=== PATIENT | male | born 1985 | race Caucasian/White ===

== ENCOUNTER 2017-01-20 05:50 | Emergency (ER) | payer MEDICARE, MEDICAID ==
[~2017-01-20 05:50] MED LIST: DEPA500T2 OR; IBUP600T OR; IMIT50TA OR; PROP40TA OR
[2017-01-20 07:07] LABS: BASO # 0.1 K/mm3 (0.0-0.2); BASO % 1.1 % (0.0-1.0); EOS # 0.6 K/mm3 (0.0-0.50); EOS % 5.5 % (0.0-3.0); LARGE UNSTAINED CELL # 0.1 K/mm3 (0.0-0.4); LYMPH # 1.1 K/mm3 (1.5-4.5); LYMPH % 9.2 % (24.0-44.0); MEAN CORPUSCULAR HEMOGLOBIN 33.2 pg (27.0-33.0); MEAN CORPUSCULAR HGB CONC 34.3 g/dl (32.0-36.5); MEAN CORPUSCULAR VOLUME 96.8 fl (80.0-96.0); MONO # 0.9 K/mm3 (0.0-0.8); MONO % 8.2 % (0.0-5.0); NEUTROPHILS # 8.3 K/mm3 (1.8-7.7); NEUTROPHILS % 74.9 % (36.0-66.0); PLATELET COUNT, AUTOMATED 212 k/mm3 (150-450); RED CELL DISTRIBUTION WIDTH 11.6 % (11.5-14.5)
[2017-01-20] MEDS ORDERED: levETIRAcetam 500 MG/5 ML VIAL (KEPPRA IV)(J1953) As Ordered ONE (07:13)
[2017-01-20 07:33] LABS: ANION GAP 8 MEQ/L (8-16); BLOOD UREA NITROGEN 11 MG/DL (7-18); CALCIUM LEVEL 9.1 MG/DL (8.5-10.1); CARBON DIOXIDE LEVEL 27 MEQ/L (21-32); CHLORIDE LEVEL 104 MEQ/L (98-107); CREATININE FOR GFR 0.87 MG/DL (0.70-1.30); GLOMERULAR FILTRATION RATE > 60.0 (>60); GLUCOSE, FASTING 88 MG/DL (70-105); POTASSIUM SERUM 4.1 MEQ/L (3.5-5.1); SODIUM LEVEL 139 MEQ/L (136-145)
--- NOTE | 2017-01-20 08:06 | EDDOCDS ---
Physician Documentation [facility] Name: Poncho Badillo Age: 31 yrs Sex: Male : 1985 Arrival Date: 01/20/2017 Time: 05:50 Bed 3 Private MD: Augie Rodríguez Disposition: 01/20/17 07:51 Discharged to Home/Self Care. Impression: Epilepsy and recurrent seizures. - Condition is Stable. - Discharge Instructions: Seizure, Adult, [id number]. - Medication Reconciliation, Local Pharmacy Hours form. - Follow up: Augie Rodríguez; When: 2 - 3 days. - Problem is an acute exacerbation. - Symptoms are resolved. Historical: - Allergies: no known allergies; - Home Meds: 1. Keppra 750 mg Oral tab 1 tab 2 times per day (Last dose: 01/20/2017 04:00) 2. sumatriptan succinate 6 mg/0.5 mL Sub-Q crtg as needed 3. verapamil 240 mg Oral tr24 2 tab daily (Last dose: 01/20/2017 04:00) - PMHx: Seizure Disorder; Cluster Headaches; - PSHx: none; - Social history: Smoking status: Patient states was never smoker of tobacco. No barriers to communication noted, The patient speaks fluent Icelandic. - Family history: Not pertinent. - : The pt / caregiver states he / she is not on anticoagulants. Home medication list is obtained from the patient. - Exposure Risk Screening:: None identified. Vital Signs: 01/20 05:56 BP 132 / 79 (auto/); kas2 05:56 Pulse Ox 97% ; kas2 05:58 BP 132 / 79; Pulse 73; Resp 18; Temp 96.8(O); Pulse Ox 96% on R/A; Weight 72.57 kg / rn1 159.99 lbs; Height 5 ft. 3 in. (160.02 cm); Pain 0/10; 06:00 BP 126 / 76 (auto/); kas2 06:00 Pulse 72 MON; Pulse Ox 96% ; kas2 06:15 BP 129 / 76 (auto/); kas2 06:15 Pulse 71 MON; Pulse Ox 92% ; kas2 08:04 BP 136 / 74; Pulse 76; Resp 18; Temp 97.8; Pulse Ox 95% ; Pain 0/10; hs1 05:58 Body Mass Index 28.34 (72.57 kg, 160.02 cm) rn1 MDM: 06:08 IV Saline Lock ordered. br1 06:08 Seizure Precautions ordered. br1 06:08 NS 0.9% 1000 ml IV at 150 mL/hr continuous ordered. br1 06:08 Poultry Farmer Egg/Pulse Ox/q 30 min VS ordered. br1 06:09 CBC with Diff Ordered. EDMS 06:09 BMP Ordered. EDMS 06:09 Keppra (short red top tube) Ordered. EDMS 06:10 ECG WITH READING ER PHYS+CARDIAG ordered. EDMS 07:06 levETIRAcetam (20mg/kg) 20 mg/kg IVPB at 400 mL/hr once over 15 mins; dilute in 100mL sd1 NS or D5W; 750mg ordered. 07:41 Financial registration complete. lg 07:54 CBC with Diff Reviewed. sd1 07:54 BMP Reviewed. sd1 Point of Care Testing: Blood Glucose: 05:59 Blood Glucose: 90 mg/dL; kas2 Ranges: Administered Medications: 06:30 Drug: NS 0.9% 1000 ml [sodium chloride 0.9 % intravenous solution] Route: IV; Rate: 150 kas2 mL/hr; Site: left forearm; 08:06 Follow up: IV Status: Infusion discontinued; IV Intake: 250ml hs1 07:18 Drug: levETIRAcetam (20mg/kg) 1451.4 mg [levetiracetam 500 mg/5 mL intravenous hs1 solution] Route: IVPB; Rate: 400 mL/hr; Infused Over: 15 mins; Site: left antecubital; Signatures: Dispatcher [employer] Neema Christianson MD MD sd1 Elia Toure Reg Reg lg Roggie, Brian, MD MD br1 Concha Perrin RN RN hs1 Marychuy Bourgeois RN RN kas2 MTDD
--- NOTE | 2017-01-20 08:06 | EDDOCDS ---
Nurse's Notes [facility] Name: Poncho Badillo Age: 31 yrs Sex: Male : 1985 Arrival Date: 01/20/2017 Time: 05:50 Bed 3 Private MD: Augie Rodríguez Diagnosis: Epilepsy and recurrent seizures Presentation: 01/20 05:53 Presenting complaint: EMS states: Patient has a history of seizures. Father witnessed kas2 one at approximately 0400. No seizure like activity for EMS. FSBS 90 mg/dL. Adult Sepsis Screening: The patient does not have new or worsening altered mentation. Patient's respiratory rate is less than 22. Systolic blood pressure is greater than 100. Patient has a qSOFA score of 0- Negative Sepsis Screen. Suicide/Homicide risk assessment- the patient denies having any suicidal and/or homicidal ideations and does not present with any other emotional, behavioral or mental health complaints. Status: Patient is not a room service bellhop or dependent. Transition of care: patient was not received from another setting of care. 05:53 Acuity: SUZANNA Level 3 [facility] 05:53 Method Of Arrival: Ambulance [facility] Triage Assessment: 05:57 General: Appears in no apparent distress, comfortable, well nourished, well groomed, kas2 Behavior is appropriate for age, cooperative. Pain: Denies pain. Pt Declines HIV testing. Neurological: Level of Consciousness is awake, alert, Oriented to person, place, time. Cardiovascular: Capillary refill < 3 seconds Heart tones S1 S2 present Rhythm is sinus rhythm No ectopy. Respiratory: Airway is patent Respiratory effort is even, unlabored, Respiratory pattern is regular, symmetrical, Breath sounds are clear bilaterally. Derm: Skin is intact, Skin is dry, Skin is pink, warm & dry. Skin temperature is warm. Historical: - Allergies: no known allergies; - Home Meds: 1. Keppra 750 mg Oral tab 1 tab 2 times per day (Last dose: 01/20/2017 04:00) 2. sumatriptan succinate 6 mg/0.5 mL Sub-Q crtg as needed 3. verapamil 240 mg Oral tr24 2 tab daily (Last dose: 01/20/2017 04:00) - PMHx: Seizure Disorder; Cluster Headaches; - PSHx: none; - Social history: Smoking status: Patient states was never smoker of tobacco. No barriers to communication noted, The patient speaks fluent Indonesian. - Family history: Not pertinent. - : The pt / caregiver states he / she is not on anticoagulants. Home medication list is obtained from the patient. - Exposure Risk Screening:: None identified. Screenin:00 Screening information is obtained from the patient. Fall risk: No risks identified. kas2 Assistance ADL's: requires no assistance with activities of daily living. Abuse/DV Screen: The patient / caregiver reports he/she is: not in a situation that causes fear, pain or injury. Nutritional screening: No deficits noted. Advance Directives: Currently, there is no health care proxy. There is no active DNR order. There is no living will. There is no Power of Child Nutrition Assistant. home support is adequate. Assessment: 05:59 General: See triage note.. kas2 06:31 General: Appears in no apparent distress, comfortable, well nourished, well groomed, kas2 Behavior is appropriate for age, cooperative, Smells of. Pain: Denies pain. Neurological: Level of Consciousness is awake, alert, Oriented to person, place, time. Cardiovascular: Rhythm is sinus rhythm No ectopy. Respiratory: Airway is patent Respiratory effort is even, unlabored, Respiratory pattern is regular, symmetrical. Derm: Skin is intact, Skin is dry, Skin is pink, warm & dry. Skin temperature is warm. 07:36 General: Appears in no apparent distress, Behavior is cooperative, restless, Patient hs1 wants to go home. Leads removed and disconnected self from monitor. . Respiratory: Airway is patent Respiratory effort is even, unlabored, Respiratory pattern is regular, symmetrical. 08:03 General: Appears in no apparent distress, comfortable, Behavior is appropriate for age, hs1 cooperative. Pain: Denies pain. Respiratory: Airway is patent Respiratory effort is even, unlabored, Respiratory pattern is regular, symmetrical. Vital Signs: 05:56 BP 132 / 79 (auto/); kas2 05:56 Pulse Ox 97% ; kas2 05:58 BP 132 / 79; Pulse 73; Resp 18; Temp 96.8(O); Pulse Ox 96% on R/A; Weight 72.57 kg; rn1 Height 5 ft. 3 in. (160.02 cm); Pain 0/10; 06:00 BP 126 / 76 (auto/); kas2 06:00 Pulse 72 MON; Pulse Ox 96% ; kas2 06:15 BP 129 / 76 (auto/); kas2 06:15 Pulse 71 MON; Pulse Ox 92% ; kas2 08:04 BP 136 / 74; Pulse 76; Resp 18; Temp 97.8; Pulse Ox 95% ; Pain 0/10; hs1 05:58 Body Mass Index 28.34 (72.57 kg, 160.02 cm) rn1 Vitals: 05:57 Log In Time N/A - ambulance arrival. kas2 ED Course: 05:51 Patient visited by Sebastian Valderrama PCA. kb5 05:51 Patient moved to Waiting kb5 05:52 Augie Rodríguez PA-C is Private Physician. kb5 05:52 Marychuy Bourgeois RN is Primary Nurse. kb5 05:52 Patient moved to 3 kb5 05:55 Triage Initiated kas2 05:59 Maintain field IV. Dressing intact. Site clean & dry. Gauge & site: 18G left forearm. kas2 No procedures done that require assistance. 06:00 Patient visited by Marychuy Bourgeois RN. kas2 06:32 Patient visited by Marychuy Bourgeois RN. kas2 06:38 EKG done. (by ED staff). Reviewed by Dov Kendall MD. rn1 06:41 Patient visited by Marychuy Bourgeois RN. kas2 06:54 Keppra (short red top tube) Sent. kas2 06:54 BMP Sent. kas2 06:54 CBC with Diff Sent. kas2 07:03 Neema Ramirez MD is Attending Physician. sd1 07:03 Patient visited by Neema Ramirez MD. sd1 07:47 Patient visited by Concha Perrin RN. hs1 07:51 Augie Rodríguez PA-C is Referral Physician. sd1 08:04 Discontinued IV lock intact, bleeding controlled, pressure dressing applied, No hs1 redness/swelling at site. 08:05 Primary Nurse role handed off by Marychuy Bourgeois RN mlb1 08:05 The patient / caregiver is instructed regarding the plan of care and ED course. hs1 08:05 Patient has correct armband on for positive identification. Bed in low position. Side hs1 rails up X2. Seizure precautions initiated. Administered Medications: 06:30 Drug: NS 0.9% 1000 ml [sodium chloride 0.9 % intravenous solution] Route: IV; Rate: 150 kas2 mL/hr; Site: left forearm; 08:06 Follow up: IV Status: Infusion discontinued; IV Intake: 250ml hs1 07:18 Drug: levETIRAcetam (20mg/kg) 1451.4 mg [levetiracetam 500 mg/5 mL intravenous hs1 solution] Route: IVPB; Rate: 400 mL/hr; Infused Over: 15 mins; Site: left antecubital; Point of Care Testing: Blood Glucose: 05:59 Blood Glucose: 90 mg/dL; kas2 Ranges: Intake: 08:06 IV: 250.00ml; Total: 250.00ml. hs1 Order Results: Lab Order: CBC with Diff; SPEC'M 01/20/17 06:53 Test: WHITE BLOOD COUNT; Value: 11.0; Range: 4.0-10.0; Abnormal: Above high normal; Units: K/mm3; Status: F Test: RED BLOOD COUNT; Value: 4.60; Range: 4.30-6.10; Units: M/mm3; Status: F Test: HEMOGLOBIN; Value: 15.3; Range: 14.0-18.0; Units: g/dl; Status: F Test: HEMATOCRIT; Value: 44.5; Range: 42.0-52.0; Units: %; Status: F Test: MEAN CORPUSCULAR VOLUME; Value: 96.8; Range: 80.0-96.0; Abnormal: Above high normal; Units: fl; Status: F Test: MEAN CORPUSCULAR HEMOGLOBIN; Value: 33.2; Range: 27.0-33.0; Abnormal: Above high normal; Units: pg; Status: F Test: MEAN CORPUSCULAR HGB CONC; Value: 34.3; Range: 32.0-36.5; Units: g/dl; Status: F Test: RED CELL DISTRIBUTION WIDTH; Value: 11.6; Range: 11.5-14.5; Units: %; Status: F Test: PLATELET COUNT, AUTOMATED; Value: 212; Range: 150-450; Units: k/mm3; Status: F Test: NEUTROPHILS %; Value: 74.9; Range: 36.0-66.0; Abnormal: Above high normal; Units: %; Status: F Test: LYMPH %; Value: 9.2; Range: 24.0-44.0; Abnormal: Below low normal; Units: %; Status: F Test: MONO %; Value: 8.2; Range: 0.0-5.0; Abnormal: Above high normal; Units: %; Status: F Test: EOS %; Value: 5.5; Range: 0.0-3.0; Abnormal: Above high normal; Units: %; Status: F Test: BASO %; Value: 1.1; Range: 0.0-1.0; Abnormal: Above high normal; Units: %; Status: F Test: LARGE UNSTAINED CELL %; Value: 1.0; Range: 0.0-4.0; Units: %; Status: F Test: NEUTROPHILS #; Value: 8.3; Range: 1.8-7.7; Abnormal: Above high normal; Units: K/mm3; Status: F Test: LYMPH #; Value: 1.1; Range: 1.5-4.5; Abnormal: Below low normal; Units: K/mm3; Status: F Test: MONO #; Value: 0.9; Range: 0.0-0.8; Abnormal: Above high normal; Units: K/mm3; Status: F Test: EOS #; Value: 0.6; Range: 0.0-0.50; Abnormal: Above high normal; Units: K/mm3; Status: F Test: BASO #; Value: 0.1; Range: 0.0-0.2; Units: K/mm3; Status: F Test: LARGE UNSTAINED CELL #; Value: 0.1; Range: 0.0-0.4; Units: K/mm3; Status: F Lab Order: [facility]; SPEC'M 01/20/17 06:53 Test: GLUCOSE, FASTING; Value: 88; Range: 70-105; Units: MG/DL; Status: F Test: BLOOD UREA NITROGEN; Value: 11; Range: 7-18; Units: MG/DL; Status: F Test: CREATININE FOR GFR; Value: 0.87; Range: 0.70-1.30; Units: MG/DL; Status: F Test: GLOMERULAR FILTRATION RATE; Value: > 60.0; Range: >60; Status: F Test: SODIUM LEVEL; Value: 139; Range: 136-145; Units: MEQ/L; Status: F Test: POTASSIUM SERUM; Value: 4.1; Range: 3.5-5.1; Units: MEQ/L; Status: F Test: CHLORIDE LEVEL; Value: 104; Range: 98-107; Units: MEQ/L; Status: F Test: CARBON DIOXIDE LEVEL; Value: 27; Range: 21-32; Units: MEQ/L; Status: F Test: ANION GAP; Value: 8; Range: 8-16; Units: MEQ/L; Status: F Test: CALCIUM LEVEL; Value: 9.1; Range: 8.5-10.1; Units: MG/DL; Status: F Test Note: ; Units are mL/min/1.73 m2 Chronic Kidney Disease Staging per NKF: Stage I & II GFR >=60 Normal to Mildly Decreased Stage III GFR 30-59 Moderately Decreased Stage IV GFR 15-29 Severely Decreased Stage V GFR <15 Very Little GFR Left ESRD GFR <15 on RN DOCUMENT IMPROVEMENT SPECIALIST Outcome: 07:51 Discharge ordered by Provider. sd1 08:04 Discharge Assessment: Patient awake, alert and oriented x 3. No cognitive and/or hs1 functional deficits noted. Patient verbalized understanding of disposition instructions. patient administered narcotics - no. The following High Risk Discharge criteria are identified: None. Discharged to home ambulatory, with parent. Condition: stable. Discharge instructions given to patient, Instructed on discharge instructions, follow up and referral plans. medication usage, Demonstrated understanding of instructions, medications, Pt was receptive of discharge instructions/ teaching. No special radiology studies were completed. Property sent home with patient. 08:05 Patient left the ED. hs1 Signatures: Neema Ramirez MD MD sd1 [employer] Pain[employer] RN RN mlb1 Sebastian Valderrama, FRIDA FORK TRUCK DRIVER kb5 Concha Perrin, RN RN hs1 Rowdy Veliz rn1 Marychuy Bourgeois,FRANCISCO RN kas2 MTDD
--- NOTE | 2017-01-20 10:06 | ECGEPIP ---
Stationary ECG Study [facility] - ED Test Date: 2017-01-20 Pat Name: MARISA HILLS Department: Room: - Gender: M Reprint Sorter: rn : 1985 Requested By: DAVID Wilkerson Order Number: [id number] Reading MD: Neema Ramirez Measurements Intervals [place] Rate: 83 P: 54 [place]: 206 QRS: 61 QRSD: 113 T: 34 QT: 368 QTc: 433 Interpretive Statements SINUS RHYTHM MODERATE INTRAVENTRICULAR CONDUCTION DELAY Electronically Signed On 01-20-2017 10:06:04 EST by Neema Ramirez
--- NOTE | 2017-01-22 09:06 | EDDOCDS ---
Nurse's Notes [facility] Name: Poncho Hills Age: 31 yrs Sex: Male : 1985 Arrival Date: 01/20/2017 Time: 05:50 Bed 3 Private MD: Augie Rodríguez Diagnosis: Epilepsy and recurrent seizures Presentation: 01/20 05:53 Presenting complaint: EMS states: Patient has a history of seizures. Father witnessed kas2 one at approximately 0400. No seizure like activity for EMS. FSBS 90 mg/dL. Adult Sepsis Screening: The patient does not have new or worsening altered mentation. Patient's respiratory rate is less than 22. Systolic blood pressure is greater than 100. Patient has a qSOFA score of 0- Negative Sepsis Screen. Suicide/Homicide risk assessment- the patient denies having any suicidal and/or homicidal ideations and does not present with any other emotional, behavioral or mental health complaints. Status: Patient is not a automotive fuel injection servicer or dependent. Transition of care: patient was not received from another setting of care. 05:53 Acuity: SUZANNA Level 3 [facility] 05:53 Method Of Arrival: Ambulance [facility] Triage Assessment: 05:57 General: Appears in no apparent distress, comfortable, well nourished, well groomed, kas2 Behavior is appropriate for age, cooperative. Pain: Denies pain. Pt Declines HIV testing. Neurological: Level of Consciousness is awake, alert, Oriented to person, place, time. Cardiovascular: Capillary refill < 3 seconds Heart tones S1 S2 present Rhythm is sinus rhythm No ectopy. Respiratory: Airway is patent Respiratory effort is even, unlabored, Respiratory pattern is regular, symmetrical, Breath sounds are clear bilaterally. Derm: Skin is intact, Skin is dry, Skin is pink, warm & dry. Skin temperature is warm. Historical: - Allergies: no known allergies; - Home Meds: 1. Keppra 750 mg Oral tab 1 tab 2 times per day (Last dose: 01/20/2017 04:00) 2. sumatriptan succinate 6 mg/0.5 mL Sub-Q crtg as needed 3. verapamil 240 mg Oral tr24 2 tab daily (Last dose: 01/20/2017 04:00) - PMHx: Seizure Disorder; Cluster Headaches; - PSHx: none; - Social history: Smoking status: Patient states was never smoker of tobacco. No barriers to communication noted, The patient speaks fluent Botswanan. - Family history: Not pertinent. - : The pt / caregiver states he / she is not on anticoagulants. Home medication list is obtained from the patient. - Exposure Risk Screening:: None identified. Screenin:00 Screening information is obtained from the patient. Fall risk: No risks identified. kas2 Assistance ADL's: requires no assistance with activities of daily living. Abuse/DV Screen: The patient / caregiver reports he/she is: not in a situation that causes fear, pain or injury. Nutritional screening: No deficits noted. Advance Directives: Currently, there is no health care proxy. There is no active DNR order. There is no living will. There is no Power of Credit Collections Manager. home support is adequate. Assessment: 05:59 General: See triage note.. kas2 06:31 General: Appears in no apparent distress, comfortable, well nourished, well groomed, kas2 Behavior is appropriate for age, cooperative, Smells of. Pain: Denies pain. Neurological: Level of Consciousness is awake, alert, Oriented to person, place, time. Cardiovascular: Rhythm is sinus rhythm No ectopy. Respiratory: Airway is patent Respiratory effort is even, unlabored, Respiratory pattern is regular, symmetrical. Derm: Skin is intact, Skin is dry, Skin is pink, warm & dry. Skin temperature is warm. 07:36 General: Appears in no apparent distress, Behavior is cooperative, restless, Patient hs1 wants to go home. Leads removed and disconnected self from monitor. . Respiratory: Airway is patent Respiratory effort is even, unlabored, Respiratory pattern is regular, symmetrical. 08:03 General: Appears in no apparent distress, comfortable, Behavior is appropriate for age, hs1 cooperative. Pain: Denies pain. Respiratory: Airway is patent Respiratory effort is even, unlabored, Respiratory pattern is regular, symmetrical. Vital Signs: 05:56 BP 132 / 79 (auto/); kas2 05:56 Pulse Ox 97% ; kas2 05:58 BP 132 / 79; Pulse 73; Resp 18; Temp 96.8(O); Pulse Ox 96% on R/A; Weight 72.57 kg; rn1 Height 5 ft. 3 in. (160.02 cm); Pain 0/10; 06:00 BP 126 / 76 (auto/); kas2 06:00 Pulse 72 MON; Pulse Ox 96% ; kas2 06:15 BP 129 / 76 (auto/); kas2 06:15 Pulse 71 MON; Pulse Ox 92% ; kas2 08:04 BP 136 / 74; Pulse 76; Resp 18; Temp 97.8; Pulse Ox 95% ; Pain 0/10; hs1 05:58 Body Mass Index 28.34 (72.57 kg, 160.02 cm) rn1 Vitals: 05:57 Log In Time N/A - ambulance arrival. kas2 ED Course: 05:51 Patient visited by Sebastian Valderrama PCA. kb5 05:51 Patient moved to Waiting kb5 05:52 Augie Rodríguez PA-C is Private Physician. kb5 05:52 Marychuy Bourgeois RN is Primary Nurse. kb5 05:52 Patient moved to 3 kb5 05:55 Triage Initiated kas2 05:59 Maintain field IV. Dressing intact. Site clean & dry. Gauge & site: 18G left forearm. kas2 No procedures done that require assistance. 06:00 Patient visited by Marychuy Bourgeois RN. kas2 06:32 Patient visited by Marychuy Bourgeois RN. kas2 06:38 EKG done. (by ED staff). Reviewed by David Kendall MD. rn1 06:41 Patient visited by Marychuy Bourgeois RN. kas2 06:54 Keppra (short red top tube) Sent. kas2 06:54 BMP Sent. kas2 06:54 CBC with Diff Sent. kas2 07:03 Neema Ramirez MD is Attending Physician. sd1 07:03 Patient visited by Neema Ramirez MD. sd1 07:47 Patient visited by Concha Perrin RN. hs1 07:51 Augie Rodríguez PA-C is Referral Physician. sd1 08:04 Discontinued IV lock intact, bleeding controlled, pressure dressing applied, No hs1 redness/swelling at site. 08:05 Primary Nurse role handed off by Marychuy Bourgeois RN mlb1 08:05 The patient / caregiver is instructed regarding the plan of care and ED course. hs1 08:05 Patient has correct armband on for positive identification. Bed in low position. Side hs1 rails up X2. Seizure precautions initiated. 08:07 [facility] Payment Agreement was scanned into [employer] and attached to record. 10:49 EKG-ADULT Returned. EDMS Administered Medications: 06:30 Drug: NS 0.9% 1000 ml [sodium chloride 0.9 % intravenous solution] Route: IV; Rate: 150 kas2 mL/hr; Site: left forearm; 08:06 Follow up: IV Status: Infusion discontinued; IV Intake: 250ml hs1 07:18 Drug: levETIRAcetam (20mg/kg) 1451.4 mg [levetiracetam 500 mg/5 mL intravenous hs1 solution] Route: IVPB; Rate: 400 mL/hr; Infused Over: 15 mins; Site: left antecubital; 08:06 Follow up: IV Status: Completed infusion; IV Intake: 100ml hs1 Point of Care Testing: Blood Glucose: 05:59 Blood Glucose: 90 mg/dL; kas2 Ranges: Intake: 08:06 IV: 250.00ml; Total: 250.00ml. hs1 08:06 IV: 100.00ml; Total: 350.00ml. hs1 Order Results: Lab Order: CBC with Diff; SPEC'M 01/20/17 06:53 Test: WHITE BLOOD COUNT; Value: 11.0; Range: 4.0-10.0; Abnormal: Above high normal; Units: K/mm3; Status: F Test: RED BLOOD COUNT; Value: 4.60; Range: 4.30-6.10; Units: M/mm3; Status: F Test: HEMOGLOBIN; Value: 15.3; Range: 14.0-18.0; Units: g/dl; Status: F Test: HEMATOCRIT; Value: 44.5; Range: 42.0-52.0; Units: %; Status: F Test: MEAN CORPUSCULAR VOLUME; Value: 96.8; Range: 80.0-96.0; Abnormal: Above high normal; Units: fl; Status: F Test: MEAN CORPUSCULAR HEMOGLOBIN; Value: 33.2; Range: 27.0-33.0; Abnormal: Above high normal; Units: pg; Status: F Test: MEAN CORPUSCULAR HGB CONC; Value: 34.3; Range: 32.0-36.5; Units: g/dl; Status: F Test: RED CELL DISTRIBUTION WIDTH; Value: 11.6; Range: 11.5-14.5; Units: %; Status: F Test: PLATELET COUNT, AUTOMATED; Value: 212; Range: 150-450; Units: k/mm3; Status: F Test: NEUTROPHILS %; Value: 74.9; Range: 36.0-66.0; Abnormal: Above high normal; Units: %; Status: F Test: LYMPH %; Value: 9.2; Range: 24.0-44.0; Abnormal: Below low normal; Units: %; Status: F Test: MONO %; Value: 8.2; Range: 0.0-5.0; Abnormal: Above high normal; Units: %; Status: F Test: EOS %; Value: 5.5; Range: 0.0-3.0; Abnormal: Above high normal; Units: %; Status: F Test: BASO %; Value: 1.1; Range: 0.0-1.0; Abnormal: Above high normal; Units: %; Status: F Test: LARGE UNSTAINED CELL %; Value: 1.0; Range: 0.0-4.0; Units: %; Status: F Test: NEUTROPHILS #; Value: 8.3; Range: 1.8-7.7; Abnormal: Above high normal; Units: K/mm3; Status: F Test: LYMPH #; Value: 1.1; Range: 1.5-4.5; Abnormal: Below low normal; Units: K/mm3; Status: F Test: MONO #; Value: 0.9; Range: 0.0-0.8; Abnormal: Above high normal; Units: K/mm3; Status: F Test: EOS #; Value: 0.6; Range: 0.0-0.50; Abnormal: Above high normal; Units: K/mm3; Status: F Test: BASO #; Value: 0.1; Range: 0.0-0.2; Units: K/mm3; Status: F Test: LARGE UNSTAINED CELL #; Value: 0.1; Range: 0.0-0.4; Units: K/mm3; Status: F [facility] 01/20/17 06:53 Test: GLUCOSE, FASTING; Value: 88; Range: 70-105; Units: MG/DL; Status: F Test: BLOOD UREA NITROGEN; Value: 11; Range: 7-18; Units: MG/DL; Status: F Test: CREATININE FOR GFR; Value: 0.87; Range: 0.70-1.30; Units: MG/DL; Status: F Test: GLOMERULAR FILTRATION RATE; Value: > 60.0; Range: >60; Status: F Test: SODIUM LEVEL; Value: 139; Range: 136-145; Units: MEQ/L; Status: F Test: POTASSIUM SERUM; Value: 4.1; Range: 3.5-5.1; Units: MEQ/L; Status: F Test: CHLORIDE LEVEL; Value: 104; Range: 98-107; Units: MEQ/L; Status: F Test: CARBON DIOXIDE LEVEL; Value: 27; Range: 21-32; Units: MEQ/L; Status: F Test: ANION GAP; Value: 8; Range: 8-16; Units: MEQ/L; Status: F Test: CALCIUM LEVEL; Value: 9.1; Range: 8.5-10.1; Units: MG/DL; Status: F Test Note: ; Units are mL/min/1.73 m2 Chronic Kidney Disease Staging per NKF: Stage I & II GFR >=60 Normal to Mildly Decreased Stage III GFR 30-59 Moderately Decreased Stage IV GFR 15-29 Severely Decreased Stage V GFR <15 Very Little GFR Left ESRD GFR <15 on MAMMAL CONTROL AGENT Radiology Order: EKG-ADULT Test: EKG-ADULT REASON FOR EXAMINATION: Syncope; Stationary ECG Study; [facility] - ED; ; Test Date: 2017-01-20; Pat Name: PONCHO HILLS Department:; Room: -; Gender: M 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 sd1 08:04 Discharge Assessment: Patient awake, alert and oriented x 3. No cognitive and/or hs1 functional deficits noted. Patient verbalized understanding of disposition instructions. patient administered narcotics - no. The following High Risk Discharge criteria are identified: None. Discharged to home ambulatory, with parent. Condition: stable. Discharge instructions given to patient, Instructed on discharge instructions, follow up and referral plans. medication usage, Demonstrated understanding of instructions, medications, Pt was receptive of discharge instructions/ teaching. No special radiology studies were completed. Property sent home with patient. 08:05 Patient left the ED. hs1 Signatures: Dispatcher [employer] EDMS Neema Ramirez MD MD sd1 Elia Toure, Gil Reg lg [employer], RN RN mlb1 Sebastian Valderrama, [facility] PSY[facility]IATR[facility] REGISTERED NURSE kb5 Concha Perrin, RN RN arnie1 Rowdy Veliz rn1 Marychuy BourgeoisRN RN kas2 Chart Complete MTDD
--- NOTE | 2017-01-22 09:06 | EDDOCDS ---
Physician Documentation [facility] Name: Poncho Badillo Age: 31 yrs Sex: Male : 1985 Arrival Date: 01/20/2017 Time: 05:50 Bed 3 Private MD: Augie Rodríguez Disposition: 01/20/17 07:51 Discharged to Home/Self Care. Impression: Epilepsy and recurrent seizures. - Condition is Stable. - Discharge Instructions: Seizure, Adult, [id number]. - Medication Reconciliation, Local Pharmacy Hours form. - Follow up: Augie Rodríguez; When: 2 - 3 days. - Problem is an acute exacerbation. - Symptoms are resolved. Historical: - Allergies: no known allergies; - Home Meds: 1. Keppra 750 mg Oral tab 1 tab 2 times per day (Last dose: 01/20/2017 04:00) 2. sumatriptan succinate 6 mg/0.5 mL Sub-Q crtg as needed 3. verapamil 240 mg Oral tr24 2 tab daily (Last dose: 01/20/2017 04:00) - PMHx: Seizure Disorder; Cluster Headaches; - PSHx: none; - Social history: Smoking status: Patient states was never smoker of tobacco. No barriers to communication noted, The patient speaks fluent Belarusian. - Family history: Not pertinent. - : The pt / caregiver states he / she is not on anticoagulants. Home medication list is obtained from the patient. - Exposure Risk Screening:: None identified. Vital Signs: 01/20 05:56 BP 132 / 79 (auto/); kas2 05:56 Pulse Ox 97% ; kas2 05:58 BP 132 / 79; Pulse 73; Resp 18; Temp 96.8(O); Pulse Ox 96% on R/A; Weight 72.57 kg / rn1 159.99 lbs; Height 5 ft. 3 in. (160.02 cm); Pain 0/10; 06:00 BP 126 / 76 (auto/); kas2 06:00 Pulse 72 MON; Pulse Ox 96% ; kas2 06:15 BP 129 / 76 (auto/); kas2 06:15 Pulse 71 MON; Pulse Ox 92% ; kas2 08:04 BP 136 / 74; Pulse 76; Resp 18; Temp 97.8; Pulse Ox 95% ; Pain 0/10; hs1 05:58 Body Mass Index 28.34 (72.57 kg, 160.02 cm) rn1 MDM: 06:08 IV Saline Lock ordered. br1 06:08 Seizure Precautions ordered. br1 06:08 NS 0.9% 1000 ml IV at 150 mL/hr continuous ordered. br1 06:08 Interactive Media Marketing Director/Pulse Ox/q 30 min VS ordered. br1 06:09 CBC with Diff Ordered. EDMS 06:09 BMP Ordered. EDMS 06:09 Keppra (short red top tube) Ordered. EDMS 06:10 ECG WITH READING ER PHYS+CARDIAG ordered. EDMS 07:06 levETIRAcetam (20mg/kg) 20 mg/kg IVPB at 400 mL/hr once over 15 mins; dilute in 100mL sd1 NS or D5W; 750mg ordered. 07:41 Financial registration complete. lg 07:54 CBC with Diff Reviewed. sd1 07:54 BMP Reviewed. sd1 08:07 [facility] Payment Agreement was scanned into [employer] and attached to record. Point of Care Testing: Blood Glucose: 05:59 Blood Glucose: 90 mg/dL; kas2 Ranges: Administered Medications: 06:30 Drug: NS 0.9% 1000 ml [sodium chloride 0.9 % intravenous solution] Route: IV; Rate: 150 kas2 mL/hr; Site: left forearm; 08:06 Follow up: IV Status: Infusion discontinued; IV Intake: 250ml hs1 07:18 Drug: levETIRAcetam (20mg/kg) 1451.4 mg [levetiracetam 500 mg/5 mL intravenous hs1 solution] Route: IVPB; Rate: 400 mL/hr; Infused Over: 15 mins; Site: left antecubital; 08:06 Follow up: IV Status: Completed infusion; IV Intake: 100ml hs1 Signatures: Dispatcher [employer] EDMS Neema Ramirez MD MD sd1 Elia Toure, Gil [facility] Dov Kendall MD MD br1 Concha Perrin RN RN hs1 Marychuy Bourgeois RN RN kas2 The chart was reviewed and I authenticate all verbal orders and agree with the evaluation and treatment provided.Attachments: 08:07 [facility] Payment Agreement lg Chart Complete MTDD
--- NOTE | 2017-01-22 09:06 | EDDOCDS ---
Physician Documentation [facility] Name: Poncho Badillo Age: 31 yrs Sex: Male : 1985 Arrival Date: 01/20/2017 Time: 05:50 Bed 3 Private MD: Augie Rodríguez Disposition: 01/20/17 07:51 Discharged to Home/Self Care. Impression: Epilepsy and recurrent seizures. - Condition is Stable. - Discharge Instructions: Seizure, Adult, [id number]. - Medication Reconciliation, Local Pharmacy Hours form. - Follow up: Augie Rodríguez; When: 2 - 3 days. - Problem is an acute exacerbation. - Symptoms are resolved. Historical: - Allergies: no known allergies; - Home Meds: 1. Keppra 750 mg Oral tab 1 tab 2 times per day (Last dose: 01/20/2017 04:00) 2. sumatriptan succinate 6 mg/0.5 mL Sub-Q crtg as needed 3. verapamil 240 mg Oral tr24 2 tab daily (Last dose: 01/20/2017 04:00) - PMHx: Seizure Disorder; Cluster Headaches; - PSHx: none; - Social history: Smoking status: Patient states was never smoker of tobacco. No barriers to communication noted, The patient speaks fluent Persian. - Family history: Not pertinent. - : The pt / caregiver states he / she is not on anticoagulants. Home medication list is obtained from the patient. - Exposure Risk Screening:: None identified. Vital Signs: 01/20 05:56 BP 132 / 79 (auto/); kas2 05:56 Pulse Ox 97% ; kas2 05:58 BP 132 / 79; Pulse 73; Resp 18; Temp 96.8(O); Pulse Ox 96% on R/A; Weight 72.57 kg / rn1 159.99 lbs; Height 5 ft. 3 in. (160.02 cm); Pain 0/10; 06:00 BP 126 / 76 (auto/); kas2 06:00 Pulse 72 MON; Pulse Ox 96% ; kas2 06:15 BP 129 / 76 (auto/); kas2 06:15 Pulse 71 MON; Pulse Ox 92% ; kas2 08:04 BP 136 / 74; Pulse 76; Resp 18; Temp 97.8; Pulse Ox 95% ; Pain 0/10; hs1 05:58 Body Mass Index 28.34 (72.57 kg, 160.02 cm) rn1 MDM: 06:08 IV Saline Lock ordered. br1 06:08 Seizure Precautions ordered. br1 06:08 NS 0.9% 1000 ml IV at 150 mL/hr continuous ordered. br1 06:08 Green Chain Off Bearer/Pulse Ox/q 30 min VS ordered. br1 06:09 CBC with Diff Ordered. EDMS 06:09 BMP Ordered. EDMS 06:09 Keppra (short red top tube) Ordered. EDMS 06:10 ECG WITH READING ER PHYS+CARDIAG ordered. EDMS 07:06 levETIRAcetam (20mg/kg) 20 mg/kg IVPB at 400 mL/hr once over 15 mins; dilute in 100mL sd1 NS or D5W; 750mg ordered. 07:41 Financial registration complete. lg 07:54 CBC with Diff Reviewed. sd1 07:54 BMP Reviewed. sd1 08:07 [facility] Payment Agreement was scanned into [employer] and attached to record. Point of Care Testing: Blood Glucose: 05:59 Blood Glucose: 90 mg/dL; kas2 Ranges: Administered Medications: 06:30 Drug: NS 0.9% 1000 ml [sodium chloride 0.9 % intravenous solution] Route: IV; Rate: 150 kas2 mL/hr; Site: left forearm; 08:06 Follow up: IV Status: Infusion discontinued; IV Intake: 250ml hs1 07:18 Drug: levETIRAcetam (20mg/kg) 1451.4 mg [levetiracetam 500 mg/5 mL intravenous hs1 solution] Route: IVPB; Rate: 400 mL/hr; Infused Over: 15 mins; Site: left antecubital; 08:06 Follow up: IV Status: Completed infusion; IV Intake: 100ml hs1 Signatures: Dispatcher [employer] EDMS Neema Ramirez MD MD sd1 Elia Toure, Gil [facility] Dov Kendall MD MD br1 Concha Perrin RN RN hs1 Marychuy Bourgeois RN RN kas2 The chart was reviewed and I authenticate all verbal orders and agree with the evaluation and treatment provided.Attachments: 08:07 [facility] Payment Agreement lg Chart Complete MTDD
== END 2017-01-20 08:05 | disposition home or self-care (01) ==
LOC: M ED 05:50
DX: G40.909 Epilepsy, unspecified, not intractable, without status epilepticus (principal); Z91.19 Patient's noncompliance with other medical treatment and regimen; G44.009 Cluster headache syndrome, unspecified, not intractable; Z79.899 Other long term (current) drug therapy
CPT/HCPCS: 36415; 80048; 80180; 85025; 93005; 93041; 96361; 96365; 99284; J1953

== ENCOUNTER 2017-02-12 08:35 | Emergency (ER) | payer MEDICARE, MEDICAID ==
[2017-02-12] MEDS ORDERED: LEVE750T5 PO (08:45)
[2017-02-12] MEDS ORDERED: VERA24TASA PO (08:45)
[2017-02-12] MEDS ORDERED: NS 1,000 ML IV SCH (08:58)
[2017-02-12] MEDS ORDERED: LORazepam 2 MG/ML VIAL (J2060) IV STA ×2 (09:06→09:23)
[2017-02-12] MEDS ORDERED: LORazepam 2 MG/ML VIAL (J2060) As Ordered ONE (09:08)
[2017-02-12 09:31] LABS: ALBUMIN 4.5 GM/DL (3.2-5.2); ALBUMIN/GLOBULIN RATIO 0.98 (1.00-1.93); ALKALINE PHOSPHATASE 113 U/L (45-117); ALT/SGPT 20 U/L (12-78); ANION GAP 28 MEQ/L (8-16); AST/SGOT 22 U/L (15-37); BILIRUBIN,DIRECT 0.1 MG/DL (0.0-0.2); BILIRUBIN,TOTAL 0.3 MG/DL (0.2-1.0); BLOOD UREA NITROGEN 10 MG/DL (7-18); CARBON DIOXIDE LEVEL 12 MEQ/L (21-32); CHLORIDE LEVEL 101 MEQ/L (98-107); CREATININE FOR GFR 1.54 MG/DL (0.70-1.30); GLOMERULAR FILTRATION RATE 56.7 (>60); GLUCOSE, FASTING 115 MG/DL (70-105); POTASSIUM SERUM 3.8 MEQ/L (3.5-5.1); SODIUM LEVEL 141 MEQ/L (136-145); TOTAL PROTEIN 9.1 GM/DL (6.4-8.2)
[2017-02-12 09:36] LABS: BASO # 0.2 K/mm3 (0.0-0.2); BASO % 0.9 % (0.0-1.0); EOS # 0.7 K/mm3 (0.0-0.50); EOS % 4.6 % (0.0-3.0); LARGE UNSTAINED CELL # 0.4 K/mm3 (0.0-0.4); LARGE UNSTAINED CELL % 2.3 % (0.0-4.0); LYMPH % 35.2 % (24.0-44.0); MEAN CORPUSCULAR HGB CONC 32.7 g/dl (32.0-36.5); MONO # 0.9 K/mm3 (0.0-0.8); MONO % 5.6 % (0.0-5.0); NEUTROPHILS # 8.3 K/mm3 (1.8-7.7); NEUTROPHILS % 51.3 % (36.0-66.0); PLATELET COUNT, AUTOMATED 317 k/mm3 (150-450); RED CELL DISTRIBUTION WIDTH 11.5 % (11.5-14.5)
--- NOTE | 2017-02-12 09:56 | REP ---
Portable chest x-ray: Sitting AP view. History: Drug overdose. Comparison chest x-ray April 22, 2016. Findings: EKG monitoring electrodes overlie the chest. The lungs are symmetrically aerated. No infiltrate is seen. Heart is not enlarged. Pulmonary vasculature is not increased. Impression: No acute disease. Signed by Kike Paz MD 02/12/2017 01:57 P
[2017-02-12 10:07] LABS: WHITE BLOOD COUNT 16.1 K/mm3 (4.0-10.0)
[2017-02-12 10:11] LABS: ABG HCO3 14.5 MEQ/L (22.0-26.0); ABG PARTIAL PRESSURE CO2 35.6 mmHg (35.0-45.0); ABG PARTIAL PRESSURE O2 78.1 mmHg (75.0-100.0); ABG STANDARD HCO3 15.3 MEQ/L (22.0-26.0); ABG TOTAL CO2 15.6 MEQ/L (22.0-29.0)
[2017-02-12 10:16] LABS: ABG pH (ARTERIAL) 7.229 UNITS (7.350-7.450)
[2017-02-12 10:32] LABS: MAGNESIUM LEVEL 2.5 MG/DL (1.8-2.4)
[2017-02-12 10:33] LABS: METHADONE URINE NEGATIVE (NEGATIVE)
--- NOTE | 2017-02-12 10:57 | REP ---
Head CT without contrast: History: Drug overdose. Comparison study: August 14, 2016. CT findings: Bone window settings demonstrate an intact bony calvarium. There is no evidence of skull fracture or incidental bony calvarial lesion. The visualized paranasal sinuses appear clear. No intraorbital abnormality is seen. On soft tissue window setting images; the lateral, third, and fourth ventricles are normal in size and position. Loera-white differentiation pattern is normal above and below the tentorium. There are is no evidence of intracranial hemorrhage. No mass, edema, infarction, or midline shift is seen. No extra-axial fluid collection is appreciated. Impression: Negative noncontrast head CT. Signed by Kike Paz MD 02/12/2017 10:49 A
[2017-02-12 11:31] LABS: BASO # 0.1 K/mm3 (0.0-0.2); BASO % 0.3 % (0.0-1.0); EOS # 0.2 K/mm3 (0.0-0.50); EOS % 0.9 % (0.0-3.0); LARGE UNSTAINED CELL # 0.1 K/mm3 (0.0-0.4); LARGE UNSTAINED CELL % 0.4 % (0.0-4.0); LYMPH # 1.3 K/mm3 (1.5-4.5); LYMPH % 4.3 % (24.0-44.0); MEAN CORPUSCULAR HEMOGLOBIN 32.7 pg (27.0-33.0); MEAN CORPUSCULAR HGB CONC 33.8 g/dl (32.0-36.5); MEAN CORPUSCULAR VOLUME 96.8 fl (80.0-96.0); MONO % 3.8 % (0.0-5.0); NEUTROPHILS # 24.3 K/mm3 (1.8-7.7); NEUTROPHILS % 90.4 % (36.0-66.0); PLATELET COUNT, AUTOMATED 245 k/mm3 (150-450); RED CELL DISTRIBUTION WIDTH 11.4 % (11.5-14.5); WHITE BLOOD COUNT 26.8 K/mm3 (4.0-10.0)
[2017-02-12 11:34] LABS: ABG BASE EXCESS -4.1 (-2.0-2.0); ABG HCO3 21.5 MEQ/L (22.0-26.0); ABG PARTIAL PRESSURE CO2 41.5 mmHg (35.0-45.0); ABG PARTIAL PRESSURE O2 160.5 mmHg (75.0-100.0); ABG STANDARD HCO3 21.2 MEQ/L (22.0-26.0); ABG TOTAL CO2 22.8 MEQ/L (22.0-29.0); ABG pH (ARTERIAL) 7.333 UNITS (7.350-7.450)
[2017-02-12 11:40] LABS: ANION GAP 10 MEQ/L (8-16); BLOOD UREA NITROGEN 11 MG/DL (7-18); CALCIUM LEVEL 9.4 MG/DL (8.5-10.1); CARBON DIOXIDE LEVEL 24 MEQ/L (21-32); CHLORIDE LEVEL 106 MEQ/L (98-107); CREATININE FOR GFR 1.21 MG/DL (0.70-1.30); GLOMERULAR FILTRATION RATE > 60.0 (>60); GLUCOSE, FASTING 103 MG/DL (70-105); POTASSIUM SERUM 4.1 MEQ/L (3.5-5.1); SODIUM LEVEL 140 MEQ/L (136-145)
[2017-02-12 12:14] VITALS: BP 160/93
--- NOTE | 2017-02-13 19:41 | ECGEPIP ---
Stationary ECG Study [facility] - ED Test Date: 2017-02-12 Pat Name: MARISA HILLS Department: Room: - Gender: M Supervisor Tellers: rn : 1985 Requested By: Mahin Vázquez Order Number: [id number] Reading MD: Neema Ramirez Measurements Intervals [place] Rate: 133 P: 64 PA: 143 QRS: 73 QRSD: 105 T: 58 QT: 338 QTc: 503 Interpretive Statements SINUS TACHYCARDIA POSSIBLE INFERIOR MYOCARDIAL INFARCTION, PROBABLY OLD ABNORMAL RHYTHM ECG NSTTW ABNORMALITY INCREASED RATE 01/20/17 Electronically Signed On 02-13-2017 19:41:43 EDT by Neema Ramirez
== END 2017-02-12 12:52 | disposition home or self-care (01) ==
LOC: M ED 10:04
DX: G40.909 Epilepsy, unspecified, not intractable, without status epilepticus (principal); E87.2 Acidosis; D72.829 Elevated white blood cell count, unspecified
CPT/HCPCS: 36600; 51701; 70450; 71010; 80048; 80076; 80180; 80306; 82550; 82803; 83605; 83735; 84443; 85025; 93005; 93041; 96374; 96376; 99285; G0480; J2060

== ENCOUNTER → 2017-02-16 | Outpatient (REF) | payer MEDICARE, MEDICAID ==
[~2017-02-16] MED LIST changes: +AUGM875T27 PO; +LEVE750T5 PO; +VERA24TASA PO
[2017-02-16 15:30] LABS: BASO # 0.1 K/mm3 (0.0-0.2); BASO % 0.8 % (0.0-1.0); EOS # 0.6 K/mm3 (0.0-0.50); EOS % 6.1 % (0.0-3.0); LARGE UNSTAINED CELL # 0.2 K/mm3 (0.0-0.4); LARGE UNSTAINED CELL % 1.7 % (0.0-4.0); LYMPH # 2.8 K/mm3 (1.5-4.5); MEAN CORPUSCULAR HEMOGLOBIN 33.4 pg (27.0-33.0); MEAN CORPUSCULAR HGB CONC 34.5 g/dl (32.0-36.5); MEAN CORPUSCULAR VOLUME 96.9 fl (80.0-96.0); MONO % 9.3 % (0.0-5.0); PLATELET COUNT, AUTOMATED 223 k/mm3 (150-450); RED CELL DISTRIBUTION WIDTH 11.3 % (11.5-14.5); WHITE BLOOD COUNT 10.6 K/mm3 (4.0-10.0)
== END ==
LOC: M SFHCPLAZ 12:30
PROVIDERS: ATTEND Physician Assistant
DX: G40.909 Epilepsy, unspecified, not intractable, without status epilepticus (principal)
CPT/HCPCS: 36415; 80180; 85025; G0463

== ENCOUNTER 2017-03-08 09:32 | Emergency (ER) | payer MEDICARE, MEDICAID ==
[~2017-03-08] VITALS: Ht 160 cm; Wt 72.6 kg
[~2017-03-08 09:32] MED LIST changes: -AUGM875T27 PO
[2017-03-08] MEDS ORDERED: NAPROXEN 250 MG TAB PO ONE (10:15)
[2017-03-08] MEDS ORDERED: AUGM875T27 PO (10:45)
[2017-03-08 11:16] VITALS: BP 143/86
--- NOTE | 2017-03-08 11:33 | REP ---
RIGHT KNEE SERIES: FIVE VIEWS HISTORY: Trauma. FINDINGS: Five views of the right knee are compared with prior study from 06/12/2016. These show moderate prepatellar soft tissue swelling today, particularly on the lateral and sunrise views. No evidence of joint effusion, however. No fracture or subluxation seen. IMPRESSION: Moderate prepatellar soft-tissue swelling. No fracture or other bony abnormality. Signed by Kike Paz MD 03/08/2017 11:51 A
== END 2017-03-08 11:17 | disposition home or self-care (01) ==
LOC: M ED 10:47
DX: S80.212A Abrasion, left knee, initial encounter (principal); S80.02XA Contusion of left knee, initial encounter; W19.XXXA Unspecified fall, initial encounter; Y92.410 Unspecified street and highway as the place of occurrence of the external cause; Y93.55 Activity, bike riding; Y99.9 Unspecified external cause status; M25.462 Effusion, left knee; Z79.899 Other long term (current) drug therapy

== ENCOUNTER 2017-03-16 14:33 | Emergency (ER) | payer MEDICARE, MEDICAID ==
[~2017-03-16] VITALS: Ht 160 cm; Wt 72.6 kg
[~2017-03-16 14:33] MED LIST changes: +AUGM875T27 PO
[2017-03-16] MEDS ORDERED: CEPHALEXIN 500 MG CAP PO ONE (16:00)
--- NOTE | 2017-03-16 17:05 | REP ---
Left knee series: Five views: History: Trauma. Findings: There is moderate prepatellar soft-tissue swelling question prepatellar bursitis. This is essentially unchanged from the 03/08/2017 study. There is no evidence of joint effusion. No fracture or subluxation is seen. Impression: Persistent moderate prepatellar soft tissue swelling question bursitis. No bony abnormality. Signed by Kike Paz MD 03/16/2017 05:09 P
--- NOTE | 2017-03-16 17:06 | REP ---
LEFT ANKLE, FOUR VIEWS: HISTORY: Trauma. There is no acute fracture or dislocation. The joint space is normal in appearance. IMPRESSION: There is no acute fracture or dislocation. Signed by David Thrasher MD 03/16/2017 05:07 P
[2017-03-16] MEDS ORDERED: KEFL500C7 PO (17:25)
[2017-03-16 17:35] VITALS: BP 162/86
== END 2017-03-16 17:40 | disposition home or self-care (01) ==
LOC: M ED 16:13
DX: S90.02XA Contusion of left ankle, initial encounter (principal); S80.02XA Contusion of left knee, initial encounter; V19.9XXA Pedal cyclist (driver) (passenger) injured in unspecified traffic accident, initial encounter; Y92.410 Unspecified street and highway as the place of occurrence of the external cause; Y93.9 Activity, unspecified; Y99.9 Unspecified external cause status; G43.909 Migraine, unspecified, not intractable, without status migrainosus; R56.9 Unspecified convulsions; F17.200 Nicotine dependence, unspecified, uncomplicated; Z79.899 Other long term (current) drug therapy

== ENCOUNTER 2017-03-29 02:50 | Emergency (ER) | payer MEDICARE, MEDICAID ==
[~2017-03-29 02:50] MED LIST changes: +KEFL500C7 PO
[2017-03-29] MEDS ORDERED: TYLETAB14 PO (15:38)
== END 2017-03-29 03:07 | disposition left against medical advice (07) ==
LOC: M ED 03:02
DX: Z53.21 Procedure and treatment not carried out due to patient leaving prior to being seen by health care provider (principal)

== ENCOUNTER 2017-03-29 13:50 | Emergency (ER) | payer MEDICARE, MEDICAID ==
[~2017-03-29] VITALS: Ht 160 cm; Wt 74.8 kg
[2017-03-29] MEDS ORDERED: ACETAMINOPH W/CODEINE #3 TAB UD PO ONE (15:15)
[2017-03-29] MEDS ORDERED: TYLETAB14 PO (15:38)
[2017-03-29 15:52] VITALS: BP 160/90
--- NOTE | 2017-03-29 16:11 | REP ---
RIGHT FINGERS, FOUR VIEWS: HISTORY: Trauma. There is no acute fracture. There is posteromedial dislocation of the distal phalange of the first digit. IMPRESSION: Dislocation of the distal phalange of the first digit. Signed by David Thrasher MD 03/29/2017 04:12 P
== END 2017-03-29 15:54 | disposition home or self-care (01) ==
LOC: M ED 14:54
DX: S63.101A Unspecified subluxation of right thumb, initial encounter (principal); X50.9XXA Other and unspecified overexertion or strenuous movements or postures, initial encounter; Y92.89 Other specified places as the place of occurrence of the external cause; Y93.72 Activity, wrestling; Y99.8 Other external cause status; G43.909 Migraine, unspecified, not intractable, without status migrainosus; Z79.899 Other long term (current) drug therapy

== ENCOUNTER 2017-04-02 09:05 | Emergency (ER) | payer MEDICARE, MEDICAID ==
[~2017-04-02 09:05] MED LIST changes: +TYLETAB14 PO
[2017-04-02] MEDS: LORazepam 2 MG/ML VIAL (J2060) IM STA ×2 (09:12→09:47)
[2017-04-02] MEDS ORDERED: LORazepam 2 MG/ML VIAL (J2060) As Ordered ONE (09:13)
[2017-04-02] MEDS ORDERED: levETIRAcetam INJection 1,000 MG in D5W 100 ML IV ONE (09:30)
[2017-04-02] MEDS ORDERED: NS 1,000 ML IV ONE (09:30)
[2017-04-02 09:37] LABS: ADD MORPHOLOGY? YES; BASO # 0.2 K/mm3 (0.0-0.2); BASO % 0.9 % (0.0-1.0); EOS # 0.9 K/mm3 (0.0-0.50); EOS % 5.1 % (0.0-3.0); LARGE UNSTAINED CELL # 0.3 K/mm3 (0.0-0.4); LARGE UNSTAINED CELL % 1.9 % (0.0-4.0); LYMPH # 4.8 K/mm3 (1.5-4.5); LYMPH % 27.4 % (24.0-44.0); MEAN CORPUSCULAR HEMOGLOBIN 34.4 pg (27.0-33.0); MEAN CORPUSCULAR VOLUME 110.9 fl (80.0-96.0); MONO # 0.9 K/mm3 (0.0-0.8); NEUTROPHILS # 10.4 K/mm3 (1.8-7.7); NEUTROPHILS % 59.6 % (36.0-66.0); PLATELET COUNT, AUTOMATED 308 k/mm3 (150-450); RED CELL DISTRIBUTION WIDTH 11.4 % (11.5-14.5); WHITE BLOOD COUNT 17.5 K/mm3 (4.0-10.0)
[2017-04-02 09:52] LABS: HYPOCHROMASIA 2+
[2017-04-02 09:53] LABS: ANION GAP 27 MEQ/L (8-16); BLOOD UREA NITROGEN 17 MG/DL (7-18); CALCIUM LEVEL 9.8 MG/DL (8.5-10.1); CARBON DIOXIDE LEVEL 14 MEQ/L (21-32); CHLORIDE LEVEL 103 MEQ/L (98-107); CREATININE FOR GFR 1.42 MG/DL (0.70-1.30); GLOMERULAR FILTRATION RATE > 60.0 (>60); GLUCOSE, FASTING 140 MG/DL (70-105); METHADONE URINE NEGATIVE (NEGATIVE); POTASSIUM SERUM 3.9 MEQ/L (3.5-5.1); SODIUM LEVEL 144 MEQ/L (136-145)
[2017-04-02] MEDS ORDERED: LORazepam 2 MG/ML VIAL (J2060) IM STA ×3 (09:54→09:56)
[2017-04-02] MEDS ORDERED: LORazepam 2 MG/ML VIAL (J2060) IV STA ×2 (09:55→10:01)
--- NOTE | 2017-04-02 11:08 | REP ---
CT Head without contrast HISTORY: Altered mental status COMPARISON: 02/12/2017 There is no intraparenchymal hemorrhage, acute infarct, mass or midline shift. The ventricular system is normal in appearance. Cavum septi pellucidi and vergae are present. There is no extra cerebral collection. There is no fracture. The visualized sinuses are clear. IMPRESSION: There is no intracranial lesion. Signed by David Thrasher MD 04/02/2017 11:00 A
[2017-04-02] MEDS ORDERED: IMIT50TA PO (11:26)
[2017-04-02] MEDS ORDERED: LEVE750T5 PO (11:26)
[2017-04-02] MEDS ORDERED: TYLETAB14 PO (11:26)
[2017-04-02] MEDS ORDERED: VERA24TASA PO (11:26)
[2017-04-02] MEDS ORDERED: SUMA6INJ16 SC (11:33)
[2017-04-02] MEDS ORDERED: PATIENT COMMENT (11:34)
[2017-04-02 13:06] VITALS: BP 134/73
== END 2017-04-02 16:03 | disposition left against medical advice (07) ==
LOC: EDBD 09:05 → M ED 10:42
DX: G40.909 Epilepsy, unspecified, not intractable, without status epilepticus (principal); F12.10 Cannabis abuse, uncomplicated; Z79.899 Other long term (current) drug therapy
CPT/HCPCS: 70450; 80048; 80164; 80306; 85025; 96372; 96374; 96375; 99284; G0480; J1953; J2060

== ENCOUNTER → 2017-04-07 | Outpatient (REF) | payer MEDICARE, MEDICAID ==
[~2017-04-07] MED LIST changes: +IMIT50TA PO; +PATIENT COMMENT; +SUMA6INJ16 SC
== END ==
LOC: M SFHCPLAZ 15:37
PROVIDERS: ATTEND Physician Assistant
DX: G40.909 Epilepsy, unspecified, not intractable, without status epilepticus (principal)
CPT/HCPCS: 36415; 80180; G0463

== ENCOUNTER → 2017-07-14 | Outpatient (REF) ==
[~2017-07-14] MED LIST changes: -AUGM875T27 PO; +AUGM875T28 PO; +KEFL500C17 PO; -KEFL500C7 PO
--- NOTE | 2017-07-14 15:06 | REP ---
Left knee five views: Comparison is 03/16/2017. The prepatellar bursitis identified previously has resolved. Mineralization joint spaces are normal. There is no fracture or dislocation. No effusion. Impression: Negative left knee. The previous prepatellar bursitis has resolved. Signed by Saul Sharma MD 07/14/2017 02:58 P
== END ==
LOC: M SMT 13:14
PROVIDERS: ATTEND Internal Medicine
DX: M25.562 Pain in left knee (principal)

== ENCOUNTER 2017-07-15 17:47 | Emergency (ER) | payer MEDICARE, MEDICAID ==
[~2017-07-15] VITALS: Ht 160 cm; Wt 72.3 kg
[2017-07-15 17:54] VITALS: BP 127/58
== END 2017-07-15 18:29 | disposition left against medical advice (07) ==
LOC: M ED 17:47
DX: R56.9 Unspecified convulsions (principal); Z53.29 Procedure and treatment not carried out because of patient's decision for other reasons

== ENCOUNTER 2017-08-23 11:37 | Emergency (ER) | payer MEDICARE, MEDICAID ==
[~2017-08-23] VITALS: Ht 152.4 cm; Wt 78.2 kg
[2017-08-23 12:07] LABS: MEAN CORPUSCULAR HEMOGLOBIN 33.1 pg (27.0-33.0); MEAN CORPUSCULAR VOLUME 106.6 fl (80.0-96.0); PLATELET COUNT, AUTOMATED 305 10^3/uL (150-450); RED CELL DISTRIBUTION WIDTH 11.8 % (11.5-14.5)
[2017-08-23 12:12] LABS: ADD MANUAL DIFFER YES; DIFF SLIDE NUMBER 214
[2017-08-23 12:35] LABS: EOSINOPHILS 4 % (0-5)
[2017-08-23 12:43] LABS: ALBUMIN 4.4 GM/DL (3.2-5.2); ALBUMIN/GLOBULIN RATIO 1.02 (1.00-1.93); ALKALINE PHOSPHATASE 108 U/L (45-117); ALT/SGPT 29 U/L (12-78); ANION GAP 33 MEQ/L (8-16); AST/SGOT 27 U/L (15-37); BILIRUBIN,DIRECT 0.1 MG/DL (0.0-0.2); BILIRUBIN,TOTAL 0.5 MG/DL (0.2-1.0); BLOOD UREA NITROGEN 12 MG/DL (7-18); CALCIUM LEVEL 9.3 MG/DL (8.5-10.1); CARBON DIOXIDE LEVEL 7 MEQ/L (21-32); CHLORIDE LEVEL 99 MEQ/L (98-107); CREATININE FOR GFR 1.86 MG/DL (0.70-1.30); GLOMERULAR FILTRATION RATE 45.3 (>60); GLUCOSE, FASTING 206 MG/DL (70-105); POTASSIUM SERUM 3.4 MEQ/L (3.5-5.1); SODIUM LEVEL 139 MEQ/L (136-145); TOTAL PROTEIN 8.7 GM/DL (6.4-8.2)
[2017-08-23 13:02] LABS: OSMOLALITY SERUM 319 MOSM/KG (275-295)
[2017-08-23 14:49] LABS: METHADONE URINE NEGATIVE (NEGATIVE)
[2017-08-23 15:04] VITALS: BP 145/71
--- NOTE | 2017-08-23 18:10 | ECGEPIP ---
Stationary ECG Study [facility] - ED Test Date: 2017-08-23 Pat Name: MARISA HILLS Department: Room: - Gender: M Investigations Consultant: kar : 1985 Requested By: Neema Ramirez Order Number: [id number] Reading MD: Mahin Singh Measurements Intervals [place] Rate: 126 P: PA: 0 QRS: 69 QRSD: 109 T: 47 QT: 366 QTc: 531 Interpretive Statements SINUS TACHYCARDIA WITH FIRST DEGREE AV BLOCK Electronically Signed On 08-23-2017 18:10:09 EDT by Mahin Singh
== END 2017-08-23 15:46 | disposition left against medical advice (07) ==
LOC: M ED 11:37
DX: R56.9 Unspecified convulsions (principal); R00.0 Tachycardia, unspecified; I44.0 Atrioventricular block, first degree; G43.909 Migraine, unspecified, not intractable, without status migrainosus; G44.009 Cluster headache syndrome, unspecified, not intractable; F41.9 Anxiety disorder, unspecified; F32.9 Major depressive disorder, single episode, unspecified; Z79.899 Other long term (current) drug therapy
CPT/HCPCS: 80048; 80076; 80180; 80307; 82550; 83930; 84443; 85025; 93005; 93041; 94760; 99285; G0480

== ENCOUNTER 2017-08-26 16:53 | Emergency (ER) | payer MEDICARE, MEDICAID ==
[~2017-08-26] VITALS: Ht 152.4 cm; Wt 72.3 kg
[2017-08-26 16:53] VITALS: BP 158/86
== END 2017-08-26 19:04 | disposition left against medical advice (07) ==
LOC: M ED 16:53
DX: R10.9 Unspecified abdominal pain (principal); Z53.21 Procedure and treatment not carried out due to patient leaving prior to being seen by health care provider

== ENCOUNTER → 2017-08-26 | Outpatient (REF) | payer MEDICARE, MEDICAID ==
[2017-08-26 16:21] LABS: MEAN CORPUSCULAR HEMOGLOBIN 33.1 pg (27.0-33.0); MEAN CORPUSCULAR HGB CONC 34.4 g/dl (32.0-36.5); MEAN CORPUSCULAR VOLUME 96.3 fl (80.0-96.0); PLATELET COUNT, AUTOMATED 246 10^3/uL (150-450); RED CELL DISTRIBUTION WIDTH 11.5 % (11.5-14.5); WHITE BLOOD COUNT 12.3 10^3/uL (4.0-10.0)
[2017-08-26 16:22] LABS: ALBUMIN 3.8 GM/DL (3.2-5.2); ALBUMIN/GLOBULIN RATIO 0.95 (1.00-1.93); BILIRUBIN,TOTAL 0.5 MG/DL (0.2-1.0); CALCIUM LEVEL 9.3 MG/DL (8.5-10.1); CREATININE FOR GFR 2.23 MG/DL (0.70-1.30); GLOMERULAR FILTRATION RATE 36.8 (>60); POTASSIUM SERUM 3.8 MEQ/L (3.5-5.1); TOTAL PROTEIN 7.8 GM/DL (6.4-8.2)
[2017-08-26 16:28] LABS: ADD MANUAL DIFFER YES; DIFF SLIDE NUMBER 276
[2017-08-26 21:31] LABS: BASOPHILS 2 % (0-4); EOSINOPHILS 4 % (0-5)
[2017-08-26 21:32] LABS: PLATELET CLUMPS SMALL AMT
== END ==
LOC: M SFHCPLAZ 14:54
PROVIDERS: ATTEND Physician Assistant
DX: R11.2 Nausea with vomiting, unspecified (principal)
CPT/HCPCS: 80053; 85025; G0463

== ENCOUNTER → 2017-08-30 | Outpatient (REF) | payer MEDICARE, MEDICAID ==
[2017-08-30 16:15] LABS: ANION GAP 6 MEQ/L (8-16); BLOOD UREA NITROGEN 13 MG/DL (7-18); CALCIUM LEVEL 9.4 MG/DL (8.5-10.1); CARBON DIOXIDE LEVEL 31 MEQ/L (21-32); CHLORIDE LEVEL 102 MEQ/L (98-107); CREATININE FOR GFR 1.06 MG/DL (0.70-1.30); GLOMERULAR FILTRATION RATE > 60.0 (>60); GLUCOSE, FASTING 77 MG/DL (70-105); POTASSIUM SERUM 4.5 MEQ/L (3.5-5.1); SODIUM LEVEL 139 MEQ/L (136-145)
== END ==
LOC: M SFHCPLAZ 11:57
PROVIDERS: ATTEND Family Medicine
DX: R79.89 Other specified abnormal findings of blood chemistry (principal); Z51.81 Encounter for therapeutic drug level monitoring; Z79.899 Other long term (current) drug therapy
CPT/HCPCS: 80048; 80180; 82570; 84156; G0463

== ENCOUNTER → 2017-09-06 | Outpatient (REF) | payer MEDICARE, MEDICAID | LOC: M SFHCPLAZ 12:52 | PROVIDERS: ATTEND Physician Assistant | DX: N17.9 Acute kidney failure, unspecified (principal) ==

== ENCOUNTER 2017-12-14 17:39 | Emergency (ER) | payer MEDICARE, MEDICAID | END 2017-12-14 18:10 | disposition left against medical advice (07) | LOC: M ED 17:39 | DX: Z53.29 Procedure and treatment not carried out because of patient's decision for other reasons (principal) ==

== ENCOUNTER 2018-03-29 18:42 | Emergency (ER) | payer MEDICARE, MEDICAID | END 2018-03-29 19:02 | disposition left against medical advice (07) | LOC: M ED 18:42 | DX: R56.9 Unspecified convulsions (principal); Z53.21 Procedure and treatment not carried out due to patient leaving prior to being seen by health care provider ==

== ENCOUNTER → 2018-04-19 | Outpatient (REF) | payer MEDICARE, MEDICAID ==
[2018-04-19 18:20] LABS: BASO # 0.1 10^3/uL (0.0-0.2); BASO % 1.2 % (0.0-1.0); EOS # 0.5 10^3/uL (0.0-0.50); EOS % 4.9 % (0.0-3.0); HEMATOCRIT 44.8 % (42.0-52.0); HEMOGLOBIN 15.3 g/dl (13.5-17.5); IMMATURE GRANULOCYTE % 1.5 % (0-3.0); LYMPH # 3.3 10^3/uL (1.5-4.5); LYMPH % 29.6 % (24.0-44.0); MEAN CORPUSCULAR HEMOGLOBIN 33.8 pg (27.0-33.0); MEAN CORPUSCULAR HGB CONC 34.2 g/dl (32.0-36.5); MEAN CORPUSCULAR VOLUME 98.9 fl (80.0-96.0); MONO # 1.2 10^3/uL (0.0-0.8); MONO % 10.6 % (0.0-5.0); NEUTROPHILS # 5.8 10^3/uL (1.8-7.7); NEUTROPHILS % 52.2 % (36.0-66.0); PLATELET COUNT, AUTOMATED 276 10^3/uL (150-450); RED BLOOD COUNT 4.53 10^6/uL (4.30-6.10); RED CELL DISTRIBUTION WIDTH 11.4 % (11.5-14.5)
[2018-04-19 18:29] LABS: ALBUMIN 4.1 GM/DL (3.2-5.2); ALBUMIN/GLOBULIN RATIO 1.11 (1.00-1.93); ALKALINE PHOSPHATASE 90 U/L (45-117); ALT/SGPT 25 U/L (12-78); ANION GAP 8 MEQ/L (8-16); AST/SGOT 19 U/L (7-37); BILIRUBIN,TOTAL 0.4 MG/DL (0.2-1.0); BLOOD UREA NITROGEN 12 MG/DL (7-18); CARBON DIOXIDE LEVEL 28 MEQ/L (21-32); CHLORIDE LEVEL 102 MEQ/L (98-107); CREATININE FOR GFR 1.06 MG/DL (0.70-1.30); GLOMERULAR FILTRATION RATE > 60.0 (>60); GLUCOSE, FASTING 76 MG/DL (70-100); POTASSIUM SERUM 4.2 MEQ/L (3.5-5.1); SODIUM LEVEL 138 MEQ/L (136-145); TOTAL PROTEIN 7.8 GM/DL (6.4-8.2)
[2018-04-19 18:40] LABS: FOLATE 9.8 NG/ML (>5.4); VITAMIN B12 LEVEL 361 PG/ML (247-911)
== END ==
LOC: M SFHCPLAZ 15:32
DX: K62.5 Hemorrhage of anus and rectum (principal); R71.8 Other abnormality of red blood cells; K64.9 Unspecified hemorrhoids
CPT/HCPCS: 82746

== ENCOUNTER 2018-10-23 09:11 | Emergency (ER) | payer MEDICAID, MEDICARE ==
[2018-10-23] MEDS: NAPROXEN 250 MG TAB PO (09:39)
== END 2018-10-23 10:28 | disposition home or self-care (01) ==
LOC: M ED 09:11
DX: M25.512 Pain in left shoulder (principal)
CPT/HCPCS: 73030

== ENCOUNTER 2018-12-10 14:50 | Emergency (ER) | payer MEDICAID ==
[~2018-12-10] VITALS: Ht 160 cm; Wt 75.0 kg
[~2018-12-10 14:50] MED LIST changes: +HYDR2.5C54; +KEPP10002; +LEVE250T5; +NAPR-50 PO; +SERT25TA88
[2018-12-10 14:51] VITALS: BP 143/85
== END 2018-12-10 15:27 | disposition left against medical advice (07) ==
LOC: M ED 14:50
DX: R41.82 Altered mental status, unspecified (principal); G40.909 Epilepsy, unspecified, not intractable, without status epilepticus; G44.009 Cluster headache syndrome, unspecified, not intractable; F41.9 Anxiety disorder, unspecified; F32.9 Major depressive disorder, single episode, unspecified; Z79.899 Other long term (current) drug therapy

== ENCOUNTER 2019-01-28 16:24 | Emergency (ER) | payer MEDICAID ==
[~2019-01-28] VITALS: Ht 160 cm; Wt 75.0 kg
[2019-01-28 16:24] VITALS: BP 141/86
[2019-01-28] MEDS ORDERED: LEVE750XR PO (16:28)
[2019-01-28] MEDS ORDERED: DERMABOND TOPICAL SKIN ADHESIVE TOP ONE (17:00)
== END 2019-01-28 17:12 | disposition home or self-care (01) ==
LOC: M ED 16:24
DX: S61.212A Laceration without foreign body of right middle finger without damage to nail, initial encounter (principal); W26.8XXA Contact with other sharp object(s), not elsewhere classified, initial encounter; Y92.89 Other specified places as the place of occurrence of the external cause; Y99.0 Civilian activity done for income or pay; G40.909 Epilepsy, unspecified, not intractable, without status epilepticus; Z79.899 Other long term (current) drug therapy

== ENCOUNTER 2019-02-14 14:14 | Emergency (ER) | payer MEDICAID ==
[~2019-02-14] VITALS: Ht 175.3 cm; Wt 72.7 kg
[~2019-02-14 14:14] MED LIST changes: +LEVE750XR PO
[2019-02-14] MEDS ORDERED: LORazepam 1 MG TAB PO ONE (14:45)
[2019-02-14 15:26] VITALS: BP 138/76
== END 2019-02-14 15:34 | disposition home or self-care (01) ==
LOC: EDBD 14:14 → M ED 14:14
DX: G40.909 Epilepsy, unspecified, not intractable, without status epilepticus (principal); I10 Essential (primary) hypertension; G44.009 Cluster headache syndrome, unspecified, not intractable; F14.90 Cocaine use, unspecified, uncomplicated; Z79.899 Other long term (current) drug therapy

== ENCOUNTER 2019-03-06 01:10 | Emergency (ER) | payer MEDICAID, MEDICARE ==
[~2019-03-06 01:10] MED LIST changes: -NAPR-50 PO; +NAPR-837 PO
[2019-03-06 01:30] VITALS: BP 156/87
== END 2019-03-06 01:36 | disposition left against medical advice (07) ==
LOC: M ED 01:10
DX: R56.9 Unspecified convulsions (principal); Z53.21 Procedure and treatment not carried out due to patient leaving prior to being seen by health care provider

== ENCOUNTER 2019-04-04 15:24 | Emergency (ER) | payer MEDICAID, OTHER ==
[2019-04-04] MEDS ORDERED: ONDANSETRON 4MG/2ML VIAL (J2405) As Ordered ONE (15:57)
[2019-04-04] MEDS ORDERED: ONDANSETRON 4MG/2ML VIAL (J2405) IV ONE (16:00)
[2019-04-04 16:45] VITALS: BP 113/71
[2019-04-04 17:03] LABS: BASO # 0.2 10^3/uL (0.0-0.2); EOS # 0.4 10^3/uL (0.0-0.50); EOS % 2.3 % (0.0-3.0); HEMATOCRIT 47.5 % (42.0-52.0); HEMOGLOBIN 15.5 g/dl (13.5-17.5); LYMPH # 4.2 10^3/uL (1.5-4.5); LYMPH % 26.5 % (24.0-44.0); MEAN CORPUSCULAR HEMOGLOBIN 32.6 pg (27.0-33.0); MEAN CORPUSCULAR HGB CONC 32.6 g/dl (32.0-36.5); MEAN CORPUSCULAR VOLUME 99.8 fl (80.0-96.0); MONO # 1.6 10^3/uL (0.0-0.8); NEUTROPHILS # 9.4 10^3/uL (1.8-7.7); NEUTROPHILS % 59.4 % (36.0-66.0); PLATELET COUNT, AUTOMATED 295 10^3/uL (150-450); RED BLOOD COUNT 4.76 10^6/uL (4.30-6.10); WHITE BLOOD COUNT 15.9 10^3/uL (4.0-10.0)
[2019-04-04 17:26] LABS: ALBUMIN 4.6 GM/DL (3.2-5.2); ALT/SGPT 68 U/L (12-78); BILIRUBIN,DIRECT 0.1 MG/DL (0.0-0.2); BILIRUBIN,TOTAL 0.4 MG/DL (0.2-1.0); BLOOD UREA NITROGEN 13 MG/DL (7-18); CALCIUM LEVEL 9.4 MG/DL (8.5-10.1); CARBON DIOXIDE LEVEL 16 MEQ/L (21-32); CHLORIDE LEVEL 100 MEQ/L (98-107); CREATININE FOR GFR 1.48 MG/DL (0.70-1.30); ETHYL ALCOHOL (ETHANOL) < 0.003 % (0.000-0.010); GLOMERULAR FILTRATION RATE 58.6 (>60); GLUCOSE, FASTING 143 MG/DL (70-100); POTASSIUM SERUM 3.5 MEQ/L (3.5-5.1); SODIUM LEVEL 137 MEQ/L (136-145); TOTAL PROTEIN 8.2 GM/DL (6.4-8.2)
== END 2019-04-04 17:26 | disposition left against medical advice (07) ==
LOC: EDBD 15:24 → M ED 15:24
DX: G40.909 Epilepsy, unspecified, not intractable, without status epilepticus (principal); Z79.899 Other long term (current) drug therapy
CPT/HCPCS: 80048; 80076; 80180; 84443; 85025; 96374; 99284; G0480; J2405

== ENCOUNTER 2019-04-04 17:58 | Emergency (ER) | payer MEDICAID, OTHER ==
[~2019-04-04] VITALS: Ht 160 cm; Wt 72.7 kg
--- NOTE | 2019-04-04 18:47 | REPVR ---
EXAM: CT Head Without Contrast EXAM DATE/TIME: 04/04/2019 6:28 PM CLINICAL HISTORY: 33 years old, male; Injury or trauma; Fall; Initial encounter; Concussion / head injury; Additional info: Fall with head trauma TECHNIQUE: Imaging protocol: Axial computed tomography images of the head/brain without contrast. Radiation optimization: All CT scans at this facility use at least one of these dose optimization techniques: automated exposure control; mA and/or kV adjustment per patient size (includes targeted exams where dose is matched to clinical indication); or iterative reconstruction. COMPARISON: CT Head without contrast 04/02/2017 10:02 AM FINDINGS: Brain: Normal. No hemorrhage. No significant white matter disease. No edema. Ventricles: There's a cavum septum pellucida and cavum vergae. Bones/joints: Unremarkable. No acute fracture. Sinuses: Because of thickening noted within the ethmoid air cells. Mastoid air cells: Visualized mastoid air cells are unremarkable. No mastoid effusion. Soft tissues: Unremarkable. IMPRESSION: 1. No acute findings Electronically signed by: Le Castellon On 04/04/2019 18:46:52 PM
[2019-04-04 20:30] VITALS: BP 122/78
== END 2019-04-04 20:50 | disposition home or self-care (01) ==
LOC: M ED 17:58
DX: S01.01XA Laceration without foreign body of scalp, initial encounter (principal); W19.XXXA Unspecified fall, initial encounter; Y92.238 Other place in hospital as the place of occurrence of the external cause; G40.909 Epilepsy, unspecified, not intractable, without status epilepticus; Z79.899 Other long term (current) drug therapy

== ENCOUNTER 2019-05-16 13:08 | Emergency (ER) | payer MEDICAID, MEDICARE, OTHER ==
[~2019-05-16] VITALS: Ht 160 cm; Wt 72.7 kg
[2019-05-16] MEDS ORDERED: DERMABOND TOPICAL SKIN ADHESIVE TOP ONE (15:45)
[2019-05-16 16:04] VITALS: BP 167/100
== END 2019-05-16 16:04 | disposition home or self-care (01) ==
LOC: M ED 14:42
DX: S61.012A Laceration without foreign body of left thumb without damage to nail, initial encounter (principal); W25.XXXA Contact with sharp glass, initial encounter; Y92.9 Unspecified place or not applicable; Y93.9 Activity, unspecified; Z79.899 Other long term (current) drug therapy; Z86.69 Personal history of other diseases of the nervous system and sense organs

== ENCOUNTER 2019-06-26 15:44 | Emergency (ER) | payer MEDICAID, OTHER, SELFPAY ==
[~2019-06-26] VITALS: Ht 160 cm; Wt 68.1 kg
[2019-06-26 15:44] VITALS: BP 161/92
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
== END 2019-06-26 19:43 | disposition left against medical advice (07) ==
LOC: M ED 15:44
DX: S40.211A Abrasion of right shoulder, initial encounter (principal); S40.212A Abrasion of left shoulder, initial encounter; S00.83XA Contusion of other part of head, initial encounter; V18.0XXA Pedal cycle driver injured in noncollision transport accident in nontraffic accident, initial encounter; Y92.89 Other specified places as the place of occurrence of the external cause; R56.9 Unspecified convulsions; Z79.899 Other long term (current) drug therapy

== ENCOUNTER 2019-06-27 11:19 | Emergency (ER) | payer SELFPAY ==
[~2019-06-27] VITALS: Ht 160 cm; Wt 68.6 kg
[2019-06-27 11:28] VITALS: BP 178/102
== END 2019-06-27 11:54 | disposition left against medical advice (07) ==
LOC: M ED 11:19 → EDBD 11:19 → M ED 11:54
DX: Z53.21 Procedure and treatment not carried out due to patient leaving prior to being seen by health care provider (principal)

== ENCOUNTER 2019-06-27 15:03 | Emergency (ER) | payer MEDICAID, SELFPAY ==
[~2019-06-27] VITALS: Ht 160 cm; Wt 68.2 kg
[2019-06-27] MEDS ORDERED: LORazepam 2 MG/ML VIAL (J2060) As Ordered ONE (15:28)
[2019-06-27] MEDS ORDERED: levETIRAcetam INJection 1,250 MG in D5W 100 ML IV ONE (15:45)
[2019-06-27 15:48] LABS: HEMATOCRIT 44.1 % (42.0-52.0); HEMOGLOBIN 14.7 g/dl (13.5-17.5); MEAN CORPUSCULAR HGB CONC 33.3 g/dl (32.0-36.5); MEAN CORPUSCULAR VOLUME 102.1 fl (80.0-96.0); PLATELET COUNT, AUTOMATED 227 10^3/uL (150-450); RED BLOOD COUNT 4.32 10^6/uL (4.30-6.10); WHITE BLOOD COUNT 19.7 10^3/uL (4.0-10.0)
[2019-06-27 16:16] LABS: ALBUMIN 4.2 GM/DL (3.2-5.2); ALT/SGPT 52 U/L (12-78); BILIRUBIN,DIRECT 0.2 MG/DL (0.0-0.2); BILIRUBIN,TOTAL 0.9 MG/DL (0.2-1.0); TOTAL PROTEIN 8.3 GM/DL (6.4-8.2)
[2019-06-27] MEDS ORDERED: LORazepam 2 MG/ML VIAL (J2060) IV STA (16:18)
[2019-06-27 16:25] LABS: LYMPHOCYTES 8 % (16-52); MONOCYTES 12 % (0-8); NEUTROPHILS 79 % (35-75)
[2019-06-27 16:26] LABS: PLATELET ESTIMATE NORMAL (NORMAL)
[2019-06-27 17:28] LABS: AMPHETAMINES LEVEL URINE NEGATIVE (NEGATIVE); BARBITURATES URINE NEGATIVE (NEGATIVE); BENZODIAZEPINES URINE NEGATIVE (NEGATIVE); CANNABINOIDS URINE POSITIVE (NEGATIVE); COCAINE METABOLITE URINE NEGATIVE (NEGATIVE); METHADONE URINE NEGATIVE (NEGATIVE); OPIATES URINE NEGATIVE (NEGATIVE); PHENCYCLIDINE URINE NEGATIVE (NEGATIVE)
[2019-06-27] MEDS ORDERED: NS 1,000 ML IV ONE (17:45)
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
[2019-06-27 17:57] LABS: BLOOD UREA NITROGEN 8 MG/DL (7-18); CALCIUM LEVEL 9.6 MG/DL (8.5-10.1); CARBON DIOXIDE LEVEL 15 MEQ/L (21-32); CHLORIDE LEVEL 102 MEQ/L (98-107); CREATININE FOR GFR 1.43 MG/DL (0.70-1.30); GLOMERULAR FILTRATION RATE > 60.0 (>60); GLUCOSE, FASTING 162 MG/DL (70-100); POTASSIUM SERUM 3.6 MEQ/L (3.5-5.1); SODIUM LEVEL 137 MEQ/L (136-145)
--- NOTE | 2019-06-27 18:12 | REPVR ---
EXAM: CT Head Without Contrast EXAM DATE/TIME: 06/27/2019 5:23 PM CLINICAL HISTORY: 34 years old, male; Injury or trauma; Fall; Initial encounter; Concussion / head injury TECHNIQUE: Imaging protocol: Computed tomography images of the head without contrast. Radiation optimization: All CT scans at this facility use at least one of these dose optimization techniques: automated exposure control; mA and/or kV adjustment per patient size (includes targeted exams where dose is matched to clinical indication); or iterative reconstruction. COMPARISON: CT Head without contrast 04/04/2019 6:21 PM FINDINGS: Brain: No hemorrhage. No mass effect. No evolving territorial infarct. Ventricles: Stable. Size asymmetry of the lateral ventricles is likely physiologic. No ventriculomegaly. There is a cavum septum pellucidum and cavum vergae, normal variant. Bones/joints: No acute calvarial fracture seen. Sinuses: Visualized sinuses are unremarkable. No fluid levels. Mastoid air cells: Visualized mastoid air cells are well aerated. No mastoid effusion. Soft tissues: Left frontal scalp soft tissue swelling. IMPRESSION: No acute intracranial abnormality seen. Electronically signed by: Faviola Carpenter On 06/27/2019 18:12:23 PM
[2019-06-27 18:30] VITALS: BP 153/83
--- NOTE | 2019-06-28 19:30 | ECGEPIP ---
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
== END 2019-06-27 19:00 | disposition home or self-care (01) ==
LOC: M ED 15:03 → EDBD 15:03 → M ED 19:00
DX: G40.909 Epilepsy, unspecified, not intractable, without status epilepticus (principal); M25.561 Pain in right knee; Z91.14 Patient's other noncompliance with medication regimen; G43.909 Migraine, unspecified, not intractable, without status migrainosus; Z79.899 Other long term (current) drug therapy
CPT/HCPCS: 70450; 73564; 80048; 80076; 80180; 80307; 85025; 93005; 96374; 96375; 99285; J1953; J2060

== ENCOUNTER 2019-11-10 10:48 | Emergency (ER) | payer MEDICAID, SELFPAY ==
[~2019-11-10] VITALS: Ht 162.6 cm; Wt 72.7 kg
[~2019-11-10 10:48] MED LIST changes: +SERT25TA21; -SERT25TA88
[2019-11-10 12:08] LABS: HEMATOCRIT 44.2 % (42.0-52.0); HEMOGLOBIN 15.3 g/dl (13.5-17.5); MEAN CORPUSCULAR HEMOGLOBIN 33.8 pg (27.0-33.0); MEAN CORPUSCULAR HGB CONC 34.6 g/dl (32.0-36.5); MEAN CORPUSCULAR VOLUME 97.8 fl (80.0-96.0); PLATELET COUNT, AUTOMATED 216 10^3/uL (150-450); RED BLOOD COUNT 4.52 10^6/uL (4.30-6.10)
[2019-11-10] MEDS ORDERED: NS 1,000 ML IV ONE (12:15)
[2019-11-10] MEDS ORDERED: DERMABOND TOPICAL SKIN ADHESIVE TOP ONE (12:30)
[2019-11-10 12:31] LABS: ACETAMINOPHEN LEVEL < 2.0 UG/ML (10.0-30.0); ALBUMIN 4.2 GM/DL (3.2-5.2); ALT/SGPT 45 U/L (12-78); BILIRUBIN,DIRECT 0.4 MG/DL (0.0-0.2); BILIRUBIN,TOTAL 1.2 MG/DL (0.2-1.0); BLOOD UREA NITROGEN 10 MG/DL (7-18); CALCIUM LEVEL 9.7 MG/DL (8.5-10.1); CARBON DIOXIDE LEVEL 27 MEQ/L (21-32); CHLORIDE LEVEL 97 MEQ/L (98-107); CPK CREATINE PHOSPHOKINASE 974 U/L (39-308); CREATININE FOR GFR 1.05 MG/DL (0.70-1.30); ETHYL ALCOHOL (ETHANOL) < 0.003 % (0.000-0.010); GLOMERULAR FILTRATION RATE > 60.0 (>60); GLUCOSE, FASTING 120 MG/DL (70-100); LIPASE 81 U/L (73-393); POTASSIUM SERUM 3.4 MEQ/L (3.5-5.1); SALICYLATE LEVEL < 1.7 MG/DL (5.0-30.0); SODIUM LEVEL 135 MEQ/L (136-145); THYROID STIMULATING HORMONE 0.775 uIU/ML (0.358-3.740); TOTAL PROTEIN 8.3 GM/DL (6.4-8.2)
[2019-11-10] MEDS ORDERED: ISOVUE-370 76% 100ML VIAL (Q9967) As Ordered ONE (12:39)
[2019-11-10 13:24] LABS: AMPHETAMINES LEVEL URINE NEGATIVE (NEGATIVE); BARBITURATES URINE NEGATIVE (NEGATIVE); BENZODIAZEPINES URINE NEGATIVE (NEGATIVE); CANNABINOIDS URINE POSITIVE (NEGATIVE); COCAINE METABOLITE URINE NEGATIVE (NEGATIVE); METHADONE URINE NEGATIVE (NEGATIVE); OPIATES URINE NEGATIVE (NEGATIVE); PHENCYCLIDINE URINE NEGATIVE (NEGATIVE)
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
--- NOTE | 2019-11-10 13:41 | REP ---
CT cervical spine: Indication: Cervical spine trauma. Comparison: 12/30/2011. Findings: There is no acute fracture, subluxation or dislocation. No hemorrhage or additional acute post traumatic sequelae are present within the spinal canal. Spondylitic sequelae are present most pronounced anteriorly at C5/C6. There is straightening of the cervical lordosis. No significant spinal canal narrowing is detected. Impression: No acute osseous injury of the cervical spine. Electronically Signed by Andres Byrne DO 11/10/2019 01:32 P
[2019-11-10] MEDS ORDERED: LIDOCAINE 1% MDV 20ML VIAL SC ONE (13:45)
[2019-11-10] MEDS ORDERED: AUGMENTIN 875 MG TAB PO ONE (14:00)
[2019-11-10] MEDS ORDERED: levETIRAcetam INJection 500 MG in D5W MINI-BAG PLUS 100 ML IV ONE (14:00)
[2019-11-10 14:29] LABS: BASO # 0.1 10^3/uL (0.0-0.2); BASO % 0.5 % (0.0-1.0); LYMPH # 0.8 10^3/uL (1.5-5.0); LYMPH % 3.9 % (24.0-44.0); MONO # 1.9 10^3/uL (0.0-0.8); MONO % 9.2 % (0.0-5.0); NEUTROPHILS # 17.2 10^3/uL (1.5-8.5); NEUTROPHILS % 85.7 % (36.0-66.0)
[2019-11-10] MEDS ORDERED: AUGM875T28 PO (14:31)
[2019-11-10 14:32] LABS: PLATELET ESTIMATE NORMAL (NORMAL)
[2019-11-10 15:03] VITALS: BP 165/100
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
--- NOTE | 2019-11-10 16:27 | REP ---
CT ABDOMEN/PELVIS WITH IV BUT WITHOUT ORAL CONTRAST: HISTORY: Injury in a fall. Left chest and left upper quadrant pain. CT CONTRAST DOSE: 100 mL of intravenous Isovue-370. CT FINDINGS: The liver is normal in size, homogeneous in texture. Spleen is unremarkable. There are small cysts in each kidney. The largest of these is in the left kidney measuring 1.3 cm in diameter. No hydronephrosis or renal trauma is seen. No abnormality is noted in the gallbladder. The pancreas is unremarkable. The spleen is intact. No retroperitoneal hematoma or mass is seen. Urinary bladder is largely empty but appears intact. Seminal vesicles and prostate are unremarkable. Small and large intestinal bowel loops show no obstructive lesion or mass lesion. Normal appendix is seen. No abdominal wall defect is observed. On bone window settings, there is a bilateral L5 spondylolysis and a 9 mm, grade 2, L5-S1 spondylolisthesis is present. This is a degenerative finding with some reactive sclerosis in the facets at this level. No acute traumatic bony abnormality. IMPRESSION: No acute traumatic abnormality. Bilateral L5 spondylolysis and grade 2, 9 mm L5-S1 spondylolisthesis. Degenerative disc disease with bulging of the L4-5 disc is also noted. Small cortical renal cysts are noted bilaterally. Electronically Signed by Kike Paz MD 11/10/2019 05:04 P
--- NOTE | 2019-11-10 16:58 | REP ---
RIGHT HAND SERIES, FOUR VIEWS: There is no evidence of an acute fracture, dislocation or intrinsic bone disease. IMPRESSION: No fracture or dislocation. Electronically Signed by Saul Loera MD 11/13/2019 04:14 P
--- NOTE | 2019-11-10 16:58 | REP ---
RIGHT ELBOW, FOUR VIEWS: There is no evidence of an acute fracture, dislocation or intrinsic bone disease. IMPRESSION: No fracture or dislocation. Electronically Signed by Saul Loera MD 11/13/2019 04:14 P
--- NOTE | 2019-11-10 20:16 | ECGEPIP ---
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
--- NOTE | 2019-11-11 08:15 | ED PDOC ---
Post-Departure Follow-Up dr oro faxed formal report of ct chst for fu Sneha Torres MD Nov 11, 2019 08:15
== END 2019-11-10 15:33 | disposition left against medical advice (07) ==
LOC: M ED 10:48
DX: G40.89 Other seizures (principal); S02.2XXB Fracture of nasal bones, initial encounter for open fracture; S61.411A Laceration without foreign body of right hand, initial encounter; I45.19 Other right bundle-branch block; R00.0 Tachycardia, unspecified; R94.31 Abnormal electrocardiogram [ECG] [EKG]; G44.001 Cluster headache syndrome, unspecified, intractable; F41.9 Anxiety disorder, unspecified; F32.9 Major depressive disorder, single episode, unspecified; Z53.21 Procedure and treatment not carried out due to patient leaving prior to being seen by health care provider; M51.26 Other intervertebral disc displacement, lumbar region; M43.06 Spondylolysis, lumbar region; M43.16 Spondylolisthesis, lumbar region; N28.1 Cyst of kidney, acquired; X58.XXXA Exposure to other specified factors, initial encounter; Y92.9 Unspecified place or not applicable; Y93.9 Activity, unspecified; Y99.9 Unspecified external cause status; Z79.899 Other long term (current) drug therapy
CPT/HCPCS: 12001; 12011; 70450; 70486; 71260; 72125; 73080; 73130; 74177; 80048; 80076; 80180; 80307; 82550; 83690; 84443; 85027; 93005; 96360; 96361; 99284; G0480; J1953; Q9967

== ENCOUNTER → 2019-11-17 | Outpatient (REF) | payer OTHER, SELFPAY ==
[2019-11-17 11:45] LABS: BASO # 0.2 10^3/uL (0.0-0.2); BASO % 1.4 % (0.0-1.0); EOS # 0.5 10^3/uL (0.0-0.5); EOS % 4.2 % (0.0-3.0); HEMATOCRIT 43.2 % (42.0-52.0); HEMOGLOBIN 14.7 g/dl (13.5-17.5); LYMPH # 2.4 10^3/uL (1.5-5.0); LYMPH % 22.2 % (24.0-44.0); MEAN CORPUSCULAR HEMOGLOBIN 33.9 pg (27.0-33.0); MEAN CORPUSCULAR VOLUME 99.5 fl (80.0-96.0); MONO # 1.5 10^3/uL (0.0-0.8); MONO % 13.4 % (0.0-5.0); NEUTROPHILS # 6.1 10^3/uL (1.5-8.5); NEUTROPHILS % 55.9 % (36.0-66.0); PLATELET COUNT, AUTOMATED 282 10^3/uL (150-450); RED BLOOD COUNT 4.34 10^6/uL (4.30-6.10); WHITE BLOOD COUNT 10.8 10^3/uL (4.0-10.0)
[2019-11-17 12:17] LABS: ALBUMIN 3.9 GM/DL (3.2-5.2); ALT/SGPT 45 U/L (12-78); BILIRUBIN,TOTAL 0.4 MG/DL (0.2-1.0); BLOOD UREA NITROGEN 16 MG/DL (7-18); CALCIUM LEVEL 9.1 MG/DL (8.5-10.1); CARBON DIOXIDE LEVEL 26 MEQ/L (21-32); CHLORIDE LEVEL 106 MEQ/L (98-107); CREATININE FOR GFR 0.88 MG/DL (0.70-1.30); GLOMERULAR FILTRATION RATE > 60.0 (>60); GLUCOSE, FASTING 81 MG/DL (70-100); POTASSIUM SERUM 4.1 MEQ/L (3.5-5.1); SODIUM LEVEL 138 MEQ/L (136-145); TOTAL PROTEIN 7.5 GM/DL (6.4-8.2)
== END ==
LOC: M SFHCPLAZ 10:17
PROVIDERS: ATTEND Family Medicine
DX: D72.829 Elevated white blood cell count, unspecified (principal); R74.0 Nonspecific elevation of levels of transaminase and lactic acid dehydrogenase [LDH]; Z51.81 Encounter for therapeutic drug level monitoring

== ENCOUNTER 2020-02-08 12:39 | Inpatient (IN) | payer OTHER, SELFPAY ==
[~2020-02-08] VITALS: Ht 160 cm; Wt 73.2 kg
[2020-02-08] MEDS ORDERED: levETIRAcetam INJection 1,000 MG in D5W 100 ML IV STA (13:24)
[2020-02-08] MEDS ORDERED: NS 1,000 ML IV ONE ×2 (13:30→15:15)
[2020-02-08 14:00] LABS: BASO # 0.1 10^3/uL (0.0-0.2); BASO % 0.7 % (0.0-1.0); HEMATOCRIT 54.7 % (42.0-52.0); HEMOGLOBIN 17.4 g/dl (13.5-17.5); LYMPH # 1.7 10^3/uL (1.5-5.0); LYMPH % 8.4 % (24.0-44.0); MEAN CORPUSCULAR HEMOGLOBIN 33.9 pg (27.0-33.0); MEAN CORPUSCULAR HGB CONC 31.8 g/dl (32.0-36.5); MEAN CORPUSCULAR VOLUME 106.6 fl (80.0-96.0); MONO # 1.4 10^3/uL (0.0-0.8); MONO % 6.8 % (0.0-5.0); NEUTROPHILS # 17.1 10^3/uL (1.5-8.5); NEUTROPHILS % 83.3 % (36.0-66.0); PLATELET COUNT, AUTOMATED 213 10^3/uL (150-450); RED BLOOD COUNT 5.13 10^6/uL (4.30-6.10); WHITE BLOOD COUNT 20.5 10^3/uL (4.0-10.0)
--- NOTE | 2020-02-08 14:18 | REP ---
Portable chest, 02:03 p.m., single AP view with the patient upright: Comparison is 02/12/2017. The lung chowdhury are clear. The cardiac size is normal. The johnathon, mediastinum, and skeletal structures are unremarkable. Impression: Negative portable chest. There is no interval change. Electronically Signed by Saul Sharma MD 02/08/2020 02:10 P
[2020-02-08 14:22] LABS: OSMOLALITY SERUM 318 MOSM/KG (275-295)
[2020-02-08 14:27] LABS: ACETAMINOPHEN LEVEL < 2.0 UG/ML (10.0-30.0); ALBUMIN 4.8 GM/DL (3.2-5.2); ALT/SGPT 147 U/L (12-78); BILIRUBIN,DIRECT 0.4 MG/DL (0.0-0.2); BILIRUBIN,TOTAL 1.1 MG/DL (0.2-1.0); BLOOD UREA NITROGEN 11 MG/DL (7-18); CALCIUM LEVEL 10.4 MG/DL (8.5-10.1); CARBON DIOXIDE LEVEL 15 MEQ/L (21-32); CHLORIDE LEVEL 98 MEQ/L (98-107); CK-MB VALUE MASS < 1.0 NG/ML (<3.6); CPK CREATINE PHOSPHOKINASE 359 U/L (39-308); CREATININE FOR GFR 1.37 MG/DL (0.70-1.30); ETHYL ALCOHOL (ETHANOL) 0.003 % (0.000-0.010); GLOMERULAR FILTRATION RATE > 60.0 (>60); GLUCOSE, FASTING 164 MG/DL (70-100); MB/CK RELATIVE INDEX 0.28 (< OR =4); POTASSIUM SERUM 3.7 MEQ/L (3.5-5.1); SALICYLATE LEVEL < 1.7 MG/DL (5.0-30.0); SODIUM LEVEL 138 MEQ/L (136-145); TOTAL PROTEIN 9.4 GM/DL (6.4-8.2); TROPONIN I < 0.02 NG/ML (< 0.10)
[2020-02-08] MEDS ORDERED: ISOVUE-370 76% 100ML VIAL (Q9967) As Ordered ONE (15:02)
[2020-02-08] MEDS ORDERED: NS 500 ML IV ONE (15:15)
[2020-02-08] MEDS ORDERED: LORazepam 2 MG/ML VIAL (J2060) IV STA (15:30)
[2020-02-08] MEDS ORDERED: LORazepam 2 MG/ML VIAL (J2060) As Ordered ONE (15:31)
--- NOTE | 2020-02-08 15:39 | REP ---
Head CT without contrast: History: Seizure. Comparison study: Comparison head CT study November 10, 2019. CT findings: The patient is rotated somewhat to the left in the gantry. Bone window settings demonstrate an intact bony calvarium. There is no evidence of skull fracture or incidental bony calvarial lesion. The visualized paranasal sinuses appear clear. No intraorbital abnormality is seen. On soft tissue window setting images; the lateral, third, and fourth ventricles are normal in size and position. Loera-white differentiation pattern is normal above and below the tentorium. There are is no evidence of intracranial hemorrhage. No mass, edema, infarction, or midline shift is seen. No extra-axial fluid collection is appreciated. Impression: Negative noncontrast head CT. Electronically Signed by Kike Paz MD 02/08/2020 03:30 P
--- NOTE | 2020-02-08 15:41 | REP ---
CT study of the cervical spine without contrast: History: Seizure. Technique: Helical scanning is acquired and overlapping 2 mm high resolution axial images were generated and reviewed at bone and soft tissue window settings. Coronal and sagittal multiplanar re-formations images are generated. CT findings: There is no evidence of cervical spine element fracture. No skull base fracture is seen. Cervical vertebral body heights are preserved. Alignment is normal. Facet joints are normally aligned bilaterally at each cervical level on multiplanar re-formations images. There is no evidence of intraspinal or paraspinal hematoma. No extra vertebral abnormality is seen. There are small bilateral cervical ribs at C7. There is degenerative disc disease with anterior osteophyte formation at C 04/05, C5-6, and C6-7. Impression: Bilateral cervical ribs noted incidentally. Degenerative spondylosis changes. Otherwise negative CT study of the cervical spine without contrast. No fracture seen. Electronically Signed by Kike Paz MD 02/08/2020 03:32 P
--- NOTE | 2020-02-08 15:42 | REP ---
CT of the abdomen pelvis with IV contrast, without bowel contrast: Comparison is 2018. The visualized lung chowdhury are unremarkable except for dependent atelectasis. The hepatic parenchyma is diffusely less dense than the spleen compatible with hepato steatosis. There are no hepatic masses. The gallbladder, pancreas and spleen are unremarkable. The adrenals are unremarkable. There are small Bosniak type 1 renal cortical cysts, not significantly changed. The kidneys are otherwise unremarkable. There are no renal calculi. No hydronephrosis. No solid masses. The abdominal aorta is unremarkable. There is no periaortic adenopathy or mass. There is no bowel distension or obstruction. There is wall thickening of the entire colon. This is compatible with colitis in the appropriate clinical setting. Pelvis: The appendix is unremarkable. There is no ascites or adenopathy. The bladder is unremarkable. Lumbar spine is demonstrates bilateral L5 spondylolysis with grade 1 spondylolisthesis and L5 S1 degenerative disc disease. Impression: Wall thickening of the entire colon. This is compatible with colitis in the appropriate clinical setting. The appendix is unremarkable. Bilateral Bosniak type 1 small renal cortical cysts. Bilateral L5 spondylolysis with grade 1 spondylolisthesis, unchanged. Hepato steatosis. No hepatic masses. Electronically Signed by Saul Sharma MD 02/08/2020 03:33 P
[2020-02-08] MEDS ORDERED: CIPROFLOXACIN 400 MG in IV 1 EA IV ONE (15:45)
[2020-02-08] MEDS ORDERED: metroNIDAZOLE 500 MG in IV 1 EA IV ONE (15:45)
[2020-02-08] MEDS ORDERED: levETIRAcetam INJection 500 MG in D5W MINI-BAG PLUS 100 ML IV ONE (16:00)
[2020-02-08 16:38] LABS: AMPHETAMINES LEVEL URINE NEGATIVE (NEGATIVE); BARBITURATES URINE NEGATIVE (NEGATIVE); BENZODIAZEPINES URINE NEGATIVE (NEGATIVE); CANNABINOIDS URINE POSITIVE (NEGATIVE); COCAINE METABOLITE URINE NEGATIVE (NEGATIVE); METHADONE URINE NEGATIVE (NEGATIVE); OPIATES URINE NEGATIVE (NEGATIVE); PHENCYCLIDINE URINE NEGATIVE (NEGATIVE)
[2020-02-08] MEDS ORDERED: ACETAMINOPHEN TAB 650MG DOSE (2X325MG) PO PRN (16:45)
--- NOTE | 2020-02-08 17:05 | HPEPDOC ---
General Date of Admission 02/08/2020 Date of Service: Feb 08, 2020 Chief Complaint The patient is a 34-year-old male Who presented to the emergency room after experiencing a seizure episode at home History of Present Illness Patient is a 34-year-old male with a PMHx of Recurrent seizures, Cluster headaches, Anxiety / Depression who was presented to the emergency room after experiencing a seizure episode at home. Patients mother is present at the bedside, who has provided the majority of the history. Patient currently appears to be postictal and cannot contribute much to his history. Mother has reported that patient had expressed a seizure episode that was unwitnessed and was expressing nausea and vomiting yesterday. . She also witnessed him having another seizure that prompted her to call EMS for further evaluation. Upon arrival to emergency room, patient was reporting abdominal discomfort. Patient had 3 more episodes of seizures, one emergency room. Patient was given Ativan and given a loading dose of Keppra. Currently patient cannot contribute much to his history. Home Medications Scheduled Levetiracetam (Levetiracetam ER) 750 Mg Keegan, 1,500 MG PO BID, (Reported) Verapamil HCl (Verapamil ER) 240 Mg Tabcr, 240 MG PO BID, (Reported) Scheduled PRN Sumatriptan Succinate (Sumatriptan Succinate) 6 Mg/0.5 Ml Inj, 6 MG SC PRN PRN for MIGRAINE, (Reported) Allergies Coded Allergies: No Known Allergies (Verified Allergy, Unknown, 04/04/19) Past Medical History Medical History Recurrent seizures, Cluster headaches, Anxiety / Depression Surgical History Colonoscopy for nonbleeding, internal and external hemorrhoids done by Dr. Dc; 05/2018 Family History - Mother with a history of ESRD on HD - Father with a history of obesity Social History - Review the prior records indicates the patient has a history of alcohol abuse and abuse of marijuana - Lives with mother and father Review of Systems Other systems Unable to obtain 10 point review of systems as patient is unable to cooperate given his post ictal state Vital Signs - Vitals: BP 158/89, HR 112, RR 20, Sat 98%RA, Temp 98.0F - General: Lying in bed, No acute distress, Awake / Alert - HEENT: NC, AT, PERRLA - CVS: Tachycardic, +S1S2 - Lungs: Fair air entry bilaterally, Mild wheezing appreciated bilaterally, no evidence of rales / rhonchi - Abdomen: Soft, Non-distended, Non-tender - Extremities: No lower extremity edema, No calf tenderness - Neuro: 5/5 muscle strength upper and lower extremities bilaterally; tongue is in midline. Pupils are both reactive and symmetric - Skin: No visible rashes Laboratory Data Labs 24H Laboratory Tests 2 02/08/20 13:33: Immature Granulocyte % (Auto) 0.8, Neutrophils (%) (Auto) 83.3H, Lymphocytes (%) (Auto) 8.4L, Monocytes (%) (Auto) 6.8H, Eosinophils (%) (Auto) 0.0, Basophils (%) (Auto) 0.7, Neutrophils # (Auto) 17.1H, Lymphocytes # (Auto) 1.7, Monocytes # (Auto) 1.4H, Eosinophils # (Auto) 0.0, Basophils # (Auto) 0.1, Nucleated Red Blood Cells % (auto) 0.0, Anion Gap 25H, Glomerular Filtration Rate > 60.0, Osmolality 318H, Lactic Acid Level 17.8*H, Calcium Level 10.4H, Total Bilirubin 1.1H, Direct Bilirubin 0.4H, Aspartate Amino Transf (AST/SGOT) 159H, Alanine A minotransferase (ALT/SGPT) 147H, Alkaline Phosphatase 125H, Total Creatine Kinase 359H, Creatine Kinase MB < 1.0, Creatine Kinase MB Relative Index 0.28, Troponin I < 0.02, Total Protein 9.4H, Albumin 4.8, Albumin/Globulin Ratio 1.04, Lipase 93, Thyroid Stimulating Hormone (TSH) 1.120, Salicylates Level < 1.7L, Acetaminophen Level < 2.0L, Ethyl Alcohol Level 0.003 02/08/20 14:14: Bedside Glucose (Misc Panel) 171H 02/08/20 15:56: Urine Color YELLOW, Urine Appearance CLEAR, Urine pH 6.0, Urine Specific Sandy 1.018, Urine Protein 3+H, Urine Glucose (UA) 1+H, Urine Ketones 2+H, Urine Blood 2+H, Urine Nitrite NEGATIVE, Urine Bilirubin NEGATIVE, Urine Urobilinogen 0.2, Urine Leukocyte Esterase NEGATIVE, Urine RBC (Auto) 2, Urine Hyaline Casts (Auto) 1, Urine Mucus (Auto) SMALL, Urine Sperm (Auto) , Urine Opiates Screen NEGATIVE, Urine Methadone Screen NEGATIVE, Urine Barbiturates Screen NEGATIVE, Urine Phencyclidine Screen NEGATIVE, Urine Amphetamines Screen NEGATIVE, Urine Benzodiazepines Screen NEGATIVE, Urine Cocaine Metabolite Screen NEGATIVE, Urine Cannabinoids Screen POSITIVEH CBC/BMP Laboratory Tests 02/08/20 13:33 Microbiology Microbiology 02/08/20 Blood Culture, Received Pending 02/08/20 Blood Culture, Received Pending Plan / VTE VTE Prophylaxis Ordered?: Yes Plan Plan Recurrent seizures - likely 2/2 non-compliance with medications - 2/2 nausea and vomtiing - Patient was brought to the emergency room after experiencing a seizure episode at home - Emergency room he experienced 3 other episodes of seizures - Patient is not fully oriented at this time - Does not exhibit any focal neurologic deficits - CT head 02/07: Negative noncontrast head CT. - CT cervical spine 02/07: Bilateral cervical ribs noted incidentally. Degenerative spondylosis changes. Otherwise negative CT study of the cervical spine without contrast. No fracture seen. - ER provider has discussed with Neurology to continue with Keppra based on home dosing - Will c/w Keppra 1500mg IV BID Nausea and vomiting - likely 2/2 colitis - possibly 2/2 infectious etiology, less likely 2/2 inflammatory - Patient was noted to be vomiting yesterday - Patient reported expressing abdominal discomfort. Upon arrival in the emergency room - Currently physical does not reveal any significant tenderness - Significant leukocytosis with neutrophil predominance; positive lactic acidosis - CXR 02/07: Negative portable chest. There is no interval change. - CT abdomen / pelvis 02/07: Wall thickening of the entire colon. This is compatible with colitis in the appropriate clinical setting. The appendix is unremarkable. Bilateral Bosniak type 1 small renal cortical cysts. Bilateral L5 spondylolysis with grade 1 spondylolisthesis, unchanged. Hepato steatosis. No hepatic masses. - Will start aggressive IV fluid hydration and provide intra-abdominal coverage with Ciprfloxacin / Flagyl Lactic acidosis - Possibly from sepsis, possibly from seizures - Will repeat Lactic acid - Will continue with IV fluid hydration Acute kidney injury - likely 2/2 dehydration - Baseline creatinine of 0.8-1.0; creatinine on admission of 1.37 - Avoid nephrotoxic medications - Well start aggressive IV fluid hydration Elevated transaminases - Will check hepatitis profile - Will trend CMP History of marijuana abuse - Drug screen positive for cannabinoids Cluster headaches - Will hold triptan based medications for now Anxiety / Depression - Currently not on any medications Gastrointestinal prophylaxis - Will start Protonix DVT prophylaxis - Will start Heparin RAMBO CARL MD Feb 08, 2020 17:05
[2020-02-08] MEDS: LORazepam 2 MG TAB XX PRN ×2 (17:51→19:48)
[2020-02-08] MEDS: NS 1,000 ML IV SCH ×2 (18:54→19:48)
--- NOTE | 2020-02-08 19:00 | ECGEPIP ---
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
[2020-02-08 19:47] VITALS: BP 164/94
[2020-02-08] MEDS: THIAMINE 100 MG TAB PO SCH (19:48)
[2020-02-08] MEDS: metroNIDAZOLE 500 MG in IV 1 EA IV SCH (19:49)
[2020-02-08 20:00] VITALS: BP 176/89
[2020-02-08 21:00] VITALS: BP 173/81
[2020-02-08] MEDS: VERAPAMIL 120 MG SR TAB PO SCH (21:56)
[2020-02-08 22:00] VITALS: BP 167/89
[2020-02-08] MEDS: HEPARIN SOD (PORCINE) 5000 UNITS/ML VIAL (J1644 PER 1000UNITS) SC SCH (22:21)
[2020-02-08 23:00] VITALS: BP 154/77
[2020-02-09] VITALS (10 sets, daily range): BP systolic 127–177; BP diastolic 71–98
[2020-02-09] MEDS: metroNIDAZOLE 500 MG in IV 1 EA IV SCH ×2 (00:07→09:29)
[2020-02-09] MEDS: LORazepam 2 MG TAB XX PRN (00:07)
[2020-02-09] MEDS: NS 1,000 ML IV SCH ×2 (00:08→09:29)
[2020-02-09 04:44] LABS: BASO % 0.3 % (0.0-1.0); EOS % 0.3 % (0.0-3.0); HEMATOCRIT 40.7 % (42.0-52.0); LYMPH % 15.8 % (24.0-44.0); MEAN CORPUSCULAR HEMOGLOBIN 34.4 pg (27.0-33.0); MEAN CORPUSCULAR HGB CONC 33.9 g/dl (32.0-36.5); MEAN CORPUSCULAR VOLUME 101.5 fl (80.0-96.0); MONO # 1.9 10^3/uL (0.0-0.8); MONO % 15.2 % (0.0-5.0); NEUTROPHILS # 8.7 10^3/uL (1.5-8.5); NEUTROPHILS % 68.1 % (36.0-66.0); PLATELET COUNT, AUTOMATED 145 10^3/uL (150-450); RED BLOOD COUNT 4.01 10^6/uL (4.30-6.10); WHITE BLOOD COUNT 12.7 10^3/uL (4.0-10.0)
[2020-02-09 04:49] LABS: HEMOGLOBIN 13.8 g/dl (13.5-17.5)
[2020-02-09] MEDS ORDERED: CIPROFLOXACIN 400 MG in IV 1 EA IV SCH (05:00)
[2020-02-09] MEDS: HEPARIN SOD (PORCINE) 5000 UNITS/ML VIAL (J1644 PER 1000UNITS) SC SCH (05:27)
[2020-02-09 05:31] LABS: ALBUMIN 3.4 GM/DL (3.2-5.2); ALT/SGPT 91 U/L (12-78); BILIRUBIN,TOTAL 0.8 MG/DL (0.2-1.0); BLOOD UREA NITROGEN 8 MG/DL (7-18); CALCIUM LEVEL 8.1 MG/DL (8.5-10.1); CARBON DIOXIDE LEVEL 23 MEQ/L (21-32); CHLORIDE LEVEL 107 MEQ/L (98-107); CREATININE FOR GFR 0.84 MG/DL (0.70-1.30); GLOMERULAR FILTRATION RATE > 60.0 (>60); GLUCOSE, FASTING 60 MG/DL (70-100); MAGNESIUM LEVEL 2.7 MG/DL (1.8-2.4); POTASSIUM SERUM 3.1 MEQ/L (3.5-5.1); SODIUM LEVEL 139 MEQ/L (136-145); TOTAL PROTEIN 7.1 GM/DL (6.4-8.2)
[2020-02-09] MEDS ORDERED: levETIRAcetam INJection 1,500 MG in D5W 100 ML IV SCH (06:00)
[2020-02-09] MEDS ORDERED: POTASSIUM CHLORIDE 10 MEQ SR TABLET PO ONE (06:15)
[2020-02-09 08:23] LABS: HEPATITIS B SURFACE ANTIGEN NEGATIVE (NEGATIVE)
[2020-02-09 08:51] LABS: HEPATITIS B CORE ANTIBODY IGM NEGATIVE (NEGATIVE); HEPATITIS C VIRUS ABY INDEX < 0.0 INDEX (<0.8)
[2020-02-09 08:52] LABS: HEPATITIS A ANTIBODY IGM NEGATIVE (NEGATIVE)
[2020-02-09] MEDS ORDERED: PANTOPRAZOLE 40MG INJ (PROTONIX) (C9113) IV SCH (09:00)
[2020-02-09] MEDS ORDERED: FOLIC ACID 1 MG TAB PO SCH (09:00)
[2020-02-09] MEDS ORDERED: MULTIVITAMINS/MINERALS THERAP 1 TAB PO SCH (09:00)
[2020-02-09] MEDS: VERAPAMIL 120 MG SR TAB PO SCH (09:30)
[2020-02-09] MEDS ORDERED: FOLI1TAB11 PO (09:30)
[2020-02-09] MEDS ORDERED: THIA100TA PO (09:30)
[2020-02-09] MEDS ORDERED: CIPR500T3 PO (09:30)
[2020-02-09] MEDS: THIAMINE 100 MG TAB PO SCH (09:30)
[2020-02-09] MEDS ORDERED: FLAG500T PO (09:30)
[2020-02-09] MEDS ORDERED: MULTCAP PO (09:30)
--- NOTE | 2020-02-09 11:11 | DS.PDOC ---
Discharge Summary General Date of Admission Feb 08, 2020 at 16:44 Date of Discharge 02/09/2020 Discharge Summary PROCEDURES PERFORMED DURING STAY: [None]. ADMITTING DIAGNOSES / DISCHARGE DIAGNOSES: Recurrent seizures - likely 2/2 non-compliance with medications - 2/2 nausea and vomiting Nausea and vomiting - likely 2/2 colitis - possibly 2/2 infectious etiology, less likely 2/2 inflammatory s/p Lactic acidosis s/p Acute kidney injury - likely 2/2 dehydration Elevated transaminases History of marijuana abuse Cluster headaches Anxiety / Depression Gastrointestinal prophylaxis DVT prophylaxis COMPLICATIONS/CHIEF COMPLAINT: Recurrent Seizures. HISTORY OF PRESENT ILLNESS: Patient is a 34-year-old male with a PMHx of Recurrent seizures, Cluster headaches, Anxiety / Depression who was presented to the emergency room after experiencing a seizure episode at home. Patients mother is present at the bedside, who has provided the majority of the history. Patient currently appears to be postictal and cannot contribute much to his history. Mother has reported that patient had expressed a seizure episode that was unwitnessed and was expressing nausea and vomiting yesterday. . She also witnessed him having another seizure that prompted her to call EMS for further evaluation. Upon arrival to emergency room, patient was reporting abdominal discomfort. Patient had 3 more episodes of seizures, one emergency room. Patient was given Ativan and given a loading dose of Keppra. HOSPITAL COURSE: Recurrent seizures - likely 2/2 non-compliance with medications - 2/2 nausea and vomiting - In the ER patient had experienced 3 episodes of seizures - Currently patient is fully oriented - Again no focal neurologic deficits - CT head 02/07: Negative noncontrast head CT. - CT cervical spine 02/07: Bilateral cervical ribs noted incidentally. Degenerative spondylosis changes. Otherwise negative CT study of the cervical spine without contrast. No fracture seen. - ER provider has discussed with Neurology to continue with Keppra based on home dosing - c/w Keppra 1500mg IV BID - Patient was advised to follow up with his Neurology within 5 days - Patient was advised to remain in the hospital for continued management. He declined and wanted to leave AGAINST MEDICAL ADVICE - Risk of leaving AGAINST MEDICAL ADVICE including worsening medical condition disability and/or ; despite this patient requested to leave AGAINST MEDICAL ADVICE s/p Nausea and vomiting - likely 2/2 colitis - possibly 2/2 infectious etiology, less likely 2/2 inflammatory - Patient was noted to be vomiting on 02/06 - No abdominal tenderness noted today - Significant leukocytosis with neutrophil predominance; positive lactic acidosis - CXR 02/07: Negative portable chest. There is no interval change. - CT abdomen / pelvis 02/07: Wall thickening of the entire colon. This is compatible with colitis in the appropriate clinical setting. The appendix is unremarkable. Bilateral Bosniak type 1 small renal cortical cysts. Bilateral L5 spondylolysis with grade 1 spondylolisthesis, unchanged. Hepato steatosis. No hepatic masses. - c/w aggressive IV fluid hydration and provide intra-abdominal coverage with C iprofloxacin / Flagyl; will provide script for outpatient antibiotics - Patient was advised to follow up with his PCP within 5 days s/p Lactic acidosis - Possibly from sepsis, possibly from seizures - c/w IV fluids s/p Acute kidney injury - likely 2/2 dehydration - Baseline creatinine of 0.8-1.0; creatinine on admission of 1.37 - Avoid nephrotoxic medications - c/w IV fluids Elevated transaminases - Hepatitis profile negative - Enzymes trending down History of marijuana abuse - Drug screen positive for cannabinoids Cluster headaches - Will hold triptan based medications for now Anxiety / Depression - Currently not on any medications Gastrointestinal prophylaxis - c/w Protonix DVT prophylaxis - c/w Heparin DISCHARGE MEDICATIONS: Please see below. ALLERGIES: Please see below. PHYSICAL EXAMINATION ON DISCHARGE: Vitals (See below) General: Lying in bed, no acute distress, comfortable, AAOx3 HEENT: NC, AT CVS: +S1S2 Lungs: Fair air entry b/l, no wheezing / rhonchi / rales Abdomen: Soft, ND, NT Extremities: - Edema, - Calf tenderness LABORATORY DATA: Please see below. ACTIVITY: [As tolerated]. DISCHARGE PLAN: Follow up with PCP and Neurology within 7 days Remain compliant with treatment plan and medications Return to the ER if you experience any problems DISPOSITION: Against Medical Advice. DISCHARGE CONDITION: [Stable]. TIME SPENT ON DISCHARGE: 35 minutes Vital Signs/I&Os Vital Signs Date Time Temp Pulse Resp B/P (MAP) Pulse Ox O2 Delivery O2 Flow Rate FiO2 02/09/20 09:30 107 146/74 02/09/20 08:00 98.9 19 95 Room Air I&O- Last 24 Hours up to 6 AM 02/09/20 05:59 Intake Total 2260 ml Output Total 500 ml Balance 1760 ml Laboratory Data Labs 24H Laboratory Tests 2 02/08/20 13:33: Immature Granulocyte % (Auto) 0.8, Neutrophils (%) (Auto) 83.3H, Lymphocytes (%) (Auto) 8.4L, Monocytes (%) (Auto) 6.8H, Eosinophils (%) (Auto) 0.0, Basophils (%) (Auto) 0.7, Neutrophils # (Auto) 17.1H, Lymphocytes # (Auto) 1.7, Monocytes # (Auto) 1.4H, Eosinophils # (Auto) 0.0, Basophils # (Auto) 0.1, Nucleated Red Blood Cells % (auto) 0.0, Anion Gap 25H, Glomerular Filtration Rate > 60.0, Osmolality 318H, Lactic Acid Level 17.8*H, Calcium Level 10.4H, Total Bilirubin 1.1H, Direct Bilirubin 0.4H, Aspartate Amino Transf (AST/SGOT) 159H, Alanine Aminotransferase (ALT/SGPT) 147H, Alkaline Phosphatase 125H, Total Creatine Kinase 359H, Creatine Kinase MB < 1.0, Creatine Kinase MB Relative Index 0.28, Troponin I < 0.02, Total Protein 9.4H, Albumin 4.8, Albumin/Globulin Ratio 1.04, Lipase 93, Thyroid Stimulating Hormone (TSH) 1.120, Salicylates Level < 1.7L, Acetaminophen Level < 2.0L, Ethyl Alcohol Level 0.003, Hepatitis A IgM Antibody NEGATIVE, Hepatitis B Surface Antigen NEGATIVE, Hepatitis B Core IgM Antibody NEGATIVE, Hepatitis C Antibody Index < 0.0 02/08/20 14:14: Bedside Glucose ([facility] Panel) 171H 02/08/20 15:56: Urine Color YELLOW, Urine Appearance CLEAR, Urine pH 6.0, Urine Specific [place] 1.018, Urine Protein 3+H, Urine Glucose (UA) 1+H, Urine Ketones 2+H, Urine Blood 2+H, Urine Nitrite NEGATIVE, Urine Bilirubin NEGATIVE, Urine Urobilinogen 0.2, Urine Leukocyte Esterase NEGATIVE, Urine RBC (Auto) 2, Urine Hyaline Casts (Auto) 1, Urine Mucus (Auto) SMALL, Urine Sperm (Auto) , Urine Opiates Screen NEGATIVE, Urine Methadone Screen NEGATIVE, Urine Barbiturates Screen NEGATIVE, Urine Phencyclidine Screen NEGATIVE, Urine Amphetamines Screen NEGATIVE, Urine Benzodiazepines Screen NEGATIVE, Urine Cocaine Metabolite Screen NEGATIVE, Urine Cannabinoids Screen POSITIVEH 02/08/20 18:32: Lactic Acid Followup at 4 Hours 0.7 02/09/20 04:16: Immature Granulocyte % (Auto) 0.3, Neutrophils (%) (Auto) 68.1H, Lymphocytes (%) (Auto) 15.8L, Monocytes (%) (Auto) 15.2H, Eosinophils (%) (Auto) 0.3, Basophils (%) (Auto) 0.3, Neutrophils # (Auto) 8.7H, Lymphocytes # (Auto) 2.0, Monocytes # (Auto) 1.9H, Eosinophils # (Auto) 0.0, Basophils # (Auto) 0.0, Nucleated Red Blood Cells % (auto) 0.0, Anion Gap 9, Glomerular Filtration Rate > 60.0, Calcium Level 8.1#L, Magnesium Level 2.7H, Total Bilirubin 0.8, Aspartate Amino Transf (AST/SGOT) 83H, Alanine Aminotransferase (ALT/SGPT) 91H, Alkaline Phosphatase 87, Total Protein 7.1#, Albumin 3.4#, Albumin/Globulin Ratio 0.92L CBC/BMP Laboratory Tests 02/08/20 13:33 02/09/20 04:16 FSBS Laboratory Tests Test 02/08/20 14:14 Range/Units Bedside Glucose (Misc Panel) 171 70-105 MG/DL Microbiology Microbiology 02/08/20 Blood Culture, Received Pending 02/08/20 Blood Culture, Received Pending Discharge Medications Scheduled Ciprofloxacin HCl (Ciprofloxacin HCl) 500 Mg Tablet, 1 TAB PO BID Folic Acid (Folic Acid) 1 Mg Tablet, 1 TAB PO DAILY Levetiracetam (Levetiracetam ER) 750 Mg Keegan, 1,500 MG PO BID, (Reported) Metronidazole (Flagyl) 500 Mg Tablet, 1 TAB PO TID Multivitamin (Multivitamins) 1 Each Capsule, 1 CAP PO DAILY Thiamine Hcl (Vitamin B-1) 100 Mg Tablet, 1 TAB PO DAILY Verapamil HCl (Verapamil ER) 240 Mg Tabcr, 240 MG PO BID, (Reported) Scheduled PRN Sumatriptan Succinate (Sumatriptan Succinate) 6 Mg/0.5 Ml Inj, 6 MG SC PRN PRN for MIGRAINE, (Reported) Allergies Coded Allergies: No Known Allergies (Verified Allergy, Unknown, 04/04/19) RAMBO CARL MD Feb 09, 2020 11:11
== END 2020-02-09 10:53 | disposition left against medical advice (07) | DRG 53 ==
LOC: M ED 12:39 → EDSEX 12:39 → EDBD 12:39 → M ED INP 16:44 → ENRESERV 18:27 → M ICU 19:02
PROVIDERS: ADMIT Internal Medicine; ATTEND Internal Medicine
DX: G40.909 Epilepsy, unspecified, not intractable, without status epilepticus (principal); N17.9 Acute kidney failure, unspecified; E87.2 Acidosis; R74.0 Nonspecific elevation of levels of transaminase and lactic acid dehydrogenase [LDH]; F12.10 Cannabis abuse, uncomplicated; A09 Infectious gastroenteritis and colitis, unspecified; Z91.14 Patient's other noncompliance with medication regimen; E86.0 Dehydration; F41.9 Anxiety disorder, unspecified; F32.9 Major depressive disorder, single episode, unspecified; G44.009 Cluster headache syndrome, unspecified, not intractable; Z79.899 Other long term (current) drug therapy

== ENCOUNTER 2020-02-12 14:10 | Emergency (ER) | payer OTHER ==
[~2020-02-12] VITALS: Ht 160 cm; Wt 75.0 kg
[~2020-02-12 14:10] MED LIST changes: +CIPR500T3 PO; +FLAG500T PO; +FOLI1TAB11 PO; +MULTCAP PO; +THIA100TA PO
[2020-02-12] MEDS ORDERED: METOCLOPRAMIDE INJ 10MG/2ML VIAL (J2765) IV ONE (15:00)
[2020-02-12] MEDS ORDERED: NS 1,000 ML IV ONE (15:00)
--- NOTE | 2020-02-12 15:26 | REP ---
Head CT without contrast: History: Headache Comparison study: February 08, 2020. CT findings: Bone window settings demonstrate an intact bony calvarium. There is no evidence of skull fracture or incidental bony calvarial lesion. The visualized paranasal sinuses appear clear. No intraorbital abnormality is seen. On soft tissue window setting images; the lateral, third, and fourth ventricles are normal in size and position. A persistent cavum septum pellucidum is again noted unchanged. This is normal variant. Loera-white differentiation pattern is normal above and below the tentorium. There are is no evidence of intracranial hemorrhage. No mass, edema, infarction, or midline shift is seen. No extra-axial fluid collection is appreciated. Impression: Negative noncontrast head CT. Electronically Signed by Kike Paz MD 02/12/2020 03:18 P
[2020-02-12 15:54] LABS: HEMOGLOBIN 15.4 g/dl (13.5-17.5); MEAN CORPUSCULAR HEMOGLOBIN 33.7 pg (27.0-33.0); MEAN CORPUSCULAR HGB CONC 34.2 g/dl (32.0-36.5); MEAN CORPUSCULAR VOLUME 98.5 fl (80.0-96.0); PLATELET COUNT, AUTOMATED 160 10^3/uL (150-450); RED BLOOD COUNT 4.57 10^6/uL (4.30-6.10); WHITE BLOOD COUNT 14.6 10^3/uL (4.0-10.0)
[2020-02-12 16:13] LABS: BLOOD UREA NITROGEN 6 MG/DL (7-18); CALCIUM LEVEL 9.2 MG/DL (8.5-10.1); CARBON DIOXIDE LEVEL 26 MEQ/L (21-32); CHLORIDE LEVEL 103 MEQ/L (98-107); CREATININE FOR GFR 0.85 MG/DL (0.70-1.30); GLOMERULAR FILTRATION RATE > 60.0 (>60); GLUCOSE, FASTING 111 MG/DL (70-100); SODIUM LEVEL 137 MEQ/L (136-145)
[2020-02-12] MEDS ORDERED: REGL10TA6 PO (16:35)
[2020-02-12 16:47] VITALS: BP 139/75
== END 2020-02-12 16:51 | disposition home or self-care (01) ==
LOC: M ED 14:10
DX: R51 Headache (principal); G40.909 Epilepsy, unspecified, not intractable, without status epilepticus; Z79.899 Other long term (current) drug therapy
CPT/HCPCS: 70450; 80048; 80180; 85027; 96361; 96374; 99284; J2765

== ENCOUNTER → 2020-06-26 10:15 | Emergency (ER) | payer OTHER ==
[~2020-06-26 10:15] MED LIST changes: +REGL10TA6 PO; +VERAPAMIL 80 MG TAB ONE; +levETIRAcetam 250MG TABLET (KEPPRA) As Ordered ONE; +levETIRAcetam 250MG TABLET (KEPPRA) ONE
== END | disposition home or self-care (01) ==
LOC: M ED 10:15
DX: G40.309 Generalized idiopathic epilepsy and epileptic syndromes, not intractable, without status epilepticus (principal); Z91.14 Patient's other noncompliance with medication regimen; G43.909 Migraine, unspecified, not intractable, without status migrainosus; F10.10 Alcohol abuse, uncomplicated; Z87.828 Personal history of other (healed) physical injury and trauma; Z79.899 Other long term (current) drug therapy

== ENCOUNTER 2020-11-07 12:56 | Emergency (ER) | payer OTHER ==
[~2020-11-07] VITALS: Ht 160 cm; Wt 72.7 kg
[~2020-11-07 12:56] MED LIST changes: -VERAPAMIL 80 MG TAB ONE; -levETIRAcetam 250MG TABLET (KEPPRA) As Ordered ONE; -levETIRAcetam 250MG TABLET (KEPPRA) ONE
[2020-11-07 13:09] VITALS: BP 137/98
== END 2020-11-07 13:32 | disposition left against medical advice (07) ==
LOC: EDBD 12:56 → M ED 12:56
DX: Z53.9 Procedure and treatment not carried out, unspecified reason (principal); R56.9 Unspecified convulsions; F17.200 Nicotine dependence, unspecified, uncomplicated; Z79.899 Other long term (current) drug therapy

== ENCOUNTER 2021-07-09 23:58 | Observation (INO) | payer OTHER ==
[~2021-07-09] VITALS: Ht 160 cm; Wt 73.8 kg
[2021-07-10] MEDS ORDERED: NS 1,000 ML IV ONE (00:05)
--- NOTE | 2021-07-10 00:44 | REPVR ---
PROCEDURE INFORMATION: Exam: CT Head Without Contrast Exam date and time: 07/10/2021 12:05 AM Age: 36 years old Clinical indication: Injury or trauma; Fall; Concussion/head injury TECHNIQUE: Imaging protocol: Computed tomography of the head without contrast. Axial and coronal reformatted images were created and reviewed. Radiation optimization: All CT scans at this facility use at least one of these dose optimization techniques: automated exposure control; mA and/or kV adjustment per patient size (includes targeted exams where dose is matched to clinical indication); or iterative reconstruction. COMPARISON: CT Head without contrast 02/12/2020 3:07 PM FINDINGS: Brain: No CT evidence of acute intracranial hemorrhage or acute territorial infarction. No significant mass effect or midline shift. Basal cisterns patent. Cerebral ventricles: Normal in size and configuration. Cavum septum pellucidum. Paranasal sinuses: Minimal ethmoid mucosal thickening. Mastoid air cells: Grossly unremarkable. Bones/joints: No acute osseous abnormality. Soft tissues: Grossly unremarkable. IMPRESSION: 1. No CT evidence of acute intracranial pathology. 2. Additional findings, as above. Electronically signed by: Sabino Jean-Baptiste On 07/10/2021 00:44:14 AM
--- NOTE | 2021-07-10 00:51 | REPVR ---
PROCEDURE INFORMATION: Exam: CT Cervical Spine Without Contrast Exam date and time: 07/10/2021 12:05 AM Age: 36 years old Clinical indication: Neck pain; Additional info: Trauma TECHNIQUE: Imaging protocol: Computed tomography images of the cervical spine without contrast. Axial, coronal and sagittal reformatted images were created and reviewed. Radiation optimization: All CT scans at this facility use at least one of these dose optimization techniques: automated exposure control; mA and/or kV adjustment per patient size (includes targeted exams where dose is matched to clinical indication); or iterative reconstruction. COMPARISON: CT Spine,cervical w/o contrast 02/08/2020 3:02 PM FINDINGS: Bones/joints: Straightening of the normal cervical lordosis. No CT evidence of acute fracture, dislocation or subluxation. Alignment anatomic. Mild levoscoliosis. Vertebral body heights maintained. Discs/Spinal canal/Neural foramina: Intervertebral disc spaces preserved. No significant spinal canal or neural foraminal stenosis. Lungs: Grossly unremarkable. Soft tissues: Grossly unremarkable. IMPRESSION: 1. No CT evidence of acute cervical spine traumatic injury. 2. Additional findings, as above. Electronically signed by: Sabino Jean-Baptiste On 07/10/2021 00:50:37 AM
[2021-07-10] MEDS ORDERED: BOOSTRIX/ADACEL VACCINE (DIPHTH/PERTUSS/ACELL/TETANUS) 0.5ML SYR IM ONE (01:10)
[2021-07-10] MEDS ORDERED: levETIRAcetam INJection 1,000 MG in D5W 100 ML IV ONE (01:20)
[2021-07-10 01:32] LABS: BASO # 0.1 10^3/uL (0.0-0.2); BASO % 0.7 % (0.0-1.0); EOS # 0.3 10^3/uL (0.0-0.5); EOS % 1.6 % (0.0-3.0); HEMATOCRIT 44.6 % (42.0-52.0); HEMOGLOBIN 15.1 g/dl (13.5-17.5); LYMPH # 1.9 10^3/uL (1.5-5.0); LYMPH % 11.5 % (24.0-44.0); MEAN CORPUSCULAR HEMOGLOBIN 34.2 pg (27.0-33.0); MEAN CORPUSCULAR HGB CONC 33.9 g/dl (32.0-36.5); MEAN CORPUSCULAR VOLUME 101.1 fl (80.0-96.0); MONO # 1.5 10^3/uL (0.0-0.8); NEUTROPHILS # 12.9 10^3/uL (1.5-8.5); NEUTROPHILS % 76.4 % (36.0-66.0); PLATELET COUNT, AUTOMATED 242 10^3/uL (150-450); RED BLOOD COUNT 4.41 10^6/uL (4.30-6.10)
--- NOTE | 2021-07-10 01:35 | REPVR ---
PROCEDURE INFORMATION: Exam: XR Chest Exam date and time: 07/10/2021 12:30 AM Age: 36 years old Clinical indication: Other: Syncope v seizure TECHNIQUE: Imaging protocol: XR of the chest. Views: 1 view. COMPARISON: 1. [place] PORTABLE CHEST X-RAY 2020-02-08 14:[address] Chest with contrast 2019-11-10 12:45 3. CR PORTABLE CHEST X-RAY 2017-02-12 09:[address] Spine,cervical w/o contrast 2021-07-10 00:12 FINDINGS: Lungs: Unremarkable. No consolidation. Pleural spaces: Unremarkable. No pleural effusion. No pneumothorax. Heart/Mediastinum: Unremarkable. No cardiomegaly. Bones/joints: Chronic healed mid right clavicle fracture. IMPRESSION: No acute findings. Electronically signed by: Jose Knight On 07/10/2021 01:34:11 AM
[2021-07-10 01:51] LABS: WHITE BLOOD COUNT 16.9 10^3/uL (4.0-10.0)
[2021-07-10 01:59] LABS: AMPHETAMINES LEVEL URINE NEGATIVE (NEGATIVE); BARBITURATES URINE NEGATIVE (NEGATIVE); BENZODIAZEPINES URINE NEGATIVE (NEGATIVE); CANNABINOIDS URINE POSITIVE (NEGATIVE); COCAINE METABOLITE URINE NEGATIVE (NEGATIVE); METHADONE URINE NEGATIVE (NEGATIVE); OPIATES URINE NEGATIVE (NEGATIVE); PHENCYCLIDINE URINE NEGATIVE (NEGATIVE)
[2021-07-10 02:02] LABS: BLOOD UREA NITROGEN 15 MG/DL (7-18); CALCIUM LEVEL 8.9 MG/DL (8.5-10.1); CARBON DIOXIDE LEVEL 27 MEQ/L (21-32); CHLORIDE LEVEL 102 MEQ/L (98-107); CREATININE FOR GFR 0.86 MG/DL (0.70-1.30); GLOMERULAR FILTRATION RATE > 60.0 (>60); GLUCOSE, FASTING 97 MG/DL (70-100); PHOSPHORUS LEVEL 1.8 MG/DL (2.5-4.9); POTASSIUM SERUM 3.7 MEQ/L (3.5-5.1); SODIUM LEVEL 136 MEQ/L (136-145)
[2021-07-10 02:03] LABS: ALBUMIN 4.2 GM/DL (3.2-5.2); ALT/SGPT 32 U/L (12-78); BILIRUBIN,DIRECT 0.2 MG/DL (0.0-0.2); BILIRUBIN,TOTAL 0.6 MG/DL (0.2-1.0); MAGNESIUM LEVEL 2.3 MG/DL (1.8-2.4); TOTAL PROTEIN 7.7 GM/DL (6.4-8.2)
[2021-07-10] MEDS ORDERED: LORazepam 2 MG/ML VIAL As Ordered ONE (02:08)
[2021-07-10] MEDS ORDERED: LORazepam 2 MG/ML VIAL IV STA (02:08)
[2021-07-10] MEDS ORDERED: DIVALPROEX 500 MG TAB PO ONE (02:20)
[2021-07-10 02:42] LABS: ETHYL ALCOHOL (ETHANOL) < 0.003 % (0.000-0.010)
[2021-07-10] MEDS ORDERED: POTASSIUM PHOSPHATE INJ 20 MMOL in D5W 250 ML IV ONE (03:00)
[2021-07-10 03:28] LABS: RSV AMPLIFICATION NEGATIVE (NEGATIVE)
[2021-07-10] MEDS ORDERED: LORazepam 1 MG TAB PO PRN (03:40)
[2021-07-10] MEDS ORDERED: NS 500 ML IV ONE (03:40)
--- NOTE | 2021-07-10 04:07 | HPEPDOC ---
General Date of Admission 07/10/21 Date of Service: Jul 10, 2021 Chief Complaint The patient is a 36-year-old male admitted with a reason for visit of Seizure Activity. Source: Patient, Family Exam Limitations: Clinical conditions History of Present Illness Poncho Badillo is a 36-year-old white male with significant history of Recurrent seizures, Cluster headaches, Anxiety / Depression who was presented to the emergency room after experiencing a witnessed seizure at work. Patient seen mostly sleeping during exam -he is somewhat postictal/withdrawn affect which does limit exam and HPI. He does at one point request to leave. HPI assisted by mother. Mother reports patient has left AMA in the past and "he is not one to stay". 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 Unknown amount of time patient was seizing per coworkers, but patient was able to protect airway. Patient denies any precursory symptoms such as headache. Review of systems negative. Patient reports compliance with his Keppra and sees neurology outpatient. Reportedly he had seen neurology in May. Patient's mother did disclose to staff that the patient does drink alcohol and did not drink alcohol today since he worked. Quantity not specified. Unfortunately, patient experienced another seizure while in ER which lasted a few minutes until Ativan broke it. Neurology consulted by ED and recommended loading dose of Keppra and Depakote as well as Depakote 500 mg twice daily in addition to patient's home Keppra dosing. Of note, CT head and C-spine nonacute. Chest x-ray nonacute. UA nonacute. Initial lab work with leukocytosis and hypophosphatemia. Home Medications Scheduled Levetiracetam (Levetiracetam ER) 750 Mg Keegan, 1,500 MG PO BID, (Reported) Verapamil HCl (Verapamil ER) 240 Mg Tabcr, 240 MG PO BID, (Reported) Scheduled PRN Sumatriptan Succinate (Sumatriptan Succinate) 6 Mg/0.5 Ml Inj, 6 MG SC PRN PRN for MIGRAINE, (Reported) Allergies Coded Allergies: No Known Allergies (Verified Allergy, Unknown, 04/04/19) Past Medical History Medical History Recurrent seizures, Cluster headaches, Anxiety / Depression Social History Alcohol: heavy Drugs: denies Recent Travel/Sick Contacts: Denies: Recent travel, Recent sick contacts Psychosocial History: No pertinent psych hx A-FIB/CHADSVASC A-FIB History Current/History of A-Fib/PAF?: No Current PO Anticoag Therapy: No Review of Systems Constitutional: Denies: Chills, Fever, Night Sweats Eyes: Denies: Pain, Vision change ENT: Denies: Head Aches, Ear Pain, Dysphagia Skin: Denies: Rash, Lesions, Breakdown Pulmonary: Denies: Dyspnea, Cough Cardiovascular: Denies: Chest Pain, Palpitations, Orthopnea, Paroxysmal Noc. Dyspnea, Lt Headedness Gastrointestinal: Denies: Nausea, Vomiting, Abdominal Pain, Diarrhea Genitourinary: Denies: Dysuria, Frequency, Incontinence, Retention Hematologic: Denies: Bruising, Bleeding Excessively Musculoskeletal: Denies: Neck Pain, Back Pain, Joint Pain, Muscle Pain, Spasms Neurological: Denies: Weakness, Numbness, Change in speech, Confusion Psych: Reports: Mood Normal; Denies: Depression, Memory Issues Physical Examination General Exam: Positive: No Acute Distress, Other (Lethargic) Eye Exam: Positive: PERRLA, Conjunctiva & lids normal, EOMI; Negative: Sclera icteric ENT Exam: Positive: Atraumatic, Mucous membr. moist/pink, Pharynx Normal Neck Exam: Positive: Supple; Negative: JVD, thyromegaly Chest Exam: Positive: Clear to auscultation, Normal air movement Heart Exam: Positive: Rate Normal, Regular Rhythm, Normal S1, Normal S2; Negative: Murmurs, Rubs Telemetry: Positive: No significant arrhythmia Abdomen Exam: Positive: Normal bowel sounds, Soft; Negative: Tenderness, Hepatospenomegaly Extremity Exam: Positive: Normal pulses; Negative: Clubbing, Cyanosis, Edema Skin Exam: Positive: Nl turgor and temperature, Other skin issue (Small laceration to scalp with 3 erik.); Negative: Lesion Neuro Exam: Positive: Normal Gait, Normal Speech, Cranial Nerves 3-12 NL, Reflexes 2+ Psych Exam: Positive: Mental status NL, Oriented x 3 Vital Signs Vital Signs Date Time Temp Pulse Resp B/P (MAP) Pulse Ox O2 Delivery O2 Flow Rate FiO2 07/10/21 02:15 89 20 158/76 (103) 96 Room Air Laboratory Data Labs 24H Laboratory Tests 2 07/10/21 00:23: Bedside Glucose (Misc Panel) 108H 8/12/21 01:20: Immature Granulocyte % (Auto) 0.8, Neutrophils (%) (Auto) 76.4H, Lymphocytes (%) (Auto) 11.5L, Monocytes (%) (Auto) 9.0H, Eosinophils (%) (Auto) 1.6, Basophils (%) (Auto) 0.7, Neutrophils # (Auto) 12.9H, Lymphocytes # (Auto) 1.9, Monocytes # (Auto) 1.5H, Eosinophils # (Auto) 0.3, Basophils # (Auto) 0.1, Nucleated Red Blood Cells % (auto) 0.0, Urine Color YELLOW, Urine Appearance CLEAR, Urine pH 6.0, Urine Specific [place] 1.017, Urine Protein 2+H, Urine Glucose (UA) NEGATIVE, Urine Ketones TRACEH, Urine Blood 1+H, Urine Nitrite NEGATIVE, Urine Bilirubin NEGATIVE, Urine Urobilinogen 0.2, Urine Leukocyte Esterase NEGATIVE, Urine WBC (Auto) 1, Urine RBC (Auto) 1, Urine Hyaline Casts (Auto) 0, Urine Bacteria (Auto) NEGATIVE, Urine Squamous Epithelial Cells 0, Urine Mucus (Auto) SMALL, Urine Sperm (Auto) , Anion Gap 7L, Glomerular Filtration Rate > 60.0, Calcium Level 8.9, Phosphorus Level 1.8L, Magnesium Level 2.3, Total Bilirubin 0.6, Direct Bilirubin 0.2, Aspartate Amino Transf (AST/SGOT) 29, Alanine Amino transferase (ALT/SGPT) 32, Alkaline Phosphatase 99, Total Protein 7.7, Albumin 4.2, Albumin/Globulin Ratio 1.2, Urine Opiates Screen NEGATIVE, Urine Methadone Screen NEGATIVE, Urine Barbiturates Screen NEGATIVE, Urine Phencyclidine Screen NEGATIVE, Urine Amphetamines Screen NEGATIVE, Urine Benzodiazepines Screen NEGATIVE, Urine Cocaine Metabolite Screen NEGATIVE, Urine Cannabinoids Screen POSITIVEH, Ethyl Alcohol Level < 0.003 07/10/21 02:43: 07/10/21 02:49: CBC/BMP Laboratory Tests 07/10/21 01:20 Microbiology Microbiology 07/10/21 Blood Culture, Received Pending Assessment/Plan 1. Recurrent seizures: In setting of possible withdrawal use and electrolyte disturbances. Reported compliance Keppra level pending. Monitor patient, telemetry, seizure precautions Keppra and Depakote loading dose given. Continue home medication Keppra and per neuro consulted in ED recommendations for Depakote 500 mg twice daily. A.m. lab work; consider underlying provocations. Appreciate neurology consult in a.m. for further recommendations. 2. Leukocytosis and lactic acidosis: Patient without overt infectious etiology. Chest x-ray nonacute. UA negative. In setting of seizure activity likely reactive. Will check pro calcitonin and blood cultures. Consider differentials. We will hold off on antibiotics at present pending procalcitonin. Hydration and banana bag to be given and reflex lactic trend to come. 3. Hypophosphatemia: Phos 1.8. Plan for repletion and monitoring. Could be contributing to above. Also, could depict underlying EtOH abuse as possible cause for the deficiency. 4. Hypertension: Monitor patient and blood pressure in setting of possible EtOH withdrawal and recent seizure activity. Will hold patient's home antihypertensives given new additional antiseizure medications. Plan for resuming home antihypertensive medication depending patient response tomorrow. 5. EtOH use: Per staff and member had disclosed patient uses EtOH frequently although quantity not specified. Patient withdrawn during exam and postictal; did not quantify or specify his level of EtOH use. Plan to monitor patient, CIWA scale and as needed Ativan. Patient does have electrolyte disturbance. Replete and monitor. Banana bag as well as daily thiamine, folic acid and multivitamins. Encourage EtOH cessation. DVT: SCD CODE STATUS: Full Dispo planning: Home once stable Plan / VTE VTE Prophylaxis Ordered?: No VTE Exclusion Mechanical Proph: Low Risk for VTE VTE Exclusion Pharmacological: At Low Risk for VTE TONY LUNA NP Jul 10, 2021 03:03
[2021-07-10] MEDS ORDERED: MULTIVITAMIN -ADULT INJECTION 10 ML, THIAMINE INJection 100 MG, FOLIC ACID 1 MG in NS 1... IV ONE (04:15)
[2021-07-10 05:20] VITALS: BP 158/84
--- NOTE | 2021-07-10 06:52 | ECGEPIP ---
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
[2021-07-10 08:00] VITALS: BP 135/60
[2021-07-10 08:13] LABS: BASO # 0.1 10^3/uL (0.0-0.2); BASO % 0.6 % (0.0-1.0); EOS # 0.1 10^3/uL (0.0-0.5); EOS % 0.7 % (0.0-3.0); HEMATOCRIT 44.6 % (42.0-52.0); HEMOGLOBIN 14.9 g/dl (13.5-17.5); LYMPH # 1.8 10^3/uL (1.5-5.0); LYMPH % 11.6 % (24.0-44.0); MEAN CORPUSCULAR HEMOGLOBIN 33.9 pg (27.0-33.0); MEAN CORPUSCULAR HGB CONC 33.4 g/dl (32.0-36.5); MEAN CORPUSCULAR VOLUME 101.6 fl (80.0-96.0); MONO # 1.7 10^3/uL (0.0-0.8); MONO % 10.7 % (2.0-8.0); NEUTROPHILS # 11.8 10^3/uL (1.5-8.5); NEUTROPHILS % 75.6 % (36.0-66.0); PLATELET COUNT, AUTOMATED 228 10^3/uL (150-450); RED BLOOD COUNT 4.39 10^6/uL (4.30-6.10)
[2021-07-10 08:31] LABS: BLOOD UREA NITROGEN 8 MG/DL (7-18); CALCIUM LEVEL 8.8 MG/DL (8.5-10.1); CARBON DIOXIDE LEVEL 26 MEQ/L (21-32); CHLORIDE LEVEL 103 MEQ/L (98-107); CREATININE FOR GFR 0.78 MG/DL (0.70-1.30); GLOMERULAR FILTRATION RATE > 60.0 (>60); GLUCOSE, FASTING 96 MG/DL (70-100); MAGNESIUM LEVEL 2.4 MG/DL (1.8-2.4); POTASSIUM SERUM 4.1 MEQ/L (3.5-5.1); SODIUM LEVEL 136 MEQ/L (136-145)
[2021-07-10 08:44] LABS: WHITE BLOOD COUNT 15.7 10^3/uL (4.0-10.0)
[2021-07-10] MEDS ORDERED: VERAPAMIL 120 MG SR TAB PO SCH (09:00)
[2021-07-10] MEDS ORDERED: levETIRAcetam **XR** 750MG TABLET (KEPPRA XR) PO SCH (09:00)
[2021-07-10] MEDS ORDERED: DEPA1TAB3 PO (09:22)
--- NOTE | 2021-07-10 10:57 | DS.PDOC ---
Discharge Summary General Date of Admission Jul 10, 2021 at 02:50 Date of Discharge 07/10/2021 Discharge Summary PROCEDURES PERFORMED DURING STAY: [None]. ADMITTING DIAGNOSES / DISCHARGE DIAGNOSES: Seizure disorder Leukocytosis - likely 2/2 reactive etiology s/p Lactic acidosis - likely 2/2 seizure activity s/p Hypophosphatemia HTN Reported alcohol abuse Hx of Headaches Anxiety / Depression DVT prophylaxis COMPLICATIONS/CHIEF COMPLAINT: Recurrent Seizures HISTORY OF PRESENT ILLNESS: Patient is a 36-year-old male with a PMHx of Seizure disorder, Headaches (possibly Migraines), Anxiety / Depression , who presented to the ER after experiencing a seizure at work. Upon arrival to emergency room, patient was reported to be post ictal, there may have been an episode of another seizure in the emergency room for which patient had received Ativan. ER providers have discussed with neurology who recommended adding Depakote to his Keppra 1500mg BID regimen. Patient was admitted to the hospital service for further evaluation and treatment. Patient was seen and examined at the bedside this morning. He denied any nausea, vomiting, chest pain, shortness breath, palpitations, abdominal pain, diarrhea, or urinary discomfort. Denies any headache. HOSPITAL COURSE: Seizure disorder - Patient was admitted to hospitalist service after he had a seizure at work - Patient reports that he has been compliant with medications; however, review of prior to her mentation has indicated that he has missed doses in the past - Physical is without any focal neurologic deficits - Imaging noted below - Case discussed with Neurology; c/w Keppra and Divalproex - Will have outpatient follow up with PCP and Neurology (in [place]) within 7 days Leukocytosis - likely 2/2 reactive etiology - ROS negative - Hemodynamically stable and afebrile - UA negative - Imaging noted below - No indication for antibiotics at this time s/p Lactic acidosis - likely 2/2 seizure activity s/p Hypophosphatemia HTN - BP well controlled - Will resume Diltiazem Reported alcohol abuse - No evidence of alcohol withdrawal - Upon discussion this morning patient reports that he drinks 2-3 beers per week. Sometimes he drinks liquor - c/w Thiamine / Folate / MVI while inpatient - Advised to abstain from alcohol use Hx of Headaches - Suspect 2/2 migraines - Currently no headaches - c/w Home regimen Anxiety / Depression - Currently not on medications - No suicidal / homicidal ideation - Will have outpatient follow up with PCP DVT prophylaxis - c/w TEDs/Sequentials DISCHARGE MEDICATIONS: Please see below. ALLERGIES: Please see below. PHYSICAL EXAMINATION ON DISCHARGE: Vitals (See below) General: Sitting up in bed, appears comfortable, AAOx3 HEENT: NC, AT CVS: +S1S2 Lungs: Fair air entry b/l, -w/r/r Abdomen: Soft, ND, NT Extremities: No evidence of edema, - Calf tenderness LABORATORY DATA: Please see below. IMAGING: Head CT 07/10: 1. No CT evidence of acute intracranial pathology. 2. Additional findings, as above. Cervical spine CT 07/10: 1. No CT evidence of acute cervical spine traumatic injury. 2. Additional findings, as above. CXR 07/10: No acute findings. ACTIVITY: [As tolerated]. DISCHARGE PLAN: Follow-up with primary care provider and neurology within the next 7 days Remain compliant with treatment plan and medications Abstain from alcohol use Abstain from driving or operating any motor vehicle Return to the ER if you experience any problems DISPOSITION: Home DISCHARGE CONDITION: [Stable]. TIME SPENT ON DISCHARGE: 35 minutes. Vital Signs/I&Os Vital Signs Date Time Temp Pulse Resp B/P (MAP) Pulse Ox O2 Delivery O2 Flow Rate FiO2 07/10/21 08:00 99.8 88 20 135/60 (85) 98 Room Air I&O- Last 24 Hours up to 6 AM 07/10/21 06:00 Intake Total 1610 ml Output Total 500 ml Balance 1110 ml Laboratory Data Labs 24H Laboratory Tests 2 07/10/21 00:23: Bedside Glucose (Misc Panel) 108H 07/10/21 01:20: Immature Granulocyte % (Auto) 0.8, Neutrophils (%) (Auto) 76.4H, Lymphocytes (%) (Auto) 11.5L, Monocytes (%) (Auto) 9.0H, Eosinophils (%) (Auto) 1.6, Basophils (%) (Auto) 0.7, Neutrophils # (Auto) 12.9H, Lymphocytes # (Auto) 1.9, Monocytes # (Auto) 1.5H, Eosinophils # (Auto) 0.3, Basophils # (Auto) 0.1, Nucleated Red B lood Cells % (auto) 0.0, Urine Color YELLOW, Urine Appearance CLEAR, Urine pH 6.0, Urine Specific [place] 1.017, Urine Protein 2+H, Urine Glucose (UA) NEGATIVE, Urine Ketones TRACEH, Urine Blood 1+H, Urine Nitrite NEGATIVE, Urine Bilirubin NEGATIVE, Urine Urobilinogen 0.2, Urine Leukocyte Esterase NEGATIVE, Urine WBC (Auto) 1, Urine RBC (Auto) 1, Urine Hyaline Casts (Auto) 0, Urine Bacteria (Auto) NEGATIVE, Urine Squamous Epithelial Cells 0, Urine Mucus (Auto) SMALL, Urine Sperm (Auto) , Anion Gap 7L, Glomerular Filtration Rate > 60.0, Calcium Level 8.9, Phosphorus Level 1.8L, Magnesium Level 2.3, Total Bilirubin 0.6, Direct Bilirubin 0.2, Aspartate Amino Transf (AST/SGOT) 29, Alanine Aminot ransferase (ALT/SGPT) 32, Alkaline Phosphatase 99, Total Protein 7.7, Albumin 4.2, Albumin/Globulin Ratio 1.2, Urine Opiates Screen NEGATIVE, Urine Methadone Screen NEGATIVE, Urine Barbiturates Screen NEGATIVE, Urine Phencyclidine Screen NEGATIVE, Urine Amphetamines Screen NEGATIVE, Urine Benzodiazepines Screen NEGATIVE, Urine Cocaine Metabolite Screen NEGATIVE, Urine Cannabinoids Screen POSITIVEH, Ethyl Alcohol Level < 0.003 07/10/21 02:43: Coronavirus (COVID-19)(PCR) NEGATIVE, Influenza Type A (RT-PCR) NEGATIVE, Influenza Type B (RT-PCR) NEGATIVE, Respiratory Syncytial Virus (PCR) NEGATIVE 07/10/21 02:49: Lactic Acid Level 8.1*H 07/10/21 05:32: Phosphorus Level 2.9# 07/10/21 07:53: Immature Granulocyte % (Auto) 0.8, Neutrophils (%) (Auto) 75.6H, Lymphocytes (%) (Auto) 11.6L, Monocytes (%) (Auto) 10.7H, Eosinophils (%) (Auto) 0.7, Basophils (%) (Auto) 0.6, Neutrophils # (Auto) 11.8H, Lymphocytes # (Auto) 1.8, Monocytes # (Auto) 1.7H, Eosinophils # (Auto) 0.1, Basophils # (Auto) 0.1, Nucleated Red Blood Cells % (auto) 0.0, Anion Gap 7L, Glomerular Filtration Rate > 60.0, Lactic Acid Followup at 4 Hours 1.2, Calcium Level 8.8, Magnesium Level 2.4 CBC/BMP Laboratory Tests 07/10/21 01:20 07/10/21 07:53 FSBS Laboratory Tests Test 07/10/21 00:23 Range/Units Bedside Glucose (Misc Panel) 108 70-105 MG/DL Microbiology Microbiology 07/10/21 Blood Culture, Received Pending Discharge Medications Scheduled Divalproex Sodium (Depakote) 500 Mg Tablet.dr, 500 MG PO BID Levetiracetam (Levetiracetam ER) 750 Mg Keegan, 1,500 MG PO BID, (Reported) Verapamil HCl (Verapamil ER) 240 Mg Tabcr, 240 MG PO BID, (Reported) Scheduled PRN Sumatriptan Succinate (Sumatriptan Succinate) 6 Mg/0.5 Ml Inj, 6 MG SC PRN PRN for MIGRAINE, (Reported) Allergies Coded Allergies: No Known Allergies (Verified Allergy, Unknown, 04/04/19) RAMBO CARL MD Jul 10, 2021 10:57
[2021-07-10] MEDS ORDERED: DIVALPROEX 500 MG TAB PO SCH (11:00)
[2021-07-10 11:26] VITALS: BP 130/72
[2021-07-11] MEDS ORDERED: FOLIC ACID 1 MG TAB PO SCH (09:00)
[2021-07-11] MEDS ORDERED: THIAMINE 100 MG TAB PO SCH (09:00)
[2021-07-11] MEDS ORDERED: MULTIVITAMINS/MINERALS THERAP 1 TAB PO SCH (09:00)
== END 2021-07-10 12:00 | disposition home or self-care (01) ==
LOC: M ED 07-10 00:52 → M ED INP 07-10 02:50 → INTOOBSV 07-10 02:50 → M PCU 07-10 05:15
PROVIDERS: ADMIT Internal Medicine; ATTEND Internal Medicine
DX: G40.909 Epilepsy, unspecified, not intractable, without status epilepticus (principal); D72.829 Elevated white blood cell count, unspecified; E87.2 Acidosis; E83.31 Familial hypophosphatemia; I10 Essential (primary) hypertension; F10.10 Alcohol abuse, uncomplicated; R51.9 Headache, unspecified; F41.9 Anxiety disorder, unspecified; F32.9 Major depressive disorder, single episode, unspecified; Z79.899 Other long term (current) drug therapy
CPT/HCPCS: 36415; 70450; 71045; 72125; 80048; 80076; 80180; 80307; 81001; 82077; 83605; 83735; 84100; 84145; 85025; 87040; 87631; 90471; 90715; 93005; 94760; 96361; 96365; 96375; 99285; J1953; J2060; J3411

== ENCOUNTER 2021-09-04 15:40 | Emergency (ER) | payer MEDICAID, OTHER ==
[~2021-09-04] VITALS: Ht 160 cm; Wt 72.7 kg
[~2021-09-04 15:40] MED LIST changes: +DEPA1TAB3 PO
[2021-09-04] MEDS ORDERED: DIVALPROEX 500 MG TAB PO ONE (17:05)
[2021-09-04] MEDS ORDERED: levETIRAcetam 250MG TABLET (KEPPRA) PO ONE (17:05)
[2021-09-04 17:52] VITALS: BP 154/85
== END 2021-09-04 17:58 | disposition home or self-care (01) ==
LOC: M ED 15:40 → EDBD 15:40 → M ED 17:58
DX: G40.909 Epilepsy, unspecified, not intractable, without status epilepticus (principal); Z91.19 Patient's noncompliance with other medical treatment and regimen; F41.9 Anxiety disorder, unspecified; F32.9 Major depressive disorder, single episode, unspecified; Z79.899 Other long term (current) drug therapy

== ENCOUNTER 2021-10-24 22:54 | Emergency (ER) | payer OTHER ==
[~2021-10-24] VITALS: Ht 160 cm; Wt 73.9 kg
[~2021-10-24 22:54] MED LIST changes: +VERA240T65 PO; -VERA24TASA PO
--- OUTSIDE RECORDS SUMMARY | 2021-10-24 22:57 | CCD ---
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 confirmed 35492064 [id number] Problem Seizure disorder G40.909 Active confirmed 12 0289734 Problem Cluster headache syndrome, unspecified, not intractable G44.009 Active confirmed 599713645 Problem Epilepsy, unspecified, not intractable, without status epilepticus G40.909 Active confirmed 77578615 Problem Depression, unspecified depression type F32.9 Active confirmed 20467083 Problem Alcohol use disorder, mild, 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 Active confirmed [id number] ALLERGIES No Known Allergies ENCOUNTERS from 1986 to 2021-10-17 Encounter Location Date Provider Diagnosis [address] [phone] [place] [address] Sep, Leatha Ellington IMMUNIZATIONS Vaccine Route Administration Date Status TD PED 0.5mL Tetanus Unknown Jul 10, 2021 Administere d Influenza 6mo & up Fluzone IM Intramuscular Jan 07, 2018 Admi nistered Influenza 6mo & up Fluzone IM Intramuscular Jan 04, 2017 Admi nistered Influenza 6mo & up Fluzone IM Intramuscular Oct 14, 2015 Admi nistered Influenza 6mo & up Fluzone IM Intramuscular Sep 26, 2014 Admi nistered SOCIAL HISTORY Tobacco Use: Social History Observation Description Date Details (start date - stop date) Never Smoker Sex Assigned At : Social History Observation Description Sex Assigned At Unknown Education: Question Answer Notes Level of Education: Finished High School Audit Question Answer Notes Total Score: 0 Interpretation: Alcohol Education Language: Question Answer Notes Languages spoken: Danish Tenriism: Question Answer Notes Tenriism 33 None Sexual Hx: Question Answer Notes Had sex in the last 12 months (vaginal, oral, or anal)? No Have you ever had an STD? No Drug and Alcohol Question Answer Notes Total Score: 0 Interpretation: No problems reported Alcohol Screening: Question Answer Notes Did you have a drink containing alcohol in the past year? Ye s Points 9 Interpretation Positive How often did you have six or more drinks on one occas ion in the past year? Daily or almost daily (4 points) How many drinks did you have on a typica l day when you were drinking in the past year? 5 or 6 (2 points) How often did you have a drink containing alcohol in t he past year? Two to three times per week (3 points) Tobacco Use: Question Answer Notes Are you a: never smoker REASON FOR REFERRAL No Information VITAL SIGNS No information MEDICATIONS Medication SIG (Take, Route, Frequency, Duration) Notes Start Da te End Date Status levETIRAcetam ER 750 MG TAKE TWO TABLETS BY MOUTH TWICE A DAY Oral fo r 30 Active Depakote 500 MG 1 tablet Orally Twice a day for 30 day(s) Unknown Verapamil HCl ER 240 MG 1 capsules Orally twice daily Active SUMAtriptan Succinate _ 1 injection Subcutaneous Only as needed for migraine Active Naprosyn 500 MG 1 tablet with food or milk as needed Orally every 12 hrs Active PROCEDURES No Information RESULTS No Results REASON FOR VISIT No show MEDICAL (GENERAL) HISTORY Type Description Date Medical History Cluster headaches Medical History Seizures - Dr. Munson Medical History Anxiety/depression Medical History [address] on [address] 10/2019 Medical History Marijuana use Surgical History Colonoscopy; nonbleeding IH/ EH; repeat at age 51; Dr. Dc 05/2018 Goals Section No Information Health Concerns No Information MEDICAL EQUIPMENT No Information MENTAL STATUS No Information FUNCTIONAL STATUS No Information ASSESSMENTS No Information PLAN OF TREATMENT No Information Insurance Providers Payer Name Payer Address Payer Phone Insured Name Patient Relati onship to Insured Coverage Start Date Coverage End Date [facility] [address]PT [address] [facility] [phone] [place] self
--- OUTSIDE RECORDS SUMMARY | 2021-10-24 22:58 | CCD ---
Author Author [facility] Organization [facility] Address Unknown Phone Unavailable Care Team Providers Care Oracle Application Architect Name Role Phone Geo Ellington MD Unavailable Unavailable Geo Ellington MD Unavailable Unavailable Geo Ellington MD Unavailable Unavailable Geo Ellington MD Unavailable Unavailable Geo Ellington MD Unavailable Unavailable Geo Ellington MD Unavailable Unavailable Geo Ellington MD Unavailable Unavailable Geo Ellington MD Unavailable Unavailable Geo Ellington MD Unavailable Unavailable Geo Ellington MD Unavailable Unavailable Geo Ellington MD Unavailable Unavailable Skipton, E Leatha MD Unavailable Unavailable Skipton, E Leatha MD Unavailable Unavailable Skipton, E Leatha MD Unavailable Unavailable Skipton, E Leatha MD Unavailable Unavailable Skipton, E Leatha MD Unavailable Unavailable Skipton, E Leatha MD Unavailable Unavailable Skipton, E Leatha MD Unavailable Unavailable Skipton, E Leatha MD Unavailable Unavailable Skipton, E Leatha MD Unavailable Unavailable Skipton, E Leatha MD Unavailable Unavailable Skipton, E Leatha MD Unavailable Unavailable Skipton, E Leatha MD Unavailable Unavailable Skipton, E Leatha MD Unavailable Unavailable Skipton, E Leatha MD Unavailable Unavailable Skipton, E Leatha MD Unavailable Unavailable Skipton, E Leatha MD Unavailable Unavailable Skipton, E Leatha MD Unavailable Unavailable Skipton, E Leatha MD Unavailable Unavailable Skipton, E Leatha MD Unavailable Unavailable Skipton, E Leatha MD Unavailable Unavailable Skipton, E Leatha MD Unavailable Unavailable Skipton, E Leatha MD Unavailable Unavailable Skipton, E Leatha MD Unavailable Unavailable Skipton, E Leatha MD Unavailable Unavailable Skipton, E Leatha MD Unavailable Unavailable Skipton, E Leatha MD Unavailable Unavailable Skipton, E Leatha MD Unavailable Unavailable Skipton, E Leatha MD Unavailable Unavailable Skipton, E Leatha MD Unavailable Unavailable Skipton, E Leatha MD Unavailable Unavailable Skipton, E Leatha MD Unavailable Unavailable Skipton, E Leatha MD Unavailable Unavailable Skipton, E Leatha MD Unavailable Unavailable Skipton, E Leatha MD Unavailable Unavailable Skipton, E Leahta MD Unavailable Unavailable Skipton, E Leatha MD Unavailable Unavailable Skipton, E Leatha MD Unavailable Unavailable Skipton, E Leatha MD Unavailable Unavailable Skipton, E Leatha MD Unavailable Unavailable Skipton, E Leatha MD Unavailable Unavailable Skipton, E Leatha MD Unavailable Unavailable Skipton, E Leatha MD Unavailable Unavailable Skipton, E Leatha MD Unavailable Unavailable Skipton, E Leatha MD Unavailable Unavailable Skipton, E Leatha MD Unavailable Unavailable Skipton, E Leatha MD Unavailable Unavailable Skipton, E Leatha MD Unavailable Unavailable Skipton, E Leatha MD Unavailable Unavailable Skipton, E Leatha MD Unavailable Unavailable Patricia Jen Maira Unavailable PATRICIA A MAIRA Unavailable Unavailable Mahin, Kirill Unavailable Unavailable Mahin, Kirill Unavailable Unavailable Mahin, Kirill Unavailable Unavailable Mahin, Kirill Unavailable Unavailable Mahin, Kirill Unavailable Unavailable Re-disclosure Warning The records that you are about to access may contain information from federally-assisted alcohol or drug abuse programs. If such information is present, then the following federally mandated warning applies: This information has been disclosed to you from records protected by federal confidentiality rules (42 CFR part 2). The federal rules prohibit you from making any further disclosure of this information unless further disclosure is expressly permitted by the written consent of the person to whom it pertains or as otherwise permitted by 42 CFR part 2. A general authorization for the release of medical or other information is NOT sufficient for this purpose. The Federal rules restrict any use of the information to criminally investigate or prosecute any alcohol or drug abuse patient.The records that you are about to access may contain highly sensitive health information, the redisclosure of which is protected by Article 27-F of the [facility] Public Health law. If you continue you may have access to information: Regarding HIV / AIDS; Provided by facilities licensed or operated by the [facility] Office of Mental Health; or Provided by the [facility] Office for People With Developmental Disabilities. If such information is present, then the following [facility] mandated warning applies: This information has been disclosed to you from confidential records which are protected by state law. State law prohibits you from making any further disclosure of this information without the specific written consent of the person to whom it pertains, or as otherwise permitted by law. Any unauthorized further disclosure in violation of state law may result in a fine or longterm sentence or both. A general authorization for the release of medical or other information is NOT sufficient authorization for further disc losure. Allergies and Adverse Reactions Type Description Substance Reaction Status Data Source(s ) Propensity to adverse reactions NO KNOWN ALLERGIES NO KNOWN ALLERGIES [facility] Family History Family Member Name Family Member Gender Family Member Status Date o f Status Description Data Source(s) Unknown Unknown Problem MEDENT ([facility] Unknown Female Problem MEDENT ([facility]) Encounters Encounter Providers Location Date Indications Data Source(s ) Outpatient Attender: MAIRA Trinidadender: Maira Gomez 03/31/2022 12:00:00 AM [facility] Outpatient Attender: MAIRA Mancia: Maira Gomez 11/28/2021 12:00:00 AM [facility] [place] [address] [address] 10/17/2021 12:00:00 AM EST eCW1 ([facility]) Outpatient Attender: MAIRA GOMEZ [id number] 09/10/2021 06:43:47 PM [facility] Outpatient Attender: MAIRA Trinidadender: Maira Gomez 0 [id number] 09/04/2021 12:00:00 AM EDT - 09/04/2021 01:45:41 PM EDT [facility] Outpatient Attender: MAIRA Trinidadender: Maira Gomez 0 [id number] 07/22/2021 12:00:00 AM EDT - 07/22/2021 02:49:24 PM EDT [facility] [address] [address] 07/16/2021 12:00:00 AM EDT eCW1 ([facility]) [place] [address] [address] 07/14/2021 12:00:00 AM EDT eCW1 ([facility]) Outpatient Attender: AMIRA Mancia: Maira Gomez 06/12/2021 12:00:00 AM [facility] Outpatient Attender: MAIRA GOMEZ 05/08/2021 12:00:00 AM [facility] Outpatient Attender: MAIRA Azar: Leatha Ellington MD [id number] 03/27/2021 12:00:00 AM EDT - 03/27/2021 04:06:39 PM EDT Localization-related (focal) (partial) symptomatic epilepsy and epileptic syndromes with simple partial seizures, not intractable, without status epilepticus [facility] Localization-related (focal) (partial) s ymptomatic epilepsy and epileptic syndromes with simple partial seizures, not intractable, without status epilepticus Outpatient Attender: MAIRA GOMEZ 02/13/2021 12:00:00 AM [facility] Outpatient Attender: Kirill Stockton 10/01/2020 12:00:00 AM E [facility] Immunizations Vaccine Date Status Description Data Source(s) Note that this vaccine name has changed. See also Td (adult). It is not adsorbed. 07/10/2021 11:26:00 AM EDT completed eCW1 ([facility]) Note that this vaccine name has changed. See also Td (adult). It is not adsorbed. 07/10/2021 11:26:00 AM EDT completed eCW1 ([facility]) Medications Medication Brand Name Start Date Product Form Dose Route Admi nistrative Instructions Pharmacy Instructions Status Indications Reaction Description Data Source(s) 25 mg 09/09/2021 12:00:00 AM EDT tablet 180 TAKE 1 TABLET BY MOUTH DAILY FOR 12 DAYS THEN 1 TWO TIMES A DAY FOR 14 DAYS THEN 2 TABLETS TWO TIMES A DAY FOR 14 DAYS THEN 3 TABLETS TWO TIMES A DAY CALL CLINIC FOR ANY SIDE EFFECTS, PARTICULARLY RASH TAKE 1 TABLET BY MOUTH DAILY FOR 12 DAYS THEN 1 TWO TIMES A DAY FOR 14 DAYS THEN 2 TABLETS TWO TIMES A DAY FOR 14 DAYS THEN 3 TABLETS TWO TIMES A DAY CALL CLINIC FOR ANY SIDE EFFECTS, PARTICULARLY RASH SOLD: 09/10/2021 [facility] 6 mg/0.5 mL 07/23/2021 12:00:00 AM EDT solution 4 INJECT 0.5ML INTO THE SKIN NEEDED AT ONSET OF HEADACHE MAY REPEAT IN 2 HOURS IF NO RELIEF. NO MORE THAN 2 INJECTIONS IN A DAY, NO MORE THAN 3 DAYS IN A WEEK INJECT 0.5ML INTO THE SKIN NEEDED AT ONSET OF HEADACHE MAY REPEAT IN 2 HOURS IF NO RELIEF. NO MORE THAN 2 INJECTIONS IN A DAY, NO MORE THAN 3 DAYS IN A WEEK SOLD: 07/30/2021 [facility] 500 mg 07/10/2021 12:00:00 AM EDT tablet,delayed release (DR/EC) 60 TAKE 1 TABLET [500MG] BY MOUTH TWO TIMES A DAY TAKE 1 TABLET [500MG] BY MOUTH TWO TIMES A DAY SOLD: 07/30/2021 [facility] 750 mg 05/26/2021 12:00:00 AM EDT tablet extended release 24 hr 120 TAKE TWO TABLETS BY MOUTH TWICE A DAY TAKE TWO TABLETS BY MOUTH TWICE A DAY SOLD: 10/03/2021 [facility] 750 mg 05/26/2021 12:00:00 AM EDT tablet extended release 24 hr 120 TAKE TWO TABLETS BY MOUTH TWICE A DAY TAKE TWO TABLETS BY MOUTH TWICE A DAY SOLD: 09/02/2021 [facility] 750 mg 05/26/2021 12:00:00 AM EDT tablet extended release 24 hr 120 TAKE TWO TABLETS BY MOUTH TWICE A DAY TAKE TWO TABLETS BY MOUTH TWICE A DAY SOLD: 07/07/2021 [facility] 750 mg 05/26/2021 12:00:00 AM EDT tablet extended release 24 hr 120 TAKE TWO TABLETS BY MOUTH TWICE A DAY TAKE TWO TABLETS BY MOUTH TWICE A DAY SOLD: 05/26/2021 [facility] 750 mg 05/26/2021 12:00:00 AM EDT tablet extended release 24 hr 120 TAKE TWO TABLETS BY MOUTH TWICE A DAY TAKE TWO TABLETS BY MOUTH TWICE A DAY SOLD: 08/02/2021 [facility] 240 mg 03/28/2021 12:00:00 AM EDT tablet extended release 60 TAKE ONE TABLET BY MOUTH TWICE A DAY TAKE ONE TABLET BY MOUTH TWICE A DAY SOLD: 09/22/2021 [facility] 240 mg 03/28/2021 12:00:00 AM EDT tablet extended release 60 TAKE ONE TABLET BY MOUTH TWICE A DAY TAKE ONE TABLET BY MOUTH TWICE A DAY SOLD: 08/23/2021 [facility] 240 mg 03/28/2021 12:00:00 AM EDT tablet extended release 60 TAKE ONE TABLET BY MOUTH TWICE A DAY TAKE ONE TABLET BY MOUTH TWICE A DAY SOLD: 07/07/2021 [facility] 240 mg 03/28/2021 12:00:00 AM EDT tablet extended release 60 TAKE ONE TABLET BY MOUTH TWICE A DAY TAKE ONE TABLET BY MOUTH TWICE A DAY SOLD: 05/24/2021 [facility] 240 mg 03/28/2021 12:00:00 AM EDT tablet extended release 60 TAKE ONE TABLET BY MOUTH TWICE A DAY TAKE ONE TABLET BY MOUTH TWICE A DAY SOLD: 04/27/2021 [facility] 24 HR Levetiracetam 750 MG Extended Rele ase Oral Tablet levETIRAcetam ER 750 MG Oral Tablet Extended Release 24 Hour (KEPPRA XR) levETIRAcetam ER 750 MG Oral Tablet Extended Release 24 Hour (KEPPRA XR) 03/27/2021 12:00:00 AM EDT 1500 mg Oral active Localization-related epilepsy Take 2 tablets by mouth Two Times Daily [facility] Localization-related epilepsy 0.5 ML Sumatriptan 12 MG/ML Injection MOSQUERA MAtriptan Succinate 6 MG/0.5ML Subcutaneous Solution (Imitrex) SUMAtriptan Succinate 6 MG/0.5ML Subcuta neous Solution (Imitrex) 03/27/2021 12:00:00 AM EDT 6 mg Subcutaneous active Inject 0.5 mLs into the skin as needed (at onset of headache. may repeat in 2 hours if no relief. no more than 2 injections in a day.) [facility] Verapamil hydrochloride 240 MG Extended Release Oral Tablet Verapamil HCl ER 240 MG Oral Tablet Extended Release (CALAN-SR) Verapamil HCl ER 240 MG Oral Tablet Extended Release (CALAN-SR) 03/27/2021 12:00:00 AM EDT 240 mg Oral active Trigeminal autonomic cephalgias Take 1 tablet by mouth Two T imes Daily [facility] Trigeminal autonomic cephalgias 750 mg 03/21/2021 12:00:00 AM EDT tablet extended release 24 hr 120 TAKE TWO TABLETS BY MOUTH TWICE A DAY TAKE TWO TABLETS BY MOUTH TWICE A DAY SOLD: 04/27/2021 [facility] 24 HR Levetiracetam 750 MG Extended Rele ase Oral Tablet levETIRAcetam ER 750 MG Oral Tablet Extended Release 24 Hour (KEPPRA XR) levETIRAcetam ER 750 MG Oral Tablet Extended Release 24 Hour (KEPPRA XR) 03/20/2021 12:00:00 AM EDT aborted Localization-related epilepsy TAKE TWO TA BLETS BY MOUTH TWICE A DAY [facility] Localization-related epilepsy 750 mg 01/07/2021 12:00:00 AM EST tablet extended release 24 hr 120 TAKE TWO TABLETS BY MOUTH TWICE A DAY TAKE TWO TABLETS BY MOUTH TWICE A DAY SOLD: 02/21/2021 [facility] 750 mg 01/07/2021 12:00:00 AM EST tablet extended release 24 hr 120 TAKE TWO TABLETS BY MOUTH TWICE A DAY TAKE TWO TABLETS BY MOUTH TWICE A DAY SOLD: 01/08/2021 [facility] 750 mg 12/06/2020 12:00:00 AM EST tablet extended release 24 hr 120 TAKE TWO TABLETS BY MOUTH TWICE A DAY TAKE TWO TABLETS BY MOUTH TWICE A DAY SOLD: 12/11/2020 [facility] 240 mg 10/04/2019 12:00:00 AM EST tablet extended release 60 TAKE ONE TABLET BY MOUTH TWICE A DAY TAKE ONE TABLET BY MOUTH TWICE A DAY SOLD: 09/26/2020 [facility] 0.5 ML Sumatriptan 12 MG/ML Injection MOSQUERA MAtriptan Succinate 6 MG/0.5ML Subcutaneous Solution (IMITREX) SUMAtriptan Succinate 6 MG/0.5ML Subcuta neous Solution (IMITREX) 10/03/2019 12:00:00 AM EST 6 mg Subcutaneous aborted Inject 0.5 mLs into the skin as needed (at onset of headache. May repeat in 2 hours if no relief. No more than 2 injections in a day.) [facility] Verapamil hydrochloride 240 MG Extended Release Oral Tablet Verapamil HCl ER 240 MG Oral Tablet Extended Release (CALAN-SR) Verapamil HCl ER 240 MG Oral Tablet Extended Release (CALAN-SR) 10/03/2019 12:00:00 AM EST 240 mg Oral aborted Nonintractable migraine, unspecified migraine type Take 1 tablet by mouth Two Times Daily [facility] Nonintractable migraine, unspecified dick liban type Insurance Providers Payer name Policy type / Coverage type Policy ID Covered constitution party ID Covered constitution party's relationship to moore Policy [facility] Part B [id number] Self R [id number] MEDICARE A [id number] Self [id number] A MEDICAID M [id number] Self [id number] Medicare [place] Medicare Primary [id number] Self [id number] Medicaid [place] Medigap Part B [id number] Self [id number] [facility] I [id number] Self [id number] [facility] I [id number] Self [id number] ADIN I [id number] Self [id number] ANSI-Medicaid [id number] ANSI-Medicare Part B [id number] ANSI-Not a Secondary Insurance [id number] ANSI-Not a Secondary Insurance [id number] ANSI-Medicare Part B [id number] ANSI-Medicaid [id number] ANSI-Medicaid [id number] ANSI-Medicare Part B [id number] [facility] [id number] ANSI-Medicare Part B [id number] ANSI-Medicaid [id number] ANSI-Medicaid [id number] ANSI-Medicare Part B [id number] MEDICARE [id number] A ANSI-Medicare Part B [id number] ANSI-Medicaid [id number] ANSI-Medicare Part B [id number] ANSI-Medicaid [id number] ANSI-Medicaid [id number] ANSI-Medicare Part B [id number] ANSI-Medicaid [id number] ANSI-Medicare Part B [id number] ANSI-Medicaid [id number] ANSI-Medicare Part B [id number] ANSI-Medicaid [id number] ANSI-Medicare Part B [id number] ANSI-Medicare Part B [id number] ANSI-Medicaid [id number] ANSI-Medicare Part B [id number] ANSI-Medicaid [id number] Medicaid [place] Part B [id number] Self [id number] Medicare [place] Medicare Primary [id number] Self [id number] [facility] O [id number] S [id number] MEDICAID M [id number] S [id number] MEDICARE C [id number] S [id number] A MEDICAID [place] [id number] Self SELF PAY UNAVAILABLE UNAVAILA BLE BLUE CROSS DORADO PLAN [id number] SP [id number] BLUE CHOICE OPTION O [id number] S [id number] MEDICAID W [id number] ADIN [id number] SP [id number] S [id number] ADIN [id number] SP [id number] [place] [id number] SP [id number] ADIN CARE [place] O [id number] S [id number] SELF PAY ONLY [id number] SP [id number] MEDICAID [id number] SP [id number] SELF PAY ONLY - [id number] SP [id number] SELF PAY ONLY [id number] SP [id number] Problems, Conditions, and Diagnoses Code Display Name Description Problem Type Effective Dates Data Source(s) 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 G40.909 [id number] Seizure disorder Problem 07/16/2021 12:00:00 AM EDT eCW1 ([facility]) Surgeries/Procedures No Information Results ID Date Data Source [id number] 09/11/2021 09:39:[address] [facility] Name Value Range Interpretation Code Description Data Carissa rce(s) Supporting Document(s) Progress Note [facility] OQHDVw8hMmRMPcHs45/ABDcmLJYtd2QbWHkkSVc4YBanHOTuR3DxZFM8bP8eFHC0JSwXRrYaHqZtJSQ8 [facility] VdRxmFAvVxNVTwRlpYTiHsORirBerdrFQcBG4FeAP1FHNhV31uMUXmBCDmH4KeRVX6NAv+Ux1XUXJptU PbOO0FEoyT5W6qi3wNIs0rIU/GsIzxkjY9gw9XwNlS9rZHA2bfaWzrw97rDzxMB9aEKxsY/wobZnA3Kx 0JdGLGZ0RMj14lcT7r+4LAlVNxZ1/Tcb5ovxLtA4uf /pVEWjAn47+SMkxpvUU8t8DS9ZDOGSw/wIY16MQoUrNdDC6+PmZLQQaia2gnOXhT5JaHWdeXe64Ta+nw hXidzG/kMcZpQa94fSxLpoLJcw40ej5lDD3ZntOadcOF6/Cib9Hi9wIRE8QL6BlIvDRzDAqgaUISo33s ii3x581ltEec3Ocq+9URSs1DdFOCgyEa31I7Mxb12E qcdYlXKOxxJYQxWZwT5TeSJStyxpzeu6zg/nvL8BTzkjLKthISn1hE0BfzRHeEuwxtguO+nzPOZT/SXA 61jHlTcQafKCnAEUujxfLSg3iM/V9Wd8NDwTY4e+RjqQbdtpEVU5Ex7g/18cAF7QaU8AEqmQtPn7uwvF KwtTg89pJ+PwcYLVx6YgO9JJOo2PnXQn2b+eS6/Radha [file] YzQcLB4ANx3TLkE2AYK1oJPoTw3JHTN2IjyUIaKfEZ4JKSm= ID Date Data Source [id number] 09/10/2021 06:43:47 PM EDT [facility] Name Value Range Interpretation Code Description Data Carissa rce(s) Supporting Document(s) Progress Note [facility] PHCOAy7rIjCIOnFm00/LIFsbQJPvw2XcACcbQPe7KHohEIWaY7EmNLE9pA6xHBW5ZEkDRsSnPuMaJBAk lbm [file] M3RkR0LGYhIQFxFVK+KC4lNQp+Ma9Eb4FckgQ6jlVgGJnaJRGvCA1QAUNQT4MENh== ID Date Data Source [id number] 09/04/2021 03:51:[address] [facility] Name Value Range Interpretation Code Description Data Carissa rce(s) Supporting Document(s) Leukocytes [#/volume] in Blood by Automated count 9.9 10*3/uL 4-10 [facility] Erythrocytes [#/volume] in Blood by Automated count 4.52 10*6/uL 4.6- 6.1 L [facility] Hemoglobin [Mass/volume] in Blood 15.6 g/dL 13.5-18 [facility] Hematocrit [Volume Fraction] of Blood by Automated count 45.4 % 4 1-53 [facility] Erythrocyte mean corpuscular volume [Entitic volume] b y Automated count 100.4 fL 80-96 H [facility] Erythrocyte mean corpuscular hemoglobin [Entitic mass] by Automated count 34.5 pg 27-33 H [facility] Erythrocyte mean corpuscular hemoglobin concentration [Mass/volume] by Automated count 34.3 g/dL 32.0-36.0 [facility] width [Ratio] by Automated count 12.6 % 11.5-14.5 [facility] Platelets [#/volume] in Blood by Automated count 188 10*3/uL 150-400 [facility] Differential cell count method - Blood [facility] Neutrophils/100 leukocytes in Blood by Automated count 64 % [facility] Lymphocytes/100 leukocytes in Blood by Automated count 18 % [facility] Monocytes/100 leukocytes in Blood by Automated count 12 % [facility] Eosinophils/100 leukocytes in Blood by Automated count 5 % [facility] Basophils/100 leukocytes in Blood by Automated count 1 % [facility] Neutrophils [#/volume] in Blood by Automated count 6.30 10*3/uL 1.8-7 .0 [facility] Lymphocytes [#/volume] in Blood by Automated count 1.79 10*3/uL 1.2-4 .0 [facility] Monocytes [#/volume] in Blood by Automated count 1.21 10*3/uL 0-0.8 H [facility] Eosinophils [#/volume] in Blood by Automated count 0.49 10*3/uL 0-0.5 [facility] Basophils [#/volume] in Blood by Automated count 0.13 10*3/uL 0-0.2 [facility] Nucleated erythrocytes/100 leukocytes [Ratio] in Blood by Automated count 0 /100{WBCs} 0-0 [facility] ID Date Data Source [id number] 09/04/2021 04:07:[address] [facility] Name Value Range Interpretation Code Description Data Carissa rce(s) Supporting Document(s) Albumin [Mass/volume] in Serum or Plasma by Bromocresol green (BCG) dye binding method 5.0 g/dL 3.5-5.2 [facility] Bilirubin.total [Mass/volume] in Serum or Plasma 0.6 mg/dL <1.2 [facility] Calcium [Mass/volume] in Serum or Plasma 9.7 mg/dL 8.6-10.0 [facility] Chloride [Moles/volume] in Serum or Plasma 97 mmol/L 98-107 L [facility] Creatinine [Mass/volume] in Serum or Plasma 0.84 mg/dL 0.70-1.20 [facility] Glucose [Mass/volume] in Serum or Plasma 78 mg/dL 70-140 [facility] Alkaline phosphatase [Enzymatic activity/volume] in Serum or Plasma 95 U/L 40-129 [facility] Potassium [Moles/volume] in Serum or Plasma 3.9 mmol/L 3.4-5.1 [facility] Protein [Mass/volume] in Serum or Plasma 7.5 g/dL 6.4-8.3 [facility] Sodium [Moles/volume] in Serum or Plasma 135 mmol/L 136-145 L [facility] Aspartate aminotransferase [Enzymatic activity/volume] in Serum or Plasma 59 U/L <40 H [facility] Urea nitrogen [Mass/volume] in Serum or Plasma 7 mg/dL 6-20 [facility] Osmolality of Serum or Plasma by calculation 277 mosm/kg 275-300 [facility] Creatinine/Urea nitrogen [Mass Ratio] in Serum or Plasma 9 [facility] Bicarbonate [Moles/volume] in Serum 24 mmol/L 22-29 [facility] Alanine aminotransferase [Enzymatic activity/volume] in Seru m or Plasma 35 U/L <41 [facility] [facility] Anion gap 3 in Serum or Plasma 14 mmol/L 8-15 [facility] Glomerular filtration rate/1.73 sq M pre dicted among non-blacks [Volume Rate/Area] in Serum or Plasma by Creatinine-based formula (MDRD) >6 0 [facility] Glomerular filtration rate/1.73 sq M pre dicted among blacks [Volume Rate/Area] in Serum or Plasma by Creatinine-based formula (MDRD) >60 [facility] ID Date Data Source [id number] 09/04/2021 04:03:29 PM [facility] Name Value Range Interpretation Code Description Data Carissa rce(s) Supporting Document(s) Levetiracetam [Mass/volume] in Serum or Plasma 24 ug/mL 12-46 [facility] ID Date Data Source [id number] 07/22/2021 04:05:23 PM [facility] Name Value Range Interpretation Code Description Data Carissa rce(s) Supporting Document(s) Progress Note [facility] CCVFFz6fVhVXBmFi20/HXHesZEUed7DtLQvbGWv7BWpwOEVaY4AaOYB5vM3tLOW6FEpISdDxIsQcJXH0 lbm DgOrvBMeJhRJWtFdeBIgIqHYvpQnhjtTAoBC1GwBS3FBCnZ58uBPBmEFXgX8NbYSOjEzH+Mh6PRKSlqZ DeKE5PUgbD9W7dHdfQPm4+5z4S6p65TySWcyh81tqSdUifk+FAGbTuvOtbl3FD6N9wWDinn/36m/HMMF NIsqF3tCuieDbLlj7l1f14yt3cmOx/pOPxQfM4quy+ 383MEtUYX0Mw/oPbyo92b1C6OWTFW8gDxdp7ST/vz5fXrK1ClW87aATDqvF72SvPfENmdLvY2qAHQND7 FpgVo9FmvSXkEUzRV/aPJ5KykORHiYTiqwo3CkP14gAtbbYZiCpS6d1S9TS6rVE/u9i6OBxpukmhN7G4 1EMuHy2umgko1VUFzO+BSacLa4G+samb3Tc7GbVNP/ o3ytPRNBX1BbR5g5OWmf8oF6FU/bijF/mq1J/OVP6YaC46rH8G+kdLh0SiG7xkNVzwBa7RpkmmPdI/Alina [file] PnBALhZTD3Xk8zXKAGTd6+YJxbtQDxwTckNSFIDwJ3ZGB5JYlhTPYYSo9C ID Date Data Source [id number] 07/10/2021 02:43:00 AM EDT [facility] Name Value Range Interpretation Code Description Data Carissa rce(s) Supporting Document(s) SARS coronavirus 2 RNA [Presence] in Res piratory specimen by RASHAWN with probe detection NEGATIVE [facility] This lab was ordered by [facility] a nd reported by [facility]. ID Date Data Source [id number] 03/28/2021 10:05:[address] 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/dYhHyHyqeGaNTlfLRTnuwlhKiE3yejlbMv//Jr [file] QZKFBfL9ETZ5BKuqTEREEc9Y Procedure Social History Code Duration Value Status Description Data Source(s ) Smoking 07/16/2021 12:00:00 AM EDT Never Smoker completed Never S moker eCW1 ([facility]) Smoking 07/16/2021 12:00:00 AM EDT Never Smoker completed Never S prker eCW1 ([facility]) Alcohol intake 03/27/2021 12:00:00 AM EDT Ex-drinker (finding) comp leted Ex- drinker (finding) [facility] Tobacco use and exposure 03/27/2021 12:00:00 AM EDT Never used co mpleted Never used [facility] Smoking 03/27/2021 12:00:00 AM EDT Never smoker completed Never s [facility] Vital Signs ID Date Data Source UNK Name Value Range Interpretation Code Description Data Source(s) Body weight 166 [lb_av] 166 [lb_av] eCW1 ([facility]) Body weight 75.3 kg 75.3 kg eCW1 ([facility]) Body height 63 [in_i] 63 [in_i] eCW1 ([facility]) Body mass index (BMI) [Ratio] 29.40 kg/m2 29.40 kg/m2 eCW1 ([facility]) Heart rate 85 /min 85 /min eCW1 ([facility]) Respiratory rate 18 /min 18 /min eCW1 ([facility]) Body temperature 97.1 [degF] 97.1 [degF] eCW1 ( [facility]) Systolic blood pressure 122 mm[Hg] 122 mm[Hg] e CW1 ([facility]) Diastolic blood pressure 84 mm[Hg] 84 mm[Hg] eCW1 ([facility]) ID Date Data Source [id number] 03/28/2021 10:05:54 PM [facility] Name Value Range Interpretation Code Description Data Source(s) WEIGHT RECORDED 169 lb 169 lb [facility] Body height Measured 63 in 63 in [facility] Patient Treatment Plan of Care Planned Activity Planned Date Details Description Data Source (s) Verapamil hydrochloride 240 MG Extended Release Oral T ablet 03/27/2021 12:00:00 AM [facility] 0.5 ML Sumatriptan 12 MG/ML Injection 03/27/2021 12:00:00 AM [facility] 24 HR Levetiracetam 750 MG Extended Release Oral Table t 03/27/2021 12:00:00 AM [facility] 24 HR Levetiracetam 750 MG Extended Release Oral Table t 03/20/2021 12:00:00 AM [facility] 0.5 ML Sumatriptan 12 MG/ML Injection 10/03/2019 12:00:00 AM [facility] Verapamil hydrochloride 240 MG Extended Release Oral T ablet 10/03/2019 12:00:00 AM [facility] ospital
[2021-10-24] MEDS ORDERED: NS 1,000 ML IV ONE (23:25)
[2021-10-25 00:17] LABS: BASO # 0.1 10^3/uL (0.0-0.2); EOS # 0.3 10^3/uL (0.0-0.5); EOS % 2.4 % (0.0-3.0); HEMATOCRIT 43.8 % (42.0-52.0); HEMOGLOBIN 14.5 g/dl (13.5-17.5); LYMPH # 2.3 10^3/uL (1.5-5.0); LYMPH % 17.5 % (24.0-44.0); MEAN CORPUSCULAR HEMOGLOBIN 34.7 pg (27.0-33.0); MEAN CORPUSCULAR HGB CONC 33.1 g/dl (32.0-36.5); MEAN CORPUSCULAR VOLUME 104.8 fl (80.0-96.0); MONO # 1.3 10^3/uL (0.0-0.8); MONO % 9.5 % (2.0-8.0); NEUTROPHILS # 9.1 10^3/uL (1.5-8.5); NEUTROPHILS % 68.5 % (36.0-66.0); PLATELET COUNT, AUTOMATED 236 10^3/uL (150-450); RED BLOOD COUNT 4.18 10^6/uL (4.30-6.10); WHITE BLOOD COUNT 13.3 10^3/uL (4.0-10.0)
[2021-10-25 00:40] LABS: ALBUMIN 4.1 GM/DL (3.2-5.2); ALT/SGPT 74 U/L (12-78); BILIRUBIN,DIRECT 0.1 MG/DL (0.0-0.2); BILIRUBIN,TOTAL 0.3 MG/DL (0.2-1.0); BLOOD UREA NITROGEN 12 MG/DL (7-18); CALCIUM LEVEL 8.5 MG/DL (8.5-10.1); CARBON DIOXIDE LEVEL 23 MEQ/L (21-32); CHLORIDE LEVEL 104 MEQ/L (98-107); CREATININE FOR GFR 1.06 MG/DL (0.70-1.30); GLOMERULAR FILTRATION RATE > 60.0 (>60); GLUCOSE, FASTING 112 MG/DL (70-100); LIPASE 108 U/L (73-393); POTASSIUM SERUM 3.6 MEQ/L (3.5-5.1); SODIUM LEVEL 140 MEQ/L (136-145); TOTAL PROTEIN 8.1 GM/DL (6.4-8.2)
[2021-10-25 00:42] VITALS: BP 160/95
--- OUTSIDE RECORDS SUMMARY | 2021-10-25 01:20 | CCD ---
Author Author [facility] Organization [facility] Address Unknown Phone Unavailable Care Team Providers Care Front Facer Name Role Phone Geo Ellington MD Unavailable Unavailable Geo Ellington MD Unavailable Unavailable Geo Ellington MD Unavailable Unavailable Geo Ellington MD Unavailable Unavailable Geo Ellingtno MD Unavailable Unavailable Geo Ellington MD Unavailable [...] is protected by Article 27-F of the [facility] Public Health law. If you continue you may have access to information: Regarding HIV / AIDS; Provided by facilities licensed or operated by the [facility] Office of Mental Health; or Provided by the [facility] Office for People With Developmental Disabilities. If such information is present, then the following [facility] mandated warning applies: This information has [...] law may result in a fine or shelter sentence or both. A general authorization for the release of medical or other information is NOT sufficient authorization for further disc losure. Allergies and Adverse Reactions Type Description Substance Reaction Status Data Source(s ) Propensity to adverse reactions NO KNOWN ALLERGIES NO KNOWN ALLERGIES [facility] Family History Family Member Name Family Member Gender Family Member Status Date o f Status Description Data Source(s) Unknown Unknown Problem MEDENT ([facility] Unknown Female Problem MEDENT ([facility]) Encounters Encounter Providers Location Date Indications Data Source(s ) Outpatient Attender: MAIRA Trinidadender: Maira Gomez 03/31/2022 12:00:00 AM [facility] Outpatient Attender: MAIRA Mancia: Maira Gomez 11/28/2021 12:00:00 AM [facility] [place] [address] [address] 10/17/2021 12:00:00 AM EST eCW1 ([facility]) Outpatient Attender: MAIRA GOMEZ [id number] 09/10/2021 06:43:47 PM [facility] Outpatient Attender: MAIRA Trinidadender: Maira Gomez 0 [id number] 09/04/2021 12:00:00 AM EDT - 09/04/2021 01:45:41 PM EDT [facility] Outpatient Attender: MAIRA Trinidadender: Maira Gomez 0 [id number] 07/22/2021 12:00:00 AM EDT - 07/22/2021 02:49:24 PM EDT [facility] [place]patient [address] [address] 07/16/2021 12:00:00 AM EDT eCW1 ([facility]) [place] [address] [address] 07/14/2021 12:00:00 AM EDT eCW1 ([facility]) Outpatient Attender: MAIRA Mancia: Maira Gomez 06/12/2021 12:00:00 AM [facility] Outpatient Attender: MAIRA GOMEZ 05/08/2021 12:00:00 AM [facility] Outpatient Attender: MAIRA Azar: Leatha Ellington MD [id number] 03/27/2021 12:00:00 AM EDT - 03/27/2021 04:06:39 PM EDT Localization-related (focal) (partial) symptomatic epilepsy and epileptic syndromes with simple partial seizures, not intractable, without status epilepticus [facility] Localization-related (focal) (partial) s ymptomatic epilepsy and epileptic syndromes with simple partial seizures, not intractable, without status epilepticus Outpatient Attender: MAIRA GOMEZ 02/13/2021 12:00:00 AM [facility] Outpatient Attender: Kirill Stockton 10/01/2020 12:00:00 AM E [facility] Immunizations Vaccine Date Status Description Data Source(s) Note that this vaccine name has changed. See also Td (adult). It is not adsorbed. 07/10/2021 11:26:00 AM EDT completed eCW1 ([facility]) Note that this vaccine name has changed. See also Td (adult). It is not adsorbed. 07/10/2021 11:26:00 AM EDT completed eCW1 ([facility]) Medications Medication Brand Name Start Date Product [...] 2 tablets by mouth Two Times Daily [facility] Localization-related epilepsy 0.5 ML Sumatriptan 12 MG/ML Injection MOSQUERA MAtriptan Succinate 6 MG/0.5ML Subcutaneous Solution (Imitrex) SUMAtriptan Succinate 6 MG/0.5ML Subcuta neous Solution (Imitrex) 03/27/2021 12:00:00 AM EDT 6 mg Subcutaneous active Inject 0.5 mLs into the skin as needed (at onset of headache. may repeat in 2 hours if no relief. no more than 2 injections in a day.) [facility] Verapamil hydrochloride 240 MG Extended Release Oral Tablet Verapamil HCl ER 240 MG Oral Tablet Extended Release (CALAN-SR) Verapamil HCl ER 240 MG Oral Tablet Extended Release (CALAN-SR) 03/27/2021 12:00:00 AM EDT 240 mg Oral active Trigeminal autonomic cephalgias Take 1 tablet by mouth Two T imes Daily [facility] Trigeminal autonomic cephalgias 750 mg 03/21/2021 12:00:00 AM EDT tablet extended release 24 hr 120 TAKE TWO TABLETS BY MOUTH TWICE A DAY TAKE TWO TABLETS BY MOUTH TWICE A DAY SOLD: 04/27/2021 [facility] 24 HR Levetiracetam 750 MG Extended Rele ase Oral Tablet levETIRAcetam ER 750 MG Oral Tablet Extended Release 24 Hour (KEPPRA XR) levETIRAcetam ER 750 MG Oral Tablet Extended Release 24 Hour (KEPPRA XR) 03/20/2021 12:00:00 AM EDT aborted Localization-related epilepsy TAKE TWO TA BLETS BY MOUTH TWICE A DAY [facility] Localization-related epilepsy 750 mg 01/07/2021 12:00:00 [...] more than 2 injections in a day.) [facility] Verapamil hydrochloride 240 MG Extended Release Oral Tablet Verapamil HCl ER 240 MG Oral Tablet Extended Release (CALAN-SR) Verapamil HCl ER 240 MG Oral Tablet Extended Release (CALAN-SR) 10/03/2019 12:00:00 AM EST 240 mg Oral aborted Nonintractable migraine, unspecified migraine type Take 1 tablet by mouth Two Times Daily [facility] Nonintractable migraine, unspecified dick liban type Insurance Providers Payer name Policy type / Coverage type Policy ID Covered libertarian ID Covered libertarian's relationship to moore Policy Moore Plan Information BS [facility] Med[facility] Part B [id number] Self R [id number] MEDICARE A [id number] Self [id number] A MEDICAID M [id number] Self [id number] Medicare [place] Medicare Primary [id number] Self 0 [id number] [place] Med[place] Part B [id number] Self [id number] [facility] I [id number] Self [id number] [facility] I [id number] Self [id number] ADIN I [id number] Self [id number] ANSI-Medicaid [id number] ANSI-Medicare Part B [id number] ANSI-Not a Secondary Insurance [id number] ANSI-Not a Secondary Insurance [id number] ANSI-Medicare Part B [id number] ANSI-Medicaid [id number] ANSI-Medicaid [id number] ANSI-Medicare Part B [id number] [facility] [id number] ANSI-Medicare Part B [id number] ANSI-Medicaid [id number] ANSI-Medicaid [id number] ANSI-Medicare Part B [id number] MEDICARE [id number] A ANSI-Medicare Part B [id number] ANSI-Medicaid [id number] ANSI-Medicare Part B [id number] ANSI-Medicaid [id number] ANSI-Medicaid [id number] ANSI-Medicare Part B [id number] ANSI-Medicaid [id number] ANSI-Medicare Part B [id number] ANSI-Medicaid [id number] ANSI-Medicare Part B [id number] ANSI-Medicaid [id number] ANSI-Medicare Part B [id number] ANSI-Medicare Part B [id number] ANSI-Medicaid [id number] ANSI-Medicare Part B [id number] ANSI-Medicaid [id number] [place] [id number] Self [id number] Medicare Up[place]/NGS Medicare Primary [id number] Self 0 [id number] [facility] O [id number] S [id number] MEDICAID M [id number] S [id number] MEDICARE C [id number] S [id number] A MEDICAID [place] [id number] Self SELF PAY UNAVAILABLE UNAVAILA BLE BLUE CROSS DORADO PLAN [id number] SP [id number] BLUE CHOICE OPTION O [id number] S [id number] MEDICAID W [id number] ADIN [id number] SP [id number] S [id number] ADIN [id number] SP [id number] [place] [id number] SP [id number] ADIN CARE [place] O [id number] S [id number] SELF PAY ONLY [id number] SP [id number] MEDICAID [id number] SP [id number] SELF PAY ONLY - [id number] SP [id number] SELF PAY ONLY [id number] SP [id number] Problems, Conditions, and Diagnoses Code Display Name Description Problem Type Effective Dates Data Source(s) 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), 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), not intractable Diagnosis 03/27/2021 02:56:44 PM EDT [facility] G40.109 Localization-related (focal) (partial) symptomatic epilepsy and epileptic syndromes with simple partial seizures, not intractable, without status epilepticus Localization-related (focal) (partial) s ymptomatic epilepsy and epileptic syndromes with simple partial seizures, not intractable, without status epilepticus Diagnosis 03/27/2021 02:56:44 PM EDT [facility] G40.909 [id number] Seizure disorder Problem 07/16/2021 12:00:00 AM EDT eCW1 ([facility]) Surgeries/Procedures No Information Results ID Date Data Source [id number] 09/11/2021 09:39:33 AM EDT [facility] Name Value Range Interpretation Code Description Data Carissa rce(s) Supporting Document(s) Progress Note [facility] BEFLPx6aCyPTWqDf09/UCWkzVABvl4YiEJzqHVr6CPpmWASvN5IqNCN1oN9kWVE9AXnFOhZtPmGyCNN0 [facility] LiMmgARsVqHUZeOxuRXdLkZFrfOrpgnGNbEI9LqXU0PXTnM99rIJOuAGUeE1HfDGS1BHj+Dg0TNRUhyF IzRO7INfaU2I2ey6bGBv8mYD/FeQojkuX6lo7BoLbG7aCWA8iiwZdma55hEalBC0gJLffM/vitRxJ1Hl 3DmGKSZ7MVz41cfP0c+3JHxPYyH4/Eqo6espHtM1qt /qWZPqPp88+DTyecfSP5c1DM8WCWKEb/gXF47CItKiXeSM4+LfHQTLedq9gbPOtV5OvIBtaXw17Ul+nw hXidzG/eXbLxOn83kDaOeaCPtu16vz9mOA2YuqVdzcBX5/Qpl6Hh5tMLV4BQ9QjUsFSjZXmupIMLk21l nf1w321uwJcp8Mmf+6GDAv0JfMQQarBe02D7Veh89E uucEmNCNynCUTjMAvO9ZoTYCcinvaqa4ih/xuR5NDiirKIpjJNc8wU9TltGOvHcaubxtP+nzPOZT/SXA 87bQtBhSppDBuOEEzhfjZNa5pA/I1Ul0GNiIL4r+TwlGagmhSSQ7Aj5p/41sPB0OmU5GBgaJkMu3dewE WcyDa62lV+WjiIKFb7SuX8PFDu0JxHWy9c+eS6/Radha [file] VnPjUH6RWr5HCxC9ZAX1pYOdBb4BIBM0CpnMMkEkYF3JKGu= ID Date Data Source [id number] 09/10/2021 06:43:47 PM EDT [facility] Name Value Range Interpretation Code Description Data Carissa rce(s) Supporting Document(s) Progress Note [facility] OFILVl9ePoYUAiMi50/XPNihLQBom4VhHVxnEKj3NNquBUVdN2YwAPE2zP3uHZC7FIiHHrYpFwAyNZKy lbm [file] T9QtG4MWFiAVDbAYO+KF9mYVb+Iy9Xu6SqqoL0qnCgNPamQFZuJR3LSPKGN2YCXm== ID Date Data Source [id number] 09/04/2021 03:51:38 PM EDT [facility] Name Value Range Interpretation Code Description Data Carissa rce(s) Supporting Document(s) Leukocytes [#/volume] in Blood by Automated count 9.9 10*3/uL 4-10 [facility] Erythrocytes [#/volume] in Blood by Automated count 4.52 10*6/uL 4.6- 6.1 L [facility] Hemoglobin [Mass/volume] in Blood 15.6 g/dL 13.5-18 [facility] Hematocrit [Volume Fraction] of Blood by Automated count 45.4 % 4 1-53 [facility] Erythrocyte mean corpuscular volume [Entitic volume] b y Automated count 100.4 fL 80-96 H [facility] Erythrocyte mean corpuscular hemoglobin [Entitic mass] by Automated count 34.5 pg 27-33 H [facility] Erythrocyte mean corpuscular hemoglobin concentration [Mass/volume] by Automated count 34.3 g/dL 32.0-[facility] distribution width [Ratio] by Automated count 12.6 % 11.5-14.5 [facility] Platelets [#/volume] in Blood by Automated count 188 10*3/uL 150-400 [facility] Differential cell count method - Blood [facility] Neutrophils/100 leukocytes in Blood by Automated count 64 % [facility] Lymphocytes/100 leukocytes in Blood by Automated count 18 % [facility] Monocytes/100 leukocytes in Blood by Automated count 12 % [facility] Eosinophils/100 leukocytes in Blood by Automated count 5 % [facility] Basophils/100 leukocytes in Blood by Automated count 1 % [facility] Neutrophils [#/volume] in Blood by Automated count 6.30 10*3/uL 1.8-7 .0 [facility] Lymphocytes [#/volume] in Blood by Automated count 1.79 10*3/uL 1.2-4 .0 [facility] Monocytes [#/volume] in Blood by Automated count 1.21 10*3/uL 0-0.8 H [facility] Eosinophils [#/volume] in Blood by Automated count 0.49 10*3/uL 0-0.5 [facility] Basophils [#/volume] in Blood by Automated count 0.13 10*3/uL 0-0.2 [facility] Nucleated erythrocytes/100 leukocytes [Ratio] in Blood by Automated count 0 /100{WBCs} 0-0 [facility] ID Date Data Source [id number] 09/04/2021 04:07:40 PM T [facility] Name Value Range Interpretation Code Description Data Carissa rce(s) Supporting Document(s) Albumin [Mass/volume] in Serum or Plasma by Bromocresol green (BCG) dye binding method 5.0 g/dL 3.5-5.2 [facility] Bilirubin.total [Mass/volume] in Serum or Plasma 0.6 mg/dL <1.2 [facility] Calcium [Mass/volume] in Serum or Plasma 9.7 mg/dL 8.6-10.0 [facility] Chloride [Moles/volume] in Serum or Plasma 97 mmol/L 98-107 L [facility] Creatinine [Mass/volume] in Serum or Plasma 0.84 mg/dL 0.70-1.20 [facility] Glucose [Mass/volume] in Serum or Plasma 78 mg/dL 70-140 [facility] Alkaline phosphatase [Enzymatic activity/volume] in Serum or Plasma 95 U/L 40-129 [facility] Potassium [Moles/volume] in Serum or Plasma 3.9 mmol/L 3.4-5.1 [facility] Protein [Mass/volume] in Serum or Plasma 7.5 g/dL 6.4-8.3 [facility] Sodium [Moles/volume] in Serum or Plasma 135 mmol/L 136-145 L [facility] Aspartate aminotransferase [Enzymatic activity/volume] in Serum or Plasma 59 U/L <40 H [facility] Urea nitrogen [Mass/volume] in Serum or Plasma 7 mg/dL 6-20 [facility] Osmolality of Serum or Plasma by calculation 277 mosm/kg 275-300 [facility] Creatinine/Urea nitrogen [Mass Ratio] in Serum or Plasma 9 [facility] Bicarbonate [Moles/volume] in Serum 24 mmol/L 22-29 [facility] Alanine aminotransferase [Enzymatic activity/volume] in Seru m or Plasma 35 U/L <41 [facility] Anion gap 3 in Serum or Plasma 14 mmol/L 8-15 [facility] Glomerular filtration rate/1.73 sq M pre dicted among non-blacks [Volume Rate/Area] in Serum or Plasma by Creatinine-based formula (MDRD) >6 0 [facility] Glomerular filtration rate/1.73 sq M pre dicted among blacks [Volume Rate/Area] in Serum or Plasma by Creatinine-based formula (MDRD) >60 [facility] ID Date Data Source [id number] 09/04/2021 04:03:29 PM [facility] Name Value Range Interpretation Code Description Data Carissa rce(s) Supporting Document(s) Levetiracetam [Mass/volume] in Serum or Plasma 24 ug/mL 12-46 [facility] ID Date Data Source [id number] 07/22/2021 04:05:23 PM [facility] Name Value Range Interpretation Code Description Data Carissa rce(s) Supporting Document(s) Progress Note [facility] AYHGXe4uTpEHPlBo86/BSRwuICXki6AeXTssDDg5EQlsTKKjK7JeQMF8wW8aIPV5BIcZMlBxKkXbFYB5 lbm YuHkzUJjHjIVOfYukVUvNjLUtbTydefMXqTF2YcQK7SXFdY99uPFOgIWLiH3VjZWFlTrA+Aw8OSCJasM TzPH5UEwjH7H0wQrqCRx4+7z9O4b39ZhZEodz92hwSrZpjc+MZRrAlqQenr5KU1D8hVDkde/36m/HMMF VSdyY0rXwkuRyBpi9y3m55ei4pmJl/pEEmYuS1rrw+ 398OEaXXT4Yy/iNcgq54k7X1VCFFA0rMkpt3CQ/np5mBxL6BaP89yEPErrB16NgIaYPzaQkC3lKJCNP2 GaePm5KgzDPdQXsMN/lMG3LhwGKSoNAowpx1GzI44aNevmSWsKiT0m8R6RM7iMG/a2n3QKfktedjK7X2 1WPvLg5imfzg5VVEvS+SHtnLt7O+grie1Ya3FsTFO/ s8joODLWJ3PqD5l4XQjp1tR3OH/bijF/mq1J/TMF0AqF14wZ5L+gdSo4DiW6qlWGinZf8QblmmOvT/Alina [file] NtLALyXGM7Wl3eYMIEUo1+BYwjfVPaaYglRHGBMfS9YGG2EYnjCHOEYm3I ID Date Data Source [id number] 07/10/2021 02:43:00 AM EDT [facility] Name Value Range Interpretation Code Description Data Carissa rce(s) Supporting Document(s) SARS coronavirus 2 RNA [Presence] in Res piratory specimen by RASHAWN with probe detection NEGATIVE [facility] This lab was ordered by [facility] a nd reported by [facility]. ID Date Data Source [id number] 03/28/2021 10:05:54 PM EDT [facility] Name Value Range Interpretation Code Description Data Carissa rce(s) Supporting Document(s) Progress Note 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/pPtQzUnveVsMZupCJQroyxuIyP6vhzreFp//Jr [file] GWNOJjL6XWV3FFcnHOCXQv0E Procedure Social History Code Duration Value Status Description Data Source(s ) Smoking 07/16/2021 12:00:00 AM EDT Never Smoker completed Never S moker eCW1 ([facility]) Smoking 07/16/2021 12:00:00 AM EDT Never Smoker completed Never S kyker eCW1 ([facility]) Alcohol intake 03/27/2021 12:00:00 AM EDT Ex-drinker (finding) comp leted Ex- drinker (finding) [facility] Tobacco use and exposure 03/27/2021 12:00:00 AM EDT Never used co mpleted Never used [facility] Smoking 03/27/2021 12:00:00 AM EDT Never smoker completed Never s [facility] Vital Signs ID Date Data Source UNK Name Value Range Interpretation Code Description Data Source(s) Body weight 166 [lb_av] 166 [lb_av] eCW1 ([facility]) Body weight 75.3 kg 75.3 kg eCW1 ([facility]) Body height 63 [in_i] 63 [in_i] eCW1 ([facility]) Body mass index (BMI) [Ratio] 29.40 kg/m2 29.40 kg/m2 eCW1 ([facility]) Heart rate 85 /min 85 /min eCW1 ([facility]) Respiratory rate 18 /min 18 /min eCW1 ([facility]) Body temperature 97.1 [degF] 97.1 [degF] eCW1 ( [facility]) Systolic blood pressure 122 mm[Hg] 122 mm[Hg] e CW1 ([facility]) Diastolic blood pressure 84 mm[Hg] 84 mm[Hg] eCW1 ([facility]) ID Date Data Source [id number] 03/28/2021 10:05:54 PM [facility] Name Value Range Interpretation Code Description Data Source(s) WEIGHT RECORDED 169 lb 169 lb [facility] Body height Measured 63 in 63 in [facility] Patient Treatment Plan of Care Planned Activity Planned Date Details Description Data Source (s) Verapamil hydrochloride 240 MG Extended Release Oral T ablet 03/27/2021 12:00:00 AM [facility] ospital 0.5 ML Sumatriptan 12 MG/ML Injection 03/27/2021 12:00:00 AM [facility] 24 HR Levetiracetam 750 MG Extended Release Oral Table t 03/27/2021 12:00:00 AM [facility]spital 24 HR Levetiracetam 750 MG Extended Release Oral Table t 03/20/2021 12:00:00 AM [facility] ospital 0.5 ML Sumatriptan 12 MG/ML Injection 10/03/2019 12:00:00 AM [facility] Verapamil hydrochloride 240 MG Extended Release Oral T ablet 10/03/2019 12:00:00 AM [facility] ospital
--- NOTE | 2021-10-25 10:31 | ECGEPIP ---
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
== END 2021-10-25 01:22 | disposition left against medical advice (07) ==
LOC: M ED 22:54
DX: G40.909 Epilepsy, unspecified, not intractable, without status epilepticus (principal); F17.210 Nicotine dependence, cigarettes, uncomplicated; I45.10 Unspecified right bundle-branch block; Z79.899 Other long term (current) drug therapy

== ENCOUNTER 2022-01-09 20:40 | Emergency (ER) | payer OTHER ==
[~2022-01-09] VITALS: Ht 160 cm; Wt 72.7 kg
[~2022-01-09 20:40] MED LIST changes: -SUMA6INJ16 SC; +SUMA6INJ25 SC
[2022-01-09] MEDS ORDERED: NS 1,000 ML IV ONE (21:10)
[2022-01-09 21:29] LABS: BASO # 0.1 10^3/uL (0.0-0.2); EOS # 0.3 10^3/uL (0.0-0.5); EOS % 2.8 % (0.0-3.0); HEMATOCRIT 44.4 % (42.0-52.0); HEMOGLOBIN 15.1 g/dl (13.5-17.5); LYMPH # 1.7 10^3/uL (1.5-5.0); LYMPH % 14.2 % (24.0-44.0); MEAN CORPUSCULAR HEMOGLOBIN 35.2 pg (27.0-33.0); MEAN CORPUSCULAR VOLUME 103.5 fl (80.0-96.0); MONO # 1.1 10^3/uL (0.0-0.8); MONO % 9.1 % (2.0-8.0); NEUTROPHILS # 8.6 10^3/uL (1.5-8.5); NEUTROPHILS % 71.9 % (36.0-66.0); PLATELET COUNT, AUTOMATED 198 10^3/uL (150-450); RED BLOOD COUNT 4.29 10^6/uL (4.30-6.10)
[2022-01-09] MEDS ORDERED: BOOSTRIX/ADACEL VACCINE (DIPHTH/PERTUSS/ACELL/TETANUS) 0.5ML SYR IM ONE (21:30)
[2022-01-09 21:48] LABS: AMPHETAMINES LEVEL URINE NEGATIVE (NEGATIVE); BARBITURATES URINE NEGATIVE (NEGATIVE); BENZODIAZEPINES URINE NEGATIVE (NEGATIVE); CANNABINOIDS URINE POSITIVE (NEGATIVE); COCAINE METABOLITE URINE NEGATIVE (NEGATIVE); METHADONE URINE NEGATIVE (NEGATIVE); OPIATES URINE NEGATIVE (NEGATIVE); PHENCYCLIDINE URINE NEGATIVE (NEGATIVE)
[2022-01-09 21:56] LABS: ACETAMINOPHEN LEVEL < 2.0 UG/ML (10.0-30.0); ALT/SGPT 56 U/L (12-78); BILIRUBIN,DIRECT 0.1 MG/DL (0.0-0.2); BILIRUBIN,TOTAL 0.5 MG/DL (0.2-1.0); BLOOD UREA NITROGEN 11 MG/DL (7-18); CALCIUM LEVEL 9.3 MG/DL (8.5-10.1); CARBON DIOXIDE LEVEL 25 MEQ/L (21-32); CHLORIDE LEVEL 101 MEQ/L (98-107); CREATININE FOR GFR 1.04 MG/DL (0.70-1.30); ETHYL ALCOHOL (ETHANOL) < 0.003 % (0.000-0.010); GLOMERULAR FILTRATION RATE > 60.0 (>60); GLUCOSE, FASTING 104 MG/DL (70-100); POTASSIUM SERUM 4.1 MEQ/L (3.5-5.1); SALICYLATE LEVEL < 1.7 MG/DL (5.0-30.0); SODIUM LEVEL 135 MEQ/L (136-145); TOTAL PROTEIN 7.7 GM/DL (6.4-8.2)
[2022-01-09] MEDS ORDERED: DERMABOND TOPICAL SKIN ADHESIVE TOP ONE (22:35)
[2022-01-09 23:00] VITALS: BP 171/109
== END 2022-01-09 23:22 | disposition home or self-care (01) ==
LOC: M ED 20:40
DX: S01.01XA Laceration without foreign body of scalp, initial encounter (principal); W01.198A Fall on same level from slipping, tripping and stumbling with subsequent striking against other object, initial encounter; Y92.9 Unspecified place or not applicable; Y93.9 Activity, unspecified; Y99.9 Unspecified external cause status; G40.909 Epilepsy, unspecified, not intractable, without status epilepticus; F32.A Depression, unspecified; F41.9 Anxiety disorder, unspecified; Z79.899 Other long term (current) drug therapy

== ENCOUNTER 2022-01-22 05:07 | Inpatient (IN) | payer OTHER ==
[2022-01-22] MEDS ORDERED: levETIRAcetam INJection 1,000 MG in D5W 100 ML IV ONE (05:10)
[2022-01-22 05:31] LABS: BASO # 0.2 10^3/uL (0.0-0.2); BASO % 0.7 % (0.0-1.0); EOS # 0.1 10^3/uL (0.0-0.5); EOS % 0.4 % (0.0-3.0); HEMATOCRIT 52.9 % (42.0-52.0); HEMOGLOBIN 16.9 g/dl (13.5-17.5); LYMPH # 5.1 10^3/uL (1.5-5.0); LYMPH % 20.1 % (24.0-44.0); MEAN CORPUSCULAR HEMOGLOBIN 35.7 pg (27.0-33.0); MEAN CORPUSCULAR HGB CONC 31.9 g/dl (32.0-36.5); MEAN CORPUSCULAR VOLUME 111.6 fl (80.0-96.0); MONO % 13.7 % (2.0-8.0); NEUTROPHILS # 16.2 10^3/uL (1.5-8.5); NEUTROPHILS % 64.1 % (36.0-66.0); PLATELET COUNT, AUTOMATED 274 10^3/uL (150-450); RED BLOOD COUNT 4.74 10^6/uL (4.30-6.10); WHITE BLOOD COUNT 25.2 10^3/uL (4.0-10.0)
[2022-01-22 05:46] LABS: MONO # 3.5 10^3/uL (0.0-0.8)
[2022-01-22 05:58] LABS: CALCIUM LEVEL 10.8 MG/DL (8.5-10.1); CREATININE FOR GFR 1.59 MG/DL (0.70-1.30); ETHYL ALCOHOL (ETHANOL) 0.003 % (0.000-0.010); POTASSIUM SERUM 3.4 MEQ/L (3.5-5.1)
[2022-01-22] MEDS ORDERED: LORazepam 2 MG/ML VIAL IV STA (06:04)
[2022-01-22] MEDS ORDERED: LORazepam 2 MG/ML VIAL As Ordered ONE (06:06)
[2022-01-22] MEDS ORDERED: NS 1,000 ML IV ONE (06:20)
[2022-01-22] MEDS ORDERED: PHENYTOIN INJection 1,000 MG in NS 100 ML IV ONE (06:40)
[2022-01-22 06:43] LABS: AMPHETAMINES LEVEL URINE NEGATIVE (NEGATIVE); BARBITURATES URINE NEGATIVE (NEGATIVE); BENZODIAZEPINES URINE NEGATIVE (NEGATIVE); CANNABINOIDS URINE POSITIVE (NEGATIVE); COCAINE METABOLITE URINE NEGATIVE (NEGATIVE); METHADONE URINE NEGATIVE (NEGATIVE); OPIATES URINE NEGATIVE (NEGATIVE); PHENCYCLIDINE URINE NEGATIVE (NEGATIVE)
[2022-01-22] MEDS ORDERED: HOME MED LIST COMPLETE! XX SCH (06:55)
[2022-01-22] MEDS ORDERED: NS 1,000 ML IV SCH (07:25)
[2022-01-22] MEDS ORDERED: LORazepam 2 MG/ML VIAL IV PRN (07:30)
[2022-01-22 07:33] LABS: RSV AMPLIFICATION NEGATIVE (NEGATIVE)
[2022-01-22] MEDS ORDERED: levETIRAcetam INJection 500 MG in D5W MINI-BAG PLUS 100 ML IV ONE (08:05)
[2022-01-22 08:15] VITALS: BP 112/60
[2022-01-22] MEDS ORDERED: HEPARIN SOD (PORCINE) 5000UNITS/ML 1ML VIAL/SYRINGE SC SCH (14:00)
[2022-01-22] MEDS ORDERED: levETIRAcetam INJection 1,500 MG in D5W 100 ML IV SCH (21:00)
== END 2022-01-22 08:55 | disposition left against medical advice (07) | DRG 53 ==
LOC: M ED 05:07 → M ED INP 07:23
PROVIDERS: ADMIT Internal Medicine; ATTEND Internal Medicine
DX: G40.901 Epilepsy, unspecified, not intractable, with status epilepticus (principal); N17.9 Acute kidney failure, unspecified; E87.2 Acidosis; E87.6 Hypokalemia; D72.829 Elevated white blood cell count, unspecified; Z79.899 Other long term (current) drug therapy; Z91.19 Patient's noncompliance with other medical treatment and regimen

== ENCOUNTER 2022-04-16 23:53 | Emergency (ER) | payer OTHER | END 2022-04-17 00:05 | disposition left against medical advice (07) | LOC: EDBD 23:53 → M ED 23:53 | DX: Z53.21 Procedure and treatment not carried out due to patient leaving prior to being seen by health care provider (principal) ==

== ENCOUNTER 2022-05-02 01:12 | Emergency (ER) | payer OTHER | END 2022-05-02 01:28 | disposition left against medical advice (07) | LOC: M ED 01:12 | DX: Z53.21 Procedure and treatment not carried out due to patient leaving prior to being seen by health care provider (principal) ==

== ENCOUNTER 2022-07-11 12:54 | Emergency (ER) | payer OTHER ==
[~2022-07-11] VITALS: Ht 170.2 cm; Wt 62.0 kg
[2022-07-11] MEDS ORDERED: levETIRAcetam INJection 1,000 MG in D5W 100 ML IV ONE (13:25)
[2022-07-11] MEDS ORDERED: PROMETHAZINE 25MG/ML 1ML VIAL IV ONE (13:25)
[2022-07-11] MEDS ORDERED: NS 1,000 ML IV ONE (13:25)
[2022-07-11 14:36] LABS: BASO # 0.1 10^3/uL (0.0-0.2); BASO % 0.7 % (0.0-1.0); EOS # 0.1 10^3/uL (0.0-0.5); EOS % 0.8 % (0.0-3.0); HEMATOCRIT 46.3 % (42.0-52.0); HEMOGLOBIN 15.8 g/dl (13.5-17.5); LYMPH # 0.8 10^3/uL (1.5-5.0); LYMPH % 6.9 % (24.0-44.0); MEAN CORPUSCULAR HEMOGLOBIN 35.2 pg (27.0-33.0); MEAN CORPUSCULAR HGB CONC 34.1 g/dl (32.0-36.5); MEAN CORPUSCULAR VOLUME 103.1 fl (80.0-96.0); MONO % 9.2 % (2.0-8.0); NEUTROPHILS # 9.2 10^3/uL (1.5-8.5); NEUTROPHILS % 81.7 % (36.0-66.0); PLATELET COUNT, AUTOMATED 193 10^3/uL (150-450); RED BLOOD COUNT 4.49 10^6/uL (4.30-6.10); WHITE BLOOD COUNT 11.2 10^3/uL (4.0-10.0)
[2022-07-11 15:04] VITALS: BP 152/74
[2022-07-11 15:07] LABS: RSV AMPLIFICATION NEGATIVE (NEGATIVE)
[2022-07-11 15:16] LABS: ALBUMIN 4.4 GM/DL (3.2-5.2); ALT/SGPT 99 U/L (12-78); BILIRUBIN,DIRECT 0.4 MG/DL (0.0-0.2); BILIRUBIN,TOTAL 1.2 MG/DL (0.2-1.0); BLOOD UREA NITROGEN 6 MG/DL (7-18); CALCIUM LEVEL 9.8 MG/DL (8.5-10.1); CARBON DIOXIDE LEVEL 28 MEQ/L (21-32); CHLORIDE LEVEL 100 MEQ/L (98-107); CREATININE FOR GFR 0.91 MG/DL (0.70-1.30); ETHYL ALCOHOL (ETHANOL) < 0.003 % (0.000-0.010); GLOMERULAR FILTRATION RATE > 60.0 (>60); GLUCOSE, FASTING 94 MG/DL (70-100); LIPASE 127 U/L (73-393); POTASSIUM SERUM 3.9 MEQ/L (3.5-5.1); SODIUM LEVEL 137 MEQ/L (136-145); TOTAL PROTEIN 8.7 GM/DL (6.4-8.2)
[2022-07-11 15:16] LABS: AMPHETAMINES LEVEL URINE NEGATIVE (NEGATIVE); BARBITURATES URINE NEGATIVE (NEGATIVE); BENZODIAZEPINES URINE NEGATIVE (NEGATIVE); CANNABINOIDS URINE POSITIVE (NEGATIVE); COCAINE METABOLITE URINE NEGATIVE (NEGATIVE); METHADONE URINE NEGATIVE (NEGATIVE); OPIATES URINE NEGATIVE (NEGATIVE); PHENCYCLIDINE URINE NEGATIVE (NEGATIVE)
== END 2022-07-11 15:00 | disposition home or self-care (01) ==
LOC: M ED 12:54
DX: G40.909 Epilepsy, unspecified, not intractable, without status epilepticus (principal); Z53.9 Procedure and treatment not carried out, unspecified reason; Z79.899 Other long term (current) drug therapy
CPT/HCPCS: 70450; 71045; 72125; 80047; 80048; 80076; 80180; 80307; 82077; 83605; 83690; 85025; 87040; 87631; 93041; 96365; 96366; 96375; 99284; J1953; J2550

== ENCOUNTER 2022-09-27 23:53 | Emergency (ER) | payer OTHER | END 2022-09-28 00:05 | disposition left against medical advice (07) | LOC: M ED 23:53 | DX: Z53.21 Procedure and treatment not carried out due to patient leaving prior to being seen by health care provider (principal) ==

== ENCOUNTER 2022-11-11 01:35 | Emergency (ER) | payer OTHER ==
[~2022-11-11] VITALS: Ht 162.6 cm; Wt 72.7 kg
[2022-11-11] MEDS ORDERED: NS 1,000 ML IV ONE (02:05)
[2022-11-11 02:14] LABS: BASO # 0.1 10^3/uL (0.0-0.2); BASO % 0.9 % (0.0-1.0); EOS # 0.1 10^3/uL (0.0-0.5); EOS % 0.7 % (0.0-3.0); HEMATOCRIT 42.5 % (42.0-52.0); HEMOGLOBIN 14.5 g/dl (13.5-17.5); LYMPH # 1.3 10^3/uL (1.5-5.0); LYMPH % 18.4 % (24.0-44.0); MEAN CORPUSCULAR HEMOGLOBIN 34.8 pg (27.0-33.0); MEAN CORPUSCULAR HGB CONC 34.1 g/dl (32.0-36.5); MEAN CORPUSCULAR VOLUME 101.9 fl (80.0-96.0); MONO # 1.4 10^3/uL (0.0-0.8); MONO % 20.7 % (2.0-8.0); NEUTROPHILS # 4.1 10^3/uL (1.5-8.5); NEUTROPHILS % 58.4 % (36.0-66.0); RED BLOOD COUNT 4.17 10^6/uL (4.30-6.10)
[2022-11-11 02:17] LABS: MAGNESIUM LEVEL 2.1 MG/DL (1.8-2.4)
[2022-11-11 02:19] LABS: BILIRUBIN,DIRECT 0.5 MG/DL (<0.4)
[2022-11-11 02:34] LABS: PLATELET COUNT, AUTOMATED 84 10^3/uL (150-450)
[2022-11-11 02:55] LABS: ALBUMIN 4.2 G/DL (3.2-5.2); ALKALINE PHOSPHATASE 123 U/L (46-116); ALT/SGPT 341 U/L (7.0-40); AST/SGOT 359 U/L (<34); BILIRUBIN,TOTAL 1.4 MG/DL (0.3-1.2); BLOOD UREA NITROGEN 10 MG/DL (9-23); CALCIUM LEVEL 9.7 MG/DL (8.5-10.1); CARBON DIOXIDE LEVEL 22 MMOL/L (20-31); CHLORIDE LEVEL 93 MMOL/L (98-107); CREATININE FOR GFR 0.64 MG/DL (0.70-1.30); GLOMERULAR FILTRATION RATE > 60.0 (>60); GLUCOSE, FASTING 126 MG/DL (60-100); PHOSPHORUS LEVEL 2.9 MG/DL (2.5-4.9); POTASSIUM SERUM 3.3 MMOL/L (3.5-5.1); SODIUM LEVEL 134 MMOL/L (136-145); TOTAL PROTEIN 7.6 G/DL (5.7-8.2)
[2022-11-11 03:01] VITALS: BP 166/111
== END 2022-11-11 03:17 | disposition left against medical advice (07) ==
LOC: EDBD 01:35 → M ED 01:35
DX: G40.909 Epilepsy, unspecified, not intractable, without status epilepticus (principal); F10.10 Alcohol abuse, uncomplicated; Z79.899 Other long term (current) drug therapy

== ENCOUNTER 2022-11-11 06:17 | Emergency (ER) | payer OTHER ==
[~2022-11-11] VITALS: Ht 162.6 cm; Wt 72.7 kg
[2022-11-11] MEDS ORDERED: levETIRAcetam INJection 1,500 MG in D5W 100 ML IV ONE (06:30)
[2022-11-11] MEDS ORDERED: LORazepam 2 MG/ML VIAL IV STA (07:12)
[2022-11-11 09:15] VITALS: BP 155/106
== END 2022-11-11 09:46 | disposition left against medical advice (07) ==
LOC: EDBD 06:17 → M ED 06:17
DX: R56.9 Unspecified convulsions (principal); Z53.9 Procedure and treatment not carried out, unspecified reason; Z79.899 Other long term (current) drug therapy
CPT/HCPCS: 96365; 96375; 99284; J1953; J2060

== ENCOUNTER 2022-12-06 07:13 | Emergency (ER) | payer OTHER ==
[~2022-12-06] VITALS: Ht 160 cm; Wt 72.7 kg
[2022-12-06 07:37] VITALS: BP 173/77
== END 2022-12-06 07:47 | disposition left against medical advice (07) ==
LOC: M ED 07:13 → EDBD 07:13 → M ED 07:47
DX: G40.89 Other seizures (principal); Z79.83 Long term (current) use of bisphosphonates; Z53.9 Procedure and treatment not carried out, unspecified reason

== ENCOUNTER 2022-12-30 07:45 | Emergency (ER) | payer OTHER ==
[~2022-12-30] VITALS: Ht 160 cm; Wt 67.1 kg
[2022-12-30] MEDS ORDERED: VERA240T64 (07:57)
[2022-12-30 09:02] LABS: BLOOD UREA NITROGEN 6 MG/DL (9-23); CALCIUM LEVEL 9.2 MG/DL (8.5-10.1); CARBON DIOXIDE LEVEL 29 MMOL/L (20-31); CHLORIDE LEVEL 99 MMOL/L (98-107); CREATININE FOR GFR 0.64 MG/DL (0.70-1.30); GLOMERULAR FILTRATION RATE > 60.0 (>60); GLUCOSE, FASTING 96 MG/DL (60-100); POTASSIUM SERUM 3.7 MMOL/L (3.5-5.1); SODIUM LEVEL 136 MMOL/L (136-145)
[2022-12-30 11:00] VITALS: BP 167/90
[2022-12-30] MEDS ORDERED: DERMABOND TOPICAL SKIN ADHESIVE TOP ONE (11:00)
== END 2022-12-30 11:15 | disposition left against medical advice (07) ==
LOC: EDBD 07:45 → M ED 08:55
DX: G40.909 Epilepsy, unspecified, not intractable, without status epilepticus (principal); S01.81XA Laceration without foreign body of other part of head, initial encounter; Z79.83 Long term (current) use of bisphosphonates; Z79.811 Long term (current) use of aromatase inhibitors; Z53.9 Procedure and treatment not carried out, unspecified reason

== ENCOUNTER 2023-02-10 21:16 | Emergency (ER) | payer OTHER ==
[~2023-02-10] VITALS: Ht 172.7 cm; Wt 70.0 kg
[~2023-02-10 21:16] MED LIST changes: +VERA240T64
[2023-02-10] MEDS ORDERED: NS 1,000 ML IV ONE (21:30)
[2023-02-10] MEDS ORDERED: ONDANSETRON 4MG 2ML VIAL IV ONE (21:30)
[2023-02-10] MEDS ORDERED: levETIRAcetam INJection 1,000 MG in D5W 100 ML IV ONE (21:30)
[2023-02-10 21:52] LABS: HEMATOCRIT 43.9 % (42.0-52.0); HEMOGLOBIN 14.8 g/dl (13.5-17.5); MEAN CORPUSCULAR HEMOGLOBIN 34.3 pg (27.0-33.0); MEAN CORPUSCULAR HGB CONC 33.7 g/dl (32.0-36.5); MEAN CORPUSCULAR VOLUME 101.6 fl (80.0-96.0); PLATELET COUNT, AUTOMATED 290 10^3/uL (150-450); RED BLOOD COUNT 4.32 10^6/uL (4.30-6.10); WHITE BLOOD COUNT 19.6 10^3/uL (4.0-10.0)
[2023-02-10 22:10] LABS: ALBUMIN 4.2 G/DL (3.2-5.2); ALKALINE PHOSPHATASE 86 U/L (46-116); ALT/SGPT 19 U/L (7.0-40); AST/SGOT 19 U/L (<34); BILIRUBIN,DIRECT 0.1 MG/DL (<0.4); BILIRUBIN,TOTAL 0.4 MG/DL (0.3-1.2); BLOOD UREA NITROGEN 13 MG/DL (9-23); CALCIUM LEVEL 9.6 MG/DL (8.5-10.1); CARBON DIOXIDE LEVEL 24 MMOL/L (20-31); CHLORIDE LEVEL 102 MMOL/L (98-107); CREATININE FOR GFR 0.88 MG/DL (0.70-1.30); GLOMERULAR FILTRATION RATE > 60.0 (>60); GLUCOSE, FASTING 120 MG/DL (60-100); POTASSIUM SERUM 3.7 MMOL/L (3.5-5.1); SODIUM LEVEL 141 MMOL/L (136-145); TOTAL PROTEIN 7.7 G/DL (5.7-8.2)
[2023-02-10 22:11] LABS: AMPHETAMINES LEVEL URINE NEGATIVE (NEGATIVE); BARBITURATES URINE NEGATIVE (NEGATIVE); BENZODIAZEPINES URINE NEGATIVE (NEGATIVE); COCAINE METABOLITE URINE NEGATIVE (NEGATIVE); METHADONE URINE NEGATIVE (NEGATIVE); OPIATES URINE NEGATIVE (NEGATIVE); PHENCYCLIDINE URINE NEGATIVE (NEGATIVE)
[2023-02-10 22:13] LABS: CANNABINOIDS URINE POSITIVE (NEGATIVE)
[2023-02-10 22:17] LABS: ATYPICAL LYMPH 2 % (0-5); BASOPHILS 2 % (0-1); EOSINOPHILS 2 % (0-3); LYMPHOCYTES 37 % (16-44); MONOCYTES 10 % (0-5); NEUTROPHILS 46 % (28-66)
[2023-02-10 22:18] LABS: PLATELET ESTIMATE NORMAL (NORMAL)
[2023-02-10 22:30] VITALS: BP 128/75
[2023-02-10] MEDS ORDERED: cefTRIAXone SOD 2 GM in D5W MINI-BAG PLUS 50 ML IV ONE (23:00)
[2023-02-10] MEDS ORDERED: AZIT-12 PO (23:01)
== END 2023-02-10 23:31 | disposition left against medical advice (07) ==
LOC: M ED 21:16 → EDBD 21:16 → M ED 23:31
DX: G40.919 Epilepsy, unspecified, intractable, without status epilepticus (principal); Z53.20 Procedure and treatment not carried out because of patient's decision for unspecified reasons; J98.11 Atelectasis; I45.10 Unspecified right bundle-branch block; Z79.899 Other long term (current) drug therapy
CPT/HCPCS: 71045; 80048; 80076; 80180; 80307; 81001; 85025; 87040; 93005; 94760; 96365; 96375; 99284; J0696; J1953; J2405

== ENCOUNTER 2023-02-25 07:44 | Emergency (ER) | payer OTHER ==
[~2023-02-25] VITALS: Ht 160 cm; Wt 65.9 kg
[~2023-02-25 07:44] MED LIST changes: +AZIT-12 PO
[2023-02-25] MEDS ORDERED: ONDANSETRON 4MG 2ML VIAL IV ONE ×2 (07:55→09:10)
[2023-02-25] MEDS ORDERED: levETIRAcetam INJection 1,000 MG in D5W 100 ML IV ONE (08:00)
[2023-02-25 08:34] LABS: BASO # 0.1 10^3/uL (0.0-0.2); BASO % 0.5 % (0.0-1.0); EOS % 0.1 % (0.0-3.0); HEMATOCRIT 44.3 % (42.0-52.0); HEMOGLOBIN 15.3 g/dl (13.5-17.5); LYMPH # 1.2 10^3/uL (1.5-5.0); MEAN CORPUSCULAR HEMOGLOBIN 34.4 pg (27.0-33.0); MEAN CORPUSCULAR HGB CONC 34.5 g/dl (32.0-36.5); MEAN CORPUSCULAR VOLUME 99.6 fl (80.0-96.0); MONO % 8.4 % (2.0-8.0); NEUTROPHILS # 16.3 10^3/uL (1.5-8.5); NEUTROPHILS % 84.3 % (36.0-66.0); PLATELET COUNT, AUTOMATED 202 10^3/uL (150-450); RED BLOOD COUNT 4.45 10^6/uL (4.30-6.10); WHITE BLOOD COUNT 19.3 10^3/uL (4.0-10.0)
[2023-02-25 08:45] LABS: MONO # 1.6 10^3/uL (0.0-0.8)
[2023-02-25 09:09] LABS: AMPHETAMINES LEVEL URINE NEGATIVE (NEGATIVE); BARBITURATES URINE NEGATIVE (NEGATIVE); BENZODIAZEPINES URINE NEGATIVE (NEGATIVE); COCAINE METABOLITE URINE NEGATIVE (NEGATIVE); METHADONE URINE NEGATIVE (NEGATIVE); OPIATES URINE NEGATIVE (NEGATIVE); PHENCYCLIDINE URINE NEGATIVE (NEGATIVE)
[2023-02-25 09:10] LABS: CANNABINOIDS URINE POSITIVE (NEGATIVE)
[2023-02-25] MEDS ORDERED: NS 1,000 ML IV ONE ×2 (09:10→11:50)
[2023-02-25 09:13] LABS: RSV AMPLIFICATION NEGATIVE (NEGATIVE)
[2023-02-25 09:20] LABS: ETHYL ALCOHOL (ETHANOL) < 0.003 % (0.000-0.010)
[2023-02-25 09:22] LABS: ACETAMINOPHEN LEVEL < 2.0 UG/ML (10.0-20.0); SALICYLATE LEVEL < 3.0 MG/DL (<30)
[2023-02-25 09:27] LABS: BLOOD UREA NITROGEN 10 MG/DL (9-23); CALCIUM LEVEL 9.3 MG/DL (8.5-10.1); CARBON DIOXIDE LEVEL 24 MMOL/L (20-31); CHLORIDE LEVEL 99 MMOL/L (98-107); CPK CREATINE PHOSPHOKINASE 199 U/L (46-171); GLOMERULAR FILTRATION RATE > 60.0 (>60); GLUCOSE, FASTING 147 MG/DL (60-100); POTASSIUM SERUM 3.6 MMOL/L (3.5-5.1); SODIUM LEVEL 135 MMOL/L (136-145)
[2023-02-25 10:21] LABS: ALBUMIN 4.3 G/DL (3.2-5.2); ALKALINE PHOSPHATASE 101 U/L (46-116); ALT/SGPT 22 U/L (7.0-40); AST/SGOT 35 U/L (<34); BILIRUBIN,DIRECT 0.3 MG/DL (<0.4); BILIRUBIN,TOTAL 1.1 MG/DL (0.3-1.2); TOTAL PROTEIN 7.7 G/DL (5.7-8.2)
[2023-02-25] MEDS ORDERED: LORazepam 2 MG/ML 1ML VIAL As Ordered ONE (11:13)
[2023-02-25] MEDS ORDERED: LORazepam 2 MG/ML 1ML VIAL IM STA (11:14)
[2023-02-25] MEDS ORDERED: levETIRAcetam INJection 500 MG in D5W MINI-BAG PLUS 100 ML IV ONE (11:25)
[2023-02-25] MEDS ORDERED: MULTIVITAMIN -ADULT INJECTION 10 ML, THIAMINE INJection 100 MG, FOLIC ACID 1 MG in NS 1... IV ONE (12:10)
[2023-02-25 13:30] VITALS: BP 143/77
== END 2023-02-25 15:34 | disposition left against medical advice (07) ==
LOC: EDBD 07:44 → M ED 07:44
DX: R56.9 Unspecified convulsions (principal); Z53.9 Procedure and treatment not carried out, unspecified reason; F12.10 Cannabis abuse, uncomplicated; G43.909 Migraine, unspecified, not intractable, without status migrainosus; G40.909 Epilepsy, unspecified, not intractable, without status epilepticus
CPT/HCPCS: 70450; 80048; 80076; 80143; 80180; 80307; 82077; 82550; 85025; 87040; 87077; 87186; 87631; 93005; 93041; 96361; 96365; 96366; 96368; 96372; 96375; 96376; 99285; J1953; J2060; J2405; J3411

== ENCOUNTER 2023-02-26 22:02 | Emergency (ER) | payer OTHER ==
[~2023-02-26] VITALS: Ht 160 cm; Wt 66.0 kg
[2023-02-26 23:10] LABS: MEAN CORPUSCULAR HEMOGLOBIN 34.1 pg (27.0-33.0); MEAN CORPUSCULAR HGB CONC 34.8 g/dl (32.0-36.5); MEAN CORPUSCULAR VOLUME 98.1 fl (80.0-96.0); PLATELET COUNT, AUTOMATED 203 10^3/uL (150-450); RED BLOOD COUNT 4.69 10^6/uL (4.30-6.10); WHITE BLOOD COUNT 12.3 10^3/uL (4.0-10.0)
[2023-02-26 23:30] LABS: AMPHETAMINES LEVEL URINE NEGATIVE (NEGATIVE); BARBITURATES URINE NEGATIVE (NEGATIVE); BENZODIAZEPINES URINE NEGATIVE (NEGATIVE)
[2023-02-26 23:31] LABS: COCAINE METABOLITE URINE NEGATIVE (NEGATIVE); METHADONE URINE NEGATIVE (NEGATIVE); OPIATES URINE NEGATIVE (NEGATIVE); PHENCYCLIDINE URINE NEGATIVE (NEGATIVE)
[2023-02-26 23:35] LABS: ACETAMINOPHEN LEVEL < 2.0 UG/ML (10.0-20.0); SALICYLATE LEVEL < 3.0 MG/DL (<30)
[2023-02-26 23:37] LABS: THYROID STIMULATING HORMONE 2.667 uIU/ML (0.55-4.78)
[2023-02-26 23:43] LABS: CANNABINOIDS URINE POSITIVE (NEGATIVE)
[2023-02-26 23:59] VITALS: BP 136/78
[2023-02-27] MEDS ORDERED: CEFD300C41 PO (00:01)
[2023-02-27 00:14] LABS: ALBUMIN 4.3 G/DL (3.2-5.2); ALKALINE PHOSPHATASE 97 U/L (46-116); ALT/SGPT 18 U/L (7.0-40); AST/SGOT 66 U/L (<34); BILIRUBIN,DIRECT 0.1 MG/DL (<0.4); BILIRUBIN,TOTAL 0.3 MG/DL (0.3-1.2); BLOOD UREA NITROGEN 6 MG/DL (9-23); CARBON DIOXIDE LEVEL 20 MMOL/L (20-31); CHLORIDE LEVEL 103 MMOL/L (98-107); CPK CREATINE PHOSPHOKINASE 1761 U/L (46-171); CREATININE FOR GFR 0.73 MG/DL (0.70-1.30); ETHYL ALCOHOL (ETHANOL) 0.351 % (0.000-0.010); GLOMERULAR FILTRATION RATE > 60.0 (>60); GLUCOSE, FASTING 108 MG/DL (60-100); POTASSIUM SERUM 3.7 MMOL/L (3.5-5.1); SODIUM LEVEL 139 MMOL/L (136-145); TOTAL PROTEIN 8.1 G/DL (5.7-8.2)
== END 2023-02-27 00:08 | disposition home or self-care (01) ==
LOC: EDBD 22:02 → M ED 22:02
DX: S02.2XXA Fracture of nasal bones, initial encounter for closed fracture (principal); S01.81XA Laceration without foreign body of other part of head, initial encounter; S00.93XA Contusion of unspecified part of head, initial encounter; F10.10 Alcohol abuse, uncomplicated; W19.XXXA Unspecified fall, initial encounter; Y92.099 Unspecified place in other non-institutional residence as the place of occurrence of the external cause; Z86.69 Personal history of other diseases of the nervous system and sense organs; Z79.899 Other long term (current) drug therapy

== ENCOUNTER 2023-03-08 21:32 | Emergency (ER) | payer OTHER ==
[~2023-03-08] VITALS: Ht 160 cm; Wt 70.5 kg
[~2023-03-08 21:32] MED LIST changes: +CEFD300C41 PO
[2023-03-08] MEDS ORDERED: carBAMazepine 200MG TABLET PO ONE (22:25)
[2023-03-08] MEDS ORDERED: LEVETIRACETAM IV ONE (22:25)
[2023-03-08] MEDS ORDERED: D5W IV ONE (22:25)
[2023-03-08 22:40] LABS: BASO # 0.1 10^3/uL (0.0-0.2); BASO % 0.9 % (0.0-1.0); EOS # 0.1 10^3/uL (0.0-0.5); EOS % 1.3 % (0.0-3.0); HEMATOCRIT 41.7 % (42.0-52.0); HEMOGLOBIN 14.2 g/dl (13.5-17.5); LYMPH # 1.9 10^3/uL (1.5-5.0); LYMPH % 18.4 % (24.0-44.0); MEAN CORPUSCULAR HEMOGLOBIN 34.2 pg (27.0-33.0); MEAN CORPUSCULAR HGB CONC 34.1 g/dl (32.0-36.5); MEAN CORPUSCULAR VOLUME 100.5 fl (80.0-96.0); MONO # 1.5 10^3/uL (0.0-0.8); MONO % 14.2 % (2.0-8.0); NEUTROPHILS # 6.8 10^3/uL (1.5-8.5); NEUTROPHILS % 64.4 % (36.0-66.0); PLATELET COUNT, AUTOMATED 258 10^3/uL (150-450); RED BLOOD COUNT 4.15 10^6/uL (4.30-6.10); WHITE BLOOD COUNT 10.6 10^3/uL (4.0-10.0)
[2023-03-08] MEDS ORDERED: TEGR200T PO (23:08)
[2023-03-08 23:17] LABS: ALBUMIN 4.1 G/DL (3.2-5.2); ALKALINE PHOSPHATASE 85 U/L (46-116); ALT/SGPT 21 U/L (7.0-40); AST/SGOT 36 U/L (<34); BILIRUBIN,DIRECT 0.3 MG/DL (<0.4); BILIRUBIN,TOTAL 0.7 MG/DL (0.3-1.2); BLOOD UREA NITROGEN 11 MG/DL (9-23); CALCIUM LEVEL 9.4 MG/DL (8.5-10.1); CARBON DIOXIDE LEVEL 28 MMOL/L (20-31); CHLORIDE LEVEL 98 MMOL/L (98-107); CREATININE FOR GFR 0.63 MG/DL (0.70-1.30); GLOMERULAR FILTRATION RATE > 60.0 (>60); GLUCOSE, FASTING 87 MG/DL (60-100); MAGNESIUM LEVEL 1.6 MG/DL (1.8-2.4); PHOSPHORUS LEVEL 2.3 MG/DL (2.5-4.9); POTASSIUM SERUM 3.4 MMOL/L (3.5-5.1); SODIUM LEVEL 136 MMOL/L (136-145); TOTAL PROTEIN 7.3 G/DL (5.7-8.2)
[2023-03-08] MEDS ORDERED: MAG SULF 1GM/100ML (MAG RUN) 1 GM in IV 1 EA IV ONE (23:55)
[2023-03-09 00:39] VITALS: BP 147/103
== END 2023-03-09 00:41 | disposition home or self-care (01) ==
LOC: M ED 21:32 → EDBD 21:32 → M ED 03-09 00:41
DX: G40.909 Epilepsy, unspecified, not intractable, without status epilepticus (principal); F12.10 Cannabis abuse, uncomplicated; Z79.899 Other long term (current) drug therapy
CPT/HCPCS: 70450; 72125; 80048; 80076; 80180; 82140; 82330; 83605; 83735; 84100; 85025; 93041; 94760; 96365; 96367; 99285; J1953; J3475

== ENCOUNTER 2023-04-06 14:08 | Emergency (ER) | payer OTHER ==
[~2023-04-06] VITALS: Ht 160 cm; Wt 70.5 kg
[~2023-04-06 14:08] MED LIST changes: +TEGR200T PO
[2023-04-06] MEDS ORDERED: NS 1,000 ML IV ONE (14:25)
[2023-04-06 14:54] LABS: BASO # 0.1 10^3/uL (0.0-0.2); BASO % 0.8 % (0.0-1.0); EOS % 0.1 % (0.0-3.0); HEMATOCRIT 45.3 % (42.0-52.0); HEMOGLOBIN 15.2 g/dl (13.5-17.5); LYMPH # 1.1 10^3/uL (1.5-5.0); LYMPH % 9.3 % (24.0-44.0); MEAN CORPUSCULAR HEMOGLOBIN 34.3 pg (27.0-33.0); MEAN CORPUSCULAR HGB CONC 33.6 g/dl (32.0-36.5); MEAN CORPUSCULAR VOLUME 102.3 fl (80.0-96.0); MONO # 1.2 10^3/uL (0.0-0.8); MONO % 10.2 % (2.0-8.0); NEUTROPHILS # 8.9 10^3/uL (1.5-8.5); NEUTROPHILS % 78.9 % (36.0-66.0); PLATELET COUNT, AUTOMATED 126 10^3/uL (150-450); RED BLOOD COUNT 4.43 10^6/uL (4.30-6.10); WHITE BLOOD COUNT 11.3 10^3/uL (4.0-10.0)
[2023-04-06 15:13] LABS: ETHYL ALCOHOL (ETHANOL) < 0.003 % (0.000-0.010); LIPASE 37 U/L (12-53)
[2023-04-06 15:14] LABS: RSV AMPLIFICATION NEGATIVE (NEGATIVE)
[2023-04-06 15:15] LABS: ALBUMIN 4.7 G/DL (3.2-5.2); ALKALINE PHOSPHATASE 101 U/L (46-116); ALT/SGPT 44 U/L (7.0-40); AST/SGOT 66 U/L (<34); BILIRUBIN,DIRECT 0.3 MG/DL (<0.4); BILIRUBIN,TOTAL 1.1 MG/DL (0.3-1.2); BLOOD UREA NITROGEN 10 MG/DL (9-23); CALCIUM LEVEL 9.8 MG/DL (8.5-10.1); CARBON DIOXIDE LEVEL 22 MMOL/L (20-31); CHLORIDE LEVEL 96 MMOL/L (98-107); CREATININE FOR GFR 0.66 MG/DL (0.70-1.30); GLOMERULAR FILTRATION RATE > 60.0 (>60); GLUCOSE, FASTING 88 MG/DL (60-100); POTASSIUM SERUM 3.1 MMOL/L (3.5-5.1); SODIUM LEVEL 136 MMOL/L (136-145); TOTAL PROTEIN 8.3 G/DL (5.7-8.2)
[2023-04-06] MEDS ORDERED: LORazepam 2 MG/ML 1ML VIAL As Ordered ONE (15:20)
[2023-04-06] MEDS ORDERED: LORazepam 2 MG/ML 1ML VIAL IV STA ×2 (15:20→16:47)
[2023-04-06] MEDS ORDERED: levETIRAcetam INJection 1,000 MG in D5W 100 ML IV ONE (15:25)
[2023-04-06] MEDS ORDERED: POTASSIUM CHLORIDE 10MEQ SR TABLET PO ONE (15:35)
[2023-04-06 18:31] VITALS: BP 134/98
[2023-04-06] MEDS ORDERED: ONDA4TAB6 PO (18:47)
== END 2023-04-06 19:03 | disposition home or self-care (01) ==
LOC: EDBD 14:08 → M ED 14:08
DX: E87.6 Hypokalemia (principal); F12.10 Cannabis abuse, uncomplicated; Z79.899 Other long term (current) drug therapy
CPT/HCPCS: 80048; 80076; 82077; 83690; 85025; 87631; 93005; 93041; 96361; 96365; 96375; 96376; 99285; J1953; J2060

== ENCOUNTER 2023-04-27 12:41 | Emergency (ER) | payer OTHER ==
[~2023-04-27] VITALS: Ht 160 cm; Wt 67.5 kg
[~2023-04-27 12:41] MED LIST changes: +ONDA4TAB6 PO
[2023-04-27] MEDS ORDERED: ONDANSETRON 4MG 2ML VIAL As Ordered ONE (12:54)
[2023-04-27] MEDS ORDERED: ONDANSETRON 4MG 2ML VIAL IV ONE ×2 (12:55→13:30)
[2023-04-27] MEDS ORDERED: LORazepam 2 MG/ML 1ML VIAL IV STA ×2 (13:27→14:22)
[2023-04-27] MEDS ORDERED: MULTIVITAMIN -ADULT INJECTION 10 ML, THIAMINE INJection 100 MG, FOLIC ACID 1 MG in NS 1... IV ONE (13:30)
[2023-04-27] MEDS ORDERED: levETIRAcetam INJection 1,000 MG in D5W 100 ML IV ONE (13:30)
[2023-04-27 13:58] LABS: BASO # 0.1 10^3/uL (0.0-0.2); BASO % 0.6 % (0.0-1.0); EOS % 0.1 % (0.0-3.0); HEMATOCRIT 41.8 % (42.0-52.0); HEMOGLOBIN 14.7 g/dl (13.5-17.5); LYMPH # 0.4 10^3/uL (1.5-5.0); MEAN CORPUSCULAR HEMOGLOBIN 36.7 pg (27.0-33.0); MEAN CORPUSCULAR HGB CONC 35.2 g/dl (32.0-36.5); MEAN CORPUSCULAR VOLUME 104.2 fl (80.0-96.0); MONO # 0.9 10^3/uL (0.0-0.8); MONO % 7.3 % (2.0-8.0); NEUTROPHILS # 11.5 10^3/uL (1.5-8.5); NEUTROPHILS % 88.5 % (36.0-66.0); PLATELET COUNT, AUTOMATED 115 10^3/uL (150-450); RED BLOOD COUNT 4.01 10^6/uL (4.30-6.10); WHITE BLOOD COUNT 12.9 10^3/uL (4.0-10.0)
[2023-04-27] MEDS ORDERED: LORazepam 2 MG/ML 1ML VIAL As Ordered ONE (14:21)
[2023-04-27 14:22] LABS: ETHYL ALCOHOL (ETHANOL) < 0.003 % (0.000-0.010)
[2023-04-27 14:23] LABS: BLOOD UREA NITROGEN 11 MG/DL (9-23); CALCIUM LEVEL 8.6 MG/DL (8.5-10.1); CARBON DIOXIDE LEVEL 19 MMOL/L (20-31); CHLORIDE LEVEL 98 MMOL/L (98-107); GLOMERULAR FILTRATION RATE > 60.0 (>60); GLUCOSE, FASTING 124 MG/DL (60-100); POTASSIUM SERUM 4.2 MMOL/L (3.5-5.1); SODIUM LEVEL 136 MMOL/L (136-145)
[2023-04-27 16:55] VITALS: BP 147/94
== END 2023-04-27 17:05 | disposition home or self-care (01) ==
LOC: M ED 12:41 → EDBD 12:41 → M ED 17:05
DX: R56.9 Unspecified convulsions (principal); F10.10 Alcohol abuse, uncomplicated; G40.909 Epilepsy, unspecified, not intractable, without status epilepticus; F41.9 Anxiety disorder, unspecified; F32.A Depression, unspecified; F12.10 Cannabis abuse, uncomplicated; Z79.899 Other long term (current) drug therapy
CPT/HCPCS: 70450; 80048; 80180; 82077; 85025; 96374; 96375; 96376; 99285; J1953; J2060; J2405

== ENCOUNTER 2023-07-01 14:15 | Emergency (ER) | payer OTHER ==
[~2023-07-01] VITALS: Ht 160 cm; Wt 69.4 kg
[2023-07-01] MEDS ORDERED: METOCLOPRAMIDE INJ 10MG/2ML VIAL IV ONE (14:25)
[2023-07-01] MEDS ORDERED: levETIRAcetam INJection 1,000 MG in D5W 100 ML IV ONE (14:25)
[2023-07-01] MEDS ORDERED: LORazepam 2 MG/ML 1ML VIAL IV PRN (14:25)
[2023-07-01 15:04] VITALS: TEMP 97.9
[2023-07-01 15:14] LABS: IONIZED CALCIUM 4.4 MG/DL (4.5-5.3)
[2023-07-01 15:22] LABS: BASO # 0.1 10^3/uL (0.0-0.2); BASO % 1.2 % (0.0-1.0); EOS % 0.4 % (0.0-3.0); HEMOGLOBIN 15.5 g/dl (13.5-17.5); LYMPH # 0.7 10^3/uL (1.5-5.0); LYMPH % 6.6 % (24.0-44.0); MEAN CORPUSCULAR HEMOGLOBIN 36.6 pg (27.0-33.0); MEAN CORPUSCULAR HGB CONC 33.7 g/dl (32.0-36.5); MEAN CORPUSCULAR VOLUME 108.5 fl (80.0-96.0); MONO # 0.8 10^3/uL (0.0-0.8); MONO % 7.8 % (2.0-8.0); NEUTROPHILS # 8.6 10^3/uL (1.5-8.5); PLATELET COUNT, AUTOMATED 164 10^3/uL (150-450); RED BLOOD COUNT 4.24 10^6/uL (4.30-6.10); WHITE BLOOD COUNT 10.3 10^3/uL (4.0-10.0)
[2023-07-01 15:35] LABS: ETHYL ALCOHOL (ETHANOL) 0.005 % (0.000-0.010)
[2023-07-01] MEDS ORDERED: LACTULOSE 20GM/30ML SYRUP UDC PO ONE (16:15)
[2023-07-01] MEDS ORDERED: NS 1,000 ML IV ONE (16:20)
[2023-07-01 17:10] LABS: ABG BASE EXCESS -14.5 (-2.0-2.0); ABG HCO3 12.1 MMOL/L (22.0-26.0); ABG PARTIAL PRESSURE O2 100.7 mmHg (75.0-100.0); ABG STANDARD HCO3 13.7 MMOL/L. (22.0-26.0)
[2023-07-01 17:12] LABS: ABG pH (ARTERIAL) 7.208 UNITS (7.350-7.450)
[2023-07-01 17:45] VITALS: BP 161/90; O2SAT 89
[2023-07-01 17:50] LABS: RSV AMPLIFICATION NEGATIVE (NEGATIVE)
[2023-07-01 18:41] LABS: ALBUMIN 4.2 G/DL (3.2-5.2); ALKALINE PHOSPHATASE 124 U/L (46-116); ALT/SGPT 154 U/L (7.0-40); AST/SGOT 340 U/L (<34); BILIRUBIN,DIRECT 0.5 MG/DL (<0.4); BILIRUBIN,TOTAL 1.3 MG/DL (0.3-1.2); BLOOD UREA NITROGEN 9 MG/DL (9-23); CALCIUM LEVEL 9.5 MG/DL (8.5-10.1); CARBON DIOXIDE LEVEL 11 MMOL/L (20-31); CHLORIDE LEVEL 101 MMOL/L (98-107); CREATININE FOR GFR 0.66 MG/DL (0.70-1.30); GLOMERULAR FILTRATION RATE > 60.0 (>60); GLUCOSE, FASTING 142 MG/DL (60-100); POTASSIUM SERUM 3.5 MMOL/L (3.5-5.1); SODIUM LEVEL 142 MMOL/L (136-145); TOTAL PROTEIN 7.8 G/DL (5.7-8.2)
[2023-07-01 18:42] LABS: PHOSPHORUS LEVEL 3.2 MG/DL (2.5-4.9)
[2023-07-02 09:52] LABS: MAGNESIUM LEVEL 2.2 MG/DL (1.8-2.4)
== END 2023-07-01 19:14 | disposition left against medical advice (07) ==
LOC: EDBD 14:15 → M ED 14:15
DX: G40.909 Epilepsy, unspecified, not intractable, without status epilepticus (principal); F10.10 Alcohol abuse, uncomplicated; I45.10 Unspecified right bundle-branch block; Z79.899 Other long term (current) drug therapy; Z53.9 Procedure and treatment not carried out, unspecified reason
CPT/HCPCS: 36600; 70450; 80048; 80076; 80180; 82077; 82140; 82330; 82803; 83605; 83735; 84100; 85025; 87631; 93005; 93041; 94760; 96361; 96365; 96375; 99285; J1953; J2060; J2765

== ENCOUNTER 2023-07-20 02:33 | Emergency (ER) | payer OTHER ==
[2023-07-20] MEDS ORDERED: levETIRAcetam INJection 1,000 MG in D5W 100 ML IV ONE (02:40)
[2023-07-20] MEDS ORDERED: ONDANSETRON 4MG 2ML VIAL IV ONE (02:50)
[2023-07-20 03:01] VITALS: TEMP 98.5
[2023-07-20] MEDS ORDERED: LORazepam 2 MG/ML 1ML VIAL IV STA (03:13)
[2023-07-20 03:28] LABS: VENOUS BASE EXCESS -3.7 (-2.0-2.0); VENOUS HCO3 19.3 MMOL/L (23.0-27.0); VENOUS O2 SATURATION 75.8 % (60.0-80.0); VENOUS PARTIAL PRESSURE CO2 29.9 mmHg (38.0-50.0); VENOUS PARTIAL PRESSURE O2 41.6 mmHg (30.0-50.0); VENOUS PH 7.427 UNITS (7.330-7.430); VENOUS STANDARD HCO3 20.9 MMOL/L; VENOUS TOTAL CO2 20.2 MMOL/L (24.0-28.0)
[2023-07-20 03:47] LABS: BASO # 0.1 10^3/uL (0.0-0.2); BASO % 1.1 % (0.0-1.0); EOS % 0.3 % (0.0-3.0); HEMATOCRIT 41.6 % (42.0-52.0); HEMOGLOBIN 14.4 g/dl (13.5-17.5); LYMPH # 1.2 10^3/uL (1.5-5.0); LYMPH % 9.8 % (24.0-44.0); MEAN CORPUSCULAR HGB CONC 34.6 g/dl (32.0-36.5); MEAN CORPUSCULAR VOLUME 106.9 fl (80.0-96.0); MONO # 1.3 10^3/uL (0.0-0.8); MONO % 10.8 % (2.0-8.0); NEUTROPHILS # 9.2 10^3/uL (1.5-8.5); NEUTROPHILS % 76.9 % (36.0-66.0); PLATELET COUNT, AUTOMATED 144 10^3/uL (150-450); RED BLOOD COUNT 3.89 10^6/uL (4.30-6.10)
[2023-07-20 04:23] LABS: ALBUMIN 4.3 G/DL (3.2-5.2); ALKALINE PHOSPHATASE 102 U/L (46-116); ALT/SGPT 100 U/L (7.0-40); AST/SGOT 208 U/L (<34); BILIRUBIN,DIRECT 0.5 MG/DL (<0.4); BILIRUBIN,TOTAL 1.5 MG/DL (0.3-1.2); MAGNESIUM LEVEL 1.4 MG/DL (1.8-2.4); PHOSPHORUS LEVEL 2.1 MG/DL (2.5-4.9); TOTAL PROTEIN 7.8 G/DL (5.7-8.2)
[2023-07-20 04:40] LABS: BLOOD UREA NITROGEN 6 MG/DL (9-23); CALCIUM LEVEL 9.4 MG/DL (8.5-10.1); CARBON DIOXIDE LEVEL 21 MMOL/L (20-31); CHLORIDE LEVEL 95 MMOL/L (98-107); CREATININE FOR GFR 0.59 MG/DL (0.70-1.30); GLOMERULAR FILTRATION RATE > 60.0 (>60); GLUCOSE, FASTING 157 MG/DL (60-100); POTASSIUM SERUM 3.3 MMOL/L (3.5-5.1); SODIUM LEVEL 137 MMOL/L (136-145)
[2023-07-20] MEDS ORDERED: OXAZ15CA4 PO (06:25)
[2023-07-20 06:55] VITALS: BP 124/88; O2SAT 98
[2023-07-20] MEDS ORDERED: PROM25TA12 PO (07:04)
== END 2023-07-20 06:57 | disposition home or self-care (01) ==
LOC: EDBD 02:33 → M ED 02:33
DX: G40.409 Other generalized epilepsy and epileptic syndromes, not intractable, without status epilepticus (principal); F10.10 Alcohol abuse, uncomplicated; I10 Essential (primary) hypertension; F17.200 Nicotine dependence, unspecified, uncomplicated; Z79.899 Other long term (current) drug therapy
CPT/HCPCS: 80048; 80076; 80180; 82077; 82140; 82330; 82803; 83605; 83735; 84100; 85025; 93041; 94760; 96365; 96375; 99285; J1953; J2060; J2405

== ENCOUNTER 2023-08-03 11:29 | Emergency (ER) | payer OTHER ==
[~2023-08-03] VITALS: Ht 160 cm; Wt 66.1 kg
[~2023-08-03 11:29] MED LIST changes: +OXAZ15CA4 PO; +PROM25TA12 PO
[2023-08-03 14:00] VITALS: BP 132/94; TEMP 98.7; O2SAT 92
== END 2023-08-03 14:03 | disposition home or self-care (01) ==
LOC: M ED 11:29
DX: S00.11XA Contusion of right eyelid and periocular area, initial encounter (principal); W19.XXXA Unspecified fall, initial encounter; I10 Essential (primary) hypertension; F12.10 Cannabis abuse, uncomplicated; F10.10 Alcohol abuse, uncomplicated; F41.9 Anxiety disorder, unspecified; Y92.009 Unspecified place in unspecified non-institutional (private) residence as the place of occurrence of the external cause

== ENCOUNTER 2023-08-12 05:10 | Emergency (ER) | payer OTHER ==
[~2023-08-12] VITALS: Ht 160 cm; Wt 64.0 kg
[2023-08-12] MEDS ORDERED: NS 1,000 ML IV ONE ×2 (05:25→08:40)
[2023-08-12] MEDS ORDERED: ONDANSETRON 4MG 2ML VIAL IV ONE (05:25)
[2023-08-12] MEDS ORDERED: VERAPAMIL 120MG SR TAB PO ONE (05:30)
[2023-08-12] MEDS ORDERED: levETIRAcetam INJection 1,500 MG in D5W 100 ML IV ONE (05:30)
[2023-08-12] MEDS ORDERED: LORazepam 2 MG/ML 1ML VIAL IV STA (05:31)
[2023-08-12 05:47] LABS: BASO # 0.1 10^3/uL (0.0-0.2); BASO % 0.6 % (0.0-1.0); EOS # 0.2 10^3/uL (0.0-0.5); EOS % 1.5 % (0.0-3.0); HEMATOCRIT 43.9 % (42.0-52.0); HEMOGLOBIN 14.9 g/dl (13.5-17.5); LYMPH # 1.3 10^3/uL (1.5-5.0); LYMPH % 12.1 % (24.0-44.0); MEAN CORPUSCULAR HEMOGLOBIN 36.4 pg (27.0-33.0); MEAN CORPUSCULAR HGB CONC 33.9 g/dl (32.0-36.5); MEAN CORPUSCULAR VOLUME 107.3 fl (80.0-96.0); MONO # 1.2 10^3/uL (0.0-0.8); MONO % 11.7 % (2.0-8.0); NEUTROPHILS # 7.7 10^3/uL (1.5-8.5); NEUTROPHILS % 73.3 % (36.0-66.0); RED BLOOD COUNT 4.09 10^6/uL (4.30-6.10); WHITE BLOOD COUNT 10.5 10^3/uL (4.0-10.0)
[2023-08-12 06:00] VITALS: TEMP 97.8
[2023-08-12 06:01] LABS: BLOOD UREA NITROGEN 8 MG/DL (9-23); CALCIUM LEVEL 9.6 MG/DL (8.5-10.1); CARBON DIOXIDE LEVEL 23 MMOL/L (20-31); CHLORIDE LEVEL 92 MMOL/L (98-107); CREATININE FOR GFR 0.65 MG/DL (0.70-1.30); GLOMERULAR FILTRATION RATE > 60.0 (>60); GLUCOSE, FASTING 113 MG/DL (60-100); POTASSIUM SERUM 3.2 MMOL/L (3.5-5.1); SODIUM LEVEL 135 MMOL/L (136-145)
[2023-08-12] MEDS ORDERED: POTASSIUM CHLORIDE 10MEQ SR TABLET PO ONE (06:30)
[2023-08-12 06:41] LABS: PLATELET COUNT, AUTOMATED 87 10^3/uL (150-450)
[2023-08-12 07:30] VITALS: BP 157/96
[2023-08-12 08:00] VITALS: O2SAT 90
[2023-08-12 10:38] LABS: ETHYL ALCOHOL (ETHANOL) < 0.003 % (0.000-0.010)
== END 2023-08-12 10:15 | disposition left against medical advice (07) ==
LOC: EDBD 05:10 → M ED 05:10
DX: G40.909 Epilepsy, unspecified, not intractable, without status epilepticus (principal); R00.0 Tachycardia, unspecified; I25.2 Old myocardial infarction; F17.200 Nicotine dependence, unspecified, uncomplicated; Z79.899 Other long term (current) drug therapy; Z53.9 Procedure and treatment not carried out, unspecified reason
CPT/HCPCS: 70450; 71045; 80048; 82077; 83605; 85025; 85049; 85055; 93005; 93041; 94760; 96365; 96366; 96375; 99285; J1953; J2060; J2405

== ENCOUNTER 2023-10-28 12:09 | Emergency (ER) | payer OTHER ==
[~2023-10-28] VITALS: Ht 160 cm; Wt 68.7 kg
[~2023-10-28 12:09] MED LIST changes: +CEFD1CAP9 PO; -CEFD300C41 PO
[2023-10-28] MEDS ORDERED: levETIRAcetam INJection 1,000 MG in D5W 100 ML IV ONE (13:05)
[2023-10-28 13:24] LABS: BASO # 0.1 10^3/uL (0.0-0.2); BASO % 0.9 % (0.0-1.0); EOS # 0.1 10^3/uL (0.0-0.5); EOS % 0.4 % (0.0-3.0); HEMATOCRIT 44.5 % (42.0-52.0); HEMOGLOBIN 15.2 g/dl (13.5-17.5); LYMPH # 1.3 10^3/uL (1.5-5.0); LYMPH % 8.5 % (24.0-44.0); MEAN CORPUSCULAR HEMOGLOBIN 36.9 pg (27.0-33.0); MEAN CORPUSCULAR HGB CONC 34.2 g/dl (32.0-36.5); MONO # 1.5 10^3/uL (0.0-0.8); MONO % 10.3 % (2.0-8.0); NEUTROPHILS # 11.7 10^3/uL (1.5-8.5); PLATELET COUNT, AUTOMATED 129 10^3/uL (150-450); RED BLOOD COUNT 4.12 10^6/uL (4.30-6.10); WHITE BLOOD COUNT 14.8 10^3/uL (4.0-10.0)
[2023-10-28 13:58] LABS: ALBUMIN 4.5 G/DL (3.2-5.2); ALKALINE PHOSPHATASE 87 U/L (46-116); ALT/SGPT 78 U/L (7.0-40); AST/SGOT 163 U/L (<34); BILIRUBIN,DIRECT 0.3 MG/DL (<0.4); BILIRUBIN,TOTAL 0.7 MG/DL (0.3-1.2); BLOOD UREA NITROGEN 9 MG/DL (9-23); CALCIUM LEVEL 9.4 MG/DL (8.5-10.1); CARBON DIOXIDE LEVEL 17 MMOL/L (20-31); CHLORIDE LEVEL 97 MMOL/L (98-107); CREATININE FOR GFR 0.66 MG/DL (0.70-1.30); GLOMERULAR FILTRATION RATE > 60.0 (>60); GLUCOSE, FASTING 128 MG/DL (60-100); POTASSIUM SERUM 3.8 MMOL/L (3.5-5.1); SODIUM LEVEL 137 MMOL/L (136-145); TOTAL PROTEIN 8.1 G/DL (5.7-8.2)
[2023-10-28 14:03] LABS: AMPHETAMINES LEVEL URINE NEGATIVE (NEGATIVE); BARBITURATES URINE NEGATIVE (NEGATIVE); BENZODIAZEPINES URINE NEGATIVE (NEGATIVE); COCAINE METABOLITE URINE NEGATIVE (NEGATIVE); METHADONE URINE NEGATIVE (NEGATIVE); OPIATES URINE NEGATIVE (NEGATIVE); PHENCYCLIDINE URINE NEGATIVE (NEGATIVE)
[2023-10-28 14:11] LABS: CANNABINOIDS URINE POSITIVE (NEGATIVE)
[2023-10-28 14:48] LABS: ABG BASE EXCESS -0.6 (-2.0-2.0); ABG HCO3 21.8 MMOL/L (22.0-26.0); ABG PARTIAL PRESSURE CO2 30.3 mmHg (35.0-45.0); ABG PARTIAL PRESSURE O2 75.6 mmHg (75.0-100.0); ABG STANDARD HCO3 23.9 MMOL/L. (22.0-26.0); ABG TOTAL CO2 22.7 MMOL/L (22.0-29.0); ABG pH (ARTERIAL) 7.475 UNITS (7.350-7.450)
[2023-10-28 16:02] VITALS: BP 159/97; O2SAT 98
[2023-10-28 16:31] VITALS: TEMP 99.1
== END 2023-10-28 16:30 | disposition left against medical advice (07) ==
LOC: EDBD 12:09 → M ED 12:09
DX: G40.909 Epilepsy, unspecified, not intractable, without status epilepticus (principal); G44.009 Cluster headache syndrome, unspecified, not intractable; Z79.899 Other long term (current) drug therapy
CPT/HCPCS: 36600; 71045; 80048; 80076; 80180; 80307; 81001; 82803; 85025; 93005; 94760; 96365; 99285; J1953

== ENCOUNTER 2023-12-02 19:04 | Emergency (ER) | payer OTHER ==
[~2023-12-02] VITALS: Ht 162.6 cm; Wt 59.8 kg
[2023-12-02] MEDS ORDERED: NS 1,000 ML IV ONE (19:25)
[2023-12-02] MEDS ORDERED: ONDANSETRON 4MG 2ML VIAL IV ONE (19:35)
[2023-12-02 20:07] LABS: VENOUS BASE EXCESS -2.1 (-2.0-2.0); VENOUS HCO3 20.5 MMOL/L (23.0-27.0); VENOUS PARTIAL PRESSURE CO2 30.1 mmHg (38.0-50.0); VENOUS PARTIAL PRESSURE O2 94.3 mmHg (30.0-50.0); VENOUS PH 7.452 UNITS (7.330-7.430); VENOUS STANDARD HCO3 22.7 MMOL/L; VENOUS TOTAL CO2 21.5 MMOL/L (24.0-28.0)
[2023-12-02 20:08] LABS: IONIZED CALCIUM 4.3 MG/DL (4.5-5.3)
[2023-12-02 20:11] LABS: BASO # 0.1 10^3/uL (0.0-0.2); BASO % 0.5 % (0.0-1.0); EOS % 0.1 % (0.0-3.0); HEMOGLOBIN 14.5 g/dl (13.5-17.5); LYMPH # 0.6 10^3/uL (1.5-5.0); LYMPH % 4.1 % (24.0-44.0); MEAN CORPUSCULAR HEMOGLOBIN 36.3 pg (27.0-33.0); MEAN CORPUSCULAR HGB CONC 34.5 g/dl (32.0-36.5); MEAN CORPUSCULAR VOLUME 105.3 fl (80.0-96.0); MONO % 7.3 % (2.0-8.0); NEUTROPHILS # 12.1 10^3/uL (1.5-8.5); NEUTROPHILS % 87.3 % (36.0-66.0); PLATELET COUNT, AUTOMATED 119 10^3/uL (150-450); RED BLOOD COUNT 3.99 10^6/uL (4.30-6.10); WHITE BLOOD COUNT 13.8 10^3/uL (4.0-10.0)
[2023-12-02 20:45] LABS: ETHYL ALCOHOL (ETHANOL) < 0.003 % (0.000-0.010)
[2023-12-02 20:47] LABS: ALBUMIN 4.5 G/DL (3.2-5.2); ALKALINE PHOSPHATASE 94 U/L (46-116); ALT/SGPT 158 U/L (7.0-40); AST/SGOT 181 U/L (<34); BILIRUBIN,DIRECT 0.4 MG/DL (<0.4); BILIRUBIN,TOTAL 1.4 MG/DL (0.3-1.2); BLOOD UREA NITROGEN 10 MG/DL (9-23); CALCIUM LEVEL 9.1 MG/DL (8.5-10.1); CARBON DIOXIDE LEVEL 20 MMOL/L (20-31); CHLORIDE LEVEL 99 MMOL/L (98-107); CREATININE FOR GFR 0.53 MG/DL (0.70-1.30); GLOMERULAR FILTRATION RATE > 60.0 (>60); GLUCOSE, FASTING 125 MG/DL (60-100); MAGNESIUM LEVEL 1.9 MG/DL (1.8-2.4); PHOSPHORUS LEVEL 2.1 MG/DL (2.5-4.9); POTASSIUM SERUM 4.1 MMOL/L (3.5-5.1); SODIUM LEVEL 139 MMOL/L (136-145); TOTAL PROTEIN 7.9 G/DL (5.7-8.2)
[2023-12-02] MEDS ORDERED: levETIRAcetam INJection 1,500 MG in D5W 100 ML IV ONE (21:05)
[2023-12-02] MEDS ORDERED: ONDA4TAB6 PO (22:59)
[2023-12-02 23:04] VITALS: O2SAT 98
[2023-12-02 23:15] VITALS: BP 158/84; TEMP 98.7
[2023-12-03 00:08] LABS: BARBITURATES URINE NEGATIVE (NEGATIVE); COCAINE METABOLITE URINE NEGATIVE (NEGATIVE); METHADONE URINE NEGATIVE (NEGATIVE)
[2023-12-03 00:09] LABS: AMPHETAMINES LEVEL URINE NEGATIVE (NEGATIVE); BENZODIAZEPINES URINE NEGATIVE (NEGATIVE); OPIATES URINE NEGATIVE (NEGATIVE); PHENCYCLIDINE URINE NEGATIVE (NEGATIVE)
[2023-12-03 00:11] LABS: CANNABINOIDS URINE POSITIVE (NEGATIVE)
== END 2023-12-02 23:26 | disposition home or self-care (01) ==
LOC: M ED 19:04 → EDBD 19:04 → EDSEX 19:04 → M ED 23:26
DX: G40.909 Epilepsy, unspecified, not intractable, without status epilepticus (principal); Z79.899 Other long term (current) drug therapy
CPT/HCPCS: 71045; 76705; 80048; 80076; 80180; 80307; 82077; 82140; 82330; 82803; 83605; 83735; 84100; 85025; 87040; 87486; 87581; 87633; 87798; 93041; 94760; 96361; 96365; 96366; 96375; 99291; J1953; J2405

== ENCOUNTER 2023-12-03 00:53 | Observation (INO) | payer OTHER ==
[~2023-12-03] VITALS: Ht 160 cm; Wt 58.6 kg
[2023-12-03] MEDS ORDERED: LORazepam 2 MG/ML 1ML VIAL As Ordered ONE (01:12)
[2023-12-03] MEDS: LORazepam 2 MG/ML 1ML VIAL IV STA ×2 (01:56→03:01)
[2023-12-03] MEDS ORDERED: NS 1,000 ML IV SCH (05:20)
[2023-12-03] MEDS ORDERED: LORazepam 2 MG TAB PO PRN (05:20)
[2023-12-03] MEDS ORDERED: LORazepam 2 MG/ML 1ML VIAL IV PRN (05:35)
[2023-12-03] MEDS ORDERED: HOME MED LIST COMPLETE! XX SCH (06:35)
[2023-12-03 06:56] LABS: HEMATOCRIT 36.8 % (42.0-52.0); HEMOGLOBIN 12.8 g/dl (13.5-17.5); MEAN CORPUSCULAR HEMOGLOBIN 36.5 pg (27.0-33.0); MEAN CORPUSCULAR HGB CONC 34.8 g/dl (32.0-36.5); MEAN CORPUSCULAR VOLUME 104.8 fl (80.0-96.0); PLATELET COUNT, AUTOMATED 106 10^3/uL (150-450); RED BLOOD COUNT 3.51 10^6/uL (4.30-6.10); WHITE BLOOD COUNT 13.5 10^3/uL (4.0-10.0)
[2023-12-03 07:12] VITALS: TEMP 100.1; O2SAT 98
[2023-12-03 07:29] LABS: BLOOD UREA NITROGEN 7 MG/DL (9-23); CALCIUM LEVEL 8.9 MG/DL (8.5-10.1); CARBON DIOXIDE LEVEL 24 MMOL/L (20-31); CHLORIDE LEVEL 101 MMOL/L (98-107); CREATININE FOR GFR 0.59 MG/DL (0.70-1.30); GLOMERULAR FILTRATION RATE > 60.0 (>60); GLUCOSE, FASTING 73 MG/DL (60-100); POTASSIUM SERUM 3.1 MMOL/L (3.5-5.1); SODIUM LEVEL 138 MMOL/L (136-145)
[2023-12-03 08:00] VITALS: BP 151/91
[2023-12-03] MEDS ORDERED: ENOXAPARIN 40MG/0.4ML SYRINGE (J1650 PER 10MG) SC SCH (09:00)
[2023-12-03] MEDS ORDERED: THIAMINE 100 MG TAB PO SCH (09:00)
[2023-12-03] MEDS ORDERED: MULTIVITAMINS/MINERALS THERAP 1 TAB PO SCH (09:00)
[2023-12-03] MEDS ORDERED: levETIRAcetam **XR** 750MG TABLET (KEPPRA XR) PO SCH (09:00)
[2023-12-03] MEDS ORDERED: FOLIC ACID 1MG TAB PO SCH (09:00)
[2023-12-03] MEDS ORDERED: POTASSIUM CHLORIDE 10MEQ SR TABLET PO ONE (10:00)
== END 2023-12-03 12:00 | disposition left against medical advice (07) ==
LOC: EDBD 00:53 → M ED 00:53 → M ED INP 05:16 → INTOOBSV 05:16
PROVIDERS: ADMIT Family Medicine; ATTEND Family Medicine
DX: G40.89 Other seizures (principal); Z53.29 Procedure and treatment not carried out because of patient's decision for other reasons; F10.10 Alcohol abuse, uncomplicated; Z79.899 Other long term (current) drug therapy
CPT/HCPCS: 36415; 70450; 80048; 85027; 96361; 96372; 96374; 99285; J1650; J2060

== ENCOUNTER 2024-01-08 03:43 | Emergency (ER) | payer OTHER ==
[~2024-01-08] VITALS: Ht 160 cm; Wt 63.3 kg
[2024-01-08 03:54] VITALS: TEMP 98
[2024-01-08] MEDS: NS 1,000 ML IV ONE (04:25)
[2024-01-08] MEDS: ONDANSETRON 4MG 2ML VIAL IV ONE (04:25)
[2024-01-08] MEDS: LORazepam 2 MG/ML 1ML VIAL IV STA (04:25)
[2024-01-08] MEDS: levETIRAcetam INJection 1,500 MG in D5W 100 ML IV ONE (04:25)
[2024-01-08] MEDS ORDERED: ONDA4TAB6 PO (06:41)
[2024-01-08 06:45] VITALS: BP 138/70; O2SAT 98
== END 2024-01-08 06:53 | disposition home or self-care (01) ==
LOC: M ED 03:43 → EDBD 03:43 → M ED 06:53
DX: G40.89 Other seizures (principal); R11.2 Nausea with vomiting, unspecified; F12.10 Cannabis abuse, uncomplicated; F10.10 Alcohol abuse, uncomplicated; Z79.83 Long term (current) use of bisphosphonates; Z79.899 Other long term (current) drug therapy
CPT/HCPCS: 96365; 96375; 99284; J1953; J2060; J2405

== ENCOUNTER 2024-02-15 11:22 | Emergency (ER) | payer OTHER ==
[~2024-02-15] VITALS: Ht 160 cm; Wt 68.8 kg
[2024-02-15] MEDS: LORazepam 2 MG/ML 1ML VIAL IV STA (11:49)
[2024-02-15] MEDS: ONDANSETRON 4MG 2ML VIAL IV ONE (11:59)
[2024-02-15] MEDS: levETIRAcetam INJection 1,000 MG in D5W 100 ML IV ONE (12:14)
[2024-02-15] MEDS ORDERED: HOME MED LIST COMPLETE! XX SCH (14:45)
[2024-02-15] MEDS ORDERED: LEVE750XR PO (15:38)
[2024-02-15 15:45] VITALS: BP 135/87
[2024-02-15 15:46] VITALS: TEMP 99.5; O2SAT 93
== END 2024-02-15 16:03 | disposition home or self-care (01) ==
LOC: EDBD 11:22 → M ED 11:22
DX: G40.909 Epilepsy, unspecified, not intractable, without status epilepticus (principal); F12.10 Cannabis abuse, uncomplicated; F17.200 Nicotine dependence, unspecified, uncomplicated; F10.10 Alcohol abuse, uncomplicated; Z79.899 Other long term (current) drug therapy
CPT/HCPCS: 80180; 96365; 96366; 96375; 99285; J1953; J2060; J2405

== ENCOUNTER 2024-03-06 13:07 | Emergency (ER) | payer OTHER ==
[~2024-03-06] VITALS: Ht 160 cm; Wt 81.8 kg
[2024-03-06 13:13] VITALS: TEMP 98.3
[2024-03-06] MEDS: NS 1,000 ML IV ONE (13:28)
[2024-03-06] MEDS: ONDANSETRON 4MG 2ML VIAL IV ONE (13:32)
[2024-03-06 13:40] LABS: VENOUS BASE EXCESS -15.8 (-2.0-2.0); VENOUS HCO3 11.2 MMOL/L (23.0-27.0); VENOUS O2 SATURATION 93.1 % (60.0-80.0); VENOUS PARTIAL PRESSURE CO2 30.8 mmHg (38.0-50.0); VENOUS PARTIAL PRESSURE O2 86.4 mmHg (30.0-50.0); VENOUS PH 7.179 UNITS (7.330-7.430); VENOUS STANDARD HCO3 12.8 MMOL/L; VENOUS TOTAL CO2 12.2 MMOL/L (24.0-28.0)
[2024-03-06 13:47] LABS: BASO # 0.2 10^3/uL (0.0-0.2); BASO % 1.5 % (0.0-1.0); EOS # 0.1 10^3/uL (0.0-0.5); EOS % 0.5 % (0.0-3.0); HEMATOCRIT 44.6 % (42.0-52.0); HEMOGLOBIN 14.7 g/dl (13.5-17.5); LYMPH # 1.8 10^3/uL (1.5-5.0); MEAN CORPUSCULAR HEMOGLOBIN 36.7 pg (27.0-33.0); MEAN CORPUSCULAR VOLUME 111.2 fl (80.0-96.0); MONO # 1.5 10^3/uL (0.0-0.8); MONO % 13.1 % (2.0-8.0); NEUTROPHILS # 8.1 10^3/uL (1.5-8.5); PLATELET COUNT, AUTOMATED 186 10^3/uL (150-450); RED BLOOD COUNT 4.01 10^6/uL (4.30-6.10); WHITE BLOOD COUNT 11.7 10^3/uL (4.0-10.0)
[2024-03-06 13:59] LABS: INR 0.97; PARTIAL THROMBOPLASTIN TIME 24.3 SECONDS (24.8-34.2); PROTHROMBIN TIME 12.6 SECONDS (12.5-14.5)
[2024-03-06 14:09] LABS: CK-MB VALUE MASS < 1.0 NG/ML (<3.6)
[2024-03-06 14:10] LABS: ETHYL ALCOHOL (ETHANOL) 0.039 % (0.000-0.010)
[2024-03-06 14:11] LABS: ALBUMIN 4.4 G/DL (3.2-5.2); ALKALINE PHOSPHATASE 86 U/L (46-116); ALT/SGPT 106 U/L (7.0-40); AST/SGOT 208 U/L (<34); BILIRUBIN,DIRECT 0.2 MG/DL (<0.4); BILIRUBIN,TOTAL 0.6 MG/DL (0.3-1.2); BLOOD UREA NITROGEN 9 MG/DL (9-23); CARBON DIOXIDE LEVEL 14 MMOL/L (20-31); CHLORIDE LEVEL 98 MMOL/L (98-107); CPK CREATINE PHOSPHOKINASE 133 U/L (46-171); CREATININE FOR GFR 0.61 MG/DL (0.70-1.30); GLOMERULAR FILTRATION RATE > 60.0 (>60); GLUCOSE, FASTING 113 MG/DL (60-100); MAGNESIUM LEVEL 1.8 MG/DL (1.8-2.4); MB/CK RELATIVE INDEX 0.75 (< OR =4); POTASSIUM SERUM 3.8 MMOL/L (3.5-5.1); SODIUM LEVEL 138 MMOL/L (136-145); TOTAL PROTEIN 7.7 G/DL (5.7-8.2)
[2024-03-06 14:13] LABS: FREE T4 0.98 NG/DL (0.89-1.76)
[2024-03-06] MEDS ORDERED: MULTIVITAMIN -ADULT INJECTION 10 ML, THIAMINE INJection 100 MG, FOLIC ACID 1 MG in NS 1... IV ONE (14:15)
[2024-03-06] MEDS: LORazepam 2 MG/ML 1ML VIAL IV STA (14:21)
[2024-03-06] MEDS: PROMETHAZINE 25MG/ML 1ML VIAL IM ONE (14:21)
[2024-03-06 14:22] VITALS: O2SAT 95
[2024-03-06 14:30] VITALS: BP 139/78
[2024-03-06 14:49] LABS: AMPHETAMINES LEVEL URINE NEGATIVE (NEGATIVE); BARBITURATES URINE NEGATIVE (NEGATIVE); BENZODIAZEPINES URINE NEGATIVE (NEGATIVE); COCAINE METABOLITE URINE NEGATIVE (NEGATIVE); METHADONE URINE NEGATIVE (NEGATIVE); OPIATES URINE NEGATIVE (NEGATIVE); PHENCYCLIDINE URINE NEGATIVE (NEGATIVE)
[2024-03-06 14:51] LABS: CANNABINOIDS URINE POSITIVE (NEGATIVE)
== END 2024-03-06 14:52 | disposition left against medical advice (07) ==
LOC: M ED 14:24
DX: F10.139 Alcohol abuse with withdrawal, unspecified (principal); G40.909 Epilepsy, unspecified, not intractable, without status epilepticus; Z53.9 Procedure and treatment not carried out, unspecified reason; Z79.899 Other long term (current) drug therapy
CPT/HCPCS: 70450; 71045; 80048; 80076; 80180; 80307; 82077; 82550; 82553; 82803; 83605; 83735; 84439; 84443; 85025; 85610; 85730; 93005; 93041; 94760; 96361; 96372; 96374; 96375; 99285; J2060; J2405; J2550

== ENCOUNTER 2024-03-20 11:37 | Emergency (ER) | payer OTHER ==
[~2024-03-20] VITALS: Ht 160 cm; Wt 73.4 kg
[2024-03-20] MEDS: LORazepam 2 MG/ML 1ML VIAL IV STA (11:56)
[2024-03-20] MEDS: ONDANSETRON 4MG 2ML VIAL IV ONE (11:56)
[2024-03-20] MEDS: NS 1,000 ML IV ONE (11:57)
[2024-03-20] MEDS: levETIRAcetam INJection 1,000 MG in D5W 100 ML IV ONE (11:57)
[2024-03-20 14:30] VITALS: BP 163/79; O2SAT 98
[2024-03-20 14:41] VITALS: TEMP 98.4
== END 2024-03-20 14:41 | disposition home or self-care (01) ==
LOC: EDBD 11:37 → M ED 11:37
DX: F10.10 Alcohol abuse, uncomplicated (principal); F12.10 Cannabis abuse, uncomplicated; G40.909 Epilepsy, unspecified, not intractable, without status epilepticus; F17.200 Nicotine dependence, unspecified, uncomplicated; Z79.899 Other long term (current) drug therapy
CPT/HCPCS: 96365; 96366; 96375; 99284; J1953; J2060; J2405

== ENCOUNTER 2024-03-20 20:16 | Emergency (ER) | payer OTHER ==
[~2024-03-20] VITALS: Ht 172.7 cm; Wt 69.7 kg
[2024-03-20 20:29] VITALS: TEMP 99.1
[2024-03-20] MEDS ORDERED: ONDANSETRON 4MG 2ML VIAL As Ordered ONE (20:53)
[2024-03-20] MEDS ORDERED: LORazepam 2 MG/ML 1ML VIAL IV STA (20:54)
[2024-03-20] MEDS: levETIRAcetam INJection 1,500 MG in D5W 100 ML IV ONE (20:55)
[2024-03-20] MEDS: ONDANSETRON 4MG 2ML VIAL IV ONE (20:56)
[2024-03-20 21:05] LABS: VENOUS BASE EXCESS -1.6 (-2.0-2.0); VENOUS HCO3 22.4 MMOL/L (23.0-27.0); VENOUS O2 SATURATION 92.9 % (60.0-80.0); VENOUS PARTIAL PRESSURE CO2 36.3 mmHg (38.0-50.0); VENOUS PARTIAL PRESSURE O2 71.3 mmHg (30.0-50.0); VENOUS PH 7.409 UNITS (7.330-7.430); VENOUS TOTAL CO2 23.6 MMOL/L (24.0-28.0)
[2024-03-20 21:07] LABS: IONIZED CALCIUM 4.4 MG/DL (4.5-5.3)
[2024-03-20 21:10] LABS: BASO # 0.1 10^3/uL (0.0-0.2); BASO % 0.8 % (0.0-1.0); EOS # 0.1 10^3/uL (0.0-0.5); EOS % 0.4 % (0.0-3.0); HEMATOCRIT 41.9 % (42.0-52.0); HEMOGLOBIN 14.5 g/dl (13.5-17.5); LYMPH # 1.5 10^3/uL (1.5-5.0); LYMPH % 11.1 % (24.0-44.0); MEAN CORPUSCULAR HEMOGLOBIN 37.2 pg (27.0-33.0); MEAN CORPUSCULAR HGB CONC 34.6 g/dl (32.0-36.5); MEAN CORPUSCULAR VOLUME 107.4 fl (80.0-96.0); MONO # 1.4 10^3/uL (0.0-0.8); MONO % 10.3 % (2.0-8.0); NEUTROPHILS # 10.5 10^3/uL (1.5-8.5); NEUTROPHILS % 76.7 % (36.0-66.0); PLATELET COUNT, AUTOMATED 120 10^3/uL (150-450); WHITE BLOOD COUNT 13.7 10^3/uL (4.0-10.0)
[2024-03-20 21:43] LABS: AMPHETAMINES LEVEL URINE NEGATIVE (NEGATIVE)
[2024-03-20 21:44] LABS: BARBITURATES URINE NEGATIVE (NEGATIVE); BENZODIAZEPINES URINE NEGATIVE (NEGATIVE); COCAINE METABOLITE URINE NEGATIVE (NEGATIVE); METHADONE URINE NEGATIVE (NEGATIVE); OPIATES URINE NEGATIVE (NEGATIVE); PHENCYCLIDINE URINE NEGATIVE (NEGATIVE)
[2024-03-20 21:44] LABS: ETHYL ALCOHOL (ETHANOL) < 0.003 % (0.000-0.010)
[2024-03-20 21:57] LABS: ALBUMIN 4.1 G/DL (3.2-5.2); ALKALINE PHOSPHATASE 84 U/L (46-116); ALT/SGPT 62 U/L (7.0-40); AST/SGOT 107 U/L (<34); BILIRUBIN,DIRECT 0.2 MG/DL (<0.4); BILIRUBIN,TOTAL 0.8 MG/DL (0.3-1.2); BLOOD UREA NITROGEN 7 MG/DL (9-23); CALCIUM LEVEL 9.2 MG/DL (8.5-10.1); CARBON DIOXIDE LEVEL 24 MMOL/L (20-31); CHLORIDE LEVEL 95 MMOL/L (98-107); CREATININE FOR GFR 0.65 MG/DL (0.70-1.30); GLOMERULAR FILTRATION RATE > 60.0 (>60); GLUCOSE, FASTING 105 MG/DL (60-100); MAGNESIUM LEVEL 1.8 MG/DL (1.8-2.4); PHOSPHORUS LEVEL 2.3 MG/DL (2.5-4.9); POTASSIUM SERUM 5.4 MMOL/L (3.5-5.1); SODIUM LEVEL 135 MMOL/L (136-145); TOTAL PROTEIN 7.7 G/DL (5.7-8.2)
[2024-03-20 21:58] LABS: CANNABINOIDS URINE POSITIVE (NEGATIVE)
[2024-03-20 22:25] VITALS: O2SAT 99
[2024-03-20 22:45] VITALS: BP 162/100
== END 2024-03-20 23:22 | disposition left against medical advice (07) ==
LOC: M ED 20:16
DX: R79.9 Abnormal finding of blood chemistry, unspecified (principal); G40.909 Epilepsy, unspecified, not intractable, without status epilepticus; Z53.9 Procedure and treatment not carried out, unspecified reason; Z79.899 Other long term (current) drug therapy
CPT/HCPCS: 70450; 71045; 80048; 80076; 80180; 80307; 82077; 82140; 82330; 82803; 83605; 83735; 84100; 85025; 93041; 94760; 96365; 96366; 96375; 99285; J1953; J2405

== ENCOUNTER 2024-04-16 01:04 | Observation (INO) | payer OTHER ==
[~2024-04-16] VITALS: Ht 160 cm; Wt 73.5 kg
[~2024-04-16 01:04] MED LIST changes: -SUMA6INJ25 SC; +SUMA6PEN3 SC
[2024-04-16] MEDS: NS 1,000 ML IV ONE ×2 (01:48→03:32)
[2024-04-16] MEDS: levETIRAcetam INJection 1,500 MG in D5W 100 ML IV ONE (01:48)
[2024-04-16 01:52] LABS: VENOUS BASE EXCESS -1.5 (-2.0-2.0); VENOUS HCO3 22.5 MMOL/L (23.0-27.0); VENOUS PARTIAL PRESSURE CO2 36.2 mmHg (38.0-50.0); VENOUS PARTIAL PRESSURE O2 71.5 mmHg (30.0-50.0); VENOUS PH 7.411 UNITS (7.330-7.430); VENOUS STANDARD HCO3 23.1 MMOL/L; VENOUS TOTAL CO2 23.6 MMOL/L (24.0-28.0)
[2024-04-16 01:59] LABS: BASO # 0.2 10^3/uL (0.0-0.2); BASO % 1.1 % (0.0-1.0); EOS # 0.7 10^3/uL (0.0-0.5); EOS % 4.6 % (0.0-3.0); HEMATOCRIT 42.8 % (42.0-52.0); LYMPH % 14.2 % (24.0-44.0); MEAN CORPUSCULAR HEMOGLOBIN 37.2 pg (27.0-33.0); MEAN CORPUSCULAR VOLUME 106.2 fl (80.0-96.0); MONO # 1.7 10^3/uL (0.0-0.8); MONO % 11.9 % (2.0-8.0); NEUTROPHILS # 9.6 10^3/uL (1.5-8.5); NEUTROPHILS % 67.1 % (36.0-66.0); PLATELET COUNT, AUTOMATED 210 10^3/uL (150-450); RED BLOOD COUNT 4.03 10^6/uL (4.30-6.10); WHITE BLOOD COUNT 14.3 10^3/uL (4.0-10.0)
[2024-04-16 02:22] LABS: INR 0.96; PARTIAL THROMBOPLASTIN TIME 26.5 SECONDS (24.8-34.2); PROTHROMBIN TIME 12.5 SECONDS (12.5-14.5)
[2024-04-16 02:29] LABS: ETHYL ALCOHOL (ETHANOL) < 0.003 % (0.000-0.010)
[2024-04-16] MEDS ORDERED: LORazepam 2 MG/ML 1ML VIAL As Ordered ONE (02:55)
[2024-04-16 03:04] LABS: ALBUMIN 3.6 G/DL (3.2-5.2); ALKALINE PHOSPHATASE 86 U/L (46-116); ALT/SGPT 34 U/L (7.0-40); AST/SGOT 65 U/L (<34); BILIRUBIN,DIRECT 0.2 MG/DL (<0.4); BILIRUBIN,TOTAL 0.7 MG/DL (0.3-1.2); BLOOD UREA NITROGEN 7 MG/DL (9-23); CARBON DIOXIDE LEVEL 22 MMOL/L (20-31); CHLORIDE LEVEL 100 MMOL/L (98-107); CREATININE FOR GFR 0.64 MG/DL (0.70-1.30); FREE T4 0.95 NG/DL (0.89-1.76); GLOMERULAR FILTRATION RATE > 60.0 (>60); GLUCOSE, FASTING 104 MG/DL (60-100); MAGNESIUM LEVEL 1.7 MG/DL (1.8-2.4); POTASSIUM SERUM 5.1 MMOL/L (3.5-5.1); SODIUM LEVEL 134 MMOL/L (136-145); THYROID STIMULATING HORMONE 2.365 uIU/ML (0.55-4.78); TOTAL PROTEIN 7.1 G/DL (5.7-8.2)
[2024-04-16] MEDS: LORazepam 2 MG/ML 1ML VIAL IM STA ×2 (03:12)
[2024-04-16] MEDS: VALPROATE SOD INJ 1,000 MG in D5W 50 ML IV ONE (03:31)
[2024-04-16 03:49] LABS: AMPHETAMINES LEVEL URINE NEGATIVE (NEGATIVE); BARBITURATES URINE NEGATIVE (NEGATIVE); BENZODIAZEPINES URINE NEGATIVE (NEGATIVE); COCAINE METABOLITE URINE NEGATIVE (NEGATIVE); METHADONE URINE NEGATIVE (NEGATIVE)
[2024-04-16 03:50] LABS: OPIATES URINE NEGATIVE (NEGATIVE); PHENCYCLIDINE URINE NEGATIVE (NEGATIVE)
[2024-04-16 03:51] LABS: CANNABINOIDS URINE POSITIVE (NEGATIVE)
[2024-04-16] MEDS ORDERED: ACETAMINOPHEN TAB 650MG DOSE (2X325MG) PO PRN (05:20)
[2024-04-16] MEDS ORDERED: ONDA4TAB6 SL (05:30)
[2024-04-16] MEDS ORDERED: HOME MED LIST COMPLETE! XX SCH (05:30)
[2024-04-16] MEDS ORDERED: LORazepam 2 MG TAB PO PRN (05:40)
[2024-04-16 06:19] VITALS: BP 142/87; TEMP 98.8; O2SAT 98
[2024-04-16 06:27] VITALS: BP 142/87
[2024-04-16] MEDS: THIAMINE 100 MG TAB PO SCH (06:49)
[2024-04-16] MEDS: MAG SULF 1GM/100ML (MAG RUN) 1 GM in IV 1 EA IV SCH (07:49)
[2024-04-16] MEDS: FOLIC ACID 1MG TAB PO SCH (07:50)
[2024-04-16] MEDS: MULTIVITAMINS/MINERALS THERAP 1 TAB PO SCH (07:53)
[2024-04-16] MEDS ORDERED: levETIRAcetam 250MG TABLET (KEPPRA) PO SCH (11:00)
== END 2024-04-16 10:18 | disposition left against medical advice (07) ==
LOC: M ED 01:04 → M ED INP 03:33 → M MSPAV 06:11
PROVIDERS: ADMIT Internal Medicine; ATTEND Student in an Organized Health Care Education/Training Program
DX: G40.909 Epilepsy, unspecified, not intractable, without status epilepticus (principal); Z53.8 Procedure and treatment not carried out for other reasons; Z91.148 Patient's other noncompliance with medication regimen for other reason; Z79.899 Other long term (current) drug therapy; E87.29 Other acidosis; R03.0 Elevated blood-pressure reading, without diagnosis of hypertension; R00.0 Tachycardia, unspecified
CPT/HCPCS: 36415; 70450; 71045; 80048; 80076; 80180; 80307; 82077; 82803; 83605; 83735; 84439; 84443; 85025; 85610; 85730; 93005; 93041; 94760; 96365; 96372; 96375; 96376; 99285; J1953; J2060; J3475

== ENCOUNTER 2024-05-06 12:35 | Emergency (ER) | payer OTHER ==
[~2024-05-06] VITALS: Ht 160 cm; Wt 73.3 kg
[~2024-05-06 12:35] MED LIST changes: +ONDA-282 PO; +ONDA-282 SL; -ONDA4TAB6 PO
[2024-05-06 12:36] VITALS: BP 155/99; TEMP 98.7; O2SAT 98
== END 2024-05-06 14:01 | disposition left against medical advice (07) ==
LOC: M ED 12:35
DX: Z53.21 Procedure and treatment not carried out due to patient leaving prior to being seen by health care provider (principal)

== ENCOUNTER 2024-05-08 21:34 | Emergency (ER) | payer OTHER ==
[~2024-05-08] VITALS: Ht 160 cm; Wt 68.2 kg
[2024-05-08 22:04] LABS: BASO # 0.1 10^3/uL (0.0-0.2); BASO % 0.8 % (0.0-1.0); EOS # 0.2 10^3/uL (0.0-0.5); EOS % 1.4 % (0.0-3.0); HEMATOCRIT 45.4 % (42.0-52.0); HEMOGLOBIN 15.5 g/dl (13.5-17.5); LYMPH # 1.7 10^3/uL (1.5-5.0); LYMPH % 15.9 % (24.0-44.0); MEAN CORPUSCULAR HEMOGLOBIN 36.2 pg (27.0-33.0); MEAN CORPUSCULAR HGB CONC 34.1 g/dl (32.0-36.5); MEAN CORPUSCULAR VOLUME 106.1 fl (80.0-96.0); MONO # 1.5 10^3/uL (0.0-0.8); MONO % 14.2 % (2.0-8.0); NEUTROPHILS # 7.2 10^3/uL (1.5-8.5); NEUTROPHILS % 67.1 % (36.0-66.0); PLATELET COUNT, AUTOMATED 177 10^3/uL (150-450); RED BLOOD COUNT 4.28 10^6/uL (4.30-6.10); WHITE BLOOD COUNT 10.7 10^3/uL (4.0-10.0)
[2024-05-08] MEDS: NS 1,000 ML IV ONE ×2 (22:33→23:54)
[2024-05-08 22:36] LABS: ETHYL ALCOHOL (ETHANOL) < 0.003 % (0.000-0.010)
[2024-05-08 22:37] LABS: ALBUMIN 4.1 G/DL (3.2-5.2); ALKALINE PHOSPHATASE 80 U/L (46-116); ALT/SGPT 63 U/L (7.0-40); AST/SGOT 79 U/L (<34); BILIRUBIN,DIRECT 0.4 MG/DL (<0.4); BILIRUBIN,TOTAL 1.6 MG/DL (0.3-1.2); BLOOD UREA NITROGEN 9 MG/DL (9-23); CALCIUM LEVEL 9.7 MG/DL (8.5-10.1); CARBON DIOXIDE LEVEL 25 MMOL/L (20-31); CHLORIDE LEVEL 94 MMOL/L (98-107); CPK CREATINE PHOSPHOKINASE 283 U/L (46-171); CREATININE FOR GFR 0.68 MG/DL (0.70-1.30); GLOMERULAR FILTRATION RATE > 60.0 (>60); GLUCOSE, FASTING 108 MG/DL (60-100); MAGNESIUM LEVEL 1.3 MG/DL (1.8-2.4); POTASSIUM SERUM 3.7 MMOL/L (3.5-5.1); SODIUM LEVEL 133 MMOL/L (136-145); TOTAL PROTEIN 7.5 G/DL (5.7-8.2)
[2024-05-08] MEDS: MAG SULF 1GM/100ML (MAG RUN) 1 GM in IV 1 EA IV SCH (22:59)
[2024-05-09 00:22] LABS: APPEARANCE, URINE CLEAR (CLEAR); BACTERIA, URINE AUTO NEGATIVE (NEGATIVE); BILIRUBIN, URINE AUTO NEGATIVE (NEGATIVE); BLOOD, URINE BLOOD NEGATIVE (NEGATIVE); COLOR, URINE AMBER (YELLOW); GLUCOSE, URINE (UA) AUTO NEGATIVE (NEGATIVE); KETONE, URINE AUTO 2+ mg/dL (NEGATIVE); LEUKOCYTE ESTERASE, URINE AUTO NEGATIVE (NEGATIVE); MUCUS, URINE SMALL (NEGATIVE); NITRITE, URINE AUTO NEGATIVE (NEGATIVE); PROTEIN, URINE AUTO 3+ mg/dL (NEGATIVE); RBC, URINE AUTO 0 /HPF (0-3); SQUAMOUS EPITHELIAL CELL UR AU 0 /HPF (0-6); WBC, URINE AUTO 1 /HPF (0-3)
[2024-05-09 00:49] LABS: AMPHETAMINES LEVEL URINE NEGATIVE (NEGATIVE); BARBITURATES URINE NEGATIVE (NEGATIVE); BENZODIAZEPINES URINE NEGATIVE (NEGATIVE)
[2024-05-09 00:50] LABS: CANNABINOIDS URINE POSITIVE (NEGATIVE); COCAINE METABOLITE URINE NEGATIVE (NEGATIVE); METHADONE URINE NEGATIVE (NEGATIVE); OPIATES URINE NEGATIVE (NEGATIVE); PHENCYCLIDINE URINE NEGATIVE (NEGATIVE)
[2024-05-09] MEDS: NEUTRA-PHOS 1.5 GM PACKET PO ONE (01:03)
[2024-05-09 01:51] VITALS: BP 158/95; TEMP 98.1; O2SAT 93
== END 2024-05-09 02:58 | disposition home or self-care (01) ==
LOC: M ED 21:34
DX: G40.409 Other generalized epilepsy and epileptic syndromes, not intractable, without status epilepticus (principal); F12.10 Cannabis abuse, uncomplicated; F10.10 Alcohol abuse, uncomplicated; Z79.899 Other long term (current) drug therapy
CPT/HCPCS: 70450; 80048; 80076; 80177; 80307; 81001; 82077; 82550; 83605; 83735; 84100; 85025; 94760; 96365; 96376; 99285; J3475

== ENCOUNTER 2024-05-23 22:40 | Emergency (ER) | payer OTHER ==
[~2024-05-23] VITALS: Ht 160 cm; Wt 68.2 kg
[2024-05-23 22:50] VITALS: BP 146/92; TEMP 97.2; O2SAT 94
[2024-05-23] MEDS ORDERED: NS 1,000 ML IV ONE (23:05)
[2024-05-23] MEDS ORDERED: MULTIVITAMIN -ADULT INJECTION 10 ML, THIAMINE INJection 100 MG, FOLIC ACID 1 MG in NS 1... IV ONE (23:05)
[2024-05-23 23:23] LABS: VENOUS BASE EXCESS -1.1 (-2.0-2.0); VENOUS HCO3 23.4 MMOL/L (23.0-27.0); VENOUS O2 SATURATION 94.8 % (60.0-80.0); VENOUS PARTIAL PRESSURE CO2 38.6 mmHg (38.0-50.0); VENOUS PARTIAL PRESSURE O2 83.5 mmHg (30.0-50.0); VENOUS STANDARD HCO3 23.5 MMOL/L; VENOUS TOTAL CO2 24.6 MMOL/L (24.0-28.0)
[2024-05-23 23:27] LABS: BASO # 0.2 10^3/uL (0.0-0.2); EOS # 0.2 10^3/uL (0.0-0.5); EOS % 2.6 % (0.0-3.0); HEMATOCRIT 46.3 % (42.0-52.0); HEMOGLOBIN 15.9 g/dl (13.5-17.5); LYMPH # 2.3 10^3/uL (1.5-5.0); LYMPH % 29.8 % (24.0-44.0); MEAN CORPUSCULAR HEMOGLOBIN 36.8 pg (27.0-33.0); MEAN CORPUSCULAR HGB CONC 34.3 g/dl (32.0-36.5); MEAN CORPUSCULAR VOLUME 107.2 fl (80.0-96.0); MONO # 0.8 10^3/uL (0.0-0.8); MONO % 10.2 % (2.0-8.0); NEUTROPHILS # 4.1 10^3/uL (1.5-8.5); NEUTROPHILS % 54.5 % (36.0-66.0); PLATELET COUNT, AUTOMATED 199 10^3/uL (150-450); RED BLOOD COUNT 4.32 10^6/uL (4.30-6.10); WHITE BLOOD COUNT 7.6 10^3/uL (4.0-10.0)
[2024-05-23 23:51] LABS: C REACTIVE PROTEIN QUANTITATIV < 0.40 MG/DL (<1.0)
[2024-05-23 23:53] LABS: SALICYLATE LEVEL < 3.0 MG/DL (<30)
[2024-05-24 00:27] LABS: ALBUMIN 3.9 G/DL (3.2-5.2); ALKALINE PHOSPHATASE 87 U/L (46-116); ALT/SGPT 72 U/L (7.0-40); AST/SGOT 149 U/L (<34); BILIRUBIN,DIRECT 0.1 MG/DL (<0.4); BILIRUBIN,TOTAL 0.3 MG/DL (0.3-1.2); BLOOD UREA NITROGEN 8 MG/DL (9-23); CALCIUM LEVEL 8.3 MG/DL (8.5-10.1); CARBON DIOXIDE LEVEL 23 MMOL/L (20-31); CHLORIDE LEVEL 104 MMOL/L (98-107); CREATININE FOR GFR 0.71 MG/DL (0.70-1.30); ETHYL ALCOHOL (ETHANOL) 0.427 % (0.000-0.010); GLOMERULAR FILTRATION RATE > 60.0 (>60); GLUCOSE, FASTING 115 MG/DL (60-100); POTASSIUM SERUM 4.1 MMOL/L (3.5-5.1); SODIUM LEVEL 141 MMOL/L (136-145); THYROID STIMULATING HORMONE 0.936 uIU/ML (0.55-4.78); TOTAL PROTEIN 7.4 G/DL (5.7-8.2)
[2024-05-25] MEDS ORDERED: AMOX875T2 PO (02:02)
[2024-05-25] MEDS ORDERED: LEVE750XR PO (02:02)
[2024-05-25] MEDS ORDERED: LACT10SO3 PO (02:09)
== END 2024-05-24 00:11 | disposition left against medical advice (07) ==
LOC: M ED 22:40
DX: R41.82 Altered mental status, unspecified (principal); G40.909 Epilepsy, unspecified, not intractable, without status epilepticus; F12.10 Cannabis abuse, uncomplicated; F10.10 Alcohol abuse, uncomplicated; Z79.2 Long term (current) use of antibiotics; Z79.899 Other long term (current) drug therapy; Z53.9 Procedure and treatment not carried out, unspecified reason

== ENCOUNTER 2024-05-24 14:54 | Emergency (ER) | payer OTHER ==
[~2024-05-24] VITALS: Ht 160 cm; Wt 69.1 kg
[2024-05-24 15:12] VITALS: TEMP 98
[2024-05-24 17:22] LABS: BASO # 0.1 10^3/uL (0.0-0.2); BASO % 0.8 % (0.0-1.0); EOS % 0.1 % (0.0-3.0); HEMATOCRIT 45.9 % (42.0-52.0); HEMOGLOBIN 15.8 g/dl (13.5-17.5); LYMPH # 1.2 10^3/uL (1.5-5.0); LYMPH % 7.5 % (24.0-44.0); MEAN CORPUSCULAR HEMOGLOBIN 36.6 pg (27.0-33.0); MEAN CORPUSCULAR HGB CONC 34.4 g/dl (32.0-36.5); MEAN CORPUSCULAR VOLUME 106.3 fl (80.0-96.0); MONO # 1.7 10^3/uL (0.0-0.8); MONO % 10.9 % (2.0-8.0); NEUTROPHILS # 12.4 10^3/uL (1.5-8.5); NEUTROPHILS % 80.2 % (36.0-66.0); PLATELET COUNT, AUTOMATED 164 10^3/uL (150-450); RED BLOOD COUNT 4.32 10^6/uL (4.30-6.10); WHITE BLOOD COUNT 15.4 10^3/uL (4.0-10.0)
[2024-05-24 17:39] LABS: LIPASE 39 U/L (12-53)
[2024-05-24] MEDS: LORazepam 2 MG/ML 1ML VIAL IV STA (17:39)
[2024-05-24] MEDS: ONDANSETRON 4MG 2ML VIAL IV ONE (17:40)
[2024-05-24 17:55] LABS: ETHYL ALCOHOL (ETHANOL) < 0.003 % (0.000-0.010)
[2024-05-24 17:59] LABS: ALBUMIN 4.3 G/DL (3.2-5.2); ALKALINE PHOSPHATASE 91 U/L (46-116); ALT/SGPT 64 U/L (7.0-40); AST/SGOT 86 U/L (<34); BILIRUBIN,DIRECT 0.4 MG/DL (<0.4); BILIRUBIN,TOTAL 1.2 MG/DL (0.3-1.2); BLOOD UREA NITROGEN 6 MG/DL (9-23); CALCIUM LEVEL 9.5 MG/DL (8.5-10.1); CARBON DIOXIDE LEVEL 30 MMOL/L (20-31); CHLORIDE LEVEL 97 MMOL/L (98-107); GLOMERULAR FILTRATION RATE > 60.0 (>60); GLUCOSE, FASTING 92 MG/DL (60-100); MAGNESIUM LEVEL 1.3 MG/DL (1.8-2.4); PHOSPHORUS LEVEL 2.6 MG/DL (2.5-4.9); POTASSIUM SERUM 3.5 MMOL/L (3.5-5.1); SODIUM LEVEL 137 MMOL/L (136-145)
[2024-05-24] MEDS ORDERED: ISOVUE-370 76% 100ML VIAL As Ordered ONE (18:44)
[2024-05-24] MEDS: NS 1,000 ML IV ONE ×2 (19:05→21:27)
[2024-05-24] MEDS: MAG SULF 1GM/100ML (MAG RUN) 1 GM in IV 1 EA IV ONE (20:00)
[2024-05-24] MEDS: LACTULOSE 20GM/30ML SYRUP UDC PO ONE (20:05)
[2024-05-24] MEDS: METOCLOPRAMIDE INJ 10MG/2ML VIAL IV ONE (21:28)
[2024-05-25] MEDS: levETIRAcetam INJection 1,500 MG in D5W 100 ML IV ONE (00:38)
[2024-05-25] MEDS ORDERED: AMOX875T2 PO (02:02)
[2024-05-25] MEDS ORDERED: LEVE750XR PO (02:02)
[2024-05-25] MEDS ORDERED: LACT10SO3 PO (02:09)
[2024-05-25] MEDS: AUGMENTIN 875 MG TAB PO ONE (03:11)
[2024-05-25 03:21] VITALS: BP 140/68; O2SAT 97
== END 2024-05-25 03:28 | disposition home or self-care (01) ==
LOC: M ED 14:54 → EDBD 14:54 → M ED 05-25 03:28
DX: G40.909 Epilepsy, unspecified, not intractable, without status epilepticus (principal); K52.9 Noninfective gastroenteritis and colitis, unspecified; E72.20 Disorder of urea cycle metabolism, unspecified; K57.30 Diverticulosis of large intestine without perforation or abscess without bleeding; K76.0 Fatty (change of) liver, not elsewhere classified; I45.10 Unspecified right bundle-branch block; I10 Essential (primary) hypertension; F10.10 Alcohol abuse, uncomplicated; F19.10 Other psychoactive substance abuse, uncomplicated; Z79.2 Long term (current) use of antibiotics; Z79.899 Other long term (current) drug therapy
CPT/HCPCS: 71045; 74177; 80048; 80076; 80177; 82077; 82140; 83605; 83690; 83735; 84100; 85025; 93005; 93041; 94760; 96374; 96375; 99285; J1953; J2060; J2405; J2765; J3475; Q9967

== ENCOUNTER → 2024-06-08 14:28 | Emergency (ER) | payer OTHER ==
[~2024-06-08] VITALS: Ht 160 cm; Wt 63.6 kg
[~2024-06-08 14:28] MED LIST changes: +AMOX875T2 PO; +GASTROGRAFIN SOLUTION 30ML PO SCH; +ISOVUE-370 76% 100ML VIAL As Ordered ONE; +LACT10SO3 PO; +levETIRAcetam INJection 1,500 MG in D5W 100 ML IV ONE
[2024-06-08] MEDS: LORazepam 2 MG/ML 1ML VIAL IV STA (15:30)
[2024-06-08 15:44] LABS: BASO # 0.2 10^3/uL (0.0-0.2); EOS # 0.1 10^3/uL (0.0-0.5); EOS % 0.3 % (0.0-3.0); HEMATOCRIT 50.7 % (42.0-52.0); HEMOGLOBIN 16.5 g/dl (13.5-17.5); LYMPH # 3.1 10^3/uL (1.5-5.0); LYMPH % 16.7 % (24.0-44.0); MEAN CORPUSCULAR HEMOGLOBIN 36.6 pg (27.0-33.0); MEAN CORPUSCULAR HGB CONC 32.5 g/dl (32.0-36.5); MEAN CORPUSCULAR VOLUME 112.4 fl (80.0-96.0); MONO % 10.8 % (2.0-8.0); NEUTROPHILS % 70.7 % (36.0-66.0); PLATELET COUNT, AUTOMATED 114 10^3/uL (150-450); RED BLOOD COUNT 4.51 10^6/uL (4.30-6.10); WHITE BLOOD COUNT 18.3 10^3/uL (4.0-10.0)
[2024-06-08] MEDS: levETIRAcetam INJection 1,500 MG in D5W 100 ML IV ONE (16:05)
[2024-06-08 16:30] LABS: BLOOD UREA NITROGEN 10 MG/DL (9-23); CALCIUM LEVEL 9.9 MG/DL (8.5-10.1); CARBON DIOXIDE LEVEL < 10.0 MMOL/L (20-31); CHLORIDE LEVEL 96 MMOL/L (98-107); CREATININE FOR GFR 0.68 MG/DL (0.70-1.30); GLOMERULAR FILTRATION RATE > 60.0 (>60); GLUCOSE, FASTING 122 MG/DL (60-100); MAGNESIUM LEVEL 1.8 MG/DL (1.8-2.4); POTASSIUM SERUM 4.2 MMOL/L (3.5-5.1); SODIUM LEVEL 139 MMOL/L (136-145)
[2024-06-08 18:18] LABS: BASO # 0.1 10^3/uL (0.0-0.2); BASO % 0.5 % (0.0-1.0); EOS # 0.1 10^3/uL (0.0-0.5); EOS % 0.3 % (0.0-3.0); LYMPH # 0.5 10^3/uL (1.5-5.0); LYMPH % 2.7 % (24.0-44.0); MONO # 1.2 10^3/uL (0.0-0.8); MONO % 6.1 % (2.0-8.0); NEUTROPHILS # 17.9 10^3/uL (1.5-8.5); NEUTROPHILS % 89.7 % (36.0-66.0)
[2024-06-08 18:36] LABS: BLOOD UREA NITROGEN 8 MG/DL (9-23); CARBON DIOXIDE LEVEL 20 MMOL/L (20-31); CHLORIDE LEVEL 99 MMOL/L (98-107); CREATININE FOR GFR 0.63 MG/DL (0.70-1.30); GLOMERULAR FILTRATION RATE > 60.0 (>60); GLUCOSE, FASTING 110 MG/DL (60-100); SODIUM LEVEL 136 MMOL/L (136-145)
[2024-06-08 20:45] VITALS: O2SAT 95
[2024-06-08] MEDS: METOCLOPRAMIDE INJ 10MG/2ML VIAL IV ONE (21:27)
[2024-06-08 21:35] VITALS: BP 120/74; TEMP 98.7
== END | disposition home or self-care (01) ==
LOC: EDUNIT# 14:20 → M ED 14:28 → EDBD 14:28
DX: R10.9 Unspecified abdominal pain (principal); G40.909 Epilepsy, unspecified, not intractable, without status epilepticus; D72.829 Elevated white blood cell count, unspecified; R00.0 Tachycardia, unspecified; I45.10 Unspecified right bundle-branch block; I45.19 Other right bundle-branch block; I45.81 Long QT syndrome; I10 Essential (primary) hypertension; F12.10 Cannabis abuse, uncomplicated; F10.10 Alcohol abuse, uncomplicated; Z79.899 Other long term (current) drug therapy; Z53.9 Procedure and treatment not carried out, unspecified reason
CPT/HCPCS: 80048; 83735; 85025; 93005; 96365; 96375; 99284; J1953; J2060; J2765

== ENCOUNTER 2024-06-21 16:38 | Emergency (ER) | payer OTHER ==
[~2024-06-21] VITALS: Ht 162.6 cm; Wt 71.9 kg
[~2024-06-21 16:38] MED LIST changes: -GASTROGRAFIN SOLUTION 30ML PO SCH; -ISOVUE-370 76% 100ML VIAL As Ordered ONE; -levETIRAcetam INJection 1,500 MG in D5W 100 ML IV ONE
[2024-06-21 16:46] VITALS: TEMP 97.9
[2024-06-21 17:14] LABS: BASO # 0.2 10^3/uL (0.0-0.2); BASO % 1.5 % (0.0-1.0); EOS # 0.1 10^3/uL (0.0-0.5); EOS % 1.2 % (0.0-3.0); HEMATOCRIT 41.9 % (42.0-52.0); HEMOGLOBIN 14.3 g/dl (13.5-17.5); LYMPH # 1.9 10^3/uL (1.5-5.0); LYMPH % 17.8 % (24.0-44.0); MEAN CORPUSCULAR HGB CONC 34.1 g/dl (32.0-36.5); MEAN CORPUSCULAR VOLUME 108.3 fl (80.0-96.0); MONO # 1.7 10^3/uL (0.0-0.8); MONO % 15.6 % (2.0-8.0); NEUTROPHILS # 6.8 10^3/uL (1.5-8.5); PLATELET COUNT, AUTOMATED 231 10^3/uL (150-450); RED BLOOD COUNT 3.87 10^6/uL (4.30-6.10); WHITE BLOOD COUNT 10.8 10^3/uL (4.0-10.0)
[2024-06-21 17:40] LABS: AMPHETAMINES LEVEL URINE NEGATIVE (NEGATIVE); BARBITURATES URINE NEGATIVE (NEGATIVE); BENZODIAZEPINES URINE NEGATIVE (NEGATIVE); COCAINE METABOLITE URINE NEGATIVE (NEGATIVE); METHADONE URINE NEGATIVE (NEGATIVE); OPIATES URINE NEGATIVE (NEGATIVE); PHENCYCLIDINE URINE NEGATIVE (NEGATIVE)
[2024-06-21 17:42] LABS: CANNABINOIDS URINE POSITIVE (NEGATIVE)
[2024-06-21 17:44] LABS: BLOOD UREA NITROGEN 8 MG/DL (9-23); CALCIUM LEVEL 9.3 MG/DL (8.5-10.1); CARBON DIOXIDE LEVEL 16 MMOL/L (20-31); CHLORIDE LEVEL 98 MMOL/L (98-107); CREATININE FOR GFR 0.65 MG/DL (0.70-1.30); GLOMERULAR FILTRATION RATE > 60.0 (>60); GLUCOSE, FASTING 115 MG/DL (60-100); POTASSIUM SERUM 3.2 MMOL/L (3.5-5.1); SODIUM LEVEL 136 MMOL/L (136-145)
[2024-06-21] MEDS: LORazepam 2 MG/ML 1ML VIAL IV PRN (17:49)
[2024-06-21 18:38] VITALS: O2SAT 94
[2024-06-21] MEDS: NS 1,000 ML IV ONE (18:42)
[2024-06-21] MEDS: levETIRAcetam INJection 1,500 MG in D5W 100 ML IV ONE (18:42)
[2024-06-21 18:45] VITALS: BP 134/77
[2024-06-21 19:04] LABS: ETHYL ALCOHOL (ETHANOL) < 0.003 % (0.000-0.010)
[2024-06-21 19:15] LABS: ALBUMIN 4.1 G/DL (3.2-5.2); ALKALINE PHOSPHATASE 92 U/L (46-116); ALT/SGPT 142 U/L (7.0-40); AST/SGOT 161 U/L (<34); BILIRUBIN,DIRECT 0.2 MG/DL (<0.4); BILIRUBIN,TOTAL 0.7 MG/DL (0.3-1.2); MAGNESIUM LEVEL 1.4 MG/DL (1.8-2.4); TOTAL PROTEIN 7.3 G/DL (5.7-8.2)
[2024-06-21] MEDS: MAG SULF 1GM/100ML (MAG RUN) 1 GM in IV 1 EA IV ONE (19:45)
== END 2024-06-21 20:20 | disposition left against medical advice (07) ==
LOC: EDBD 16:38 → M ED 16:38
DX: G40.909 Epilepsy, unspecified, not intractable, without status epilepticus (principal); E83.42 Hypomagnesemia; F10.10 Alcohol abuse, uncomplicated; Z79.899 Other long term (current) drug therapy; Z53.9 Procedure and treatment not carried out, unspecified reason
CPT/HCPCS: 70450; 72125; 80048; 80076; 80177; 80307; 82077; 83735; 85025; 93041; 94760; 96365; 96366; 99285; J1953; J2060; J3475

== ENCOUNTER 2024-07-15 17:24 | Inpatient (IN) | payer OTHER ==
[~2024-07-15] VITALS: Ht 160 cm; Wt 70.1 kg
[2024-07-15 17:32] VITALS: TEMP 97.8
[2024-07-15 18:14] LABS: BASO # 0.2 10^3/uL (0.0-0.2); BASO % 1.3 % (0.0-1.0); EOS # 0.2 10^3/uL (0.0-0.5); EOS % 1.9 % (0.0-3.0); HEMATOCRIT 43.3 % (42.0-52.0); HEMOGLOBIN 14.3 g/dl (13.5-17.5); LYMPH # 3.8 10^3/uL (1.5-5.0); LYMPH % 30.2 % (24.0-44.0); MEAN CORPUSCULAR HEMOGLOBIN 36.8 pg (27.0-33.0); MEAN CORPUSCULAR VOLUME 111.3 fl (80.0-96.0); MONO # 1.9 10^3/uL (0.0-0.8); NEUTROPHILS # 6.4 10^3/uL (1.5-8.5); NEUTROPHILS % 50.8 % (36.0-66.0); PLATELET COUNT, AUTOMATED 208 10^3/uL (150-450); RED BLOOD COUNT 3.89 10^6/uL (4.30-6.10); WHITE BLOOD COUNT 12.6 10^3/uL (4.0-10.0)
[2024-07-15 18:34] LABS: ALBUMIN 4.4 G/DL (3.2-5.2); ALKALINE PHOSPHATASE 81 U/L (46-116); ALT/SGPT 83 U/L (7.0-40); AST/SGOT 118 U/L (<34); BILIRUBIN,DIRECT 0.2 MG/DL (<0.4); BLOOD UREA NITROGEN 12 MG/DL (9-23); CALCIUM LEVEL 9.1 MG/DL (8.5-10.1); CARBON DIOXIDE LEVEL 12 MMOL/L (20-31); CHLORIDE LEVEL 98 MMOL/L (98-107); CREATININE FOR GFR 0.69 MG/DL (0.70-1.30); GLOMERULAR FILTRATION RATE > 60.0 (>60); GLUCOSE, FASTING 119 MG/DL (60-100); PHOSPHORUS LEVEL 3.6 MG/DL (2.5-4.9); POTASSIUM SERUM 5.2 MMOL/L (3.5-5.1); SODIUM LEVEL 132 MMOL/L (136-145); TOTAL PROTEIN 8.4 G/DL (5.7-8.2)
[2024-07-15] MEDS: NS 1,000 ML IV ONE (18:39)
[2024-07-15 19:20] LABS: ETHYL ALCOHOL (ETHANOL) < 0.003 % (0.000-0.010)
[2024-07-15 19:21] LABS: SALICYLATE LEVEL < 3.0 MG/DL (<30)
[2024-07-15 19:25] LABS: BLOOD UREA NITROGEN 9 MG/DL (9-23); CALCIUM LEVEL 9.3 MG/DL (8.5-10.1); CARBON DIOXIDE LEVEL 21 MMOL/L (20-31); CHLORIDE LEVEL 101 MMOL/L (98-107); CREATININE FOR GFR 0.66 MG/DL (0.70-1.30); GLOMERULAR FILTRATION RATE > 60.0 (>60); GLUCOSE, FASTING 126 MG/DL (60-100); SODIUM LEVEL 136 MMOL/L (136-145)
[2024-07-15] MEDS ORDERED: LORazepam 2 MG/ML 1ML VIAL As Ordered ONE (19:53)
[2024-07-15] MEDS: LORazepam 2 MG/ML 1ML VIAL IV STA ×2 (19:57→21:38)
[2024-07-15] MEDS: levETIRAcetam INJection 1,000 MG in D5W 100 ML IV ONE (19:58)
[2024-07-15 20:13] LABS: AMPHETAMINES LEVEL URINE NEGATIVE (NEGATIVE); BARBITURATES URINE NEGATIVE (NEGATIVE); BENZODIAZEPINES URINE NEGATIVE (NEGATIVE); COCAINE METABOLITE URINE NEGATIVE (NEGATIVE); METHADONE URINE NEGATIVE (NEGATIVE); OPIATES URINE NEGATIVE (NEGATIVE); PHENCYCLIDINE URINE NEGATIVE (NEGATIVE)
[2024-07-15 20:15] LABS: CANNABINOIDS URINE POSITIVE (NEGATIVE)
[2024-07-15] MEDS ORDERED: ACETAMINOPHEN TAB 650MG DOSE (2X325MG) PO PRN (21:15)
[2024-07-15] MEDS ORDERED: LORazepam 2 MG TAB PO PRN (21:20)
[2024-07-15] MEDS: levETIRAcetam INJection 500 MG in D5W MINI-BAG PLUS 100 ML IV ONE (21:46)
[2024-07-15] MEDS ORDERED: LORazepam 2 MG/ML 1ML VIAL IV PRN (21:50)
[2024-07-15] MEDS: NS 1,000 ML IV SCH (21:50)
[2024-07-15] MEDS ORDERED: HOME MED LIST COMPLETE! XX SCH (22:05)
[2024-07-15] MEDS: chlordiazePOXIDE 25 MG CAP PO ONE (22:28)
[2024-07-15] MEDS: THIAMINE 200MG 2ML VIAL IV ONE (22:28)
[2024-07-15 23:00] VITALS: BP 151/76; O2SAT 94
[2024-07-16] MEDS ORDERED: chlordiazePOXIDE 25 MG CAP PO ONE (03:00)
[2024-07-16] MEDS ORDERED: FOLIC ACID 1MG TAB PO SCH (09:00)
[2024-07-16] MEDS ORDERED: THIAMINE 100 MG TAB PO SCH (09:00)
[2024-07-16] MEDS ORDERED: ENOXAPARIN 40MG/0.4ML SYRINGE (J1650 PER 10MG) SC SCH (09:00)
[2024-07-16] MEDS ORDERED: levETIRAcetam **XR** 750MG TABLET (KEPPRA XR) PO SCH (09:00)
[2024-07-16] MEDS ORDERED: MULTIVITAMINS/MINERALS THERAP 1 TAB PO SCH (09:00)
== END 2024-07-15 23:51 | disposition left against medical advice (07) | DRG 53 ==
LOC: M ED 17:24 → EDBD 17:24 → M ED INP 21:14
PROVIDERS: ADMIT Preventive Medicine Undersea and Hyperbaric Medicine; ATTEND Preventive Medicine Undersea and Hyperbaric Medicine
DX: G40.409 Other generalized epilepsy and epileptic syndromes, not intractable, without status epilepticus (principal); Z91.148 Patient's other noncompliance with medication regimen for other reason; F10.10 Alcohol abuse, uncomplicated; F17.200 Nicotine dependence, unspecified, uncomplicated

== ENCOUNTER 2024-08-17 16:46 | Emergency (ER) | payer MEDICAID, OTHER, SELFPAY ==
[~2024-08-17] VITALS: Ht 160 cm; Wt 68.2 kg
[2024-08-17 17:31] LABS: VENOUS BASE EXCESS -3.9 (-2.0-2.0); VENOUS HCO3 20.7 MMOL/L (23.0-27.0); VENOUS O2 SATURATION 93.8 % (60.0-80.0); VENOUS PARTIAL PRESSURE CO2 36.3 mmHg (38.0-50.0); VENOUS PARTIAL PRESSURE O2 68.5 mmHg (30.0-50.0); VENOUS PH 7.373 UNITS (7.330-7.430); VENOUS STANDARD HCO3 21.2 MMOL/L; VENOUS TOTAL CO2 21.8 MMOL/L (24.0-28.0)
[2024-08-17 17:32] LABS: BASO # 0.1 10^3/uL (0.0-0.2); EOS # 0.2 10^3/uL (0.0-0.5); EOS % 2.2 % (0.0-3.0); HEMATOCRIT 38.8 % (42.0-52.0); HEMOGLOBIN 13.2 g/dl (13.5-17.5); LYMPH # 2.1 10^3/uL (1.5-5.0); LYMPH % 19.1 % (24.0-44.0); MEAN CORPUSCULAR HEMOGLOBIN 37.2 pg (27.0-33.0); MEAN CORPUSCULAR VOLUME 109.3 fl (80.0-96.0); MONO # 1.5 10^3/uL (0.0-0.8); MONO % 13.8 % (2.0-8.0); NEUTROPHILS % 62.6 % (36.0-66.0); PLATELET COUNT, AUTOMATED 167 10^3/uL (150-450); RED BLOOD COUNT 3.55 10^6/uL (4.30-6.10); WHITE BLOOD COUNT 11.1 10^3/uL (4.0-10.0)
[2024-08-17] MEDS ORDERED: LORazepam 2 MG/ML 1ML VIAL As Ordered ONE (17:47)
[2024-08-17 17:50] LABS: ETHYL ALCOHOL (ETHANOL) < 0.003 % (0.000-0.010)
[2024-08-17] MEDS: LORazepam 2 MG/ML 1ML VIAL IV STA (17:51)
[2024-08-17 17:52] LABS: ALBUMIN 4.1 G/DL (3.2-5.2); ALKALINE PHOSPHATASE 80 U/L (46-116); ALT/SGPT 40 U/L (7.0-40); AST/SGOT 50 U/L (<34); BILIRUBIN,DIRECT 0.2 MG/DL (<0.4); BILIRUBIN,TOTAL 0.8 MG/DL (0.3-1.2); BLOOD UREA NITROGEN 10 MG/DL (9-23); CALCIUM LEVEL 9.9 MG/DL (8.5-10.1); CARBON DIOXIDE LEVEL 22 MMOL/L (20-31); CHLORIDE LEVEL 100 MMOL/L (98-107); CREATININE FOR GFR 0.75 MG/DL (0.70-1.30); GLOMERULAR FILTRATION RATE > 60.0 (>60); GLUCOSE, FASTING 100 MG/DL (60-100); MAGNESIUM LEVEL 1.8 MG/DL (1.8-2.4); POTASSIUM SERUM 3.4 MMOL/L (3.5-5.1); SODIUM LEVEL 135 MMOL/L (136-145); TOTAL PROTEIN 7.6 G/DL (5.7-8.2)
[2024-08-17] MEDS: levETIRAcetam INJection 1,000 MG in D5W 100 ML IV ONE (18:09)
[2024-08-17] MEDS: NS 1,000 ML IV ONE (18:24)
[2024-08-17 20:30] VITALS: BP 155/86; TEMP 98.2; O2SAT 95
[2024-08-17] MEDS ORDERED: DEPA1TAB3 PO (20:38)
[2024-08-17] MEDS: POTASSIUM CHLORIDE 10MEQ SR TABLET PO ONE (20:43)
[2024-08-17] MEDS: DIVALPROEX 500 MG TAB PO ONE (20:43)
== END 2024-08-17 20:53 | disposition home or self-care (01) ==
LOC: EDBD 16:46 → M ED 16:46
DX: G40.309 Generalized idiopathic epilepsy and epileptic syndromes, not intractable, without status epilepticus (principal); F10.10 Alcohol abuse, uncomplicated; Z79.899 Other long term (current) drug therapy
CPT/HCPCS: 70450; 80048; 80076; 80177; 82077; 82803; 83605; 83735; 85025; 93041; 94760; 96361; 96365; 96375; 99285; J1953; J2060

== ENCOUNTER 2024-09-08 16:36 | Emergency (ER) | payer MEDICAID, OTHER, SELFPAY ==
[~2024-09-08] VITALS: Ht 160 cm; Wt 68.2 kg
[2024-09-08] MEDS: LORazepam 2 MG/ML 1ML VIAL IV STA (18:03)
[2024-09-08] MEDS: levETIRAcetam INJection 1,000 MG in D5W 100 ML IV ONE (18:03)
[2024-09-08 18:11] LABS: BASO # 0.2 10^3/uL (0.0-0.2); BASO % 1.1 % (0.0-1.0); EOS # 0.1 10^3/uL (0.0-0.5); EOS % 0.5 % (0.0-3.0); HEMATOCRIT 46.6 % (42.0-52.0); HEMOGLOBIN 15.3 g/dl (13.5-17.5); LYMPH # 2.9 10^3/uL (1.5-5.0); LYMPH % 19.6 % (24.0-44.0); MEAN CORPUSCULAR HEMOGLOBIN 37.9 pg (27.0-33.0); MEAN CORPUSCULAR HGB CONC 32.8 g/dl (32.0-36.5); MONO # 2.1 10^3/uL (0.0-0.8); MONO % 13.9 % (2.0-8.0); NEUTROPHILS # 9.6 10^3/uL (1.5-8.5); NEUTROPHILS % 64.1 % (36.0-66.0); PLATELET COUNT, AUTOMATED 136 10^3/uL (150-450); RED BLOOD COUNT 4.04 10^6/uL (4.30-6.10); WHITE BLOOD COUNT 14.9 10^3/uL (4.0-10.0)
[2024-09-08 18:15] LABS: MEAN CORPUSCULAR VOLUME 115.3 fl (80.0-96.0)
[2024-09-08 18:29] LABS: LIPASE 48 U/L (12-53); VALPROIC ACID (DEPAKOTE) < 3.0 UG/ML (50.0-100.0)
[2024-09-08 18:30] LABS: ETHYL ALCOHOL (ETHANOL) 0.013 % (0.000-0.010)
[2024-09-08 18:35] LABS: ALBUMIN 4.8 G/DL (3.2-5.2); ALKALINE PHOSPHATASE 99 U/L (46-116); ALT/SGPT 56 U/L (7.0-40); AST/SGOT 106 U/L (<34); BILIRUBIN,DIRECT 0.3 MG/DL (<0.4); TOTAL PROTEIN 8.9 G/DL (5.7-8.2)
[2024-09-08 18:46] LABS: PLATELET ESTIMATE DECREASED (NORMAL)
[2024-09-08] MEDS: VALPROATE SOD INJ 500 MG in D5W 50 ML IV ONE (19:19)
[2024-09-08] MEDS ORDERED: ONDA-282 PO (20:34)
[2024-09-08] MEDS: ONDANSETRON 4MG 2ML VIAL IV ONE (20:35)
[2024-09-08 21:05] VITALS: BP 151/82; TEMP 98.1; O2SAT 98
== END 2024-09-08 21:07 | disposition home or self-care (01) ==
LOC: EDBD 16:36 → M ED 16:36
DX: G40.909 Epilepsy, unspecified, not intractable, without status epilepticus (principal); R11.10 Vomiting, unspecified; Z91.119 Patient's noncompliance with dietary regimen due to unspecified reason; F10.10 Alcohol abuse, uncomplicated; F12.10 Cannabis abuse, uncomplicated; F17.200 Nicotine dependence, unspecified, uncomplicated; Z79.899 Other long term (current) drug therapy; Z79.83 Long term (current) use of bisphosphonates
CPT/HCPCS: 80047; 80076; 80164; 80177; 82077; 83690; 85025; 96365; 96366; 99284; J1953; J2060

== ENCOUNTER 2024-09-22 22:01 | Emergency (ER) | payer MEDICAID ==
[~2024-09-22] VITALS: Ht 160 cm; Wt 66.7 kg
[2024-09-22 22:13] VITALS: BP 140/85; TEMP 97.4; O2SAT 100
[2024-09-23] MEDS ORDERED: ONDA-282 PO (08:23)
== END 2024-09-22 23:45 | disposition left against medical advice (07) ==
LOC: EDBD 22:01 → M ED 22:01
DX: Z53.21 Procedure and treatment not carried out due to patient leaving prior to being seen by health care provider (principal)

== ENCOUNTER 2024-09-23 06:19 | Emergency (ER) | payer MEDICAID, OTHER ==
[2024-09-23 07:29] LABS: VALPROIC ACID (DEPAKOTE) < 3.0 UG/ML (50.0-100.0)
[2024-09-23 07:49] LABS: BASO # 0.1 10^3/uL (0.0-0.2); BASO % 0.6 % (0.0-1.0); HEMATOCRIT 49.1 % (42.0-52.0); HEMOGLOBIN 16.3 g/dl (13.5-17.5); LYMPH # 0.8 10^3/uL (1.5-5.0); LYMPH % 3.9 % (24.0-44.0); MEAN CORPUSCULAR HEMOGLOBIN 37.6 pg (27.0-33.0); MEAN CORPUSCULAR HGB CONC 33.2 g/dl (32.0-36.5); MEAN CORPUSCULAR VOLUME 113.1 fl (80.0-96.0); MONO # 1.6 10^3/uL (0.0-0.8); MONO % 7.6 % (2.0-8.0); NEUTROPHILS % 86.8 % (36.0-66.0); PLATELET COUNT, AUTOMATED 149 10^3/uL (150-450); RED BLOOD COUNT 4.34 10^6/uL (4.30-6.10); WHITE BLOOD COUNT 20.7 10^3/uL (4.0-10.0)
[2024-09-23] MEDS: METOCLOPRAMIDE INJ 10MG/2ML VIAL IV ONE (08:04)
[2024-09-23] MEDS: levETIRAcetam INJection 1,000 MG in D5W 100 ML IV ONE (08:04)
[2024-09-23] MEDS: NS 1,000 ML IV ONE (08:04)
[2024-09-23 08:12] LABS: ALBUMIN 4.9 G/DL (3.2-5.2); ALKALINE PHOSPHATASE 97 U/L (40-129); ALT/SGPT 127 U/L (7.0-40); AST/SGOT 211 U/L (<34); BILIRUBIN,DIRECT 0.3 MG/DL (<0.4); BILIRUBIN,TOTAL 1.3 MG/DL (0.3-1.2); BLOOD UREA NITROGEN 13 MG/DL (9-23); CALCIUM LEVEL 10.6 MG/DL (8.5-10.1); CARBON DIOXIDE LEVEL 12 MMOL/L (20-31); CHLORIDE LEVEL 96 MMOL/L (98-107); CREATININE FOR GFR 0.83 MG/DL (0.70-1.30); GLOMERULAR FILTRATION RATE > 60.0 (>60); GLUCOSE, FASTING 150 MG/DL (60-100); LIPASE 80 U/L (12-53); SODIUM LEVEL 138 MMOL/L (136-145); TOTAL PROTEIN 9.4 G/DL (5.7-8.2)
[2024-09-23] MEDS ORDERED: ONDA-282 PO (08:23)
[2024-09-23] MEDS ORDERED: HOME MED LIST COMPLETE! XX SCH (08:25)
[2024-09-23 08:31] VITALS: TEMP 99.6
[2024-09-23] MEDS: LORazepam 2 MG TAB PO PRN (08:43)
[2024-09-23] MEDS: THIAMINE 100 MG TAB PO SCH (08:43)
[2024-09-23] MEDS: MULTIVITAMINS/MINERALS THERAP 1 TAB PO SCH (08:43)
[2024-09-23] MEDS: FOLIC ACID 1MG TAB PO SCH (08:43)
[2024-09-23 11:41] LABS: HEMATOCRIT 40.9 % (42.0-52.0); MEAN CORPUSCULAR VOLUME 108.8 fl (80.0-96.0); PLATELET COUNT, AUTOMATED 143 10^3/uL (150-450); RED BLOOD COUNT 3.76 10^6/uL (4.30-6.10); WHITE BLOOD COUNT 21.6 10^3/uL (4.0-10.0)
[2024-09-23 11:49] LABS: HEMOGLOBIN 14.3 g/dl (13.5-17.5)
[2024-09-23 12:45] VITALS: BP 162/90
[2024-09-23 12:50] VITALS: O2SAT 100
[2024-09-23 13:44] LABS: BLOOD UREA NITROGEN 11 MG/DL (9-23); CALCIUM LEVEL 9.8 MG/DL (8.5-10.1); CARBON DIOXIDE LEVEL 21 MMOL/L (20-31); CHLORIDE LEVEL 103 MMOL/L (98-107); CREATININE FOR GFR 0.71 MG/DL (0.70-1.30); GLOMERULAR FILTRATION RATE > 60.0 (>60); GLUCOSE, FASTING 135 MG/DL (60-100); POTASSIUM SERUM 4.1 MMOL/L (3.5-5.1); SODIUM LEVEL 138 MMOL/L (136-145)
== END 2024-09-23 13:00 | disposition left against medical advice (07) ==
LOC: M ED 06:19
DX: G40.909 Epilepsy, unspecified, not intractable, without status epilepticus (principal); I45.10 Unspecified right bundle-branch block; F12.10 Cannabis abuse, uncomplicated; Z79.83 Long term (current) use of bisphosphonates; Z79.899 Other long term (current) drug therapy; Z53.9 Procedure and treatment not carried out, unspecified reason
CPT/HCPCS: 36415; 80048; 80076; 80164; 80177; 83605; 83690; 84132; 85025; 85027; 93005; 96361; 96365; 96375; 99285; J1953; J2765

== ENCOUNTER 2024-10-19 23:56 | Emergency (ER) | payer MEDICAID, OTHER ==
[~2024-10-19] VITALS: Ht 160 cm; Wt 69.8 kg
[~2024-10-19 23:56] MED LIST changes: -LACT10SO3 PO; +LACT10SO94 PO
[2024-10-20] MEDS: ONDANSETRON 4MG 2ML VIAL IV ONE (01:07)
[2024-10-20 01:11] VITALS: O2SAT 94
[2024-10-20 01:12] LABS: VENOUS BASE EXCESS 0.5 (-2.0-2.0); VENOUS HCO3 22.9 MMOL/L (23.0-27.0); VENOUS O2 SATURATION 91.5 % (60.0-80.0); VENOUS PARTIAL PRESSURE CO2 31.4 mmHg (38.0-50.0); VENOUS PARTIAL PRESSURE O2 60.2 mmHg (30.0-50.0); VENOUS STANDARD HCO3 24.7 MMOL/L; VENOUS TOTAL CO2 23.8 MMOL/L (24.0-28.0)
[2024-10-20 01:15] LABS: IONIZED CALCIUM 4.5 MG/DL (4.5-5.3)
[2024-10-20 01:15] LABS: AMPHETAMINES LEVEL URINE NEGATIVE (NEGATIVE); BARBITURATES URINE NEGATIVE (NEGATIVE); BENZODIAZEPINES URINE NEGATIVE (NEGATIVE); COCAINE METABOLITE URINE NEGATIVE (NEGATIVE); METHADONE URINE NEGATIVE (NEGATIVE); OPIATES URINE NEGATIVE (NEGATIVE); PHENCYCLIDINE URINE NEGATIVE (NEGATIVE)
[2024-10-20 01:19] LABS: BASO # 0.1 10^3/uL (0.0-0.2); BASO % 0.5 % (0.0-1.0); EOS % 0.4 % (0.0-3.0); HEMATOCRIT 43.4 % (42.0-52.0); HEMOGLOBIN 15.4 g/dl (13.5-17.5); LYMPH # 0.9 10^3/uL (1.5-5.0); LYMPH % 7.7 % (24.0-44.0); MEAN CORPUSCULAR HEMOGLOBIN 37.9 pg (27.0-33.0); MEAN CORPUSCULAR HGB CONC 35.5 g/dl (32.0-36.5); MEAN CORPUSCULAR VOLUME 106.9 fl (80.0-96.0); MONO # 1.2 10^3/uL (0.0-0.8); MONO % 10.2 % (2.0-8.0); NEUTROPHILS # 9.1 10^3/uL (1.5-8.5); NEUTROPHILS % 80.4 % (36.0-66.0); PLATELET COUNT, AUTOMATED 131 10^3/uL (150-450); RED BLOOD COUNT 4.06 10^6/uL (4.30-6.10); WHITE BLOOD COUNT 11.3 10^3/uL (4.0-10.0)
[2024-10-20] MEDS ORDERED: LORazepam 2 MG TAB PO PRN (01:25)
[2024-10-20 01:31] LABS: CANNABINOIDS URINE POSITIVE (NEGATIVE)
[2024-10-20 01:40] LABS: ALKALINE PHOSPHATASE 117 U/L (40-129); ALT/SGPT 60 U/L (7.0-40); AST/SGOT 65 U/L (<34); BILIRUBIN,DIRECT 0.4 MG/DL (<0.4); BILIRUBIN,TOTAL 1.3 MG/DL (0.3-1.2); BLOOD UREA NITROGEN 9 MG/DL (9-23); CALCIUM LEVEL 9.7 MG/DL (8.5-10.1); CARBON DIOXIDE LEVEL 22 MMOL/L (20-31); CHLORIDE LEVEL 99 MMOL/L (98-107); GLOMERULAR FILTRATION RATE > 60.0 (>60); GLUCOSE, FASTING 136 MG/DL (60-100); MAGNESIUM LEVEL 1.5 MG/DL (1.8-2.4); PHOSPHORUS LEVEL 1.3 MG/DL (2.5-4.9); POTASSIUM SERUM 3.5 MMOL/L (3.5-5.1); SODIUM LEVEL 136 MMOL/L (136-145); TOTAL PROTEIN 8.1 G/DL (5.7-8.2)
[2024-10-20 01:43] LABS: ETHYL ALCOHOL (ETHANOL) < 0.003 % (0.000-0.010)
[2024-10-20] MEDS: NS (Normal Saline) 0.9% 1,000 ML IV ONE (01:52)
[2024-10-20] MEDS: LORazepam 2 MG/ML 1ML VIAL IV STA (01:52)
[2024-10-20 01:57] VITALS: TEMP 98.6
[2024-10-20] MEDS: levETIRAcetam INJection 1,500 MG in D5W 100 ML IV ONE (02:47)
[2024-10-20] MEDS: HALOPERIDOL LACTATE 5MG/ML VIAL IV ONE (02:49)
[2024-10-20] MEDS: MAG SULF 1GM/100ML (MAG RUN) 1 GM in IV 1 EA IV ONE (03:16)
[2024-10-20 04:30] VITALS: BP 120/82
[2024-10-20] MEDS ORDERED: OXAZ30CA2 PO (04:45)
[2024-10-20] MEDS: OXAZEPAM 15MG CAP PO ONE (04:48)
[2024-10-20] MEDS ORDERED: MULTIVITAMINS/MINERALS THERAP 1 TAB PO SCH (09:00)
[2024-10-20] MEDS ORDERED: FOLIC ACID 1MG TAB PO SCH (09:00)
[2024-10-20] MEDS ORDERED: THIAMINE 100 MG TAB PO SCH (09:00)
== END 2024-10-20 05:13 | disposition home or self-care (01) ==
LOC: M ED 23:56
DX: F10.231 Alcohol dependence with withdrawal delirium (principal); F12.10 Cannabis abuse, uncomplicated; R00.0 Tachycardia, unspecified; I45.10 Unspecified right bundle-branch block; I45.81 Long QT syndrome; F17.200 Nicotine dependence, unspecified, uncomplicated; Z79.83 Long term (current) use of bisphosphonates; Z79.899 Other long term (current) drug therapy
CPT/HCPCS: 71045; 80048; 80076; 80177; 80307; 82077; 82330; 82803; 83605; 83735; 84100; 85025; 87486; 87581; 87633; 87798; 93005; 93041; 94760; 96361; 96365; 96366; 96375; 99285; J1630; J1953; J2060; J2405; J3475

== ENCOUNTER 2024-11-28 15:04 | Emergency (ER) | payer OTHER ==
[~2024-11-28 15:04] MED LIST changes: +OXAZ30CA2 PO
== END 2024-11-28 15:22 | disposition left against medical advice (07) ==
LOC: M ED 15:04 → EDBD 15:04 → M ED 15:22
DX: Z53.21 Procedure and treatment not carried out due to patient leaving prior to being seen by health care provider (principal)

== ENCOUNTER 2024-12-18 05:01 | Emergency (ER) | payer OTHER ==
[~2024-12-18] VITALS: Ht 165.1 cm; Wt 75.0 kg
[~2024-12-18 05:01] MED LIST changes: -SUMA6PEN3 SC; +SUMA6PEN5 SC
[2024-12-18] MEDS ORDERED: LORazepam 2 MG/ML 1ML VIAL As Ordered ONE (05:11)
[2024-12-18 05:19] VITALS: TEMP 96.2
[2024-12-18] MEDS: LORazepam 2 MG/ML 1ML VIAL IV STA ×2 (05:20)
[2024-12-18] MEDS ORDERED: LORazepam 2 MG TAB PO PRN (05:50)
[2024-12-18] MEDS ORDERED: levETIRAcetam INJection 1,500 MG in D5W 100 ML IV ONE (05:50)
[2024-12-18 06:05] LABS: KETONE, URINE AUTO RFX 2+ mg/dL (NEGATIVE); LEUKOCYTE ESTERASE UR AUTO RFX NEGATIVE (NEGATIVE); MUCUS, URINE RFX SMALL (NEGATIVE); NITRITE, URINE AUTO RFX NEGATIVE (NEGATIVE); RBC, URINE AUTO RFX 1 /HPF (0-3); SQUAM EPITHELIAL CELL UR AURFX 0 /HPF (0-6); WBC, URINE AUTO RFX 1 /HPF (0-3)
[2024-12-18 06:29] LABS: BASO # 0.1 10^3/uL (0.0-0.2); EOS # 0.1 10^3/uL (0.0-0.5); EOS % 0.8 % (0.0-3.0); HEMATOCRIT 47.7 % (42.0-52.0); HEMOGLOBIN 15.8 g/dl (13.5-17.5); LYMPH # 3.1 10^3/uL (1.5-5.0); LYMPH % 22.8 % (24.0-44.0); MEAN CORPUSCULAR HEMOGLOBIN 37.7 pg (27.0-33.0); MEAN CORPUSCULAR HGB CONC 33.1 g/dl (32.0-36.5); MEAN CORPUSCULAR VOLUME 113.8 fl (80.0-96.0); MONO # 2.4 10^3/uL (0.0-0.8); MONO % 17.3 % (2.0-8.0); NEUTROPHILS # 7.9 10^3/uL (1.5-8.5); NEUTROPHILS % 57.5 % (36.0-66.0); RED BLOOD COUNT 4.19 10^6/uL (4.30-6.10); WHITE BLOOD COUNT 13.7 10^3/uL (4.0-10.0)
[2024-12-18 06:32] LABS: AMPHETAMINES LEVEL URINE NEGATIVE (NEGATIVE); BARBITURATES URINE NEGATIVE (NEGATIVE); BENZODIAZEPINES URINE NEGATIVE (NEGATIVE); COCAINE METABOLITE URINE NEGATIVE (NEGATIVE); METHADONE URINE NEGATIVE (NEGATIVE); OPIATES URINE NEGATIVE (NEGATIVE); PHENCYCLIDINE URINE NEGATIVE (NEGATIVE)
[2024-12-18] MEDS: levETIRAcetam INJection 1,500 MG in D5W 100 ML IV ONE (06:32)
[2024-12-18 06:36] LABS: CANNABINOIDS URINE POSITIVE (NEGATIVE)
[2024-12-18 06:40] LABS: LIPASE 37 U/L (12-53)
[2024-12-18 06:41] LABS: ETHYL ALCOHOL (ETHANOL) 0.004 % (0.000-0.010)
[2024-12-18 06:43] LABS: ALBUMIN 4.3 G/DL (3.2-5.2); ALKALINE PHOSPHATASE 95 U/L (40-129); ALT/SGPT 101 U/L (7.0-40); AST/SGOT 141 U/L (<34); BILIRUBIN,TOTAL 1.4 MG/DL (0.3-1.2); BLOOD UREA NITROGEN 13 MG/DL (9-23); CALCIUM LEVEL 10.3 MG/DL (8.5-10.1); CARBON DIOXIDE LEVEL 14 MMOL/L (20-31); CHLORIDE LEVEL 95 MMOL/L (98-107); CREATININE FOR GFR 0.73 MG/DL (0.70-1.30); GLOMERULAR FILTRATION RATE > 60.0 (>60); GLUCOSE, FASTING 107 MG/DL (60-100); MAGNESIUM LEVEL 2.5 MG/DL (1.8-2.4); POTASSIUM SERUM 3.4 MMOL/L (3.5-5.1); SODIUM LEVEL 136 MMOL/L (136-145); TOTAL PROTEIN 8.4 G/DL (5.7-8.2)
[2024-12-18 08:30] VITALS: BP 152/77; O2SAT 99
[2024-12-18] MEDS ORDERED: VERA240T64 PO (08:42)
[2024-12-18] MEDS ORDERED: HOME MED LIST COMPLETE! XX SCH (08:45)
[2024-12-18] MEDS ORDERED: SUMA6CAR SC (08:49)
[2024-12-18] MEDS ORDERED: FOLIC ACID 1MG TAB PO SCH (09:00)
[2024-12-18] MEDS ORDERED: THIAMINE 100 MG TAB PO SCH (09:00)
[2024-12-18] MEDS ORDERED: MULTIVITAMINS/MINERALS THERAP 1 TAB PO SCH (09:00)
== END 2024-12-18 09:04 | disposition home or self-care (01) ==
LOC: EDBD 05:01 → M ED 05:01
DX: G40.909 Epilepsy, unspecified, not intractable, without status epilepticus (principal); M47.812 Spondylosis without myelopathy or radiculopathy, cervical region; F10.10 Alcohol abuse, uncomplicated; Z91.148 Patient's other noncompliance with medication regimen for other reason; R00.0 Tachycardia, unspecified; I45.10 Unspecified right bundle-branch block; I45.81 Long QT syndrome; Z79.899 Other long term (current) drug therapy; Z79.83 Long term (current) use of bisphosphonates
CPT/HCPCS: 36415; 70450; 71045; 72125; 80053; 80177; 80307; 81001; 82077; 83690; 83735; 85025; 93005; 96374; 96375; 99284; J1953; J2060

== ENCOUNTER 2025-01-12 09:08 | Inpatient (IN) | payer OTHER ==
[~2025-01-12] VITALS: Ht 162.6 cm; Wt 74.0 kg
[~2025-01-12 09:08] MED LIST changes: +SUMA6CAR SC; +VERA240T64 PO
[2025-01-12] MEDS: LORazepam 2 MG/ML 1ML VIAL IV STA ×2 (10:05→11:00)
[2025-01-12] MEDS: levETIRAcetam INJection 1,500 MG in IV 1 EA IV ONE (10:05)
[2025-01-12] MEDS: ONDANSETRON 4MG 2ML VIAL IV ONE (10:05)
[2025-01-12 10:25] LABS: BASO % 0.4 % (0.0-1.0); EOS % 0.1 % (0.0-3.0); HEMATOCRIT 42.7 % (42.0-52.0); HEMOGLOBIN 14.9 g/dl (13.5-17.5); LYMPH # 0.8 10^3/uL (1.5-5.0); LYMPH % 7.3 % (24.0-44.0); MEAN CORPUSCULAR HEMOGLOBIN 37.2 pg (27.0-33.0); MEAN CORPUSCULAR HGB CONC 34.9 g/dl (32.0-36.5); MEAN CORPUSCULAR VOLUME 106.5 fl (80.0-96.0); MONO # 1.7 10^3/uL (0.0-0.8); MONO % 15.9 % (2.0-8.0); NEUTROPHILS % 75.8 % (36.0-66.0); PLATELET COUNT, AUTOMATED 129 10^3/uL (150-450); RED BLOOD COUNT 4.01 10^6/uL (4.30-6.10); WHITE BLOOD COUNT 10.6 10^3/uL (4.0-10.0)
[2025-01-12 10:36] VITALS: TEMP 100.1
[2025-01-12 10:56] LABS: ETHYL ALCOHOL (ETHANOL) 0.007 % (0.000-0.010)
[2025-01-12 11:06] LABS: BLOOD UREA NITROGEN 17 MG/DL (9-23); CALCIUM LEVEL 9.7 MG/DL (8.5-10.1); CARBON DIOXIDE LEVEL 24 MMOL/L (20-31); CHLORIDE LEVEL 91 MMOL/L (98-107); GLOMERULAR FILTRATION RATE > 60.0 (>60); GLUCOSE, FASTING 175 MG/DL (60-100); POTASSIUM SERUM 2.7 MMOL/L (3.5-5.1); SODIUM LEVEL 138 MMOL/L (136-145)
[2025-01-12 12:08] LABS: MAGNESIUM LEVEL 1.2 MG/DL (1.8-2.4)
[2025-01-12] MEDS: MAG SULF 1GM/100ML (MAG RUN) 1 GM in IV 1 EA IV SCH (12:24)
[2025-01-12] MEDS: KCL 10MEQ/100ML SWI (KRUN) 10 MEQ in IV 1 EA IV ONE (13:55)
[2025-01-12] MEDS ORDERED: LORazepam 2 MG TAB PO PRN (14:00)
[2025-01-12] MEDS ORDERED: LORazepam 2 MG/ML 1ML VIAL IV PRN (14:00)
[2025-01-12] MEDS ORDERED: ISOVUE-370 76% 100ML VIAL As Ordered ONE (14:11)
[2025-01-12] MEDS ORDERED: HOME MED LIST COMPLETE! XX SCH (14:25)
[2025-01-12 14:45] LABS: C REACTIVE PROTEIN QUANTITATIV 3.2 MG/DL (<1.0)
[2025-01-12 14:49] LABS: POTASSIUM SERUM 2.6 MMOL/L (3.5-5.1)
[2025-01-12 14:58] LABS: PROCALCITONIN 0.3 ng/ml
[2025-01-12] MEDS: ONDANSETRON 4MG 2ML VIAL IV SCH (16:00)
[2025-01-12] MEDS: MULTIVITAMIN -ADULT INJECTION 10 ML, THIAMINE INJection 100 MG, FOLIC ACID 1 MG in NS (... IV ONE (16:43)
[2025-01-12 17:14] LABS: KETONE, URINE AUTO RFX 1+ mg/dL (NEGATIVE); LEUKOCYTE ESTERASE UR AUTO RFX NEGATIVE (NEGATIVE); MUCUS, URINE RFX SMALL (NEGATIVE); NITRITE, URINE AUTO RFX NEGATIVE (NEGATIVE); RBC, URINE AUTO RFX 3 /HPF (0-3); SQUAM EPITHELIAL CELL UR AURFX 0 /HPF (0-6); WBC, URINE AUTO RFX 2 /HPF (0-3)
[2025-01-12 17:40] LABS: AMPHETAMINES LEVEL URINE NEGATIVE (NEGATIVE); BARBITURATES URINE NEGATIVE (NEGATIVE); BENZODIAZEPINES URINE NEGATIVE (NEGATIVE); COCAINE METABOLITE URINE NEGATIVE (NEGATIVE); METHADONE URINE NEGATIVE (NEGATIVE); OPIATES URINE NEGATIVE (NEGATIVE); PHENCYCLIDINE URINE NEGATIVE (NEGATIVE)
[2025-01-12 17:42] LABS: CANNABINOIDS URINE POSITIVE (NEGATIVE)
[2025-01-12 18:00] VITALS: BP 121/60
[2025-01-12] MEDS ORDERED: OXAZEPAM 10MG CAP PO SCH (18:00)
[2025-01-12] MEDS: METOPROLOL TART 25 MG TABLET PO SCH (18:00)
[2025-01-12] MEDS ORDERED: LR 1,000 ML IV ONE (18:20)
[2025-01-12] MEDS ORDERED: MIDODRINE 5 MG TAB PO ONE (18:20)
[2025-01-12] MEDS ORDERED: CALCIUM GLUCONATE 1,000 MG in DEXTROSE 5% (D5W) MINI-BAG PLU 100 ML IV ONE (18:25)
[2025-01-12] MEDS ORDERED: POTASSIUM CHLORIDE 10MEQ SR TABLET PO SCH (18:30)
[2025-01-12 18:45] VITALS: BP 121/90; O2SAT 95
[2025-01-12 18:46] LABS: THYROXINE (T4) 7.9 UG/DL (4.5-10.9)
[2025-01-12 18:47] LABS: THYROID STIMULATING HORMONE 0.859 uIU/ML (0.55-4.78)
[2025-01-12 18:49] LABS: FREE THYROXINE INDEX 2.8 % (1.4-3.8); T UPTAKE 35.7 % (22.5-37.0)
[2025-01-12] MEDS ORDERED: KCL 40MEQ in NS 1000ML 1,000 ML IV SCH (19:00)
[2025-01-12 19:45] LABS: ALBUMIN 3.4 G/DL (3.2-5.2); BILIRUBIN,DIRECT 0.5 MG/DL (<0.4); BILIRUBIN,TOTAL 1.3 MG/DL (0.3-1.2); TOTAL PROTEIN 6.9 G/DL (5.7-8.2)
[2025-01-12] MEDS ORDERED: THIAMINE 100 MG TAB PO SCH (21:00)
[2025-01-12] MEDS ORDERED: levETIRAcetam INJection 1,500 MG in IV 1 EA IV SCH (21:00)
[2025-01-13] MEDS ORDERED: FOLIC ACID 1MG TAB PO SCH (09:00)
[2025-01-13] MEDS ORDERED: MULTIVITAMINS/MINERALS THERAP 1 TAB PO SCH (09:00)
[2025-01-13] MEDS ORDERED: ONDANSETRON 4MG 2ML VIAL IV PRN (10:01)
== END 2025-01-12 20:23 | disposition left against medical advice (07) | DRG 770 ==
LOC: M ED 09:08 → M ED INP 13:55
PROVIDERS: ADMIT General Practice; ATTEND General Practice
DX: F10.231 Alcohol dependence with withdrawal delirium (principal); J43.9 Emphysema, unspecified; K76.0 Fatty (change of) liver, not elsewhere classified; E83.42 Hypomagnesemia; E83.51 Hypocalcemia; G40.909 Epilepsy, unspecified, not intractable, without status epilepticus; F41.9 Anxiety disorder, unspecified; F32.A Depression, unspecified; G44.009 Cluster headache syndrome, unspecified, not intractable; R91.8 Other nonspecific abnormal finding of lung field; E87.6 Hypokalemia; R59.0 Localized enlarged lymph nodes; Z79.899 Other long term (current) drug therapy; Z91.148 Patient's other noncompliance with medication regimen for other reason

== ENCOUNTER 2025-02-19 22:23 | Emergency (ER) | payer MEDICAID, OTHER ==
[~2025-02-19] VITALS: Ht 160 cm; Wt 153.0 kg
[2025-02-19 22:39] VITALS: BP 138/101; TEMP 98; O2SAT 95
== END 2025-02-19 23:19 | disposition left against medical advice (07) ==
LOC: EDBD 22:23 → M ED 22:23
DX: Z53.21 Procedure and treatment not carried out due to patient leaving prior to being seen by health care provider (principal)

== ENCOUNTER 2025-02-20 11:06 | Emergency (ER) | payer OTHER ==
[~2025-02-20] VITALS: Ht 160 cm; Wt 66.4 kg
[~2025-02-20 11:06] MED LIST changes: +FOLIC ACID 1MG TAB PO SCH; +MULTIVITAMINS/MINERALS THERAP 1 TAB PO SCH; +THIAMINE 100 MG TAB PO SCH
[2025-02-20 11:26] VITALS: BP 151/93; O2SAT 95
[2025-02-20] MEDS ORDERED: LORazepam 2 MG TAB PO PRN (11:35)
[2025-02-20 11:51] VITALS: TEMP 99.2
[2025-02-20 12:03] LABS: BASO # 0.1 10^3/uL (0.0-0.2); BASO % 0.6 % (0.0-1.0); EOS # 0.1 10^3/uL (0.0-0.5); EOS % 1.4 % (0.0-3.0); HEMATOCRIT 36.6 % (42.0-52.0); HEMOGLOBIN 13.2 g/dl (13.5-17.5); LYMPH # 0.8 10^3/uL (1.5-5.0); LYMPH % 8.6 % (24.0-44.0); MEAN CORPUSCULAR HEMOGLOBIN 37.9 pg (27.0-33.0); MEAN CORPUSCULAR HGB CONC 36.1 g/dl (32.0-36.5); MEAN CORPUSCULAR VOLUME 105.2 fl (80.0-96.0); MONO # 1.5 10^3/uL (0.0-0.8); MONO % 15.7 % (2.0-8.0); NEUTROPHILS # 7.1 10^3/uL (1.5-8.5); NEUTROPHILS % 72.9 % (36.0-66.0); PLATELET COUNT, AUTOMATED 106 10^3/uL (150-450); RED BLOOD COUNT 3.48 10^6/uL (4.30-6.10); WHITE BLOOD COUNT 9.7 10^3/uL (4.0-10.0)
[2025-02-20 13:26] LABS: AMPHETAMINES LEVEL URINE NEGATIVE (NEGATIVE); BARBITURATES URINE NEGATIVE (NEGATIVE); BENZODIAZEPINES URINE NEGATIVE (NEGATIVE); COCAINE METABOLITE URINE NEGATIVE (NEGATIVE); METHADONE URINE NEGATIVE (NEGATIVE); OPIATES URINE NEGATIVE (NEGATIVE); PHENCYCLIDINE URINE NEGATIVE (NEGATIVE)
[2025-02-20 13:27] LABS: CANNABINOIDS URINE POSITIVE (NEGATIVE)
== END 2025-02-20 12:35 | disposition left against medical advice (07) ==
LOC: M ED 11:06 → EDBD 11:06 → M ED 12:35
DX: G40.909 Epilepsy, unspecified, not intractable, without status epilepticus (principal); W01.198A Fall on same level from slipping, tripping and stumbling with subsequent striking against other object, initial encounter; F12.10 Cannabis abuse, uncomplicated; Y92.009 Unspecified place in unspecified non-institutional (private) residence as the place of occurrence of the external cause; Y93.89 Activity, other specified; Y99.9 Unspecified external cause status; Z79.899 Other long term (current) drug therapy; Z53.9 Procedure and treatment not carried out, unspecified reason

== ENCOUNTER 2025-03-25 17:26 | Emergency (ER) | payer OTHER ==
[~2025-03-25] VITALS: Ht 160 cm; Wt 68.2 kg
[2025-03-25] MEDS: MULTIVITAMINS/MINERALS THERAP 1 TAB PO SCH (09:00)
[2025-03-25] MEDS: FOLIC ACID 1MG TAB PO SCH (09:00)
[~2025-03-25 17:26] MED LIST changes: -FOLIC ACID 1MG TAB PO SCH; -MULTIVITAMINS/MINERALS THERAP 1 TAB PO SCH; -THIAMINE 100 MG TAB PO SCH
[2025-03-25 17:35] VITALS: TEMP 97.1
[2025-03-25] MEDS ORDERED: LORazepam 2 MG TAB PO PRN (18:05)
[2025-03-25] MEDS: METOCLOPRAMIDE INJ 10MG/2ML VIAL IV ONE (18:38)
[2025-03-25] MEDS: PANTOPRAZOLE 40MG VIAL IV ONE (18:38)
[2025-03-25] MEDS: NS (Normal Saline) 0.9% 1,000 ML IV ONE (18:38)
[2025-03-25 18:43] LABS: BASO # 0.1 10^3/uL (0.0-0.2); BASO % 0.7 % (0.0-1.0); HEMATOCRIT 42.3 % (42.0-52.0); HEMOGLOBIN 15.1 g/dl (13.5-17.5); LYMPH # 0.7 10^3/uL (1.5-5.0); LYMPH % 5.1 % (24.0-44.0); MEAN CORPUSCULAR HEMOGLOBIN 37.8 pg (27.0-33.0); MEAN CORPUSCULAR HGB CONC 35.7 g/dl (32.0-36.5); MEAN CORPUSCULAR VOLUME 105.8 fl (80.0-96.0); MONO % 7.8 % (2.0-8.0); NEUTROPHILS # 10.9 10^3/uL (1.5-8.5); NEUTROPHILS % 85.8 % (36.0-66.0); PLATELET COUNT, AUTOMATED 129 10^3/uL (150-450); WHITE BLOOD COUNT 12.7 10^3/uL (4.0-10.0)
[2025-03-25] MEDS: LORazepam 2 MG/ML 1ML VIAL IV STA ×2 (18:56→22:37)
[2025-03-25 19:13] LABS: ETHYL ALCOHOL (ETHANOL) 0.009 % (0.000-0.010); LIPASE 48 U/L (12-53)
[2025-03-25 19:15] LABS: ALBUMIN 4.5 G/DL (3.2-5.2); ALKALINE PHOSPHATASE 105 U/L (40-129); ALT/SGPT 49 U/L (7.0-40); AST/SGOT 102 U/L (<34); BILIRUBIN,DIRECT 0.5 MG/DL (<0.4); BILIRUBIN,TOTAL 1.5 MG/DL (0.3-1.2); BLOOD UREA NITROGEN 10 MG/DL (9-23); CALCIUM LEVEL 9.8 MG/DL (8.5-10.1); CARBON DIOXIDE LEVEL 16 MMOL/L (20-31); CHLORIDE LEVEL 96 MMOL/L (98-107); CREATININE FOR GFR 0.54 MG/DL (0.70-1.30); GLOMERULAR FILTRATION RATE > 90.0 (>60); GLUCOSE, FASTING 142 MG/DL (60-100); POTASSIUM SERUM 3.5 MMOL/L (3.5-5.1); SODIUM LEVEL 138 MMOL/L (136-145); TOTAL PROTEIN 8.1 G/DL (5.7-8.2)
[2025-03-25] MEDS: NS 0.9% IV ONE (19:55)
[2025-03-25] MEDS: [UNRECOGNIZED DRUG - OTHER] IV ONE (19:55)
[2025-03-25] MEDS ORDERED: ISOVUE-370 76% 100ML VIAL As Ordered ONE (19:59)
[2025-03-25 20:15] LABS: VENOUS BASE EXCESS -2.9 (-2.0-2.0); VENOUS HCO3 21.8 MMOL/L (23.0-27.0); VENOUS O2 SATURATION 93.5 % (60.0-80.0); VENOUS PARTIAL PRESSURE CO2 38.3 mmHg (38.0-50.0); VENOUS PARTIAL PRESSURE O2 74.7 mmHg (30.0-50.0); VENOUS PH 7.374 UNITS (7.330-7.430)
[2025-03-25 20:44] LABS: AMPHETAMINES LEVEL URINE NEGATIVE (NEGATIVE)
[2025-03-25 20:45] LABS: BARBITURATES URINE NEGATIVE (NEGATIVE); BENZODIAZEPINES URINE NEGATIVE (NEGATIVE); COCAINE METABOLITE URINE NEGATIVE (NEGATIVE); METHADONE URINE NEGATIVE (NEGATIVE); OPIATES URINE NEGATIVE (NEGATIVE); PHENCYCLIDINE URINE NEGATIVE (NEGATIVE)
[2025-03-25 20:46] LABS: CANNABINOIDS URINE POSITIVE (NEGATIVE)
[2025-03-25] MEDS: THIAMINE 100 MG TAB PO SCH (21:00)
[2025-03-25 21:40] LABS: OSMOLALITY SERUM 304 MOSM/KG (275-295)
[2025-03-25 21:56] LABS: ACETONE/KETONE > 4.50 MMOL/L (0.02-0.27)
[2025-03-25] MEDS: levETIRAcetam INJection 1,500 MG in IV 1 EA IV ONE (22:40)
[2025-03-26 00:16] LABS: BLOOD UREA NITROGEN 8 MG/DL (9-23); CARBON DIOXIDE LEVEL 24 MMOL/L (20-31); CHLORIDE LEVEL 103 MMOL/L (98-107); CREATININE FOR GFR 0.53 MG/DL (0.70-1.30); GLOMERULAR FILTRATION RATE > 90.0 (>60); GLUCOSE, FASTING 116 MG/DL (60-100); POTASSIUM SERUM 3.7 MMOL/L (3.5-5.1); SODIUM LEVEL 139 MMOL/L (136-145)
[2025-03-26 01:00] VITALS: BP 149/96; O2SAT 98
[2025-03-26] MEDS ORDERED: REGL10TA6 PO (01:07)
== END 2025-03-26 01:21 | disposition home or self-care (01) ==
LOC: M ED 17:26
DX: G40.909 Epilepsy, unspecified, not intractable, without status epilepticus (principal); R11.10 Vomiting, unspecified; J44.9 Chronic obstructive pulmonary disease, unspecified; F12.10 Cannabis abuse, uncomplicated; Z79.899 Other long term (current) drug therapy
CPT/HCPCS: 36415; 74177; 80048; 80076; 80307; 82010; 82077; 82803; 83605; 83690; 83930; 85025; 93005; 96361; 96374; 96375; 96376; 99284; J1953; J2060; J2470; J2765; Q9967

== ENCOUNTER 2025-06-30 20:21 | Emergency (ER) | payer OTHER ==
[~2025-06-30] VITALS: Ht 160 cm; Wt 68.2 kg
[~2025-06-30 20:21] MED LIST changes: +METO10TA2 PO
[2025-06-30 20:29] VITALS: TEMP 98.4
[2025-06-30 21:22] LABS: BASO # 0.2 10^3/uL (0.0-0.2); BASO % 1.6 % (0.0-1.0); EOS # 0.0 10^3/uL (0.0-0.5); EOS % 0.3 % (0.0-3.0); LYMPH # 1.0 10^3/uL (1.5-5.0); LYMPH % 11.0 % (24.0-44.0); MONO # 1.0 10^3/uL (0.0-0.8); MONO % 11.0 % (2.0-8.0); NEUTROPHILS # 7.0 10^3/uL (1.5-8.5); NEUTROPHILS % 74.7 % (36.0-66.0); PLATELET COUNT, AUTOMATED 135 10^3/uL (150-450)
[2025-06-30] MEDS: levETIRAcetam INJection 1,500 MG in IV 1 EA IV ONE (21:39)
[2025-06-30] MEDS: NS (Normal Saline) 0.9% 1,000 ML IV ONE (21:39)
[2025-06-30 22:29] LABS: ETHYL ALCOHOL (ETHANOL) < 0.003 % (0.000-0.010)
[2025-06-30 22:31] LABS: ALT/SGPT 54 U/L (7.0-40); AST/SGOT 151 U/L (<34); CALCIUM LEVEL 9.3 MG/DL (8.5-10.1); CARBON DIOXIDE LEVEL 22 MMOL/L (20-31); CHLORIDE LEVEL 98 MMOL/L (98-107); CREATININE FOR GFR 0.50 MG/DL (0.70-1.30); GLOMERULAR FILTRATION RATE > 90.0 (>60); MAGNESIUM LEVEL 1.3 MG/DL (1.8-2.4); PHOSPHORUS LEVEL 1.8 MG/DL (2.5-4.9); POTASSIUM SERUM 4.3 MMOL/L (3.5-5.1); SODIUM LEVEL 141 MMOL/L (136-145)
[2025-07-01] MEDS ORDERED: HOME MED LIST COMPLETE! XX SCH (00:15)
[2025-07-01 00:35] VITALS: BP 133/88
[2025-07-01] MEDS: MAG SULF 1GM/100ML (MAG RUN) 1 GM in IV 1 EA IV ONE (00:35)
[2025-07-01] MEDS: VERAPAMIL 120MG SR TAB PO STA (00:35)
[2025-07-01] MEDS: SODIUM PHOSPHATE INJ 20 MMOL in D5W 250 ML IV ONE (01:37)
[2025-07-01 02:51] VITALS: BP 134/87
[2025-07-01 04:51] VITALS: O2SAT 98
== END 2025-07-01 06:13 | disposition home or self-care (01) ==
LOC: M ED 20:21 → EDBD 20:21 → M ED 07-01 06:13
DX: G40.909 Epilepsy, unspecified, not intractable, without status epilepticus (principal); R11.2 Nausea with vomiting, unspecified; E83.42 Hypomagnesemia; E83.39 Other disorders of phosphorus metabolism; R51.9 Headache, unspecified; Z79.899 Other long term (current) drug therapy
CPT/HCPCS: 70450; 80048; 80076; 80177; 82077; 82140; 82330; 83605; 83735; 84100; 85025; 93005; 96374; 96375; 99285; J1953; J2060; J2765; J3475

== ENCOUNTER 2025-07-27 19:45 | Emergency (ER) | payer OTHER ==
[~2025-07-27] VITALS: Ht 172.7 cm; Wt 69.8 kg
[2025-07-27 19:55] VITALS: TEMP 97.3
[2025-07-27 20:42] LABS: BASO # 0.2 10^3/uL (0.0-0.2); BASO % 1.8 % (0.0-1.0); EOS # 0.1 10^3/uL (0.0-0.5); EOS % 1.3 % (0.0-3.0); LYMPH # 4.2 10^3/uL (1.5-5.0); LYMPH % 41.6 % (24.0-44.0); MONO # 1.5 10^3/uL (0.0-0.8); MONO % 15.0 % (2.0-8.0); NEUTROPHILS # 4.0 10^3/uL (1.5-8.5); NEUTROPHILS % 39.7 % (36.0-66.0); PLATELET COUNT, AUTOMATED 114 10^3/uL (150-450)
[2025-07-27] MEDS: NS (Normal Saline) 0.9% 1,000 ML IV ONE (20:58)
[2025-07-27] MEDS: levETIRAcetam INJection 1,500 MG in IV 1 EA IV ONE (20:59)
[2025-07-27 22:15] VITALS: O2SAT 95
[2025-07-27 22:30] VITALS: BP 142/115
[2025-07-27] MEDS: CALCIUM GLUCONATE 1,000 MG in DEXTROSE 5% (D5W) MINI-BAG PLU 100 ML IV ONE (23:38)
[2025-07-27] MEDS ORDERED: HOME MED LIST COMPLETE! XX SCH (23:55)
[2025-07-28 00:44] LABS: ALT/SGPT 68 U/L (7.0-40); AST/SGOT 238 U/L (<34); CALCIUM LEVEL 8.2 MG/DL (8.5-10.1); CARBON DIOXIDE LEVEL 22 MMOL/L (20-31); CHLORIDE LEVEL 102 MMOL/L (98-107); CREATININE FOR GFR 0.54 MG/DL (0.70-1.30); GLOMERULAR FILTRATION RATE > 90.0 (>60); MAGNESIUM LEVEL 1.8 MG/DL (1.8-2.4); PHOSPHORUS LEVEL 2.6 MG/DL (2.5-4.9); POTASSIUM SERUM 3.6 MMOL/L (3.5-5.1); SODIUM LEVEL 144 MMOL/L (136-145)
[2025-07-28 01:04] LABS: ETHYL ALCOHOL (ETHANOL) 0.530 % (0.000-0.010)
== END 2025-07-28 00:30 | disposition left against medical advice (07) ==
LOC: M ED 19:45
DX: G40.909 Epilepsy, unspecified, not intractable, without status epilepticus (principal); G43.909 Migraine, unspecified, not intractable, without status migrainosus; F10.20 Alcohol dependence, uncomplicated; I45.10 Unspecified right bundle-branch block; I45.81 Long QT syndrome; F17.200 Nicotine dependence, unspecified, uncomplicated; Z79.899 Other long term (current) drug therapy; Z53.9 Procedure and treatment not carried out, unspecified reason
CPT/HCPCS: 36415; 70450; 71045; 80048; 80076; 80177; 82077; 82140; 82330; 83605; 83735; 84100; 85025; 93005; 93041; 94760; 96374; 96375; 99285; J0612; J1953

== ENCOUNTER 2025-07-30 23:37 | Emergency (ER) | payer OTHER ==
[~2025-07-30] VITALS: Ht 160 cm; Wt 68.2 kg
[2025-07-31] MEDS: levETIRAcetam INJection 1,500 MG in IV 1 EA IV ONE (01:10)
[2025-07-31] MEDS: NS (Normal Saline) 0.9% 1,000 ML IV ONE ×2 (01:11→02:43)
[2025-07-31 01:17] LABS: VENOUS BASE EXCESS 1.1 (-2.0-2.0); VENOUS HCO3 24.2 MMOL/L (23.0-27.0); VENOUS O2 SATURATION 90.1 % (60.0-80.0); VENOUS PARTIAL PRESSURE CO2 34.2 mmHg (38.0-50.0); VENOUS PARTIAL PRESSURE O2 57.6 mmHg (30.0-50.0); VENOUS PH 7.468 UNITS (7.330-7.430); VENOUS STANDARD HCO3 25.2 MMOL/L; VENOUS TOTAL CO2 25.3 MMOL/L (24.0-28.0)
[2025-07-31 01:26] LABS: BASO # 0.1 10^3/uL (0.0-0.2); BASO % 1.0 % (0.0-1.0); EOS # 0.0 10^3/uL (0.0-0.5); EOS % 0.1 % (0.0-3.0); LYMPH # 0.7 10^3/uL (1.5-5.0); LYMPH % 8.2 % (24.0-44.0); MONO # 1.0 10^3/uL (0.0-0.8); MONO % 11.7 % (2.0-8.0); NEUTROPHILS # 6.9 10^3/uL (1.5-8.5); NEUTROPHILS % 78.5 % (36.0-66.0)
[2025-07-31 01:47] LABS: ALT/SGPT 61 U/L (7.0-40); AST/SGOT 187 U/L (<34); CALCIUM LEVEL 10.0 MG/DL (8.5-10.1); CARBON DIOXIDE LEVEL 26 MMOL/L (20-31); CHLORIDE LEVEL 93 MMOL/L (98-107); CREATININE FOR GFR 0.51 MG/DL (0.70-1.30); GLOMERULAR FILTRATION RATE > 90.0 (>60); MAGNESIUM LEVEL 1.5 MG/DL (1.8-2.4); PHOSPHORUS LEVEL 1.4 MG/DL (2.5-4.9); POTASSIUM SERUM 3.5 MMOL/L (3.5-5.1); SODIUM LEVEL 138 MMOL/L (136-145)
[2025-07-31 01:53] LABS: PLATELET COUNT, AUTOMATED 74 10^3/uL (150-450)
[2025-07-31] MEDS: MAG SULF 1GM/100ML (MAG RUN) 1 GM in IV 1 EA IV ONE ×2 (02:42→03:49)
[2025-07-31 03:36] LABS: ETHYL ALCOHOL (ETHANOL) < 0.003 % (0.000-0.010)
[2025-07-31] MEDS: SODIUM PHOSPHATE INJ 30 MMOL in D5W 500 ML IV ONE (04:57)
[2025-07-31 09:15] VITALS: BP 162/91; O2SAT 97
[2025-07-31 09:23] VITALS: TEMP 98.1
== END 2025-07-31 09:32 | disposition home or self-care (01) ==
LOC: M ED 23:37
DX: G40.909 Epilepsy, unspecified, not intractable, without status epilepticus (principal); E86.0 Dehydration; E83.42 Hypomagnesemia; E83.39 Other disorders of phosphorus metabolism; G43.909 Migraine, unspecified, not intractable, without status migrainosus; F10.10 Alcohol abuse, uncomplicated; Z79.899 Other long term (current) drug therapy
CPT/HCPCS: 80048; 80076; 80177; 82077; 82140; 82330; 82803; 83605; 83735; 84100; 85025; 85049; 85055; 93041; 94760; 96365; 96366; 96367; 99285; J1953; J3475

== ENCOUNTER 2025-08-07 01:07 | Emergency (ER) | payer OTHER ==
[~2025-08-07] VITALS: Ht 162.6 cm; Wt 70.5 kg
[2025-08-07 01:12] VITALS: BP 120/73; TEMP 97.2; O2SAT 97
[2025-08-07] MEDS ORDERED: levETIRAcetam INJection 1,500 MG in IV 1 EA IV ONE (01:20)
[2025-08-07 01:34] LABS: VENOUS BASE EXCESS 6.3 (-2.0-2.0); VENOUS HCO3 31.2 MMOL/L (23.0-27.0); VENOUS O2 SATURATION 97.2 % (60.0-80.0); VENOUS PARTIAL PRESSURE CO2 45.8 mmHg (38.0-50.0); VENOUS PARTIAL PRESSURE O2 102.5 mmHg (30.0-50.0); VENOUS PH 7.451 UNITS (7.330-7.430); VENOUS STANDARD HCO3 30.1 MMOL/L; VENOUS TOTAL CO2 32.6 MMOL/L (24.0-28.0)
[2025-08-07 01:50] LABS: PLATELET COUNT, AUTOMATED 326 10^3/uL (150-450)
[2025-08-07 02:57] LABS: BASOPHILS 1 % (0-1); EOSINOPHILS 7 % (0-3); LYMPHOCYTES 42 % (16-44); METAMYELOCYTES 1 % (0-0); MONOCYTES 15 % (0-5); NEUTROPHILS 31 % (28-66)
[2025-08-07 03:00] LABS: PLATELET ESTIMATE NORMAL (NORMAL)
== END 2025-08-07 01:47 | disposition left against medical advice (07) ==
LOC: M ED 01:07
DX: G40.909 Epilepsy, unspecified, not intractable, without status epilepticus (principal); F10.10 Alcohol abuse, uncomplicated; M50.30 Other cervical disc degeneration, unspecified cervical region; Z79.899 Other long term (current) drug therapy; Z53.9 Procedure and treatment not carried out, unspecified reason